=== PATIENT | female | born 1935 | race Caucasian/White ===

== ENCOUNTER 2019-01-17 21:14 | Inpatient (IN) ==
[2019-01-17] MEDS ORDERED: SODIUM CHLORIDE 0.9% 500 ML IV SCH (21:45)
[2019-01-17] MEDS ORDERED: OPTIRAY 320 125ml IV PRN (22:11)
[2019-01-17 22:13] LABS: Alanine Aminotransferase 23 U/L (12-78); Albumin Level 4.2 gm/dl (3.4-5.0); Aspartate Aminotransferase 27 U/L (15-37); BUN Creatinine Ratio 17.9 (10-20); Blood Urea Nitrogen 26 mg/dl (7-18); Calcium 9.5 mg/dl (8.5-10.1); Carbon Dioxide 23 mmol/L (21-32); Chloride 105 mmol/L (98-107); Creatinine Clr Calc Pharmacy 27.6 ml/min; Est GFR (African American) 38.5; Est GFR (Non-African American) 33.2; Glucose 147 mg/dl (70-99); INR 1.1 (0.9-1.1); Magnesium 1.8 mg/dl (1.8-2.4); Partial Thromboplastin Time 25.8 Seconds (21.0-31.0); Potassium 3.9 mmol/L (3.5-5.1); Prothrombin Time 11.3 Seconds (9.0-12.0); Sodium 138 mmol/L (136-145)
[2019-01-17 22:18] LABS: Alkaline Phosphatase 103 U/L (45-117); Bilirubin,Total 0.5 mg/dl (0.2-1); Globulin 4.4 gm/dl (2.5-4.0); Total Protein 8.6 gm/dl (6.4-8.2); Troponin I < 0.015 ng/ml (0-0.045)
--- NOTE | 2019-01-17 22:26 | CT Scan Report ---
CT ANGIOGRAM OF THE CHEST CLINICAL HISTORY: Cough and dyspnea. COMPARISON STUDY: Chest x-ray dated 07/29/2016. TECHNIQUE: Following the IV administration of 120 cc of Optiray 320, CT angiogram of the chest was pe rformed from the upper abdomen to the thoracic inlet utilizing the pulmonary embolus protocol. Images are reviewed in the axial, sagittal, and coronal planes. 3-D MIPS images are created and assessed. I V contrast was administered without complication. A dose lowering technique was utilized adhering to the principles of ALARA. CT DOSE: 285.54 mGy.cm FINDINGS: Thyroid: Imaged portions of the thyroid gland are normal in size and attenuation. Thoracic aorta: There is mild atherosclerotic calcification of the thoracic aorta, which is normal in caliber and demonstrates standard 3-vessel arch anatomy. No dissection is seen. Pulmonary vasculature: The pulmonary trunk is normal in caliber. There are no filling defects identif ied in main, lobar, or segmental pulmonary branches to suggest pulmonary embolus. Heart: The heart is mildly enlarged and without pericardial effusion. There are coronary artery calci fications. Lungs and pleural spaces: There is biapical scarring. The trachea and central airways are clear. Ther e is bibasilar scarring/atelectasis. Minimal patchy airspace consolidation with tree-in-bud opacities is seen at the right lung base. No pleural effusion is identified. Mediastinum: There are scattered subcentimeter mediastinal lymph nodes. Liz: Clear. Axillae: There is no axillary lymphadenopathy. Upper abdomen: There is a small to moderate hiatal hernia. The partially imaged kidneys demonstrate c ortical atrophy. Skeletal structures: The skeletal structures are osteopenic. Mild degenerative change and hyperkyphos is are noted in the thoracic spine. A hemangioma is noted in the body of T5. No lytic or blastic bony lesions are seen. IMPRESSION: 1. There is no evidence of pulmonary embolus in the main, lobar, or segmental pulmonary arteries. 2. There is minimal patchy airspace consolidation with tree-in-bud opacities seen at the right lung b ase. This likely represents a mild infectious/inflammatory pneumonitis. Clinical correlation will be required. 3. Mild cardiac enlargement. 4. Hiatal hernia. Electronically signed by: Kong Proctor M.D. 01/17/2019 10:25 PM
[2019-01-17 22:27] LABS: Hematocrit (blood only) 25.9 % (37-47); Hemoglobin 8.7 g/dL (12.0-16.0); Mean Corpuscular Hgb Conc 33.6 g/dL (32-36); Mean Corpuscular Volume 106.1 fL (80-100); Mean Platelet Volume 9.7 fL (7.4-10.4); Nucleated RBC # (auto) 0.06 K/uL (0-0); Nucleated RBC % (auto) 0.1 %; Platelet Count 122 K/uL (130-400); RDW Coefficient of Variation 18.7 % (11.5-14.5); RDW Standard Deviation 71.1 fL (36.4-46.3); Red Blood Count 2.44 M/uL (4.2-5.4)
[2019-01-17] MEDS ORDERED: AZITHROMYCIN 250 MG TAB PO ONE (22:33)
[2019-01-17] MEDS ORDERED: cefTRIAXone SODIUM 1,000 MG/50 ML BAG IV STA (22:33)
[2019-01-17 22:59] LABS: ALC (manual) 3.53 K/uL (1.2-3.4); Anisocytosis Present; Lymphocytes # (manual) 3.53 K/uL (1.2-3.4); Lymphocytes % (manual) 4.2 %; Metamyelocytes # (manual) 8.83 K/uL (0-0); Metamyelocytes % (manual) 10.5 %; Monocytes # (manual) 6.64 K/uL (0.11-0.59); Monocytes % (manual) 7.9 %; Myelocytes # (manual) 4.96 K/uL (0-0); Myelocytes % (manual) 5.9 %; Neutrophils % (manual) 71.5 %
[2019-01-17] MEDS ORDERED: ALBUT/IPRATROP 3MG/0.5MG NEB 3 ML VIAL NEB STA (23:10)
--- NOTE | 2019-01-17 23:10 | Emergency Department Note ---
History of Present Illness General Chief complaint: Referred by Doctor Stated complaint: NEEDS BLOOD TRANSFUSION History of Present Illness Maximum Pain Intensity: 0 This 83-year-old presents to the ER complaining of cough, congestion and dyspnea Location: Chest Quality: congested Severity: Moderate Duration: Past several days Timing: Started several days ago Context: Patient was at [facility] and was sent here for further evaluation and treatment Modifying factors: better with nothing; worse with activity Patient has a history of leukemia and is on Hydrea and denies any active cancer. Patient states [facility] and did give her blood transfusion and patient refused. She then came here. Patient states long time she gets transfused when she is below 7. Blood counts at the other facility are 8.3 and 27 per patient. Patient states she feels sick like she is getting pneumonia. No fever. Patient denies chest pain, abdominal pain, leg pain or swelling, fever. Home Medications Home Medications Medication Instructions Recorded Confirmed Type allopurinol 300 mg PO QAM #0 tab 07/29/16 01/18/19 History acetaminophen 1,000 mg PO Q8H PRN 06/29/18 01/17/19 History hydroxyurea [Hydrea] 500 mg PO QAM 11/27/18 01/18/19 History Robitussin Cough-Chest Ivan DM 20 ml PO UD PRN 01/17/19 01/17/19 History amlodipine 10 mg PO QAM 01/17/19 01/17/19 History Lactobacillus acidoph-L.bulgar 1 tab PO BID #20 tab 01/18/19 Rx [Lactinex] PreserVision AREDS 1 cap PO BID 01/18/19 01/18/19 History cephalexin [Keflex] 500 mg PO BID 7 Days #14 cap 01/18/19 Rx doxycycline hyclate 100 mg PO BID 7 Days #14 cap 01/18/19 Rx Allergies Allergy/AdvReac Type Severity Reaction Status Date / Time morphine AdvReac Unknown NAUSEA AND Verified 01/17/19 21:40 VOMITING Past Med/Surg History Medical History Gout (Acute) H/O: hysterectomy (Acute) Urinary incontinence (Acute) MDS (myelodysplastic syndrome) Surgical History H/O bladder repair surgery (Acute) H/O carpal tunnel repair (Acute) right hand H/O total knee replacement (Acute) bilateral Social History Communication Ability: Effective Beliefs That Will Affect Care: None Current Living Situation: Spouse Other Information That Helps Us Care for You: No Feels Safe at Home: Yes Safety Concerns: Feels Safe At This Time Smoking Status: Never smoker Hx Alcohol Use: No Hx Substance Use: No Review of Systems All systems reviewed & are unremarkable except as noted in HPI & below Physical Exam Vital Signs Vital Signs - 24 hr 01/17/19 21:18 01/17/19 22:34 01/17/19 23:05 Temperature 36.6 C 36.7 C Temperature Source Oral Oral Sepsis Recent Fever Within 48 Hours No Sepsis Action Taken by Nursing No Action Required Pulse Rate 123 H Pulse Rate [Apical] 100 H 104 H Pulse Rhythm [Apical] Regular Pulse Strength [Apical] Normal Respiratory Rate 18 18 20 Respiratory Effort / Characteristics Non-Labored Non-Labored Spontaneous Respiratory Depth Normal Normal Blood Pressure 188/89 H Blood Pressure [Right Arm] 132/76 168/78 H Blood Pressure Mean 122 Blood Pressure Mean [Right Arm] 94 108 Pulse Oximetry 96 94 95 Oxygen Delivery Method Room Air Room Air Room Air 01/17/19 23:22 Temperature Temperature Source Sepsis Recent Fever Within 48 Hours Sepsis Action Taken by Nursing Pulse Rate Pulse Rate [Apical] 102 H Pulse Rhythm [Apical] Pulse Strength [Apical] Respiratory Rate 18 Respiratory Effort / Characteristics Non-Labored Respiratory Depth Blood Pressure Blood Pressure [Right Arm] Blood Pressure Mean Blood Pressure Mean [Right Arm] Pulse Oximetry 95 Oxygen Delivery Method Room Air VITALS: Vitals are noted on the nurse's note and reviewed by myself. Vital signs mildly tachycardic. GENERAL: Pleasant female anxious appearing, in no acute distress, nondiaphoretic, well-developed well-nourished. SKIN: The skin was without rashes, erythema, edema, or bruising. There is no tenting of the skin. Capillary reflex less than 2 seconds. HEAD: Normocephalic atraumatic. EARS: External auditory canals clear, tympanic membranes pearly sapp without erythema or effusion bilaterally. EYES: Pupils equal round and reactive to light and accommodation. Conjunctivae without injection, sclerae without icterus. Extraocular movements intact. NOSE: Patent, turbinates without inflammation or discharge. No sinus tenderness. MOUTH: Mucous membranes moist. Pharynx without erythema or exudate. Uvula midline. Airway patent. Tongue does not deviate. NECK: Supple without nuchal rigidity. No lymphadenopathy. No thyromegaly. Cervical spine is nontender. No JVD. HEART: Regular rate and rhythm LUNGS: Mild diffuse and expiratory wheezes, without rales or rhonchi. No retractions or accessory muscle use. ABDOMEN: Positive bowel sounds x 4. Normal tympanic percussion. Soft, nontender, without masses or organomegaly. Regalado sign negative. No guarding or rebound tenderness. No CVA tenderness MUSCULOSKELETAL: No muscle atrophy, erythema, or edema noted. NEURO: Patient was alert and oriented to person place and time. Normal sensation to light and sharp touch. No focal neurological deficits. Course Administered Medications Discontinued Medications Albuterol (Duoneb) 3 ml NEB NOW STA Stop: 01/17/19 23:11 Last Admin: 01/17/19 23:21 Dose: 3 ml Documented by: [id number] Allopurinol (Zyloprim) 300 mg PO QAM [facility] Stop: 02/17/19 08:59 Last Admin: 01/18/19 08:33 Dose: 300 mg Documented by: [id number] Amlodipine Bes[facility] ([facility]asc) [facility] Stop: 02/17/19 08:59 Last Admin: 01/18/19 08:33 Dose: 10 mg Documented by: [id number] Azithromycin (Zithromax) 500 mg PO NOW ONE Stop: 01/17/19 22:34 Last Admin: 01/17/19 23:05 Dose: 500 mg Documented by: [id number] Guaifenesin (Mucinex) 600 mg PO NOW STA Stop: 01/18/19 10:54 Last Admin: 01/18/19 11:14 Dose: 600 mg Documented by: [id number] Hydroxyurea (Hydrea) 1,000 mg PO [id number] NANCY Stop: 02/17/19 08:59 Last Admin: 01/18/19 08:33 Dose: 1,000 mg Documented by: [id number] Cosigned by: [id number] Sodium Chloride (Nss) 500 mls @ 999 mls/hr IV .Q31M [facility] Stop: 01/17/19 22:15 Last Infusion: 01/17/19 22:24 Dose: 0 mls/hr Documented by: [id number] Admin: 01/17/19 21:52 Dose: 999 mls/hr Documented by: [id number] Ceftriaxone Sodium (Rocephin) 1,000 mg in 50 mls @ 100 mls/hr IV NOW STA Stop: 01/17/19 23:02 Last Infusion: 01/17/19 23:36 Dose: 0 mls/hr Documented by: [id number] Admin: 01/17/19 23:05 Dose: 100 mls/hr Documented by: [id number] Sodium Chloride (Nss 1000ml) 500 mls @ 999 mls/hr IV .Q31M ONE Stop: 01/17/19 23:59 Last Infusion: 01/18/19 00:06 Dose: 0 mls/hr Documented by: [id number] Admin: 01/17/19 23:34 Dose: 999 mls/hr Documented by: [id number] Doxycycline Hyclate 100 mg/ (Dextrose) 110 mls @ 50 mls/hr IV BID NANCY Stop: 01/25/19 08:59 Last Infusion: 01/18/19 11:21 Dose: 0 mls/hr Documented by: [id number] Admin: 01/18/19 09:07 Dose: 50 mls/hr Documented by: [id number] Sodium Chloride (Nss 1000ml) 1,000 mls @ 80 mls/hr IV .[id number] [facility] Stop: 02/17/19 02:19 Last Admin: 01/18/19 03:44 Dose: 80 mls/hr Documented by: [id number] Ioversol (Optiray 320 125ml) 120 ml IV ONCE PRN PRN Reason: Interaction Checking Stop: 01/21/19 22:10 Last Admin: 01/17/19 22:12 Dose: 120 ml Documented by: [id number] Multivitamins/Minerals (Multivitamin W/ Minerals Tab) 1 tab PO BID [facility] Stop: 02/17/19 08:59 Last Admin: 01/18/19 08:33 Dose: 1 tab Documented by: [id number] Polyethylene Glycol (Miralax Powder Packet) Confirm Administered Dose 17 gm .ROUTE .STK-MED ONE Stop: 01/18/19 08:29 Last Admin: 01/18/19 08:33 Dose: 17 gm Documented by: [id number] Medical Decision Making Medical Records Attestation: I reviewed the patient's medical records. Home Medications Current Medication List: was personally reviewed by me Laboratory Data Attestation: I reviewed the patient's lab results. Result diagrams: 01/18/19 05:29 01/18/19 05:29 Lab Results 01/17/19 01/17/19 01/17/19 Range/Units 21:44 21:44 21:44 WBC 84.10 H* (4.8-10.8) K/uL RBC 2.44 L (4.2-5.4) M/uL Hgb 8.7 L (12.0-16.0) g/dL Hct 25.9 L (37-47) % MCV 106.1 H (80-100) fL MCH 35.7 H (25-34) pg MCHC 33.6 (32-36) g/dL RDW Std Deviation 71.1 H (36.4-46.3) fL RDW Coeff of Landen 18.7 H (11.5-14.5) % Plt Count 122 L (130-400) K/uL MPV 9.7 (7.4-10.4) fL Absolute Nucleated RBC 0.06 H (0-0) K/uL Nucleated RBC % (auto) 0.1 % Neutrophils % (Manual) 71.5 % Lymphocytes % (Manual) 4.2 % Monocytes % (Manual) 7.9 % Metamyelocytes % (Man) 10.5 % Myelocytes % (Man) 5.9 % Neutrophils # (Manual) 60.13 H (1.4-6.5) K/uL Total Absolute Neuts 60.13 H (1.4-6.5) K/uL Lymphocytes # (Manual) 3.53 H (1.2-3.4) K/uL Total Abs Lymphocytes 3.53 H (1.2-3.4) K/uL Monocytes # (Manual) 6.64 H (0.11-0.59) K/uL Metamyelocytes # (Man) 8.83 H (0-0) K/uL Myelocytes # (Manual) 4.96 H (0-0) K/uL Anisocytosis Present PT 11.3 (9.0-12.0) Seconds INR 1.1 (0.9-1.1) APTT 25.8 (21.0-31.0) Seconds PTT Ratio 1.0 Sodium 138 (136-145) mmol/L Potassium 3.9 (3.5-5.1) mmol/L Chloride 105 (98-107) mmol/L Carbon Dioxide 23 (21-32) mmol/L Anion Gap 10.0 (3-11) BUN 26 H (7-18) mg/dl Creatinine 1.45 H (0.6-1.2) mg/dl Est Cr Clr Drug Dosing 27.6 ml/min Est GFR ( Amer) 38.5 Est GFR (Non-Af Amer) 33.2 BUN/Creatinine Ratio 17.9 (10-20) Glucose 147 H (70-99) mg/dl POC Lactic Acid Jeff (0.90-1.70) mmol/L Calcium 9.5 (8.5-10.1) mg/dl Magnesium 1.8 (1.8-2.4) mg/dl Total Bilirubin 0.5 (0.2-1) mg/dl AST 27 (15-37) U/L ALT 23 (12-78) U/L Alkaline Phosphatase 103 (45-117) U/L Troponin I < 0.015 (0-0.045) ng/ml Total Protein 8.6 H (6.4-8.2) gm/dl Albumin 4.2 (3.4-5.0) gm/dl Globulin 4.4 H (2.5-4.0) gm/dl Albumin/Globulin Ratio 1.0 (0.9-2) Urine Color Urine Appearance (Clear) Urine pH (4.5-7.5) Ur Specific [place] (1.000-1.030) Urine Protein (Negative) Urine Glucose (UA) (Negative) Urine Ketones (Negative) Urine Blood (Negative) Urine Nitrite (Negative) Urine Bilirubin (Negative) Urine Urobilinogen (Negative) Ur Leukocyte Esterase (Negative) 01/17/19 01/17/19 Range/Units 22:58 23:29 WBC (4.8-10.8) K/uL RBC (4.2-5.4) M/uL Hgb (12.0-16.0) g/dL Hct (37-47) % MCV (80-100) fL MCH (25-34) pg MCHC (32-36) g/dL RDW Std Deviation (36.4-46.3) fL RDW Coeff of Landen (11.5-14.5) % Plt Count (130-400) K/uL MPV (7.4-10.4) fL Absolute Nucleated RBC (0-0) K/uL Nucleated RBC % (auto) % Neutrophils % (Manual) % Lymphocytes % (Manual) % Monocytes % (Manual) % Metamyelocytes % (Man) % Myelocytes % (Man) % Neutrophils # (Manual) (1.4-6.5) K/uL Total Absolute Neuts (1.4-6.5) K/uL Lymphocytes # (Manual) (1.2-3.4) K/uL Total Abs Lymphocytes (1.2-3.4) K/uL Monocytes # (Manual) (0.11-0.59) K/uL Metamyelocytes # (Man) (0-0) K/uL Myelocytes # (Manual) (0-0) K/uL Anisocytosis PT (9.0-12.0) Seconds INR (0.9-1.1) APTT (21.0-31.0) Seconds PTT Ratio Sodium (136-145) mmol/L Potassium (3.5-5.1) mmol/L Chloride (98-107) mmol/L Carbon Dioxide (21-32) mmol/L Anion Gap (3-11) BUN (7-18) mg/dl Creatinine (0.6-1.2) mg/dl Est Cr Clr Drug Dosing ml/min Est GFR ( Amer) Est GFR (Non-Af Amer) BUN/Creatinine Ratio (10-20) Glucose (70-99) mg/dl POC Lactic Acid Jeff 2.10 H (0.90-1.70) mmol/L Calcium (8.5-10.1) mg/dl Magnesium (1.8-2.4) mg/dl Total Bilirubin (0.2-1) mg/dl AST (15-37) U/L ALT (12-78) U/L Alkaline Phosphatase (45-117) U/L Troponin I (0-0.045) ng/ml Total Protein (6.4-8.2) gm/dl Albumin (3.4-5.0) gm/dl Globulin (2.5-4.0) gm/dl Albumin/Globulin Ratio (0.9-2) Urine Color Yellow Urine Appearance Clear (Clear) Urine pH 7.0 (4.5-7.5) Ur Specific [place] 1.015 (1.000-1.030) Urine Protein Negative (Negative) Urine Glucose (UA) Negative (Negative) Urine Ketones Negative (Negative) Urine Blood Negative (Negative) Urine Nitrite Negative (Negative) Urine Bilirubin Negative (Negative) Urine Urobilinogen Negative (Negative) Ur Leukocyte Esterase Negative (Negative) Imaging Data Attestation: I personally reviewed and interpreted this imaging study as follows: Blood Pressure Blood Pressure Findings: Normal blood pressure MDM Narrative I obtained the records from [facility] and did review them. Prior records/ancillary studies reviewed. Triage Nursing notes reviewed. Additional history obtained from the family. The patient's history was concerning for respiratory difficulties. Differential diagnosis: Etiologies such as infections, reactive airway disease, pneumonia, pneumothorax, COPD, CHF, cardiac ischemia, pulmonary embolism, musculoskeletal, gastrointestinal, as well as others were entertained. Physical examination: As above. ER treatment provided: Nebulizer, Rocephin, Zithromax, IV fluids On reassessment the patient felt better. Diagnostic interpretation by me: The electrocardiogram was negative for acute ischemic or pathologic change. Normal sinus, normal intervals, no acute ST-T wave changes. Impression sinus tachycardia interpreted by myself I think arrhythmia is unlikely. EKG shows normal sinus rhythm with no interval abnormalities such as QT prolongation or WPW. There are no findings to suggest Brugada syndrome. Cardiac monitoring in the emergency department reveals no t achycardic or bradycardic dysrhythmia. Hypertrophic cardiomyopathy was considered but there are no clear historical elements pointing toward this. EKG is not suggestive. The QRS voltage is not extremely large and there are no suggestive Q waves. The labs revealed leukocytosis higher than baseline. Anemia slightly higher than baseline. Negative troponin. Elevated lactic acid, blood cultures pending Imaging studies: CT ANGIOGRAM OF THE CHEST CLINICAL HISTORY: Cough and dyspnea. COMPARISON STUDY: Chest x-ray dated 07/29/2016. TECHNIQUE: Following the IV administration of 120 cc of Optiray 320, CT angiogram of the chest was performed from the upper abdomen to the thoracic inlet utilizing the pulmonary embolus protocol. Images are reviewed in the axial, sagittal, and coronal planes. 3-D MIPS images are created and assessed. IV contrast was administered without complication. A dose lowering technique was utilized adhering to the principles of ALARA. CT DOSE: 285.54 mGy.cm FINDINGS: Thyroid: Imaged portions of the thyroid gland are normal in size and attenuation. Thoracic aorta: There is mild atherosclerotic calcification of the thoracic aorta, which is normal in caliber and demonstrates standard 3-vessel arch anatomy. No dissection is seen. Pulmonary vasculature: The pulmonary trunk is normal in caliber. There are no filling defects identified in main, lobar, or segmental pulmonary branches to suggest pulmonary embolus. Heart: The heart is mildly enlarged and without pericardial effusion. There are coronary artery calcifications. Lungs and pleural spaces: There is biapical scarring. The trachea and central airways are clear. There is bibasilar scarring/atelectasis. Minimal patchy airspace consolidation with tree-in-bud opacities is seen at the right lung base. No pleural effusion is identified. Mediastinum: There are scattered subcentimeter mediastinal lymph nodes. Liz: Clear. Axillae: There is no axillary lymphadenopathy. Upper abdomen: There is a small to moderate hiatal hernia. The partially imaged kidneys demonstrate cortical atrophy. Skeletal structures: The skeletal structures are osteopenic. Mild degenerative change and hyperkyphosis are noted in the thoracic spine. A hemangioma is noted in the body of T5. No lytic or blastic bony lesions are seen. IMPRESSION: 1. There is no evidence of pulmonary embolus in the main, lobar, or segmental pulmonary arteries. 2. There is minimal patchy airspace consolidation with tree-in-bud opacities seen at the right lung base. This likely represents a mild infectious/inflammatory pneumonitis. Clinical correlation will be required. 3. Mild cardiac enlargement. 4. Hiatal hernia. Electronically signed by: Kong Proctor M.D. CURB Score: Confusion: 0 Urea (BUN > 19): 1 Respiratory Rate (>30/min): 0 Blood Pressure: Diastolic <60 or Systolic <90 0 Age (>= 65) 1 Total (0-1 low risk, 2-5 high risk): 2 Consultation: A consultation was placed with the hospitalist. The case was discussed and diagnostics were reviewed. The patient was evaluated in the ER for further treatment. This appears to be consistent with pneumonia. Patient started antibiotics. Lactic acid is elevated. Blood cultures are pending. Medicine was consulted. Patient is agreeable treatment plan of admission. By the evaluation outlined above emergent etiologies such as CHF, cardiac ischemia, pulmonary embolism, reactive airway disease, pn pneumothorax, musculoskeletal, serious bacterial infections, as well as others were deemed relatively unlikely. The pt informed about the findings as listed above. All questions were answered and pleased with the treatment. Case reviewed with my attending The chart was completed utilizing [employer] Speech voice recognition software. Grammatical errors, random word insertions, pronoun errors, and incomplete sentences are an occassional consequence of this system due to software limitations, ambient noise, and hardware issues. Any formal questions or concerns about the content, text, or information contained within the body of this dictation should be directly addressed to the physician technician assistant for clarification. Impression & Plan Pneumonia, SIRS (systemic inflammatory response syndrome) Discharge Plan Visit Data *Final* Discharge Date/Time: 01/18/19 02:00 Chief Complaint: Referred by Doctor Stated Complaint: NEEDS BLOOD TRANSFUSION ED Provider: Rico Duenas ED Midlevel Provider: Gricelda Ferrer Discharge Problem: Pneumonia, SIRS (systemic inflammatory response syndrome) Patient Disposition: Admitted As Inpatient Condition: Fair Discharge Instructions Interventions: ED Discharge Assessment Last Done: 01/18/19 02:00
[2019-01-17] MEDS ORDERED: SODIUM CHLORIDE 0.9% 1000ML 500 ML IV ONE (23:29)
[2019-01-17 23:35] LABS: Appearance Urine Clear (Clear); Bilirubin Urine Negative (Negative); Blood Urine Negative (Negative); Color Urine Yellow; Glucose Urine UA Negative (Negative); Ketones Urine Negative (Negative); Leukocyte Esterase Urine Negative (Negative); Nitrite Urine Negative (Negative); Protein Urine Negative (Negative); Specific Gravity Urine 1.015 (1.000-1.030); Urobilinogen Urine Negative (Negative)
[2019-01-18] MEDS ORDERED: ALBUT/IPRATROP 3MG/0.5MG NEB 3 ML VIAL NEB PRN (02:20)
[2019-01-18] MEDS ORDERED: ACETAMINOPHEN 325 MG TAB PO PRN (02:20)
[2019-01-18] MEDS ORDERED: GUAIFENESIN/DEXTROM SYRUP 200MG/20MG 10ML UDC PO PRN (02:20)
[2019-01-18] MEDS ORDERED: ONDANSETRON INJ 2 MG/ML 2 ML VIAL IV PRN (02:20)
[2019-01-18] MEDS ORDERED: SODIUM CHLORIDE 0.9% 1000ML 1,000 ML IV SCH (02:20)
[2019-01-18 06:37] LABS: Estimated Average Glucose 128 mg/dl; Hemoglobin A1C 6.1 % (4.5-5.6)
[2019-01-18 06:40] LABS: Calcium 8.6 mg/dl (8.5-10.1); Creatinine Clr Calc Pharmacy 33.5 ml/min; Est GFR (African American) 48.9; Est GFR (Non-African American) 42.2; Magnesium 1.7 mg/dl (1.8-2.4); Potassium 3.6 mmol/L (3.5-5.1)
[2019-01-18 06:43] LABS: Hematocrit (blood only) 22.1 % (37-47); Hemoglobin 7.5 g/dL (12.0-16.0); Mean Corpuscular Hgb Conc 33.9 g/dL (32-36); Mean Corpuscular Volume 105.7 fL (80-100); Mean Platelet Volume 9.7 fL (7.4-10.4); Nucleated RBC # (auto) 0.06 K/uL (0-0); Nucleated RBC % (auto) 0.1 %; Platelet Count 94 K/uL (130-400); Red Blood Count 2.09 M/uL (4.2-5.4); White Blood Count 79.21 K/uL (4.8-10.8)
[2019-01-18 06:49] LABS: ALC (manual) 3.96 K/uL (1.2-3.4); Lymphocytes # (manual) 3.96 K/uL (1.2-3.4); Metamyelocytes # (manual) 6.02 K/uL (0-0); Metamyelocytes % (manual) 7.6 %; Monocytes # (manual) 3.01 K/uL (0.11-0.59); Monocytes % (manual) 3.8 %; Myelocytes # (manual) 8.63 K/uL (0-0); Myelocytes % (manual) 10.9 %; Neutrophils % (manual) 72.3 %; Platelet Estimate Decreased (Normal); Promyelocytes # (manual) 0.32 K/uL (0-0); Promyelocytes % (manual) 0.4 %; RBC Morphology Unremarkable
--- NOTE | 2019-01-18 07:42 | History and Physical Report ---
DATE OF ADMISSION: 01/17/2019 CHIEF COMPLAINT: Shortness of breath and cough. HISTORY OF PRESENT ILLNESS: This is an 83-year-old female with past medical history significant for myelodysplastic syndrome, myeloproliferative neoplasm, thrombocytopenia, impaired fasting glucose, hypertension, chronic kidney disease stage III, proteinuria, generalized osteoarthritis, presents with shortness of breath and cough. The patient went to [facility] as she was dry cough for one week and today developed sob.Labs at [facility] showed her hemoglobin was 8.7 and was thought he SOB from anemia and was transferred here for prbc transfusion.. Generally, she gets blood transfusion when hemoglobin less than 7, on average she gets transfused every 2-3 months. She checks her labs every weekly with hematology/oncology.But here CAT scan done in the ER showing right lung base, possible pneumonia. The patient is hemodynamically stable, currently feeling better. Received Rocephin and azithromycin in the ER and also nebs. Denies any headache, no dizziness, no blurred vision, no earache, no runny nose, no sore throat, no difficulty swallowing. Appetite is okay. No chest pain. Currently, shortness of breath improved. Has dry cough. No nausea, no vomiting, no abdominal pain. Normal bowel and bladder movements. She is somewhat constipated. No black stools or blood in the stools, no burning micturition, no hematuria. No rash. She lives with her . Ambulates okay. ALLERGIES: MORPHINE SULFATE. PAST MEDICAL HISTORY: As mentioned above. PAST SURGICAL HISTORY: Bilateral knee arthroplasty, rectal repair, infection of the eye, removal of the bilateral ovary, bilateral cataract surgeries, repair of bladder and vagina, total abdominal hysterectomy with removal of tubes. MEDICATIONS: Avapro 300 mg p.o. daily, hydroxyurea 1000 mg on Mondays, Wednesdays and Fridays and 500 mg other days, amlodipine 10 mg p.o. daily, PreserVision 1 capsule p.o. b.i.d. FAMILY HISTORY: Significant for sister with rheumatoid arthritis and breast cancer. Mother has diabetes, heart disorder, and macular degeneration. Brother has macular degeneration. SOCIAL HISTORY: . No smoking, no alcohol, no drug use. REVIEW OF SYMPTOMS: As per HPI. Rest of review of systems negative. PHYSICAL EXAMINATION: GENERAL: The patient is of moderate build, not in acute distress. VITAL SIGNS: Temperature 36.7, pulse 102, respiratory rate 18, blood pressure 160/78, oxygen 95% room air. HEENT: No pallor, no icterus. Pupils equal, round, reactive to light. NECK: No JVD, no neck masses, no carotid bruits. CARDIOVASCULAR: S1, S2 heard, regular rate and rhythm, no murmur, no gallop. RESPIRATORY SYSTEM: Normal AP diameter. No accessory muscle use. No wheezing, no crackles. ABDOMEN: Soft, bowel sounds present. Nontender. No distention. CENTRAL NERVOUS SYSTEM: Cranial nerves II-XII grossly intact. Nonfocal. EXTREMITIES: Chronic lower extremity edema present. No erythema seen. LABORATORIES: WBC 84, hemoglobin 8.7, hematocrit 25.9, platelets 122. PT 11.3, INR 1.1, APTT 25.8. Sodium 138, potassium 3.9, chloride 105, bicarbonate 23, BUN 26, creatinine 1.45. Point of care lactic acid 2.1, calcium 9.5, magnesium 1.8, total bilirubin 0.5, AST 27, ALT 20, alkaline phosphatase is 103. Troponin I less than 0.015. Urinalysis negative. CT of the chest, no PE. There is minimal patchy airspace consolidation in Right lower lobe infectious or inflammatory pneumonitis. EKG: Sinus tachycardia with occasional PVCs with a rate of 105. ASSESSMENT AND PLAN: This 83-year-old female presents with cough going on for 1 week and shortness of breath starting today and found to have right lower lobe with possible pneumonia. 1. Pneumonia, right lower lobe Received Rocephin and azithromycin ER. We will continue Rocephin and start on IV doxycycline. and nebs p.r.n. IV fluids and repeat lactic acid.Follow cultures. 2. History of myelodysplastic syndrome and myeloproliferative neoplasm, recent white counts were in the 40,000 to 60,000 range, current white count is 80,000 We will follow repeat labs, 3. thrombocytopenia secondary to above We will follow the repeat labs. 3. Hypertension. On amlodipine. There is a plan to start lisinopril per nephrology notes.Will Monitor BP.follow the patient with PCP and nephrology. 4. Chronic kidney disease stage III, baseline creatinine 1.4 We will follow repeat labs. 5. Impaired fasting glucose. We will follow HbA1c levels. 6. History of gout. Continue allopurinol. 7. Deep venous thrombosis prophylaxis, sequential compression devices for now. 8. Disposition: Admit to medical floor. Expect to discharge home and follow with family doctor. Level 1 full code as per my discussion with the patient. EUNICE
[2019-01-18] MEDS ORDERED: POLYETHYLENE (MIRALAX) 17 GM PACK PO PRN (08:26)
[2019-01-18] MEDS ORDERED: POLYETHYLENE (MIRALAX) 17 GM PACK ONE (08:28)
[2019-01-18] MEDS ORDERED: AMLODIPINE BESYLATE 5 MG TAB PO SCH (09:00)
[2019-01-18] MEDS ORDERED: CEROVITE ADV FORMULA TAB PO SCH (09:00)
[2019-01-18] MEDS ORDERED: ALLOPURINOL 100 MG TAB PO SCH (09:00)
[2019-01-18] MEDS ORDERED: DOXYCYCLINE HYCLATE 100 MG in DEXTROSE 5% 100 ML IV SCH (09:00)
[2019-01-18] MEDS ORDERED: HYDROXYUREA 500 MG CAP PO SCH (09:00)
[2019-01-18] MEDS ORDERED: guaiFENesin 600 MG TABCR PO STA (10:53)
--- NOTE | 2019-01-18 12:22 | Hospitalist Progress Note ---
Date of Service January 18, 2019 Assessment & Plan (1) Pneumonia: Affecting right lung base Has cough without any phlegm Denies any shortness of breath, fever and/or chills Clinically a lot better Likely to be discharged this afternoon on oral doxycycline Present on Admission?: Yes (2) MDS (myelodysplastic syndrome): White count noted to be high Hemoglobin more than 8 Noted to have blood transfusion now (3) Hypertension: Blood pressure remains stable (4) Thrombocytopenia: Platelet count is slightly down at 94 today Discussed with the patient and her She wants to go home She was to have some cough medicine and was advised to take Mucinex as an outpatient She does not like to take Hycodan Discharge home this afternoon Subjective 01/18 The patient was seen and examined in medical floor She is an 83-year-old female with past medical history significant for myelodysplastic syndrome, myeloproliferative neoplasm, thrombocytopenia, impaired fasting glucose, hypertension, chronic kidney disease stage III, proteinuria, generalized osteoarthritis, presented with shortness of breath and cough. Noted to have right lower lobe infiltration on CAT scan. Complains to have dry cough Denies any other symptoms and she has been ambulating well She wants to go home this afternoon Review of Systems Review of Systems: All systems reviewed and are unremarkable except as noted below Respiratory: + cough (Dry) and + dyspnea on exertion (Minimal dyspnea on exertion) Gastrointestinal: no abdominal pain, no bloating, no nausea and no vomiting Physical Exam Physical Exam: Distress from cough Constitutional: well developed and well nourished; no acute distress Eyes: PERRL, conjunctivae normal, anicteric sclerae ENMT: external ear and nose normal, oropharynx normal Neck: trachea midline, no thyromegaly Respiratory: normal respiratory effort Auscultation: + diminished lung sounds (Right base with minimal crackles) Cardiovascular: Rate/Rhythm: regular rate and regular rhythm Heart Sounds: no murmur Gastrointestinal (Abdomen): Inspection/Auscultation: abdomen normal to inspection and normal bowel sounds Percussion/Palpation: abdomen soft; abdomen nontender Musculoskeletal: No acute arthritis involving any joint Neurologic: PERRL, EOMI, accommodation nl, no face palsy, no dysarthria Lymphatic: no cervical or axillary lymphadenopathy Results & Data Vital Signs (Past 12 Hours) Vital Signs Temp Pulse Pulse Resp BP BP Pulse Ox 01/18/19 11:29 36.6 C 87 16 135/69 95 01/18/19 07:42 36.8 C 113 H 16 187/76 H 90 01/18/19 03:49 99 H 153/77 H 01/18/19 02:55 36.4 C L 105 H 18 178/69 H 92 01/18/19 01:35 101 H 20 156/84 H 93 01/18/19 00:22 102 H 18 167/84 H 94 Laboratory Results Short CBC 01/17/19 01/18/19 Range/Units 21:44 05:29 WBC 84.10 H* 79.21 H* (4.8-10.8) K/uL Hgb 8.7 L 7.5 L (12.0-16.0) g/dL Hct 25.9 L 22.1 L (37-47) % Plt Count 122 L 94 L (130-400) K/uL BMP 01/17/19 01/18/19 21:44 05:29 Sodium 138 140 Potassium 3.9 3.6 Chloride 105 108 H Carbon Dioxide 23 24 BUN 26 H 20 H Creatinine 1.45 H 1.19 Glucose 147 H 100 H Calcium 9.5 8.6 Cardiac Enzymes 01/17/19 Range/Units 21:44 Troponin I < 0.015 (0-0.045) ng/ml Liver Function 01/17/19 Range/Units 21:44 Total Bilirubin 0.5 (0.2-1) mg/dl AST 27 (15-37) U/L ALT 23 (12-78) U/L Alkaline Phosphatase 103 (45-117) U/L Albumin 4.2 (3.4-5.0) gm/dl Urine 01/17/19 Range/Units 23:29 Urine Color Yellow Urine Appearance Clear (Clear) Urine pH 7.0 (4.5-7.5) Ur Specific Ulmer 1.015 (1.000-1.030) Urine Protein Negative (Negative) Urine Glucose (UA) Negative (Negative) Medications Administered Current Inpatient Medications Acetaminophen (Tylenol) 650 mg PO Q4H PRN PRN Reason: pain/fever Stop: 02/17/19 02:19 Albuterol (Duoneb) 3 ml NEB Q4R PRN PRN Reason: Shortness Of Breath Or Wheezing Stop: 02/17/19 02:19 Allopurinol (Zyloprim) 300 mg PO QAM [facility] Stop: 02/17/19 08:59 Last Admin: 01/18/19 08:33 Dose: 300 mg Documented by: Amlodipine Besylate (Norvasc) 10 mg PO QAM [facility] Stop: 02/17/19 08:59 Last Admin: 01/18/19 08:33 Dose: 10 mg Documented by: Guaifenesin/Dextromethorphan (Robitussin Cough-Chest Dm) 20 ml PO Q6H PRN PRN Reason: Cough Stop: 02/17/19 02:19 Hydroxyurea (Hydrea) 500 mg PO SuTuThSa@0900 [facility] Stop: 02/18/19 08:59 Hydroxyurea (Hydrea) 1,000 mg PO MoWeFr@0900 [facility] Stop: 02/17/19 08:59 Last Admin: 01/18/19 08:33 Dose: 1,000 mg Documented by: Ceftriaxone Sodium 1,000 mg/ (Dextrose) 50 mls @ 100 mls/hr IV Q24H [facility]; Protocol Stop: 01/23/19 21:29 Doxycycline Hyclate 100 mg/ (Dextrose) 110 mls @ 50 mls/hr IV BID [facility] Stop: 01/25/19 08:59 Last Infusion: 01/18/19 11:21 Dose: Infused Documented by: Sodium Chloride (Nss 1000ml) 1,000 mls @ 80 mls/hr IV .[id number] [facility] Stop: 02/17/19 02:19 Last Admin: 01/18/19 03:44 Dose: 80 mls/hr Documented by: Multivitamins/Minerals (Multivitamin W/ Minerals Tab) 1 tab PO BID [facility] Stop: 02/17/19 08:59 Last Admin: 01/18/19 08:33 Dose: 1 tab Documented by: Ondansetron HCl (Zofran) 4 mg IV Q6H PRN PRN Reason: Nausea Stop: 02/17/19 02:19 Polyethylene Glycol (Miralax Powder Packet) 17 gm PO BID PRN PRN Reason: Constipation Stop: 02/17/19 08:25
[2019-01-18] MEDS ORDERED: cefTRIAXone SODIUM 1,000 MG in DEXTROSE 5% 50 ML IV SCH (21:00)
--- NOTE | 2019-01-19 08:10 | Discharge Summary ---
Date of Service January 19, 2019 Admission HPI Per Admitting Provider DICTATED BY: Brenden Moody MD DATE OF ADMISSION: 01/17/2019 CHIEF COMPLAINT: Shortness of breath and cough. HISTORY OF PRESENT ILLNESS: This is an 83-year-old female with past medical history significant for myelodysplastic syndrome, myeloproliferative neoplasm, thrombocytopenia, impaired fasting glucose, hypertension, chronic kidney disease stage III, proteinuria, generalized osteoarthritis, presents with shortness of breath and cough. The patient went to [facility] as she was dry cough for one week and today developed sob.Labs at [facility] showed her hemoglobin was 8.7 and was thought he SOB from anemia and was transferred here for prbc transfusion.. Generally, she gets blood transfusion when hemoglobin less than 7, on average she gets transfused every 2-3 months. She checks her labs every weekly with hematology/oncology.But here CAT scan done in the ER showing right lung base, possible pneumonia. The patient is hemodynamically stable, currently feeling better. Received Rocephin and azithromycin in the ER and also nebs. Denies any headache, no dizziness, no blurred vision, no earache, no runny nose, no sore throat, no difficulty swallowing. Appetite is okay. No chest pain. Currently, shortness of breath improved. Has dry cough. No nausea, no vomiting, no abdominal pain. Normal bowel and bladder movements. She is somewhat constipated. No black stools or blood in the stools, no burning micturition, no hematuria. No rash. She lives with her . Ambulates okay. Admission Exam Per Admitting Provider GENERAL: The patient is of moderate build, not in acute distress. VITAL SIGNS: Temperature 36.7, pulse 102, respiratory rate 18, blood pressure 160/78, oxygen 95% room air. HEENT: No pallor, no icterus. Pupils equal, round, reactive to light. NECK: No JVD, no neck masses, no carotid bruits. CARDIOVASCULAR: S1, S2 heard, regular rate and rhythm, no murmur, no gallop. RESPIRATORY SYSTEM: Normal AP diameter. No accessory muscle use. No wheezing, no crackles. ABDOMEN: Soft, bowel sounds present. Nontender. No distention. CENTRAL NERVOUS SYSTEM: Cranial nerves II-XII grossly intact. Nonfocal. EXTREMITIES: Chronic lower extremity edema present. No erythema seen. Principal Diagnosis Pneumonia- right lower lobe, myelodysplastic syndrome with hemoglobin 7.5 Discharge Exam Constitutional well developed and well nourished; no acute distress Eyes PERRL, conjunctivae normal, anicteric sclerae ENMT external ear and nose normal, oropharynx normal Neck trachea midline, no thyromegaly Respiratory normal respiratory effort Auscultation: + diminished lung sounds (Right base with minimal crackles) Cardiovascular Rate/Rhythm: regular rate and regular rhythm Heart Sounds: no murmur Gastrointestinal (Abdomen) Inspection/Auscultation: abdomen normal to inspection and normal bowel sounds Percussion/Palpation: abdomen soft; abdomen nontender Neurologic PERRL, EOMI, accommodation nl, no face palsy, no dysarthria Lymphatic no cervical or axillary lymphadenopathy Discharge Data Allergies Allergy/AdvReac Type Severity Reaction Status Date / Time morphine AdvReac Unknown NAUSEA AND Verified 01/17/19 21:40 VOMITING Consultations 01/17/19 23:32 ED Decision to Admit Stat 01/18/19 02:20 Consult Case Management - Discharge Planning Routine Ordered Studies 01/17/19 21:42 CT angio chest PE protocol Stat Hospital Course (1) Pneumonia: Affecting right lung base Has cough without any phlegm Denies any shortness of breath, fever and/or chills Clinically a lot better Likely to be discharged this afternoon on oral doxycycline (2) MDS (myelodysplastic syndrome): White count noted to be high Hemoglobin more than 8 Noted to have blood transfusion now (3) Hypertension: Blood pressure remains stable (4) Thrombocytopenia: Platelet count is slightly down at 94 today Discussed with the patient and her She wants to go home She was to have some cough medicine and was advised to take Mucinex as an outpatient She does not like to take Hycodan Discharge home this afternoon Total Time Total Time Spent Total Time Spent (In Minutes): 35 minutes Total Time Includes: Examination of the Patient, Discharge Planning, Medication Reconciliation and Communication With Other Providers Discharge Plan Discharge Items Patient Disposition: Home - Self-Care Reason For Visit: SOB AND COUGH Discharge Diagnosis: Pneumonia- right lower lobe, myelodysplastic syndrome with hemoglobin 7.5 Condition: Fair Discharge Goals: Decrease discomfort, Improve function and Increase independence Activity: Resume your previous activity Non-emergency contact: Primary Care Provider Call non-emergency contact if: you have any medication questions and your symptoms worsen Follow-up/Referrals: Varun Palomares MD [Primary Care Provider] - 01/26/19 12:45 pm (Please keep appointment with the oncologist) Diet: Heart Healthy Addtl Provider Instructions: Please take precaution to avoid for. Keep regular appointment with oncologist Prescriptions: New doxycycline hyclate 100 mg capsule 100 mg PO BID 7 Days Qty: 14 RF: 0 cephalexin [Keflex] 500 mg capsule 500 mg PO BID 7 Days Qty: 14 RF: 0 Lactinex 1 million cell tablet,chewable 1 tab PO BID Qty: 20 RF: 0 Continued allopurinol 100 mg Tablet 300 mg PO QAM Qty: 0 RF: 0 acetaminophen 500 mg Tablet 1,000 mg PO Q8H PRN (Reason: Pain, Moderate) RF: 0 hydroxyurea [Hydrea] 500 mg Capsule 500 mg PO QAM RF: 0 amlodipine 10 mg tablet 10 mg PO QAM RF: 0 Robitussin Cough-Chest Ivan DM 5-50 mg/5 mL Liquid 20 ml PO UD PRN (Reason: Cough) RF: 0 PreserVision AREDS 1 capsule 1 cap PO BID RF: 0 Stand-Alone Forms: [facility] Discharge Orders: Discharge Order (Routine); Ordered 01/18/19 Ordered By: Lacie Fitzpatrick Admission Data Admit Date/Time: 01/18/19 00:06 Attending Provider: Lacie Fitzpatrick Admit Provider: Brenden Moody Primary Care Provider: Varun Palomares Other Providers: Brenden Moody Service: Medical Other Interventions: Discharge Summary Assessment (RN) Last Done: 01/18/19 13:24 DC Date/Time DO NOT enter until pt leaves facility: 01/18/19 14:00
[2019-01-19] MEDS ORDERED: HYDROXYUREA 500 MG CAP PO SCH (09:00)
--- NOTE | 2019-01-19 23:07 | Emergency Department Note ---
ED Visit Note HPI: 83 y/o woman with pmhx of leukemia on hydroxyurea presents with cough, congestion, sob for several days. A/P: CTA negative for PE. +PNA. ABX and admission. I reviewed the patient's past medical history, medications, and visit nursing notes. I discussed the case with the physician dental assistant, examined the patient, and agree with the findings and plan as documented in MARK Ferrer's note. .
== END 2019-01-18 14:00 | disposition home or self-care (01) | DRG 195 ==
LOC: ED 21:14 → 4E 01-18 00:06

== ENCOUNTER 2023-12-18 11:31 | Inpatient (IN) ==
--- NOTE | 2023-12-18 11:50 | Emergency Department Note ---
Impression & Plan Symptomatic anemia, MDS (myelodysplastic syndrome), SARS-CoV-2 positive, Acute renal failure superimposed on stage 3 chronic kidney disease, Rhabdomyolysis, Lactic acidosis, Elevated troponin, Left femoral shaft fracture, Pneumonia, Fall ED Provider Note CHIEF COMPLAINT: Dizzy, knee pain HISTORY OF PRESENTING ILLNESS: This 88-year-old female patient presents emergency department via EMS with her daughter for evaluation after a fall. The patient got out of bed at 3 am and became dizzy and then fell. She denies losing consciousness at all. She denies hitting her head when she fell. No LOC. She is not on any blood thinners. She hit both of her legs against the wall, but is only having left knee pain and swelling. The patient was placed in a splint by EMS. The patient has a history of bilateral knee replacements. The patient was laying on the ground for 7 hours before being found by the patient's daughter and son-in-law this morning prior to her doctor's appointment. She denies any chest pain or SOB prior to or since the fall. Has been having lower abdominal cramping for a while, but no new abdominal pain. No nausea or vomiting. She has a history of rectal prolapse so has a lot of diarrhea and fecal incontinence, but is at her baseline per patient. She has a history of urinary incontinence as well, but no new urinary symptoms. The patient has a history of myelodysplastic syndrome as well as stage III chronic kidney disease. The patient had a blood transfusion 2 weeks ago and usually has a blood transfusion every 3 weeks because the medication she is on to keep her WBC count under control causes anemia. The patient has also been coughing for the past week. No fevers. Sometimes feels SOB with the coughing fits. Denies hematochezia, melena, hematuria, hemoptysis, or hematemesis. REVIEW OF SYSTEMS: See HPI for pertinent positives and pertinent negatives. ALLERGIES: Morphine MEDICATIONS: See below PAST MEDICAL HISTORY: See below PHYSICAL EXAM: VITALS: Vitals are noted on the nurse's note and reviewed by myself. GENERAL: No acute distress, non-diaphoretic. SKIN: The patient has some dried blood to the cuticle of the right great toe, but no obvious other lacerations or abrasions. Capillary reflex less than 2 seconds. HEAD: Normocephalic. No scalp tenderness or step-offs felt. EARS: Bilateral external auditory canals clear without tragus tenderness. Bilateral tympanic membranes pearly sapp without erythema or effusion. No mastoid tenderness bilaterally. No hemotympanum. No biggs sign. EYES: Pupils equal round and reactive to light and accommodation. Conjunctivae without injection, sclerae without icterus. Extraocular movements intact. NOSE: Patent without discharge. No sinus tenderness. No septal hematoma or bleeding. FACE: No facial bone tenderness. Full range of motion of the jaw without tenderness. MOUTH: Mucous membranes moist. Pharynx without erythema or exudate. Uvula midline. Airway patent. Tongue does not deviate. NECK: Supple without nuchal rigidity. Cervical spine is nontender. Full range of motion of the neck without tenderness. HEART: Regular rate and rhythm without murmurs gallops or rubs. LUNGS: Clear to auscultation bilaterally with a few scattered wheezes without rales or rhonchi. No retractions or accessory muscle use. CHEST: No chest wall tenderness. ABDOMEN: Positive bowel sounds x 4. Normal tympanic percussion. Soft, nontender, without masses or organomegaly. No guarding or rebound tenderness. MUSCULOSKELETAL: No tenderness of the thoracic or lumbar spine. No tenderness with pelvic rocking. The patient has tenderness and edema over the left knee and left distal femur. No tenderness to palpation of the bony aspects of the left hip, tib-fib, ankle, or foot. The patient does have some mild tenderness to palpation over the left calf. The patient has no tenderness to palpation of the bony aspects of the right lower extremity, but does have tenderness to palpation over the right calf. Full range of motion without tenderness to palpation in all remaining extremities. Peripheral pulses 2+ and equal in the bilateral upper and lower extremities. NEURO: Patient was alert and oriented to person place and time. Normal mental status exam. Normal sensation to light and sharp touch. No focal neurological deficits. DIFFERENTIAL DIAGNOSIS: Differential diagnosis includes cardiac arrhythmia, [place], vasovagal syndrome, aortic stenosis, pulmonary stenosis, hypertrophic cardiomyopathy, mitral valve prolapse, prolonged QT syndrome, sick sinus syndrome, drug toxicity, tension pneumothorax, cardiopulmonary syncope, pulmonary vascular disease, basilar artery insufficiency, subclavian steal syndrome, migraine, carotid sinus syndrome, orthostatic hypotension, dehydration, hyperventilation, psychiatric causes, or others. ED COURSE AND MEDICAL DECISION MAKING: HISTORY FROM INDEPENDENT HISTORIAN: Additional history was obtained from the patient's daughter. MONITOR: Continuous color television console monitor: Order was placed for continuous color television console monitor. Patient was placed on the color television console monitor and continuous pulse ox. Patient was noted to be in sinus tachycardia at an initial rate of 110 bpm per my interpretation. EKG: EKG was interpreted by myself as sinus tachycardia with PACs, but no acute ST or T wave changes. MEDICATIONS GIVEN: 1.5 L normal saline solution bolus. Tylenol 1000 mg IV. DuoNeb treatment. Rocephin 2 g IV. Vancomycin loading dose. INTERPRETATION OF LABS: I interpreted the labs with full lab results as below in the lab section of this note. White blood cell count elevated at 90.50. Hemoglobin low at 5.6. Platelet count low at 66. INR elevated 1.4 with PT of 14.6 and a PTT of 33. Sodium low at 133 and potassium elevated at 5.6. Anion gap elevated 18. BUN and creatinine elevated at 61 and 3.74 respectively. Glucose 148. Magnesium low at 1.3. CPK elevated at 1054. High-sensitivity troponin elevated at 56.1. Lipase elevated at 125. Procalcitonin elevated at 6.63. Lactate elevated at 6.6. Repeat troponin improved to 50.0. Repeat lactate improved to 3.5 and 2.1. Urinalysis with 2+ protein, 2+ blood, but no evidence for UTI. Respiratory bio fire was positive for COVID 19. Blood cultures are pending. INTERPRETATION OF IMAGING: Imaging studies were interpreted by myself and read by radiology as per the imaging section of this note. CT scan of the head without contrast was negative for acute intracranial hemorrhage, but did show an opacified left mastoid air cell and middle ear cavity. CT scan of the cervical spine without contrast showed no acute fracture or subluxation, but there is osteopenia and spondylitic changes. There is a large left mastoid effusion with fluid also seen in the left middle ear. Chest x-ray shows cardiomegaly without pulmonary edema. Nonspecific ill-defined reticular interstitial opacities which are most pronounced in the right lung. Findings regular represent scarring versus a nonspecific interstitial pneumonitis. X-rays of the left knee and femur showed a comminuted and displaced fracture within the distal shaft of the left femur. X-rays of the left tib-fib, right femur, right tib-fib, and right foot were negative for acute fractures or dislocations. Venous Doppler of the right lower extremity was negative for DVT. CONSULTATIONS: Dr. Knutson of orthopedics. On-call hospitalist. SPLINTING: The patient was placed in a knee immobilizer under my direction. Neurovascular status was rechecked and intact. CRITICAL CARE: I have personally spent 45 minutes of critical care time in the direct management of this patient. This includes bedside care, interpretation of diagnostic studies, and testing, discussion with consultants, patient, and family members, and other required patient management activities. This 45 minutes is in excess of all separately billable procedures. MDM SUMMARY: I examined the patient. The patient got dizzy and fell at 3 AM this morning. The patient was then laying on the floor for 7 hours prior to being found by her daughter. She hit her knees into the wall and is having a lot of left knee and leg pain. The patient also has chronic bilateral calf pain. The patient is mainly only complaining of the left knee pain currently. However, she has also been coughing for the past week and is annoyed by her cough. An IV lock was placed and labs were drawn. The patient was given a total of 1.5 L of normal saline solution based on her ideal body weight. The patient was given IV Tylenol for pain as well as a DuoNeb treatment for wheezing on exam. Chest x-ray showed a nonspecific ill-defined reticular interstitial opacity which may represent scarring versus a nonspecific interstitial pneumonitis. However, there is also concern for possible pneumonia based on clinical exam. The patient was given IV Rocephin and vancomycin. CT scan of the head and cervical spine showed no acute traumatic abnormalities, but there is a large left mastoid effusion with fluid seen in the left middle ear. X-rays of the left knee and femur showed a comminuted and displaced fracture within the distal shaft of the left femur. Remainder of the x-rays were negative for acute traumatic injuries. Venous Doppler of the right lower extremity was negative for DVT. Venous Doppler of the left lower extremity was canceled due to the femur fracture. The patient has a history of MDS and requires frequent blood transfusions. Her elevated white blood cell count is at least partially secondary to her MDS. The patient's hemoglobin was low at 5.6 with a type and cross performed. The purpose, risk, and benefits of blood transfusion were discussed with the patient and her daughter. The patient wishes to proceed with blood transfusion. Blood transfusion consent form signed. The patient was ordered 2 units of packed red blood cells. The patient's CPK level was elevated at 1054, her high-sensitivity troponin was elevated at 56.1, her lactate was elevated 6.6, and procalcitonin level elevated at 6.63. EKG negative for acute ST or T wave changes. The patient was given 1.5 L normal saline solution bolus by ideal body weight, blood cultures were ordered, and the patient was treated with IV antibiotics. However, there was difficulty in obtaining an IV site for the patient after blood was drawn. There was also a delay with the patient being down at ultrasound when her lab results were received. Blood cultures were also not drawn initially and were delayed waiting for lab to come draw the blood cultures. Therefore, there was a delay in her IV fluids and her IV antibiotics were given prior to blood cultures being drawn. The patient's repeat lactate did improve to 3.5 and then 2.1. Her high- sensitivity troponin improved to 50.0 as well. I suspect that the patient's rhabdomyolysis as well as her significant anemia, COVID, and possible pneumonia is contributing to her elevated lactate, troponin, her acute kidney injury, and other abnormal labs as above. I had a meaningful discussion about this patient with Dr. Trejo who agrees with my assessment and the treatment plan. I spoke with Dr. Knutson of orthopedics who stated that he could manage the femur fracture locally once the patient was medically cleared. He recommended the patient be placed in a long knee immobilizer. I spoke with the on-call hospitalist who agreed to admit the patient for further evaluation and treatment. Please refer to their dictation for further details. The patient's care was transferred in stable condition. DIAGNOSIS: Symptomatic anemia Left femoral shaft fracture Rhabdomyolysis Lactic acidosis Elevated troponin COVID-19 Possible pneumonia Acute renal failure with history of chronic kidney disease MDS (myelodysplastic syndrome) Fall Past Med/Surg History Medical History Right knee DJD Stage 3 chronic kidney disease Gout Left shoulder pain Cervical pain MDS (myelodysplastic syndrome) Urinary incontinence Gout Surgical History H/O bladder repair surgery H/O: hysterectomy H/O carpal tunnel repair right hand H/O total knee replacement bilateral Social History Smoking Status: Never smoker Hx Alcohol Use: No Hx Substance Use: No Preferred Language: Malawian Communication Ability: Effective Medicinal Chemist Required: No Beliefs That Will Affect Care: None Current Living Situation: Alone Other Information That Helps Us Care for You: No Feels Safe at Home: Yes Safety Concerns: Feels Safe At This Time Assistive Devices: Cane Allergies Allergies Allergy/AdvReac Type Severity Reaction Status Date / Time morphine AdvReac Intermediate NAUSEA AND Verified 12/18/23 14:57 VOMITING Home Meds Home Medications Medication Instructions Recorded Confirmed acetaminophen 500 mg tablet 1,000 mg PO Q8H PRN Pain, Moderate 06/29/18 12/18/23 allopurinol 300 mg tablet 300 mg PO QAM 12/18/23 12/18/23 hydroxyurea 500 mg capsule 500 mg PO [id number] 12/18/23 12/18/23 vitamins A,C,Q-httk-[id number] 2,148 1 tab PO BID 12/18/23 12/18/23 mcg-113 mg-45 mg-17.4 mg tablet (PreserVision AREDS) Results & Data (ED) Vital Signs Vital Signs - 24 hr 12/18/23 11:19 12/18/23 12:04 Temperature 36.6 C Temperature Source Oral Pulse Rate 117 H Respiratory Rate 16 Respiratory Effort / Characteristics Non-Labored Spontaneous Respiratory Depth Normal Blood Pressure 105/62 Blood Pressure Mean 76 Pulse Oximetry 98 Oxygen Delivery Method Room Air Room Air Sepsis Recent Fever Within 48 Hours No Sepsis New/Unexplained Change in Mental Status No Sepsis Action Taken by Nursing No Action Required Laboratory Data 12/18/23 12:33 12/18/23 18:00 Lab Results 12/18/23 12/18/23 12/18/23 Range/Units 12:33 12:37 12:49 WBC 90.50 H* (4.8-10.8) K/ul RBC 1.77 L (4.20-5.40) M/uL Hgb 5.6 L* (12.0-16.0) g/dl Hct 17.6 L* (37.0-47.0) % MCV 99.4 (80.0-100.0) fL MCH 31.6 (25.0-34.0) pg MCHC 31.8 L (32.0-36.0) g/dL RDW Std Deviation 67.8 H (36.4-46.3) fL RDW Coeff of Landen 19.6 H (11.5-14.5) % Plt Count 66 L (130-400) K/uL MPV 13.4 H (9.4-12.4) fL Absolute Nucleated RBC 0.04 (0.00-0.12) K/uL Neutrophils % (Manual) 83 % Lymphocytes % (Manual) 3 % Monocytes % (Manual) 3 % Basophils % (Manual) 1 % Metamyelocytes % (Man) 3 % Myelocytes % (Man) 5 % Promyelocytes % (Man) 2 % Neutrophils # (Manual) 75.12 H (1.40-6.50) K/uL Total Absolute Neuts 75.12 H (1.4-6.5) K/uL Lymphocytes # (Manual) 2.72 (1.2-3.4) K/uL Total Abs Lymphocytes 2.72 (1.2-3.4) K/uL Monocytes # (Manual) 2.72 H (0.11-0.59) K/uL Basophils # (Manual) 0.91 H (0-0.2) K/uL Metamyelocytes # (Man) 2.72 H (0-0) K/uL Myelocytes # (Manual) 4.53 H (0-0) K/uL Promyelocytes # (Man) 1.81 H (0-0) K/uL Platelet Estimate Decreased L (Normal) Giant Platelets 1+ Polychromasia 1+ Anisocytosis Present Ovalocytes 1+ Echinocytes 1+ PT 14.6 H (9.0-12.0) Seconds INR 1.4 H (0.9-1.1) APTT 33 H (21-31) Seconds PTT Ratio 1.2 Sodium 133 L (136-145) mmol/L Potassium 5.6 H (3.5-5.1) mmol/L Chloride 102 (98-107) mmol/L Carbon Dioxide 13 L (21-32) mmol/L Anion Gap 18 H (3-11) BUN 61 H (6-23) mg/dl Creatinine 3.74 H (0.6-1.2) mg/dl Est Cr Clr Drug Dosing 7.8 ml/min Est GFR ( Amer) 11.8 ml/min Est GFR (Non-Af Amer) 10.2 ml/min BUN/Creatinine Ratio 16.3 (10-20) Glucose 148 H (70-99(Fasting)) mg/dl Lactate 6.6 H* (0.4-2.0) mmol/L Calcium 8.4 L (8.6-10.3) mg/dl Magnesium 1.3 L (1.7-2.4) mg/dl Total Bilirubin 0.4 (0.2-1.0) mg/dl AST 33 (13-39) U/L ALT 14 (7-52) U/L Alkaline Phosphatase 93 (34-104) U/L Total Creatine Kinase 1054 H (26-192) U/L Troponin I High Sens 56.1 H* (0-14) pg/ml Total Protein 6.5 (6.0-8.3) gm/dl Albumin 3.5 (3.4-5.0) gm/dl Globulin 3.0 (2.5-4.0) gm/dl Albumin/Globulin Ratio 1.2 (0.9-2) Lipase 125 H (11-82) U/L Procalcitonin 6.63 H (0-0.5) ng/ml Adenovirus (PCR) Not Detected (NotDetected) B. pertussis DNA (PCR) Not Detected (NotDetected) B.parapertussis DNA PCR Not Detected (NotDetected) C. pneumoniae DNA (PCR) Not Detected (NotDetected) Coronavirus OC43 (PCR) Not Detected (NotDetected) Coronavirus HKU1 (PCR) Not Detected (NotDetected) Coronavirus 229E (PCR) Not Detected (NotDetected) SARS-CoV-2 (PCR) DETECTED A (NotDetected) Coronavirus NL63 (PCR) Not Detected (NotDetected) Human Metapneumovir PCR Not Detected (NotDetected) Influenza Type A (PCR) Not Detected (NotDetected) Influenza Type B (PCR) Not Detected (NotDetected) M. pneumoniae (PCR) Not Detected (NotDetected) Parainfluenza 1 (PCR) Not Detected (NotDetected) Parainfluenza 2 (PCR) Not Detected (NotDetected) Parainfluenza 3 (PCR) Not Detected (NotDetected) Parainfluenza 4 (PCR) Not Detected (NotDetected) RSV (PCR) Not Detected (NotDetected) Entero/Rhino (PCR) Not Detected (NotDetected) Blood Type O Positive Antibody Screen NEGATIVE Crossmatch See Detail Administered Medications Doxycycline Hyclate 100 mg/ (Dextrose) 100 mls @ 50 mls/hr IV Q12H NANCY Stop: 12/25/23 20:59 Last Admin: 12/18/23 20:00 Dose: 50 mls/hr Documented By: RAYSA Magnesium Sulfate/Dextrose (Magnesium Sulfate / D5w) 1 gm in 100 mls @ 50 mls/hr IV ONE ONE Stop: 12/18/23 21:15 Last Admin: 12/18/23 19:53 Dose: 50 mls/hr Documented By: RAYSA Multivitamins/Minerals (Cerovite Adv Formula Tab) 1 tab PO BID NANCY Stop: 01/17/24 20:59 Last Admin: 12/18/23 20:00 Dose: 1 tab Documented By: RAYSA Sodium Zirconium Cyclosilicate (Sodium Zirconium Cyclosilicate 10 Gm Packet) 10 gm PO TID NANCY Stop: 12/20/23 14:01 Last Admin: 12/18/23 20:00 Dose: 10 gm Documented By: RAYSA Discontinued Medications Albuterol (Albut/Ipratrop 3mg/0.5mg Neb 3 Ml Vial) 3 ml NEB NOW STA; Protocol Stop: 12/18/23 12:10 Last Admin: 12/18/23 14:40 Dose: 3 ml Documented By: DEEPTI Sodium Chloride (Nss) 500 mls @ 999 mls/hr IV .Q31M STA Stop: 12/18/23 12:33 Last Infusion: 12/18/23 20:27 Dose: Infused Documented By: Admin: 12/18/23 14:36 Dose: 999 mls/hr Documented By: DEEPTI Acetaminophen (Ofirmev) 1,000 mg in 100 mls @ 400 mls/hr IV NOW STA Stop: 12/18/23 12:17 Last Infusion: 12/18/23 14:49 Dose: Infused Documented By: Admin: 12/18/23 14:32 Dose: 400 mls/hr Documented By: DEEPTI Sodium Chloride (Nss) 1,000 mls @ 999 mls/hr IV .Q1H1M ONE Stop: 12/18/23 14:44 Last Infusion: 12/18/23 20:27 Dose: Infused Documented By: Admin: 12/18/23 14:42 Dose: 999 mls/hr Documented By: DEEPTI Ceftriaxone Sodium (Rocephin) 2,000 mg in 50 mls @ 100 mls/hr IV NOW STA Stop: 12/18/23 14:13 Last Infusion: 12/18/23 20:27 Dose: Infused Documented By: Admin: 12/18/23 14:38 Dose: 100 mls/hr Documented By: DEEPTI Vancomycin HCl 1,250 mg/ (Sodium Chloride) 525 mls @ 200 mls/hr IV NOW ONE; Protocol Stop: 12/18/23 16:21 Last Infusion: 12/18/23 19:48 Dose: Infused Documented By: Admin: 12/18/23 16:31 Dose: 200 mls/hr Documented By: LESLY Sodium Chloride (Nss) 1,000 mls @ 80 mls/hr IV .[id number] [facility] Stop: 01/17/24 15:59 Last Admin: 12/18/23 20:27 Dose: Not Given Documented By: RAYSA Magnesium Sulfate/Dextrose (Magnesium Sulfate / D5w) 1 gm in 100 mls @ 100 mls/hr IV Q1H NANCY Stop: 12/18/23 18:13 Last Infusion: 12/18/23 19:48 Dose: Infused Documented By: Admin: 12/18/23 17:55 Dose: 100 mls/hr Documented By: Infusion: 12/18/23 17:46 Dose: Infused Documented By: Admin: 12/18/23 16:46 Dose: 100 mls/hr Documented By: LESLY Pneumococcal 20-Valent Conj Vacc (Pneumococcal Vaccine (Pcv20) 20-Gloria Conj-Dip Crm/Pf 0.5 Ml Syr) 0.5 ml IM .ONCE ONE Stop: 12/18/23 18:10 Last Admin: 12/18/23 19:35 Dose: 0.5 ml Documented By: RAYSA Imaging Data Radiologist's Impression: Cervical Spine CT 12/18/23 12:03 CT SCAN OF THE CERVICAL SPINE CLINICAL HISTORY: Fall. COMPARISON STUDY: Cervical spine radiographs dated 04/17/2020. TECHNIQUE: CT scan of the cervical spine is performed from the skull base to the upper thoracic spine. Images are reviewed in the axial, sagittal, and coronal planes. IV contrast was not administered for this examination. A dose lowering technique was utilized adhering to the principles of ALARA. CT DOSE: 941.2 mGy.cm FINDINGS: Skeletal structures: The skeletal structures are osteopenic. There is no evidence of fracture or subluxation involving the cervical spine. Vertebral body height and alignment are maintained. There is straightening of the cervical lordosis. Anterior osteophytes are seen throughout. The odontoid process and lateral masses are intact. The atlantoaxial articulation is preserved noting productive degenerative change. The spinous processes appear intact. There is moderate multilevel cervical spondylosis. Uncovertebral and facet arthropathy contribute to neural foraminal narrowing at several levels. Intervertebral discs: There is moderate to severe disc space narrowing at all cervical levels between C3-C4 and C7-T1. Central canal: Posterior disc osteophyte complexes are seen at all levels between C3-C4 and C7-T1. This likely contributes to multilevel acquired compromise of the central canal. Soft tissues: The prevertebral and paraspinous soft tissues are within normal limits. There is atherosclerotic calcification of the carotid bulbs. Calvarium: The visualized calvarium at the skull base appears intact. Brain parenchyma: Partially visualized brain parenchyma at the skull base is within normal limits. Sinuses and mastoids: There is trace mucosal thickening in the sphenoid sinuses. There is a large left mastoid effusion with fluid in the middle ear canal. The right mastoid air cells are well pneumatized. Lung apices: Clear as visualized. IMPRESSION: 1. There is no evidence of cervical spine fracture or subluxation. 2. Osteopenia and spondylitic change as above. 3. Large left mastoid effusion, with fluid also seen in the left middle ear. ACT 112: Negative or not required by law. Electronically signed by: Kong Proctor M.D. 12/18/2023 12:43 PM Femur X-Ray 12/18/23 12:03 XR femur LT 2V routine, XR knee LT 1 or 2V routine CLINICAL HISTORY: Trauma. Fall. COMPARISON STUDY: None. FINDINGS: The visualized pelvic bones and proximal left femur are intact. Comminuted and displaced fracture within the distal shaft of the left femur. The fracture demonstrates up to 2.3 cm of medial displacement. Soft tissue swelling within the distal left thigh with an associated left knee effusion. 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 The hardware is intact. The fracture does not clearly extend to the femoral prosthesis. IMPRESSION: Comminuted and displaced fracture within the distal shaft of the left femur. ACT 112: Negative or not required by law. Electronically signed by: Khurram Morales M.D. 12/18/2023 1:[address] 12/18/23 12:[address] DOSE: HISTORY: Dizziness, fall TECHNIQUE: Multiaxial CT images of the head were performed without the use of intravenous contrast. Automated exposure control was utilized for this study. A dose lowering technique was utilized adhering to the principles of ALARA. Comparison: None. Findings: Complete opacification of the left mastoid air cells and left middle ear cavity. The paranasal sinuses and right mastoid air cells are clear. The calvarium and skull base are intact. There is no mass, hematoma, midline shift, acute infarct. White matter hypodensity is nonspecific but suggestive of microvascular ischemic change. The ventricles and sulci demonstrate mild age- related involutional changes. Impression: 1. No acute infarct or intracranial hemorrhage. 2. Opacified left mastoid air cells and middle ear cavity. ACT 112: Negative or not required by law. Electronically signed by: Khurram Morales M.D. 12/18/2023 12:42 PM Knee X-Ray 12/18/23 12:03 XR femur LT 2V routine, XR knee LT 1 or 2V routine CLINICAL HISTORY: Trauma. Fall. COMPARISON STUDY: None. FINDINGS: The visualized pelvic bones and proximal left femur are intact. Comminuted and displaced fracture within the distal shaft of the left femur. The fracture demonstrates up to 2.3 cm of medial displacement. Soft tissue swelling within the distal left thigh with an associated left knee effusion. 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 The hardware is intact. The fracture does not clearly extend to the femoral prosthesis. IMPRESSION: Comminuted and displaced fracture within the distal shaft of the left femur. ACT 112: Negative or not required by law. Electronically signed by: Khurram Morales M.D. 12/18/2023 1:29 PM Venous Doppler Study 12/18/23 12:03 US venous doppler LE RT HISTORY: 88 years-old Female Bilat calf pain s/p TKA with dizziness - eval DVT acute pain and swelling of the right lower leg COMPARISON: Left knee radiographs of same day TECHNIQUE: Multiple real-time sonographic images of the right lower extremity deep venous structures were obtained assessing grayscale appearance, color and spectral flow. FINDINGS: Normal flow, compressibility, phasicity and augmentation. Limited visualization of the calf veins. IMPRESSION: No sonographic evidence of deep venous thrombosis. ACT 112: Negative or not required by law. The above report was generated using voice recognition software. It may contain grammatical, syntax or spelling errors. Electronically signed by: Reagan Steve M.D. 12/18/2023 2:43 PM Chest X-Ray 12/18/23 12:04 XR chest 1V not portable HISTORY: 88 years-old Female cough, SOB, dizziness acute cough with shortness of breath COMPARISON: CT chest 01/17/2019 TECHNIQUE: AP view of the chest FINDINGS: Cardiomediastinal and hilar silhouettes are within normal limits. No pneumothorax, pleural effusion or overt pulmonary edema. Indeterminate ill- defined reticular interstitial opacities are noted bilaterally, most pronounced in the right mid lung. This represents change from the 01/17/2019 study. Bones appear grossly intact. IMPRESSION: 1. Cardiomegaly without pulmonary edema. 2. Nonspecific ill-defined reticular interstitial opacities, most pronounced in the right lung. Findings may represent scarring versus a nonspecific interstitial pneumonitis. ACT 112: Negative or not required by law. The above report was generated using voice recognition software. It may contain grammatical, syntax or spelling errors. Electronically signed by: Reagan Steve M.D. 12/18/2023 1:32 PM Discharge Plan Visit Data Chief Complaint: Knee Injury/Pain ED Provider: Hue Trejo ED Midlevel Provider: Amy Aleman Discharge Problem: Symptomatic anemia, MDS (myelodysplastic syndrome), SARS-CoV-2 positive, Acute renal failure superimposed on stage 3 chronic kidney disease, Rhabdomyolysis, Lactic acidosis, Elevated troponin, Left femoral shaft fracture, Pneumonia, Fall Patient Disposition: Admitted As Inpatient Discharge Instructions Interventions: ED Discharge Assessment Last Done: 12/18/23 15:47 Discharge Problem: Acute renal failure superimposed on stage 3 chronic kidney disease Qualifiers: Acute renal failure type: unspecified Rhabdomyolysis Qualifiers: Rhabdomyolysis type: traumatic Encounter type: initial encounter Qualified Code(s): T79.6XXA - Traumatic ischemia of muscle, initial encounter Left femoral shaft fracture Qualifiers: Encounter type: initial encounter Fracture type: closed Fracture morphology: c omminuted Fracture alignment: displaced Qualified Code(s): S72.352A - Displaced comminuted fracture of shaft of left femur, initial encounter for closed fracture Pneumonia Qualifiers: Pneumonia type: due to unspecified organism Fall Qualifiers: Encounter type: initial encounter Qualified Code(s): W19.XXXA - Unspecified fall, initial encounter
--- NOTE | 2023-12-18 12:43 | CT Scan Report ---
HEAD CT NONCONTRAST CT DOSE: HISTORY: Dizziness, fall TECHNIQUE: Multiaxial CT images of the head were performed without the use of intravenous contrast. A utomated exposure control was utilized for this study. A dose lowering technique was utilized adheri ng to the principles of ALARA. Comparison: None. Findings: Complete opacification of the left mastoid air cells and left middle ear cavity. The parana paul sinuses and right mastoid air cells are clear. The calvarium and skull base are intact. There is no mass, hematoma, midline shift, acute infarct. White matter hypodensity is nonspecific but suggesti ve of microvascular ischemic change. The ventricles and sulci demonstrate mild age-related involution al changes. Impression: 1. No acute infarct or intracranial hemorrhage. 2. Opacified left mastoid air cells and middle ear cavity. ACT 112: Negative or not required by law. Electronically signed by: Khurram Morales M.D. 12/18/2023 12:42 PM
--- NOTE | 2023-12-18 12:44 | CT Scan Report ---
CT SCAN OF THE CERVICAL SPINE CLINICAL HISTORY: Fall. COMPARISON STUDY: Cervical spine radiographs dated 04/17/2020. TECHNIQUE: CT scan of the cervical spine is performed from the skull base to the upper thoracic spine . Images are reviewed in the axial, sagittal, and coronal planes. IV contrast was not administered fo r this examination. A dose lowering technique was utilized adhering to the principles of ALARA. CT DOSE: 941.2 mGy.cm FINDINGS: Skeletal structures: The skeletal structures are osteopenic. There is no evidence of fracture or subl uxation involving the cervical spine. Vertebral body height and alignment are maintained. There is st raightening of the cervical lordosis. Anterior osteophytes are seen throughout. The odontoid process and lateral masses are intact. The atlantoaxial articulation is preserved noting productive degenerat jolly change. The spinous processes appear intact. There is moderate multilevel cervical spondylosis. U ncovertebral and facet arthropathy contribute to neural foraminal narrowing at several levels. Intervertebral discs: There is moderate to severe disc space narrowing at all cervical levels between C3-C4 and C7-T1. Central canal: Posterior disc osteophyte complexes are seen at all levels between C3-C4 and C7-T1. Th is likely contributes to multilevel acquired compromise of the central canal. Soft tissues: The prevertebral and paraspinous soft tissues are within normal limits. There is athero sclerotic calcification of the carotid bulbs. Calvarium: The visualized calvarium at the skull base appears intact. Brain parenchyma: Partially visualized brain parenchyma at the skull base is within normal limits. Sinuses and mastoids: There is trace mucosal thickening in the sphenoid sinuses. There is a large lef t mastoid effusion with fluid in the middle ear canal. The right mastoid air cells are well pneumatiz ed. Lung apices: Clear as visualized. IMPRESSION: 1. There is no evidence of cervical spine fracture or subluxation. 2. Osteopenia and spondylitic change as above. 3. Large left mastoid effusion, with fluid also seen in the left middle ear. ACT 112: Negative or not required by law. Electronically signed by: Kong Proctor M.D. 12/18/2023 12:43 PM
[2023-12-18 12:57] LABS: INR 1.4 (0.9-1.1); Partial Thromboplastin Ratio 1.2; Partial Thromboplastin Time 33 Seconds (21-31); Prothrombin Time 14.6 Seconds (9.0-12.0)
[2023-12-18 13:07] LABS: Albumin Globulin Ratio 1.2 (0.9-2); Albumin Level 3.5 gm/dl (3.4-5.0); BUN Creatinine Ratio 16.3 (10-20); Bilirubin,Total 0.4 mg/dl (0.2-1.0); Calcium 8.4 mg/dl (8.6-10.3); Creatinine Clr Calc Pharmacy 7.8 ml/min; Est GFR (African American) 11.8 ml/min; Est GFR (Non-African American) 10.2 ml/min; Magnesium 1.3 mg/dl (1.7-2.4); Potassium 5.6 mmol/L (3.5-5.1); Total Protein 6.5 gm/dl (6.0-8.3)
[2023-12-18 13:08] LABS: Hematocrit (blood only) 17.6 % (37.0-47.0); Hemoglobin 5.6 g/dl (12.0-16.0); Mean Corpuscular Hemoglobin 31.6 pg (25.0-34.0); Mean Corpuscular Hgb Conc 31.8 g/dL (32.0-36.0); Mean Corpuscular Volume 99.4 fL (80.0-100.0); RDW Coefficient of Variation 19.6 % (11.5-14.5); RDW Standard Deviation 67.8 fL (36.4-46.3); Red Blood Count 1.77 M/uL (4.20-5.40)
[2023-12-18 13:24] LABS: Mean Platelet Volume 13.4 fL (9.4-12.4); Nucleated RBC # (auto) 0.04 K/uL (0.00-0.12); Platelet Count 66 K/uL (130-400)
[2023-12-18 13:28] LABS: Troponin I High Sensitivity 56.1 pg/ml (0-14)
--- NOTE | 2023-12-18 13:32 | XRay Report ---
XR femur LT 2V routine, XR knee LT 1 or 2V routine CLINICAL HISTORY: Trauma. Fall. COMPARISON STUDY: None. FINDINGS: The visualized pelvic bones and proximal left femur are intact. Comminuted and displaced fr acture within the distal shaft of the left femur. The fracture demonstrates up to 2.3 cm of medial di splacement. Soft tissue swelling within the distal left thigh with an associated left knee effusion. 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 The hardware is intact. The fracture does not clearly extend to the femoral prosthesis. IMPRESSION: Comminuted and displaced fracture within the distal shaft of the left femur. ACT 112: Negative or not required by law. Electronically signed by: Khurram Morales M.D. 12/18/2023 1:29 PM
--- NOTE | 2023-12-18 13:33 | XRay Report ---
XR chest 1V not portable HISTORY: 88 years-old Female cough, SOB, dizziness acute cough with shortness of breath COMPARISON: CT chest 01/17/2019 TECHNIQUE: AP view of the chest FINDINGS: Cardiomediastinal and hilar silhouettes are within normal limits. No pneumothorax, pleural effusion o r overt pulmonary edema. Indeterminate ill-defined reticular interstitial opacities are noted bilater ally, most pronounced in the right mid lung. This represents change from the 01/17/2019 study. Bones ap pear grossly intact. IMPRESSION: 1. Cardiomegaly without pulmonary edema. 2. Nonspecific ill-defined reticular interstitial opacities, most pronounced in the right lung. Findi ngs may represent scarring versus a nonspecific interstitial pneumonitis. ACT 112: Negative or not required by law. The above report was generated using voice recognition software. It may contain grammatical, syntax o r spelling errors. Electronically signed by: Reagan Steve M.D. 12/18/2023 1:32 PM
[2023-12-18 13:34] LABS: ALC (manual) 2.72 K/uL (1.2-3.4); ANC (manual) 75.12 K/uL (1.4-6.5); Anisocytosis Present; Basophils # (manual) 0.91 K/uL (0-0.2); Basophils % (manual) 1 %; Echinocytes 1+; Giant Platelets 1+; Lymphocytes # (manual) 2.72 K/uL (1.2-3.4); Lymphocytes % (manual) 3 %; Metamyelocytes # (manual) 2.72 K/uL (0-0); Metamyelocytes % (manual) 3 %; Monocytes # (manual) 2.72 K/uL (0.11-0.59); Monocytes % (manual) 3 %; Myelocytes # (manual) 4.53 K/uL (0-0); Myelocytes % (manual) 5 %; Neutrophils # (manual) 75.12 K/uL (1.40-6.50); Neutrophils % (manual) 83 %; Ovalocytes 1+; Platelet Estimate Decreased (Normal); Polychromasia 1+; Promyelocytes # (manual) 1.81 K/uL (0-0); Promyelocytes % (manual) 2 %
[2023-12-18] MEDS ORDERED: VANCOMYCIN CONSULT ACTIVE PRN (13:44)
[2023-12-18] MEDS ORDERED: SODIUM CHLORIDE 0.9% 250 ML IV PRN ×3 (13:46→14:02)
[2023-12-18 14:09] LABS: Adenovirus PCR Not Detected (NotDetected); Bordetella parapertussis PCR Not Detected (NotDetected); Bordetella pertussis PCR Not Detected (NotDetected); Chlamydia pneumoniae PCR Not Detected (NotDetected); Coronavirus 229E PCR Not Detected (NotDetected); Coronavirus CoV-2 (COVID19)PCR DETECTED (NotDetected); Coronavirus HKU1 PCR Not Detected (NotDetected); Coronavirus NL63 PCR Not Detected (NotDetected); Coronavirus OC43PCR Not Detected (NotDetected); Human Metapneumovirus PCR Not Detected (NotDetected); Influenza A PCR Not Detected (NotDetected); Influenza B PCR Not Detected (NotDetected); Mycoplasma pneumoniae PCR Not Detected (NotDetected); Parainfluenza Virus 1 PCR Not Detected (NotDetected); Parainfluenza Virus 2 PCR Not Detected (NotDetected); Parainfluenza Virus 3 PCR Not Detected (NotDetected); Parainfluenza Virus 4 PCR Not Detected (NotDetected); Respiratory Syncytial VirusPCR Not Detected (NotDetected); Rhinovirus/Enterovirus PCR Not Detected (NotDetected)
[2023-12-18] MEDS: ACETAMINOPHEN 1,000 MG/100 ML VIAL IV STA (14:32)
[2023-12-18] MEDS: SODIUM CHLORIDE 0.9% 500 ML IV STA (14:36)
[2023-12-18] MEDS: cefTRIAXone SODIUM 2,000 MG/50 ML BAG IV STA (14:38)
[2023-12-18] MEDS: ALBUT/IPRATROP 3MG/0.5MG NEB 3 ML VIAL NEB STA (14:40)
[2023-12-18] MEDS: SODIUM CHLORIDE 0.9% 1,000 ML IV ONE (14:42)
--- NOTE | 2023-12-18 14:45 | Ultrasound Report ---
US venous doppler LE RT HISTORY: 88 years-old Female Bilat calf pain s/p TKA with dizziness - eval DVT acute pain and swelli ng of the right lower leg COMPARISON: Left knee radiographs of same day TECHNIQUE: Multiple real-time sonographic images of the right lower extremity deep venous structures were obtained assessing grayscale appearance, color and spectral flow. FINDINGS: Normal flow, compressibility, phasicity and augmentation. Limited visualization of the calf veins. IMPRESSION: No sonographic evidence of deep venous thrombosis. ACT 112: Negative or not required by law. The above report was generated using voice recognition software. It may contain grammatical, syntax o r spelling errors. Electronically signed by: Reagan Steve M.D. 12/18/2023 2:43 PM
--- NOTE | 2023-12-18 15:34 | History & Physical Report ---
Date of Service December 18, 2023 Assessment & Plan (1) Sepsis: (2) Pneumonia: (3) SARS-CoV-2 positive: (4) Acute renal failure superimposed on stage 3 chronic kidney disease: (5) Rhabdomyolysis: (6) Lactic acidosis: (7) High anion gap metabolic acidosis: (8) MDS (myelodysplastic syndrome): (9) Symptomatic anemia: (10) Hyperkalemia: (11) Hypomagnesemia: (12) Elevated troponin: (13) Left femoral shaft fracture: Plan This is an 88-year-old female who has a significant past medical history of HTN, mitral valve stenosis, rectal prolapse with full incontinence of feces, CKD stage IIIb, transfusion dependent MDS and follows Dr. Trejo who presents to ED after sustaining a fall in her home. Sepsis Sars COV 2 Possible Bacterial Pneumonia Lactic acidosis Patient meets sepsis criteria secondary to leukocytosis, tachycardia, lactic acidosis Blood cultures were obtained in the ED, but this was after administration of antibiotics She received broad-spectrum antibiotics with vancomycin and Rocephin Source: Possible pneumonia given URI symptoms x 1 week and SARS-CoV-2 Obtain MRSA swab IV Rocephin and IV Doxy Obtain CT chest for further clarification of possible pneumonia and CT a/p due to abd pain complaints In regards to COVID she currently does not meet criteria for treatment as she is not requiring oxygen Blood and urine cultures ordered, follow MDS Symptomatic Anemia Pt follows Dr. Trejo; She is transfusion dependent, last was 2 weeks ago h/h 5.6 and 17.6 She has been type and cross 2 units, she has received 2 units before without any difficulty, no prior transfusion reaction Repeat H&H after blood products, goal hemoglobin greater than [address] Trejo secondary to thrombocytopenia Dr. Trejo recommends holding hydroxyurea due to underlying sepsis Would reach out to Dr. Trejo in next 1 to 2 days regarding further guidance in her MDS Dr. Trejo expects WBC to increase while holding hydroxyurea Lactic acidosis High anion gap metabolic acidosis, 18 Suspect related to severe anemia, volume depletion, sepsis and rhabdomyolysis Expect to improve with improvement of above Will trend until resolved Repeat BMP, lactate at 1900 Elevated troponin No chest pain, ischemic ecg change Suspect demand ischemia in setting of sepsis, rhabdo Rhabdomyolysis non traumatic, on ground for 7 hours after fall CK 1054 IVF and blood products ordered Follow renal fxn and CK Acute on Chronic CKD 3 baseline cr 2.2-2.4 bun/cr 61 and 3.74 continue blood products/fluids Hyperkalemia 2/2 to rhabdo, CKD Lokelma 10mg TID Monitor bmp Hypomagnesemia Mag 1.3, replace Repeat mag @ 1900 Mechanical fall in setting of dizziness Comminuted displaced fracture of the distal shaft of left femur Patient follows with [facility] Ismael Knutson aware of patient Plan is for surgical fixation once medically stable Knee brace, bed rest, ICE TID Scheduled Tylenol Oxy IR 2.5mg PRN for Severe pain Daughter does not want her to have any strong narcotic without discussing with her check vitamin D level Full incontinence of feces Rectal prolapse Pt is planning to get colostomy in near future due to prolapse Hard of Hearing Pt is 100% alert and oriented and mentally capable She watches her 4 year old grandson She is very hard of hearing and according to daughter will shake her head, yes even if she doesnt hear Daughter encourage to speak loudly and slowly Monitor for delirium given age DVT ppx: SCDS on Right leg only for now; once H/H stabilizes and as long as plts are > 50 can implement chemical prophylaxis at the coordination of orthopedics FULL CODE pt wants to watch her 3 grandkids that call herAc to grow up PCP: Dr. Palomares Dispo: admit to PCU Pt Daughter Fawn Luna can be reached at [phone] and would like routine updates on her Mom if she is not at bedside Pt was seen and examined in collaboration with Dr. Edwards, please see addendum A total of 80 minutes was spent coordinating, documenting, and providing care for this patient excluding time spent in the performance of separately billed services. This included personally viewing all current laboratories and imaging studies, medication reconciliation, outpatient chart review, and discussion with specialists. HPI performed and documented by Sapphire Jain PA-C. Rest of Exam, assessment and plan performed by Arpita Angelo PA-C History of Present Illness Chief Complaint: Fall Primary Care Provider: Varun Palomares MD Dayan Luna is an 88y/o F with PMHx of HTN, rectal prolapse, urinary incontinence, stage III CKD, myelodysplastic syndrome, gout, mild mitral valve stenosis, generalized osteoarthritis, and degenerative disc disease who presented to the ED this afternoon via EMS for evaluation following a fall at home. History obtained from the patient and her daughter [who is accompanying her in the ED], in addition to reviewing previous PCP/specialty documentation. Patient states that she got out of bed around 3am this morning and suddenly became dizzy/lightheaded upon standing, which prompted her fall. Patient mentions that she collided with a nearby wall in her bedroom and directly smacked her left knee off the wall before hitting the floor. She denies ever hitting her head, nor losing consciousness at any point. Patient was lying on the floor for approximately 7 hours, as her daughter and son-in-law did not discover her until around 10am when they arrived at her house to pick her up for a scheduled appointment. Patient's daughter mentions that her legs were in an "awkward" position when she was found. EMS was called by the daughter at that time. Patient's daughter states that she ambulated around the house with a cane just fine prior to the fall. Patient does currently live alone, and is pretty independent per her daughter. Patient does mention that she has had an ongoing "cold" for the past week or so, symptoms including cough and congestion. Patient also describes feeling intermittently warm and cold, but denies any incidence of recorded fevers. Patient's daughter was worried she may be developing pneumonia. Patient has also been experiencing some lower abdominal cramping, sometimes severe, for the past 2-3 days. She denies any hematochezia or melena. Patient does have hx of rectal prolapse, as well as diarrhea and fecal incontinence at baseline. Patient's daughter also mentions that she is urinary incontinent as well. Patient is scheduled to have a colostomy done at the end of this month for tx of her fecal incontinence, per her daughter. Patient does receive routine blood transfusions every 3 weeks under the care of Dr. Neil contreras at [facility] b/c of ongoing anemia caused by the hydroxyurea she is taking for myelodysplastic syndrome to keep her WBC count under control. Patient reports that her last scheduled blood transfusion was 2 weeks ago. Patient's daughter reports that her Hgb was 7.8 and her WBC count was 47 last , as she gets bloodwork done once a week per hematology's recommendation. Of note, patient has never had a transfusion reaction. Patient does report lack of appetite recently, and that she doesn't routinely consume large amounts of water. Patient's daughter states that she is "100% neurologically intact," but is hard of hearing. Patient actually babysits her 3 grandchildren, ranging from ages 4 to 11, quite frequen tly. Patient does currently endorse bilateral knee pain, but states that she has been "sensitive in both knees" since having both of them replaced. Patient's daughter mentions that her left knee has been swollen since she was discovered at home. Allergies Allergy/AdvReac Type Severity Reaction Status Date / Time morphine AdvReac Intermediate NAUSEA AND Verified 12/18/23 14:57 VOMITING Home Medications Medication Instructions Recorded Confirmed Type acetaminophen 500 mg tablet 1,000 mg PO Q8H PRN Pain, Moderate 06/29/18 12/18/23 History allopurinol 300 mg tablet 300 mg PO QAM 12/18/23 12/18/23 History hydroxyurea 500 mg capsule 500 mg PO [id number] 12/18/23 12/18/23 History vitamins A,C,M-uhpy-aqfsty 2,148 1 tab PO BID 12/18/23 12/18/23 History mcg-113 mg-45 mg-17.4 mg tablet (PreserVision AREDS) Past Med/Surg History Medical History Right knee DJD Stage 3 chronic kidney disease Gout Left shoulder pain Cervical pain MDS (myelodysplastic syndrome) Urinary incontinence Gout Surgical History H/O bladder repair surgery H/O: hysterectomy H/O carpal tunnel repair right hand H/O total knee replacement bilateral Social History Smoking Status: Never smoker Hx Alcohol Use: No Hx Substance Use: No Preferred Language: Finnish Communication Ability: Effective [employer] Administrator Required: No Beliefs That Will Affect Care: None Current Living Situation: Alone Other Information That Helps Us Care for You: No Feels Safe at Home: Yes Safety Concerns: Feels Safe At This Time Assistive Devices: Cane Review of Systems Review of Systems: At least ten systems reviewed and negative, except as noted in the HPI. Physical Exam Physical Exam: Constitutional: Elderly, petite, hard of hearing, vitals as above, NAD, sitting up in bed, pleasant, conversing easily Head: Normocephalic, Attaumatic Eyes: Pupils equal, conjunctivae normal, anicteric sclerae ENMT: external ear and nose normal, oropharynx normal mucous membranes dry Neck: trachea midline, no thyromegaly normal visual inspection Respiratory: normal respiratory effort, lungs clear to auscultation, no wheeze, rales, rhonchi. Normal insp/exp effort, no accessory muscle use Cardiovascular: tachycardiac with occasional ectopy, 1/6 zach noted LUSB, LLE edema, nonpitting Vessels: no JVD or carotid bruit Chest: normal inspection of chest Abdomen: normal bowel sounds, soft, nontender, no hepatosplenomegaly Musculoskeletal: no cyanosis or clubbing, AROM x 3, LLE not tested 2/2 fracture; LLE larger in circumference compared to R, shortened Skin: +ecchymosis to b/l lower extremities, no rashes, warm and dry normal turgor Neurologic: accommodation nl, no face palsy, no dysarthria CN's II-XI intact bilaterally and moves all extremities except LLE not tested 2/2 fracture Psychiatric: A+Ox3, euthymic affect : deferred Results & Data Results & Data Vital Signs (Past 12 Hours) Vital Signs Temp Pulse Resp BP Pulse Ox O2 Del Method 12/18/23 12:04 Room Air 12/18/23 11:19 36.6 C 117 H 16 105/62 98 Room Air Laboratory Results Short CBC 12/18/23 Range/Units 12:33 WBC 90.50 H* (4.8-10.8) K/ul Hgb 5.6 L* (12.0-16.0) g/dl Hct 17.6 L* (37.0-47.0) % Plt Count 66 L (130-400) K/uL BMP 12/18/23 12:33 Sodium 133 L Potassium 5.6 H Chloride 102 Carbon Dioxide 13 L BUN 61 H Creatinine 3.74 H Glucose 148 H Calcium 8.4 L Cardiac Enzymes 12/18/23 Range/Units 12:33 Total Creatine Kinase 1054 H (26-192) U/L Liver Function 12/18/23 Range/Units 12:33 Total Bilirubin 0.4 (0.2-1.0) mg/dl AST 33 (13-39) U/L ALT 14 (7-52) U/L Alkaline Phosphatase 93 (34-104) U/L Albumin 3.5 (3.4-5.0) gm/dl Diagnostic Findings Cervical Spine CT 12/18/23 12:03 CT SCAN OF THE CERVICAL SPINE CLINICAL HISTORY: Fall. COMPARISON STUDY: Cervical spine radiographs dated 04/17/2020. TECHNIQUE: CT scan of the cervical spine is performed from the skull base to the upper thoracic spine. Images are reviewed in the axial, sagittal, and coronal planes. IV contrast was not administered for this examination. A dose lowering technique was utilized adhering to the principles of ALARA. CT DOSE: 941.2 mGy.cm FINDINGS: Skeletal structures: The skeletal structures are osteopenic. There is no evidence of fracture or subluxation involving the cervical spine. Vertebral body height and alignment are maintained. There is straightening of the cervical lordosis. Anterior osteophytes are seen throughout. The odontoid process and lateral masses are intact. The atlantoaxial articulation is preserved noting productive degenerative change. The spinous processes appear intact. There is moderate multilevel cervical spondylosis. Uncovertebral and facet arthropathy contribute to neural foraminal narrowing at several levels. Intervertebral discs: There is moderate to severe disc space narrowing at all cervical levels between C3-C4 and C7-T1. Central canal: Posterior disc osteophyte complexes are seen at all levels between C3-C4 and C7-T1. This likely contributes to multilevel acquired compromise of the central canal. Soft tissues: The prevertebral and paraspinous soft tissues are within normal limits. There is atherosclerotic calcification of the carotid bulbs. Calvarium: The visualized calvarium at the skull base appears intact. Brain parenchyma: Partially visualized brain parenchyma at the skull base is within normal limits. Sinuses and mastoids: There is trace mucosal thickening in the sphenoid sinuses. There is a large left mastoid effusion with fluid in the middle ear canal. The right mastoid air cells are well pneumatized. Lung apices: Clear as visualized. IMPRESSION: 1. There is no evidence of cervical spine fracture or subluxation. 2. Osteopenia and spondylitic change as above. 3. Large left mastoid effusion, with fluid also seen in the left middle ear. ACT 112: Negative or not required by law. Electronically signed by: Kong Proctor M.D. 12/18/2023 12:43 PM Femur X-Ray 12/18/23 12:03 XR femur LT 2V routine, XR knee LT 1 or 2V routine CLINICAL HISTORY: Trauma. Fall. COMPARISON STUDY: None. FINDINGS: The visualized pelvic bones and proximal left femur are intact. Comminuted and displaced fracture within the distal shaft of the left femur. The fracture demonstrates up to 2.3 cm of medial displacement. Soft tissue swelling within the distal left thigh with an associated left knee effusion. 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 The hardware is intact. The fracture does not clearly extend to the femoral prosthesis. IMPRESSION: Comminuted and displaced fracture within the distal shaft of the left femur. ACT 112: Negative or not required by law. Electronically signed by: Khurram Morales M.D. 12/18/2023 1:[address] 12/18/23 12:[address] DOSE: HISTORY: Dizziness, fall TECHNIQUE: Multiaxial CT images of the head were performed without the use of intravenous contrast. Automated exposure control was utilized for this study. A dose lowering technique was utilized adhering to the principles of ALARA. Comparison: None. Findings: Complete opacification of the left mastoid air cells and left middle ear cavity. The paranasal sinuses and right mastoid air cells are clear. The calvarium and skull base are intact. There is no mass, hematoma, midline shift, acute infarct. White matter hypodensity is nonspecific but suggestive of microvascular ischemic change. The ventricles and sulci demonstrate mild age- related involutional changes. Impression: 1. No acute infarct or intracranial hemorrhage. 2. Opacified left mastoid air cells and middle ear cavity. ACT 112: Negative or not required by law. Electronically signed by: Khurram Morales M.D. 12/18/2023 12:42 PM Knee X-Ray 12/18/23 12:03 XR femur LT 2V routine, XR knee LT 1 or 2V routine CLINICAL HISTORY: Trauma. Fall. COMPARISON STUDY: None. FINDINGS: The visualized pelvic bones and proximal left femur are intact. Comminuted and displaced fracture within the distal shaft of the left femur. The fracture demonstrates up to 2.3 cm of medial displacement. Soft tissue swelling within the distal left thigh with an associated left knee effusion. 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 The hardware is intact. The fracture does not clearly extend to the femoral prosthesis. IMPRESSION: Comminuted and displaced fracture within the distal shaft of the left femur. ACT 112: Negative or not required by law. Electronically signed by: Khurram Morales M.D. 12/18/2023 1:29 PM Venous Doppler Study 12/18/23 12:03 US venous doppler LE RT HISTORY: 88 years-old Female Bilat calf pain s/p TKA with dizziness - eval DVT acute pain and swelling of the right lower leg COMPARISON: Left knee radiographs of same day TECHNIQUE: Multiple real-time sonographic images of the right lower extremity deep venous structures were obtained assessing grayscale appearance, color and spectral flow. FINDINGS: Normal flow, compressibility, phasicity and augmentation. Limited visualization of the calf veins. IMPRESSION: No sonographic evidence of deep venous thrombosis. ACT 112: Negative or not required by law. The above report was generated using voice recognition software. It may contain grammatical, syntax or spelling errors. Electronically signed by: Reagan Steve M.D. 12/18/2023 2:43 PM Chest X-Ray 12/18/23 12:04 XR chest 1V not portable HISTORY: 88 years-old Female cough, SOB, dizziness acute cough with shortness of breath COMPARISON: CT chest 01/17/2019 TECHNIQUE: AP view of the chest FINDINGS: Cardiomediastinal and hilar silhouettes are within normal limits. No pneumothorax, pleural effusion or overt pulmonary edema. Indeterminate ill- defined reticular interstitial opacities are noted bilaterally, most pronounced in the right mid lung. This represents change from the 01/17/2019 study. Bones appear grossly intact. IMPRESSION: 1. Cardiomegaly without pulmonary edema. 2. Nonspecific ill-defined reticular interstitial opacities, most pronounced in the right lung. Findings may represent scarring versus a nonspecific interstitial pneumonitis. ACT 112: Negative or not required by law. The above report was generated using voice recognition software. It may contain grammatical, syntax or spelling errors. Electronically signed by: Reagan Steve M.D. 12/18/2023 1:32 PM Medications Administered Discontinued Medications Albuterol (Albut/Ipratrop 3mg/0.5mg Neb 3 Ml Vial) 3 ml NEB NOW STA; Protocol Stop: 12/18/23 12:10 Last Admin: 12/18/23 14:40 Dose: 3 ml Documented By: Sodium Chloride (Nss) 500 mls @ 999 mls/hr IV .Q31M STA Stop: 12/18/23 12:33 Last Admin: 12/18/23 14:36 Dose: 999 mls/hr Documented By: Acetaminophen (Ofirmev) 1,000 mg in 100 mls @ 400 mls/hr IV NOW STA Stop: 12/18/23 12:17 Last Infusion: 12/18/23 14:49 Dose: Infused Documented By: Admin: 12/18/23 14:32 Dose: 400 mls/hr Documented By: Sodium Chloride (Nss) 1,000 mls @ 999 mls/hr IV .Q1H1M ONE Stop: 12/18/23 14:44 Last Admin: 12/18/23 14:42 Dose: 999 mls/hr Documented By: Ceftriaxone Sodium (Rocephin) 2,000 mg in 50 mls @ 100 mls/hr IV NOW STA Stop: 12/18/23 14:13 Last Admin: 12/18/23 14:38 Dose: 100 mls/hr Documented By: Vancomycin HCl 1,250 mg/ (Sodium Chloride) 525 mls @ 200 mls/hr IV NOW ONE; Protocol Stop: 12/18/23 16:21 Last Admin: 12/18/23 16:31 Dose: 200 mls/hr Documented By: LESLY ECG Additional Comments: I have independently reviewed and interpreted patient's admitting EKG which revealed: Sinus tachycardia with ventricular rate of 115 bpm, PACs noted, no ST or T wave change noted, QTc 453 Code Status & VTE Plan Code Status FULL CODE VTE Prophylaxis Plan VTE Prophylaxis will be ordered: No Reason for no VTE drug order: Drug allergy Supervising Physician Co-Signing Physician Notes Patient was seen and examined independently at bedside. Chart reviewed. Case discussed with Arpita MESA and agree with the documentation above. In summary, this is a 88 year old female with complicated medical history as above who presented to the ED from home after fall and sustained left distal femoral fracture. Multiple lab abnormalities noted including ABA on CKD, hyperkalemia, hypomagnesemia, anemia, leucocytosis, thrombocytopenia, COVID positive, rhabdomyolysis, elevated trop, lactic acidemia among others. Ortho planning for surgery after medical optimization. She is currently not optimized to go for surgery. Will give 2 U PRBC, IVF, empiric antibiotic pending clx results. Check echo, monitor on telemetry. Follow up on labs in am. Consider nephro eval if ABA does not improve. Day team will decide on medical optimization. She does not need COVID 19 specific treatment currently- remains on room air and comfortable, not hypoxic or SOB. AAO, sitting comfortably in bed, conversing well, chest clear, heart sounds normal, abd benign, oneill noted, LLE deformity noted. Rest as per the note above.
[2023-12-18] MEDS: VANCOMYCIN HCL 1,250 MG in SODIUM CHLORIDE 0.9% 500 ML IV ONE (16:31)
[2023-12-18] MEDS: MAGNESIUM SULFATE / D5W 1 GM/100 ML BAG IV SCH (16:46)
[2023-12-18] MEDS ORDERED: POLYETHYLENE (MIRALAX) 17 GM PACK PO PRN (16:52)
[2023-12-18] MEDS ORDERED: ACETAMINOPHEN 325 MG TAB PO PRN (16:52)
[2023-12-18] MEDS ORDERED: ONDANSETRON INJ 2 MG/ML 2 ML VIAL IV PRN (16:52)
[2023-12-18] MEDS ORDERED: oxyCODONE HCL IR 5 MG TAB (IMMEDIATE RELEASE) PO PRN (16:52)
[2023-12-18] MEDS ORDERED: MAGNESIUM HYDROXIDE SUSP 30 ML UDC PO PRN (16:52)
--- NOTE | 2023-12-18 17:03 | XRay Report ---
XR tibia fibula RT 2V, XR foot RT min 3V routine CLINICAL HISTORY: Trauma COMPARISON STUDY: None. FINDINGS: There is a right total knee arthroplasty. Vascular calcifications are noted. No acute fract ure or dislocation within the right tibia or fibula. The bones are osteopenic. There is a plantar and posterior calcaneal spur noted. No radiopaque foreign bodies. No fracture or dislocation within the right foot. The Lisfranc joint is intact. Soft tissue swelling within the ankle. IMPRESSION: No fractures within the right lower leg or right foot. ACT 112: Negative or not required by law. Electronically signed by: Khurram Morales M.D. 12/18/2023 5:01 PM
--- NOTE | 2023-12-18 17:08 | XRay Report ---
XR tibia fibula LT 2V HISTORY: 88 years-old Female Trauma acute pain of the left lower leg status post fall COMPARISON: Knee radiographs of same day TECHNIQUE: 2 views of the left tibia and fibula FINDINGS: Demineralized appearance to the bones. Osteoarthritis of the ankle. Total joint arthroplasty with pat ellar resurfacing. Partially imaged acute and displaced distal femoral fracture with soft tissue swel ling and knee joint effusion. IMPRESSION: 1. No acute fracture or dislocation of the left lower leg. 2. Acute and displaced comminuted distal femoral fracture is partially imaged. ACT 112: Negative or not required by law. The above report was generated using voice recognition software. It may contain grammatical, syntax o r spelling errors. Electronically signed by: Reagan Steve M.D. 12/18/2023 5:07 PM
--- NOTE | 2023-12-18 17:11 | XRay Report ---
XR femur RT 2V routine HISTORY: 88 years-old Female Trauma acute pain and right thigh status post trauma COMPARISON: None TECHNIQUE: 2 views of the right femur FINDINGS: Demineralized appearance of the bones. A loop of bowel projects over the right inguinal tissues which may be within an inguinal hernia or abdominal pannus. Limited study secondary to patient body habitu s. [id number] right hip osteoarthritis. No acute fracture, dislocation or avascular necrosis ident ified. Total arthroplasty of the knee. Arterial calcifications. IMPRESSION: No acute fracture or dislocation identified. ACT 112: Negative or not required by law. The above report was generated using voice recognition software. It may contain grammatical, syntax o r spelling errors. Electronically signed by: Reagan Steve M.D. 12/18/2023 5:09 PM
[2023-12-18 17:37] LABS: Appearance Urine Cloudy (Clear); Bacteria Urine Automated None Seen (None Seen); Bilirubin Urine Negative (Negative); Blood Urine 2+ (Negative); Color Urine Yellow; Glucose Urine UA Negative (Negative); Granular Casts Urine Present /lpf (None Prsent); Ketones Urine Negative (Negative); Leukocyte Esterase Urine Negative (Negative); Nitrite Urine Negative (Negative); Protein Urine 2+ (Negative); RBC Urine Automated 0-2 /hpf (0-2); Specific Gravity Urine 1.018 (1.000-1.030); Urobilinogen Urine Negative (Negative); WBC Urine Automated 0-5 /hpf (0-5); pH Urine 5.5 (4.5-7.5)
[2023-12-18 18:37] LABS: BUN Creatinine Ratio 17.8 (10-20); Calcium 7.4 mg/dl (8.6-10.3); Creatinine Clr Calc Pharmacy 8.2 ml/min; Est GFR (African American) 12.7 ml/min; Est GFR (Non-African American) 10.9 ml/min; Magnesium 1.6 mg/dl (1.7-2.4); Potassium 4.5 mmol/L (3.5-5.1)
[2023-12-18] MEDS: PNEUMOCOCCAL VACCINE (PCV20) 20-VAL CONJ-DIP CRM/PF 0.5 ML SYR IM ONE (19:35)
[2023-12-18] MEDS: MAGNESIUM SULFATE / D5W 1 GM/100 ML BAG IV ONE (19:53)
[2023-12-18] MEDS: SODIUM ZIRCONIUM CYCLOSILICATE 10 GM PACKET PO SCH (20:00)
[2023-12-18] MEDS: CEROVITE ADV FORMULA TAB PO SCH (20:00)
[2023-12-18] MEDS: DOXYCYCLINE HYCLATE 100 MG in DEXTROSE 5% MINI-B 100 ML IV SCH (20:00)
[2023-12-18] MEDS: SODIUM CHLORIDE 0.9% 1,000 ML IV SCH (20:27)
[2023-12-18] MEDS: ACETAMINOPHEN 500 MG TAB PO SCH (21:01)
[2023-12-19] MEDS: SODIUM CHLORIDE 0.9% 1,000 ML IV SCH ×2 (00:03→21:35)
--- NOTE | 2023-12-19 01:42 | CT Scan Report ---
Exam(s): CT CHEST Without Contrast EXAM: CT Chest Without Intravenous Contrast CLINICAL HISTORY: Reason for exam: eval for pna. TECHNIQUE: Axial computed tomography images of the chest without intravenous contrast. CTDI is 8.85 mGy and DLP is 568.93 mGy-cm. Automated exposure control was utilized for the study. A dose lowering technique was utilized adhering to the principles of ALARA. COMPARISON: No relevant prior studies available. FINDINGS: Trachea: Calcified tracheobronchial tree. Lungs: Patchy bilateral ground-glass airspace consolidations, concerning for multilobar pneumonia. Pleural space: Unremarkable. No pneumothorax. No significant effusion. Heart: Unremarkable. No cardiomegaly. No significant pericardial effusion. No significant coronary artery calcifications. Bones/joints: Degenerative changes of the spine. No acute fracture. No dislocation. Soft tissues: Unremarkable. Vasculature: Atherosclerotic changes of the aorta. No thoracic aortic aneurysm. Lymph nodes: Unremarkable. No enlarged lymph nodes. IMPRESSION: Patchy bilateral ground-glass airspace consolidations, concerning for multilobar pneumonia. Electronically signed by: David Kaba MD 12/19/23 01:41 AM
--- NOTE | 2023-12-19 01:46 | CT Scan Report ---
Exam(s): CT ABDOMEN + PELVIS Without Contrast EXAM: CT Abdomen and Pelvis Without Intravenous Contrast CLINICAL HISTORY: Reason for exam: pain, elevated lipase. TECHNIQUE: Axial computed tomography images of the abdomen and pelvis without intravenous contrast. CTDI is 8.85 mGy and DLP is 568.93 mGy-cm. Automated exposure control was utilized for the study. A dose lowering technique was utilized adhering to the principles of ALARA. COMPARISON: No relevant prior studies available. FINDINGS: Lung bases: Unremarkable. No mass. No consolidation. ABDOMEN: Liver: Unremarkable. Gallbladder and bile ducts: Unremarkable. No calcified stones. No ductal dilation. Pancreas: Unremarkable. No ductal dilation. Spleen: Splenomegaly, measuring up to 15.6 cm. Adrenals: Unremarkable. No mass. Kidneys and ureters: Unremarkable. No hydronephrosis or nephrolithiasis. Stomach and bowel: Severe rectal wall thickening measures up to 2.3 cm. Findings are concerning for rectal cancer given the asymmetric nature of the thickening. Surgical valuation recommended. Wall thickening of the sigmoid colon, concerning for colitis. No obstruction. PELVIS: Appendix: No findings to suggest acute appendicitis. Bladder: Jugde catheter terminates in the urinary bladder, which is decompressed. No stones. Reproductive: Unremarkable as visualized. ABDOMEN and PELVIS: Intraperitoneal space: Unremarkable. No free air. No significant fluid collection. Bones/joints: Degenerative changes of the spine. No acute fracture. No dislocation. Soft tissues: Unremarkable. Vasculature: Atherosclerotic changes of the aorta. No abdominal aortic aneurysm. Lymph nodes: Unremarkable. No enlarged lymph nodes. IMPRESSION: 1. No hydronephrosis or nephrolithiasis. 2. Severe rectal wall thickening measures up to 2.3 cm. Findings are concerning for rectal cancer given the asymmetric nature of the thickening. Surgical valuation recommended. 3. Wall thickening of the sigmoid colon, concerning for colitis. 4. Splenomegaly, measuring up to 15.6 cm. Electronically signed by: David Kaba MD 12/19/23 01:46 AM
[2023-12-19 02:08] LABS: ALC (manual) 0.67 K/uL (1.2-3.4); ANC (manual) 46.18 K/uL (1.4-6.5); Anisocytosis Present; Echinocytes 1+; Hematocrit (blood only) 22.3 % (37.0-47.0); Hemoglobin 7.3 g/dl (12.0-16.0); Lymphocytes # (manual) 0.67 K/uL (1.2-3.4); Lymphocytes % (manual) 1 %; Mean Corpuscular Hemoglobin 29.4 pg (25.0-34.0); Mean Corpuscular Hgb Conc 32.7 g/dL (32.0-36.0); Mean Corpuscular Volume 89.9 fL (80.0-100.0); Metamyelocytes # (manual) 3.35 K/uL (0-0); Metamyelocytes % (manual) 5 %; Monocytes % (manual) 13 %; Myelocytes # (manual) 8.03 K/uL (0-0); Myelocytes % (manual) 12 %; Neutrophils # (manual) 46.18 K/uL (1.40-6.50); Neutrophils % (manual) 69 %; Nucleated RBC # (auto) 0.03 K/uL (0.00-0.12); Platelet Count 49 K/uL (130-400); Polychromasia 1+; RDW Coefficient of Variation 17.7 % (11.5-14.5); RDW Standard Deviation 55.3 fL (36.4-46.3); Red Blood Count 2.48 M/uL (4.20-5.40); White Blood Count 66.93 K/ul (4.8-10.8)
--- NOTE | 2023-12-19 02:40 | Communication Note ---
Date of Service: December 19, 2023 2:30 AM Made aware of CT abdomen pelvis findings from admission 1. No hydronephrosis or nephrolithiasis. 2. Severe rectal wall thickening measures up to 2.3 cm. Findings are concerning for rectal cancer given the asymmetric nature of the thickening. Surgical valuation recommended. 3. Wall thickening of the sigmoid colon, concerning for colitis. 4. Splenomegaly, measuring up to 15.6 cm. AP Colitis Sepsis on admission Add Flagyl to current ceftriaxone Rx Defer decision regarding GI consult to AM provider 5 AM Patient with 14 beat run of VT Serum magnesium at 1.6 (5/2) AP NSVT Hypomagnesemia Lopressor to suppress ectopy Replace magnesium Check a.m. electrolytes now, hold Lokelma for now (started on admission for mild hyperkalemia)
[2023-12-19] MEDS: metroNIDAZOLE 500 MG/100 ML BAG IV SCH (03:25)
[2023-12-19] MEDS: METOPROLOL TARTRATE 25 MG TAB PO SCH (05:50)
[2023-12-19] MEDS: MAGNESIUM SULFATE / D5W 1 GM/100 ML BAG IV ONE ×2 (05:53→22:55)
[2023-12-19 06:34] LABS: Albumin Globulin Ratio 1.3 (0.9-2); Albumin Level 2.9 gm/dl (3.4-5.0); Bilirubin,Total 0.3 mg/dl (0.2-1.0); Creatinine Clr Calc Pharmacy 9.2 ml/min; Est GFR (African American) 13.6 ml/min; Est GFR (Non-African American) 11.7 ml/min; Globulin 2.2 gm/dl (2.5-4.0); Hematocrit (blood only) 21.5 % (37.0-47.0); Magnesium 2.1 mg/dl (1.7-2.4); Mean Corpuscular Hemoglobin 29.5 pg (25.0-34.0); Mean Corpuscular Hgb Conc 32.6 g/dL (32.0-36.0); Mean Corpuscular Volume 90.7 fL (80.0-100.0); Nucleated RBC # (auto) 0.02 K/uL (0.00-0.12); Platelet Count 54 K/uL (130-400); Potassium 4.5 mmol/L (3.5-5.1); RDW Coefficient of Variation 17.8 % (11.5-14.5); RDW Standard Deviation 56.1 fL (36.4-46.3); Red Blood Count 2.37 M/uL (4.20-5.40); Total Protein 5.1 gm/dl (6.0-8.3); White Blood Count 66.31 K/ul (4.8-10.8)
[2023-12-19 06:54] LABS: ALC (manual) 2.65 K/uL (1.2-3.4); ANC (manual) 38.46 K/uL (1.4-6.5); Basophils # (manual) 0.66 K/uL (0-0.2); Basophils % (manual) 1 %; Lymphocytes # (manual) 2.65 K/uL (1.2-3.4); Lymphocytes % (manual) 4 %; Metamyelocytes # (manual) 5.97 K/uL (0-0); Metamyelocytes % (manual) 9 %; Monocytes # (manual) 11.94 K/uL (0.11-0.59); Monocytes % (manual) 18 %; Myelocytes # (manual) 6.63 K/uL (0-0); Myelocytes % (manual) 10 %; Neutrophils # (manual) 38.46 K/uL (1.40-6.50); Neutrophils % (manual) 58 %
[2023-12-19] MEDS ORDERED: SODIUM CHLORIDE 0.9% 250 ML IV PRN ×3 (07:52→22:29)
[2023-12-19] MEDS: allopurinoL 300 MG TAB PO SCH (09:25)
--- NOTE | 2023-12-19 10:22 | Communication Note ---
Date of Service: December 19, 2023 Patient is a 88 y.o. female with a history of CKD, DDD, MDS (followed by Dr. Trejo), HTN, and Gout admitted after sustaining a fall at home. She has been admitted with SIRS and sepsis secondary to COVID-19 + pneumonia, rhabdomyolysis (lactate 6.6) and left femur fracture that is being delayed for surgical repair d/t medical comorbidities. GI consultation has been requested as she was noted to have severe rectal thickening measuring 2.[address] with associated colonic inflammatory change which was concerning for a rectal malignancy. From review of records it appears she has been in consideration of rectal prolapse repair. Given her current medical complexity, she is not a candidate for any invasive GI work up for evaluate suspected mass on CT. This testing can be arranged on an outpatient basis once her more acute issues are resolved. If you have any questions or concerns, please do not hesitate to contact us.
--- NOTE | 2023-12-19 11:58 | Nephrology Consultation ---
Date of Consultation December 19, 2023 Assessment & Plan (1) ABA (acute kidney injury): 88/F with CKD 4 --baseline creat about 2.1---2.4 for last 1 year. Although had ABA with creat of 4.1 on the outpt lab done 11/12/2023--got better down to 2.2 without any definite intervention it seems next month on 12/10/2023. on admission creatinine was 3.7 but since then has trended down and now down to 3.3 with decent urine output she had evidence of sepsis with lactic acidosis on admission but now lactic acid is normal and her vital signs appears to be acceptable. given this I am cautiously optimistic that she will continue to have renal recovery. but given her age and pre-existing CKD 4 she may not have enough renal recovery or very delayed recovery. this will be evident in the coming days. cause of ABA is established already and no further workup needed. she had some IV fluid yesterday. Even now she is NPO and we would continue with some hydration. given that serum bicarb is still somewhat low will give her half-normal saline with 75 mEq sodium bicarb at 75 mL/hour. she is scheduled to have surgery of her left femur fracture tomorrow. it is not unusual to have renal decline in the perioperative. Specially in a vulnerable patient like hers. make sure to maintain hemoglobin as she is very prone to develop severe anemia (2) CKD (chronic kidney disease) stage 4, GFR 15-29 ml/min: CKD 4 at baseline with baseline creatinine around 2.2. she was last seen by Dr. Marcelina Henriquez in 2021. would recommend to have follow up with Nephrology if patient desires. (3) Left femoral shaft fracture: secondary to fall and is scheduled to have surgery tomorrow (4) SARS-CoV-2 positive: does have multi lobar pneumonia (5) Lactic acidosis: she had lactic acid level of 6 on admission but has since normalized. This is a good sign Plan case complexity high. Discussed with primary team. History of Present Illness Reason for Consultation: ABA on background CKD 4 Attending Physician: Joel Amezcua MD History of Present Illness 88/F with CKD 4 --baseline creat about 2.1---2.4 for last 1 year. Although had ABA with creat of 4.1 on the outpt lab done 11/12/2023--got better down to 2.2 without any definite intervention it seems next month on 12/10/2023. She gets lot of labs through hematology--being followed for MDS--transfusion dependent and also very high WBC on Hydroxyurea. Last Seen by Dr Valentin in 2021--was attributed as CKD 3B from HTN in 2021. She also has HTN, rectal prolapse, urinary incontinence, gout, mild mitral valve stenosis, generalized osteoarthritis, and degenerative disc disease who presented to the ED via EMS for evaluation following a fall at home. Patient not a great historian currently. As per record she suddenly became dizzy/lightheaded upon standing and then had a fall. Patient was lying on the floor for approximately 7 hours, till her daughter and son-in-law found out. Patient's daughter states that she ambulated around the house with a cane just fine prior to the fall. Patient does currently live alone, and is pretty independent per her daughter. Other Symptoms included URI symptoms for the past week- cough and congestion. Patient also describes feeling intermittently warm and cold, but denies any incidence of recorded fevers. Patient has also been experiencing some lower abdominal cramping, sometimes severe, for the past 2-3 days. She denies any hematochezia or melena. Patient does have hx of rectal prolapse, as well as diarrhea and fecal incontinence and urinary incontinent as well. Patient is scheduled to have a colostomy done at the end of this month for tx of her fecal incontinence as per her daughter. Patient does receive routine blood transfusions every 3 weeks [facility]. Since admission: creat was 3.74 on Adx and now going down to 3.34. getting some Iv fluid. Also Covid +ve with Possible sepsis and b/l Multilobar pneumonia. Somewhat high CK also from rhabdo/fall. making urine. has oneill and 675 ml so far. Has left femur fracture and surgery delayed for medical stabilization autumn high lactic Acidosis of 6 on admission but is already normal. ROS--See HPI. 12 systems reviewed and is other grover negative Physical examination elderly white female who is not in overt respiratory distress. 92% on room air. Blood pressure 145/68 pulse rate 82. awake alert and oriented. she is well aware of what is happening currently mucous membrane is moist neck is supple no JVD chest bilateral decreased breath sound occasional inspiratory crackles CVS S1-S2 regular soft systolic murmur heard. No edema abdomen is soft nontender extremities shows trace edema in left where she has left femur fracture skin did not show any obvious rash Allergies Allergy/AdvReac Type Severity Reaction Status Date / Time morphine AdvReac Intermediate NAUSEA AND Verified 12/18/23 14:57 VOMITING Home Medications Medication Instructions Recorded Confirmed Type acetaminophen 500 mg tablet 1,000 mg PO Q8H PRN Pain, Moderate 06/29/18 12/18/23 History allopurinol 300 mg tablet 300 mg PO QAM 12/18/23 12/18/23 History hydroxyurea 500 mg capsule 500 mg PO 5XWK 12/18/23 12/18/23 History vitamins A,C,M-jpat-ivrxep 2,148 1 tab PO BID 12/18/23 12/18/23 History mcg-113 mg-45 mg-17.4 mg tablet (PreserVision AREDS) Patient History Medical History Right knee DJD Stage 3 chronic kidney disease Gout Left shoulder pain Cervical pain MDS (myelodysplastic syndrome) Urinary incontinence Gout Surgical History H/O bladder repair surgery H/O: hysterectomy H/O carpal tunnel repair right hand H/O total knee replacement bilateral Social History Smoking Status: Never smoker Hx Alcohol Use: No Hx Substance Use: No Preferred Language: Spanish Communication Ability: Effective Psychology Physician Required: No Beliefs That Will Affect Care: None Current Living Situation: Alone Other Information That Helps Us Care for You: No Feels Safe at Home: Yes Safety Concerns: Feels Safe At This Time Assistive Devices: Cane Results & Data Vital Signs (Past 12 Hours) Vital Signs Temp Pulse Pulse Resp BP BP Pulse Ox 12/19/23 10:31 36.4 C L 76 18 131/67 91 12/19/23 10:01 36.5 C 83 20 149/72 H 93 12/19/23 09:32 36.5 C 83 19 149/72 H 93 12/19/23 09:31 36.4 C L 71 20 120/70 93 12/19/23 09:16 36.4 C 71 18 125/69 05/03/24 09:12 36 C L 69 20 124/74 93 12/19/23 08:19 93 H 12/19/23 08:00 12/19/23 04:45 92 H 18 126/56 L 93 12/19/23 03:27 36.3 C L 95 H 18 125/64 92 12/19/23 00:32 91 H 12/19/23 00:19 36.5 C 82 18 129/54 L 94 12/19/23 00:00 36.3 C L 90 20 128/56 L 95 O2 Del Method 12/19/23 10:31 12/19/23 10:01 12/19/23 09:32 12/19/23 09:31 12/19/23 09:16 12/19/23 09:12 12/19/23 08:19 12/19/23 08:00 Room Air 12/19/23 04:45 Room Air 12/19/23 03:27 Room Air 12/19/23 00:32 12/19/23 00:19 Room Air 12/19/23 00:00 Laboratory Results reviewed Diagnostic Findings reviewed (3) Left femoral shaft fracture Encounter type: initial encounter Fracture alignment: displaced Fracture morphology: comminuted Fracture type: closed Qualified Code(s): S72.352A - Displaced comminuted fracture of shaft of left femur, initial encounter for closed fracture
[2023-12-19] MEDS ORDERED: cefTRIAXone SODIUM 2,000 MG/50 ML BAG IV SCH (12:00)
[2023-12-19] MEDS: CEFEPIME 1,000 MG in SYRINGE 0 ML IV SCH (13:12)
--- NOTE | 2023-12-19 14:16 | Anesthesiology Consultation ---
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 Consults Requested none History Surgery Operation Date: 12/19/23 08:20 Proposed Procedures p Left Femoral Periprosthetic Fracture Retrograde IM Nail - Faisal Knutson MD Height/Weight Height: 5 ft 2 in Weight: 57.606 kg Allergies Allergy/AdvReac Type Severity Reaction Status Date / Time morphine AdvReac Intermediate NAUSEA AND Verified 12/18/23 14:57 VOMITING Medications Home Medications Medication Instructions Recorded Confirmed Last Taken acetaminophen 500 mg tablet 1,000 mg PO Q8H PRN Pain, Moderate 06/29/18 12/18/23 Unknown allopurinol 300 mg tablet 300 mg PO QAM 12/18/23 12/18/23 12/17/23 hydroxyurea 500 mg capsule 500 mg PO 5XWK 12/18/23 12/18/23 12/17/23 vitamins A,C,Z-kgqq-qprqem 2,148 1 tab PO BID 12/18/23 12/18/23 12/17/23 mcg-113 mg-45 mg-17.4 mg tablet (PreserVision AREDS) Active Medications Generic Name Dose Route Start Last Admin Trade Name Freq PRN Reason Stop Dose Admin Acetaminophen 1,000 mg 12/18/23 22:00 12/19/23 13:14 Acetaminophen 500 Mg Tab PO 01/17/24 21:59 1,000 mg Q8H NANCY Administration Allopurinol 300 mg 12/19/23 09:00 12/19/23 09:25 Allopurinol 300 Mg Tab PO 01/18/24 08:59 300 mg QAM NANCY Administration Doxycycline Hyclate 100 mg/ 100 mls @ 50 mls/hr 12/18/23 21:00 12/19/23 11:35 Dextrose IV 12/25/23 20:59 Infused Q12H NANCY Infusion Metronidazole 500 mg in 100 mls @ 100 mls/hr 12/19/23 03:00 12/19/23 12:44 Flagyl IV 12/29/23 02:59 Infused Q8H NANCY Infusion Protocol Cefepime HCl 1,000 mg/ Syringe 10 mls @ 5 mls/min 12/19/23 12:00 12/19/23 13:12 IV 12/26/23 11:59 5 mls/min Q24H NANCY Administration Protocol Metoprolol Tartrate 12.5 mg 12/19/23 05:05 12/19/23 05:50 Metoprolol Tartrate 25 Mg Tab PO 01/18/24 05:04 12.5 mg BID NANCY Administration Multivitamins/Minerals 1 tab 12/18/23 21:00 12/19/23 09:26 Cerovite Adv Formula Tab PO 01/17/24 20:59 1 tab BID NANCY Administration Sodium Zirconium Cyclosilicate 10 gm 12/18/23 21:00 12/18/23 20:00 Sodium Zirconium Cyclosilicate 10 Gm Packet PO 10 gm TID NANCY Administration Past Medical History Medical History Right knee DJD Stage 3 chronic kidney disease Gout Left shoulder pain Cervical pain MDS (myelodysplastic syndrome) Urinary incontinence Gout Past Surgical History Surgical History H/O bladder repair surgery H/O: hysterectomy H/O carpal tunnel repair right hand H/O total knee replacement bilateral Social History Smoking Status: Never smoker Hx Alcohol Use: No Hx Substance Use: No Physical Exam Vital Signs Last Vital Signs Temp 36.6 C 12/19/23 12:16 Pulse 82 12/19/23 12:16 Resp 18 12/19/23 12:16 BP 145/68 H 12/19/23 12:16 Pulse Ox 92 12/19/23 12:16 O2 Del Method Room Air 12/19/23 08:00 Testing Laboratory Results 12/19/23 05:31 12/19/23 05:31 PT 14.6 Seconds (9.0-12.0) H 12/18/23 12:33 INR 1.4 (0.9-1.1) H 12/18/23 12:33 APTT 33 Seconds (21-31) H 12/18/23 12:33 Urine Color Yellow 12/18/23 Unknown Urine Appearance Cloudy (Clear) A 12/18/23 Unknown Urine pH 5.5 (4.5-7.5) 12/18/23 Unknown Ur Specific [place] 1.018 (1.000-1.030) 12/18/23 Unknown Urine Protein 2+ (Negative) H 12/18/23 Unknown Urine Glucose (UA) Negative (Negative) 12/18/23 Unknown Urine Ketones Negative (Negative) 12/18/23 Unknown Urine Nitrite Negative (Negative) 12/18/23 Unknown Ur Leukocyte Esterase Negative (Negative) 12/18/23 Unknown Urine WBC (Auto) 0-5 /hpf (0-5) 12/18/23 Unknown Urine RBC (Auto) 0-2 /hpf (0-2) 12/18/23 Unknown U Hyaline Cast (Auto) 11-20 /lpf (0-2) H 12/18/23 Unknown U Epithel Cells (Auto) 3-5 /hpf (0-2) H 12/18/23 Unknown Urine Bacteria (Auto) None Seen (None Seen) 12/18/23 Unknown Blood Type O Positive 12/18/23 12:33 Antibody Screen NEGATIVE 12/18/23 12:33 Echocardiogram Date: 12/19/23 EF: 60-65 LV Function: normal Valvular Disease: + MS (mild-moderate) pulmonary systolic pressure 51 mmHg
[2023-12-19] MEDS: SODIUM BICARBONATE 8.4% 75 MEQ in SODIUM CHLORIDE 0.45 % 1,000 ML IV SCH (14:48)
[2023-12-19] MEDS ORDERED: fentaNYL citrate PF 100 MCG/2 ML VIAL IV PRN (16:38)
[2023-12-19] MEDS ORDERED: ePHEDrine sulfate 50 MG/ML AMP IV PRN (16:38)
[2023-12-19] MEDS ORDERED: ONDANSETRON INJ 2 MG/ML 2 ML VIAL IV PRN (16:38)
[2023-12-19] MEDS ORDERED: ATROPINE SULFATE 0.1 MG/ML 10ML SYR IV PRN (16:38)
[2023-12-19] MEDS ORDERED: fentaNYL citrate PF 100 MCG/2 ML VIAL ONE ×3 (17:01→20:19)
[2023-12-19] MEDS ORDERED: PROPOFOL IV EMULSION 10 MG/ML 20 ML VIAL IV ONE (17:02)
[2023-12-19] MEDS ORDERED: LIDOCAINE 2% 2 ML VIAL/AMP(20MG/ML) INFIL ONE (17:02)
[2023-12-19] MEDS ORDERED: ROCURONIUM BROMIDE 10 MG/ML 5 ML VIAL IV ONE (17:02)
--- NOTE | 2023-12-19 17:04 | Anesthesia Procedure Note ---
Anesthesia Procedure Note Arterial Line Note Consent: Risk / Benefits Reviewed With: PT / POA / Parent / Guardian, Accepts Plan, Informed Consent Obtained and All Questions Answered Monitors attached: Blood Pressure, CO2, EKG and Pulse Oximetry Oxygen delivery method: Nasal cannula Time out completed: Yes Premedication: None Laterality: Left Location: Radial Hand hygeine: Alcohol based hand rub Equipment/Supplies: Cap, Mask, Sterile gown, Sterile gloves and Sterile drapes Skin prep: Chloraprep Local medication: 1% Lidocaine (ml) Ultrasound used: Yes US equipment and supplies: Sterile Gel Attempts: 2 Post-Procedure: Pt hemodynamically stable, Pt tolerates well and No complication Central Line Note Date of procedure: 12/19/23 Indication: Hemodynamic monitoring Consent: Risk / Benefits Reviewed With: PT / POA / Parent / Guardian, Accepts Plan and All Questions Answered Monitors attached: Blood Pressure, CO2, EKG and Pulse Oximetry Oxygen delivery method: Nasal cannula Time out completed: Yes Premedication: None Laterality: Right Location: Internal Jugular Surgical Prep: Hand hygeine: Alcohol based hand rub Equipment/Supplies: Cap, Mask, Sterile gown, Sterile gloves, Sterile drapes and Sterile procedures used Local medication: 1% Lidocaine (ml) Ultrasound Guidance: Ultrasound used: Yes US equipment and supplies: Sterile Gel and Sterile Probe Cover Central line lumen: Triple Attempts: 2 Post-Procedure: Pt hemodynamically stable, Pt tolerates well, No complication and Post placement CXR ordered Anesthesia Charges Central Line C1751 Central Venous Catheter Arterial Line A Line Charges: 82781 Insert [facility]
--- NOTE | 2023-12-19 17:10 | XRay Report ---
SINGLE VIEW CHEST CLINICAL HISTORY: Central venous catheter placement. FINDINGS: An AP, portable, supine chest radiograph is compared to study dated 12/18/2023 and correlated with chest CT performed the same day 12/19/2023. The examination is mildly degraded by portable techni que and patient rotation. A right internal jugular central venous catheter has been placed. The tip projects over the cavoatrial junction. The heart is enlarged and noting atherosclerotic calcification of the thoracic aorta. There is pulmonary vascular congestion. Multifocal airspace consolidation is again seen throughout both lungs. This has progressed from yesterday. No large pleural effusion or pn eumothorax is identified. The skeletal structures are osteopenic. The bony thorax is grossly intact. IMPRESSION: 1. A right internal jugular central venous catheter has been placed as above. No pneumothorax is seen post procedure. 2. Multifocal airspace consolidation has progressed as compared to yesterday. Radiographic follow-up to resolution is recommended. 3. Cardiomegaly with pulmonary vascular congestion. ACT 112: Negative or not required by law. Electronically signed by: Kong Proctor M.D. 12/19/2023 5:09 PM
--- NOTE | 2023-12-19 17:20 | Orthopedic Consultation ---
Date of Service December 19, 2023 Assessment & Plan (1) Left femoral shaft fracture: She was seen and examined by Dr. Knutson today. We recommend ORIF/retrograde IM nailing of the femur fx. Anesthesia is recommending proceeding with this today. Patient wants to proceed as planned with surgery today. Procedure was explained and consent obtained. History of Present Illness Reason for Consultation: . Requesting Physician: . Attending Physician: Joel Amezcua MD .Patient is a 88 year old with complex medical history documented in her H and P, who sustained a fall at home yesterday, injuring her left leg. She was apparently on the floor for about 7 hours they believed. She complains of left leg pain. Xrays show a comminuted left periprosthetic distal femur fracture. She has a h/o bilateral tka's. She has received 3 units of blood this admission so far. Allergies Allergy/AdvReac Type Severity Reaction Status Date / Time morphine AdvReac Intermediate NAUSEA AND Verified 12/18/23 14:57 VOMITING Home Medications Medication Instructions Recorded Confirmed Type acetaminophen 500 mg tablet 1,000 mg PO Q8H PRN Pain, Moderate 06/29/18 12/18/23 History allopurinol 300 mg tablet 300 mg PO QAM 12/18/23 12/18/23 History hydroxyurea 500 mg capsule 500 mg PO 5XWK 12/18/23 12/18/23 History vitamins A,C,K-rwoc-hnusux 2,148 1 tab PO BID 12/18/23 12/18/23 History mcg-113 mg-45 mg-17.4 mg tablet (PreserVision AREDS) Past Med/Surg History Medical History Right knee DJD Stage 3 chronic kidney disease Gout Left shoulder pain Cervical pain MDS (myelodysplastic syndrome) Urinary incontinence Gout Surgical History H/O bladder repair surgery H/O: hysterectomy H/O carpal tunnel repair right hand H/O total knee replacement bilateral Social History Smoking Status: Never smoker Hx Alcohol Use: No Hx Substance Use: No Preferred Language: Danish Communication Ability: Effective Animal Handler Required: No Beliefs That Will Affect Care: None Current Living Situation: Alone Other Information That Helps Us Care for You: No Feels Safe at Home: Yes Safety Concerns: Feels Safe At This Time Assistive Devices: Cane Review of Systems All systems reviewed & are unremarkable except as noted in HPI & below. Physical Exam .alert and oriented. NAD Left leg: well healed scar on the knee. She is tender to palpation at the fracture site. Compartments are soft. NVI Results & Data Results & Data Laboratory Results . Diagnostic Findings .xray shows a displaced comminuted left periprosthetic femur fx. PG Care Time/CCT Total # of Minutes Spent Total Time Spent with Patient: Total time spent is greater than 50% in coordination of care (as documented) at patient's floor/unit and/or counseling patient: Coding Level of Care Code 04079 IN/OBS CONSULT LVL 4,60M Diagnoses Left femoral shaft fracture S72.352A Encounter type: initial encounter Fracture alignment: displaced Fracture morphology: comminuted Fracture type: closed (1) Left femoral shaft fracture Encounter type: initial encounter Fracture alignment: displaced Fracture morphology: comminuted Fracture type: closed Qualified Code(s): S72.352A - Displaced comminuted fracture of shaft of left femur, initial encounter for closed fracture
--- NOTE | 2023-12-19 17:27 | History & Physical Bridge Note ---
Date of Service December 19, 2023 History & Physical Bridge Note I have examined the patient, reviewed the History & Physical and in the interval since the performance of the History & Physical I have noted the following changes of clinical significance: no changes noted
[2023-12-19] MEDS: ceFAZolin 2000MG 2,000 MG/15 ML SYR IV ONE (17:45)
[2023-12-19 18:06] LABS: Hematocrit (blood only) 24.3 % (37.0-47.0); Hemoglobin 8.5 g/dl (12.0-16.0); Mean Corpuscular Hemoglobin 30.5 pg (25.0-34.0); Mean Corpuscular Volume 87.1 fL (80.0-100.0); Nucleated RBC # (auto) 0.06 K/uL (0.00-0.12); Nucleated RBC % (auto) 0.1 %; Platelet Count 61 K/uL (130-400); RDW Coefficient of Variation 17.4 % (11.5-14.5); Red Blood Count 2.79 M/uL (4.20-5.40); White Blood Count 77.71 K/ul (4.8-10.8)
[2023-12-19] MEDS ORDERED: ceFAZolin 330 MG/ML 1 GM VIAL ONE (18:11)
[2023-12-19] MEDS ORDERED: ONDANSETRON INJ 2 MG/ML 2 ML VIAL ONE (18:16)
[2023-12-19] MEDS ORDERED: DEXAMETHASONE SOD INJ 4 MG/ML VIAL ONE (18:16)
[2023-12-19] MEDS ORDERED: PHENYLEPHRINE 100MCG/ML 10ML SYR IV ONE ×2 (18:40→18:41)
[2023-12-19] MEDS ORDERED: PHENYLEPHRINE HCL 10 MG/ML VIAL ONE (19:09)
[2023-12-19] MEDS ORDERED: ALBUMIN HUMAN 5% 12.5 GM/250 ML VIAL IV ONE (19:21)
--- NOTE | 2023-12-19 19:22 | Hospitalist Progress Note ---
Date of Service December 19, 2023 Assessment & Plan (1) Sepsis: (2) Pneumonia: (3) SARS-CoV-2 positive: (4) Acute renal failure superimposed on stage 3 chronic kidney disease: (5) Rhabdomyolysis: (6) Lactic acidosis: (7) High anion gap metabolic acidosis: (8) MDS (myelodysplastic syndrome): (9) Symptomatic anemia: (10) Hyperkalemia: (11) Hypomagnesemia: (12) Elevated troponin: (13) Left femoral shaft fracture: Plan Per admitting service notes with addendum: This is an 88-year-old female who has a significant past medical history of HTN, mitral valve stenosis, rectal prolapse with full incontinence of feces, CKD stage IIIb, transfusion dependent MDS and follows Dr. Trejo who presents to ED after sustaining a fall in her home. Sepsis Sars COV 2 Possible Bacterial Pneumonia Lactic acidosis Patient meets sepsis criteria secondary to leukocytosis, tachycardia, lactic acidosis Blood cultures were obtained in the ED, but this was after administration of antibiotics She received broad-spectrum antibiotics with vancomycin and Rocephin Source: Possible pneumonia given URI symptoms x 1 week and SARS-CoV-2 Obtain MRSA swab IV Rocephin and IV Doxy Obtain CT chest for further clarification of possible pneumonia and CT a/p due to abd pain complaints In regards to COVID she currently does not meet criteria for treatment as she is not requiring oxygen Blood and urine cultures ordered, follow 12/18 Patient is stable overall Remains in room air CT chest showing bilateral multifocal pneumonia Blood culture, sputum culture pending Continue cefepime, doxycycline Not a candidate for remdesivir in light of acute kidney injury, creatinine clearance below 25 Will continue to monitor closely MDS Symptomatic Anemia Pt follows Dr. Trejo; She is transfusion dependent, last was 2 weeks ago h/h 5.6 and 17.6 She has been type and cross 2 units, she has received 2 units before without any difficulty, no prior transfusion reaction Repeat H&H after blood products, goal hemoglobin greater than [address] Trejo secondary to thrombocytopenia Dr. Trejo recommends holding hydroxyurea due to underlying sepsis Would reach out to Dr. Trejo in next 1 to 2 days regarding further guidance in h er MDS Dr. Trejo expects WBC to increase while holding hydroxyurea /3 Hemoglobin 7 Additional unit of packed RBCs ordered Platelets 54th K Monitor CBC daily Lactic acidosis High anion gap metabolic acidosis, 18 Suspect related to severe anemia, volume depletion, sepsis and rhabdomyolysis Expect to improve with improvement of above Will trend until resolved Repeat BMP, lactate at 1900 Resolved Elevated troponin No chest pain, ischemic ecg change Suspect demand ischemia in setting of sepsis, rhabdo Troponin improved from 56-50, EKG no signs of acute ischemia or infarct Echocardiogram reviewed: Mild to moderate mitral stenosis Discussed with cardiology service as well Rhabdomyolysis non traumatic, on ground for 7 hours after fall CK 1054 IVF and blood products ordered Follow renal fxn and CK CPK improved to 900s Continue IV fluid Acute on Chronic CKD 3 baseline cr 2.2-2.4 bun/cr 61 and 3.74 continue blood products/fluids Nephrology service consulted NSS with bicarbonate ordered Monitor creatinine closely Hyperkalemia 2/2 to rhabdo, CKD Lokelma 10mg TID Monitor bmp Improving Hypomagnesemia Mag 1.3, replace Repeat mag @ 1900 Replaced Mechanical fall in setting of dizziness Comminuted displaced fracture of the distal shaft of left femur Patient follows with [facility] Dr. Knutson aware of patient Plan is for surgical fixation once medically stable Knee brace, bed rest, ICE TID Scheduled Tylenol Oxy IR 2.5mg PRN for Severe pain Daughter does not want her to have any strong narcotic without discussing with her check vitamin D level 5/ Patient high risk for cardiopulmonary complications in light of patient's advanced age, multiple comorbidities as outlined above Discussed at length in detail with patient and her daughter, they verbalized understanding agreement of risks involved with planned surgery, they are agreeable to proceed with planned orthopedic surgery today No medical contraindication at this point to proceed with the necessary orthopedic surgery to address left humeral fracture Will optimize patient and carefully monitor patient perioperatively Full incontinence of feces Rectal prolapse Pt is planning to get colostomy in near future due to prolapse Hard of Hearing Pt is 100% alert and oriented and mentally capable She watches her 4 year old grandson She is very hard of hearing and according to daughter will shake her head, yes even if she doesnt hear Daughter encourage to speak loudly and slowly Monitor for delirium given age DVT ppx: SCDS on Right leg only for now; once H/H stabilizes and as long as plts are > 50 can implement chemical prophylaxis at the coordination of orthopedics FULL CODE pt wants to watch her 3 grandkids that call herAc to grow up PCP: Dr. Palomares Dispo: Pending Admission and Anticipated Discharge Date Admission Date: December 18, 2023 Subjective Follow-up for left femur fracture, etc. Resting in bed, comfortable, not in distress States she feels okay overall Denies shortness of breath, has minimal cough, sore throat No chest pain, palpitations, dizziness No headache, focal neurologic deficits Denies abdominal pain, nausea or vomiting No other new symptoms Patient's daughter also visiting Had lengthy discussion regarding planned surgery and underlying multiple medical conditions, comorbidities Explained that patient is high risk for perioperative complications including pulmonary and cardiac complications given multiple medical conditions and comorbidities Patient and her daughter verbalized understanding and agreement, would like to proceed with planned orthopedic surgery Review of Systems Review of Systems: all noted and negative except for above Physical Exam Physical Exam: General- oriented x 3, not in distress, speaks in sentences with no effort or accessory muscle use Eyes- anicteric Neck- no JVD Lungs- clear breath sounds bilaterally, no rales/wheezes Heart- normal rate, regular rhythm; no murmurs Abdomen- normal bowel sounds, nondistended, soft, nontender Extremities- no pretibial edema, no calf tenderness Neuro- alert, oriented x 3; no gross focal neurologic deficits Skin- warm & dry Results & Data Results & Data Vital Signs (Past 12 Hours) Vital Signs Temp Pulse Pulse Resp BP BP Pulse Ox 12/19/23 15:24 88 19 143/70 H 89 L 12/19/23 15:15 36.9 C 84 19 126/62 91 12/19/23 14:00 85 12/19/23 12:16 36.6 C 82 18 145/68 H 92 12/19/23 10:31 36.4 C L 76 18 131/67 91 12/19/23 10:01 36.5 C 83 20 149/72 H 93 12/19/23 09:32 36.5 C 83 19 149/72 H 93 12/19/23 09:31 36.4 C L 71 20 120/70 93 12/19/23 09:16 36.4 C 71 18 125/69 12/19/23 09:12 36 C L 69 20 124/74 93 12/19/23 08:19 93 H 12/19/23 08:00 O2 Del Method 12/19/23 15:24 Room Air 12/19/23 15:15 Room Air 12/19/23 14:00 12/19/23 12:16 12/19/23 10:31 12/19/23 10:01 12/19/23 09:32 12/19/23 09:31 12/19/23 09:16 12/19/23 09:12 12/19/23 08:19 12/19/23 08:00 Room Air all noted and reviewed including below (2) Pneumonia Pneumonia type: due to unspecified organism (4) Acute renal failure superimposed on stage 3 chronic kidney disease Acute renal failure type: unspecified (5) Rhabdomyolysis Encounter type: initial encounter Rhabdomyolysis type: traumatic Qualified Code(s): T79.6XXA - Traumatic ischemia of muscle, initial encounter (13) Left femoral shaft fracture Encounter type: initial encounter Fracture alignment: displaced Fracture morphology: comminuted Fracture type: closed Qualified Code(s): S72.352A - Displaced comminuted fracture of shaft of left femur, initial encounter for closed fracture
[2023-12-19] MEDS ORDERED: SUGAMMADEX SODIUM 200 MG/2 ML VIAL IV ONE (19:44)
[2023-12-19] MEDS: BUPIVACAINE/EPINEPHRINE 0.5% MPF 1:200,000 30 ML VIAL ONE (19:53)
[2023-12-19] MEDS ORDERED: MIDAZOLAM HCL 1 MG/ML 2ML VIAL ONE (20:04)
--- NOTE | 2023-12-19 20:09 | Fluoroscopy Report ---
INTRAOPERATIVE RADIOGRAPHS CLINICAL HISTORY: Open reduction and internal fixation of the left femur. Fluoro time: 42 seconds Ka,r: 9.36 mGy FINDINGS: 4 spot fluoroscopic views of the left femur are correlated with radiographs dated 12/18/2023. A left knee arthroplasty is in near anatomic alignment. An intramedullary nail has been placed trans fixing comminuted fracture of the distal femoral shaft. Near anatomic alignment is restored. 2 cortic al lag screws transfix the distal end of the nail and a single cortical lag screws transfixes the pro ximal end of the nail. There are also cerclage wires around the distal femoral shaft. Overlying soft tissue edema is noted. IMPRESSION: Intraoperative images from open reduction and fixation of a left femoral shaft fracture a s above. Electronically signed by: Kong Proctor M.D. 12/19/2023 8:08 PM
--- NOTE | 2023-12-19 20:34 | Operative Report ---
PG Post Operative Report Pre & Post Diagnosis Operation Date: 12/19/23 08:20 Pre-Op Diagnosis: Left periprosthetic femur fracture Post-Op Diagnosis: Left periprosthetic femur fracture I identified the patient and participated in the time-out.: Yes Procedure Operation Date: 12/19/23 08:20 Actual Procedures p Left Femoral Periprosthetic Fracture Retrograde Intermedullary Nail(Left) - Faisal Knutson MD Surgeon Faisal Knutson MD [employer] Assistant Shawn Galeano PA-C Estimated Blood Loss 100 Findings Consistent with Post-Op Diagnosis Specimens None Anesthesia Type General Complications none Disposition Accompanied Patient To Recovery: No Indications Patient is an 88-year-old female with multiple medical comorbidities sustained a fall.. As she had the acute onset of pain unable to ambulate afterwards. She is brought to emergency room x-rays with a left periprosthetic femur fracture around a total knee. Patient was admitted to the hospital, medically optimized indicated for surgical repair. She did have multiple medical problems which were optimized preoperatively. Description of Procedure Operative implants consisted of: 1. Synthes 1.7 mm cables x 3. 2. Synthes retrograde femoral nail-320 mm in length and 9 mm in diameter. 3. 5.0 interlocking screws x 3 4. Femoral nail locking end cap x 1 The patient was taken the operating identified and placed on the operating table in supine position but all contact areas were appropriately padded. The patient has had COVID-pneumonia and was intubated in the isolation room. She was brought to the operating room. All contractors were meticulously padded. We then scrubbed the left leg with a Hibiclens and then prepped with ChloraPrep. The left leg was then prepped and draped in usual sterile fashion. An anterior approach the left knee and left thigh was then performed through a longitudinal incision beginning in the mid to proximal thigh and extending in down towards the tibial tubercle. We used a previous total knee incision. Sharp dissection was carried through subcutaneous tissues down the extensor mechanism. A medial parapatellar arthrotomy incision was made. The fracture was exposed. There was a lot of clot that had to be removed. We very carefully pieces back together and held it with several reduction clamps. I then placed 3 Synthes cables around the fracture pieces. This provided excellent stability. We then proceeded with retrograde IM nailing. The distal intercondylar box was then entered with a wire. It was advanced up the femoral canal. We then reamed the femoral canal up to a size 10-1/2. We got good chatter even at 10. I then reamed the distal segment with the 13 mm reamer. We then measured for nail length. 320 mm nail was selected. This was placed over guidewire and tapped into position. 2 distal interlocking screws were placed with the operating device. We placed a single proximal interlocking screw from anterior to posterior using the perfect [place] technique. Some final x-rays were obtained. The fracture is anatomically aligned. We elected proceed with closing. The wound was irrigated coconuts of pulsatile lavage solution. We did inject locally with 30 cc of half percent Marcaine with epinephrine. The extensor Metros then closed with combination 1 PDS suture #1 Vicryl suture in a [id number] fashion. Extensor Meclomen checked found to be intact and subcutaneous tissues then closed with 2-0 Vicryl suture in buried interrupted fashion. Skin was then closed with a combination of sonia and #1 Prolene suture in a simple fashion. Leg was then cleaned and dried and sterile dressed with Xeroform, 4 fours, sterile cast padding, Levi bandage and a knee immobilizer applied. The patient then transferred to the ICU. She was left intubated at the ICU staff's request. The patient tolerated procedure well and there were no complications. I attest to the content of the Intraoperative Record and any orders documented therein. Any exceptions are noted below.
[2023-12-19] MEDS ORDERED: STAT IV Infusion **Titration per Protocol STA (20:41)
[2023-12-19] MEDS ORDERED: MIDAZOLAM HCL 1 MG/ML 2ML VIAL IV PRN (20:41)
--- NOTE | 2023-12-19 20:52 | Anesthesiology Progress Note ---
Date of Service December 19, 2023 Anesthesia Post Procedure Vital Signs Vital Signs: Temp Pulse Pulse Resp BP BP Pulse Ox 12/19/23 15:24 88 19 143/70 H 89 L 12/19/23 15:15 36.9 C 84 19 126/62 91 12/19/23 14:00 85 12/19/23 12:16 36.6 C 82 18 145/68 H 92 12/19/23 10:31 36.4 C L 76 18 131/67 91 12/19/23 10:01 36.5 C 83 20 149/72 H 93 12/19/23 09:32 36.5 C 83 19 149/72 H 93 12/19/23 09:31 36.4 C L 71 20 120/70 93 12/19/23 09:16 36.4 C 71 18 125/69 12/19/23 09:12 36 C L 69 20 124/74 93 12/19/23 08:19 93 H 12/19/23 08:00 12/19/23 04:45 92 H 18 126/56 L 93 12/19/23 03:27 36.3 C L 95 H 18 125/64 92 12/19/23 00:32 91 H 12/19/23 00:19 36.5 C 82 18 129/54 L 94 12/19/23 00:00 36.3 C L 90 20 128/56 L 95 12/18/23 23:00 36.8 C 88 22 104/56 L 94 12/18/23 22:49 12/18/23 22:00 36.8 C 95 H 18 118/60 95 12/18/23 21:30 36.8 C 101 H 20 119/62 96 12/18/23 21:15 36.8 C 93 H 20 106/59 L 95 12/18/23 20:59 36.6 C 88 20 119/50 L 92 O2 Del Method 12/19/23 15:24 Room Air 12/19/23 15:15 Room Air 12/19/23 14:00 12/19/23 12:16 12/19/23 10:31 12/19/23 10:01 12/19/23 09:32 12/19/23 09:31 12/19/23 09:16 12/19/23 09:12 12/19/23 08:19 12/19/23 08:00 Room Air 12/19/23 04:45 Room Air 12/19/23 03:27 Room Air 12/19/23 00:32 12/19/23 00:19 Room Air 12/19/23 00:00 12/18/23 23:00 12/18/23 22:49 Room Air 12/18/23 22:00 12/18/23 21:30 12/18/23 21:15 12/18/23 20:59 Transfer of Care Handoff Completed per policy Notes Mental Status: alert / awake / arousable and participated in evaluation Patient Amnestic to Procedure: Yes Nausea / Vomiting: adequately controlled Pain: adequately controlled Airway Patency, RR, SpO2: stable & adequate BP & HR: stable & adequate Hydration State: stable & adequate Anesthetic Complications: no major complications apparent Notes: Pt not reversed at end. Placed on Vent in SICU. VSS at present. +BLBS. CXR, l abs pending. Report given to GAURANG. Left in care of ICU staff
[2023-12-19 20:56] LABS: iSTAT Allen Test Pass; iSTAT Art Bld Gas pCO2 Correct 37 mmHg (35-46); iSTAT Art Bld Gas pH Corrected 7.175 (7.35-7.45); iSTAT Arterial Blood Gas HCO3 14 meg/L (19-24); iSTAT Arterial Blood Gas pCO2 37 mmHg (35-46); iSTAT Arterial Blood Gas pH 7.17 (7.35-7.45); iSTAT Arterial Blood Gas pO2 93 mmHg (80-95); iSTAT Arterial Blood Gas pO2 C 91; iSTAT Carbon Dioxide 15 mmol/L (24-31); iSTAT FiO2 50 %; iSTAT Hematocrit 21 % (37-47); iSTAT Hemoglobin 7.1 g/dl (12.0-16.0); iSTAT Potassium 4.6 mmol/L (3.3-5.0); iSTAT Site R Radial; iSTAT Sodium 133 mmol/L (135-144)
[2023-12-19] MEDS: SODIUM BICARB 8.4% INJ 50 MEQ/50 ML SYR IV STA (21:28)
[2023-12-19] MEDS: fentaNYL citrate 2,500 MCG/250 ML BAG IV SCH (21:28)
[2023-12-19 22:04] LABS: Hematocrit (blood only) 19.1 % (37.0-47.0); Hemoglobin 6.3 g/dl (12.0-16.0); Mean Corpuscular Hemoglobin 29.6 pg (25.0-34.0); Mean Corpuscular Volume 89.7 fL (80.0-100.0); Mean Platelet Volume 13.2 fL (9.4-12.4); Nucleated RBC % (auto) 0.1 %; Platelet Count 56 K/uL (130-400); RDW Coefficient of Variation 18.6 % (11.5-14.5); RDW Standard Deviation 57.3 fL (36.4-46.3); Red Blood Count 2.13 M/uL (4.20-5.40); White Blood Count 72.86 K/ul (4.8-10.8)
[2023-12-19 22:24] LABS: ALC (manual) 1.46 K/uL (1.2-3.4); Acanthocytes 1+; Anisocytosis Present; Basophilic Stippling 1+; Lymphocytes # (manual) 1.46 K/uL (1.2-3.4); Lymphocytes % (manual) 2 %; Metamyelocytes # (manual) 2.91 K/uL (0-0); Metamyelocytes % (manual) 4 %; Monocytes # (manual) 2.19 K/uL (0.11-0.59); Monocytes % (manual) 3 %; Myelocytes % (manual) 7 %; Neutrophils % (manual) 84 %; Ovalocytes 1+
[2023-12-19 22:27] LABS: Est GFR (African American) 15.2 ml/min; Potassium 4.4 mmol/L (3.5-5.1)
[2023-12-19 22:28] LABS: BUN Creatinine Ratio 19.1 (10-20); Calcium 6.5 mg/dl (8.6-10.3); Creatinine Clr Calc Pharmacy 10.1 ml/min; Est GFR (Non-African American) 13.2 ml/min; Magnesium 1.8 mg/dl (1.7-2.4); Phosphorus 6.2 mg/dl (2.5-4.9)
[2023-12-19] MEDS: CALCIUM GLUCONATE 1,000 MG/60 ML BAG IV STA (23:04)
[2023-12-20] MEDS ORDERED: STAT IV Infusion **Titration per Protocol STA (00:09)
[2023-12-20] MEDS: NOREPINEPHRINE/D5W 4 MG/250 ML PLCT IV SCH (00:27)
[2023-12-20] MEDS: ceFAZolin 1000MG 1,000 MG/7.5 ML SYR IV SCH (02:56)
--- NOTE | 2023-12-20 03:20 | Critical Care Consultation ---
Date of Consultation December 19, 2023 Assessment & Plan (1) On mechanically assisted ventilation: Reason Critically Ill: 88-year-old female presents to the ICU following OR care of left femur fracture, in which she remains intubated. Patient history of MDS and requiring multiple blood transfusions prior to surgery. She was found down at home treatment for ABA and rhabdomyolysis underlying metabolic acidosis and possible sepsis. Neuro - Sedation/analgesics: Fentanyl drip Cardiac - Currently hemodynamically stable without use of vasopressors. Patient was reported to have received phenylephrine during the case, and blood pressures currently soft. Hopefully will respond to fluid resuscitation/blood products. Levophed if needed. Continuous hemodynamic monitoring with A-line. Continuous telemetry monitoring. TTE with LVEF 60 to 65%, mildly dilated left atrium, moderate mitral valve stenosis mild to moderate mitral regurg, mild tricuspid regurg. Respiratory - Mechanically ventilatedpatient left ventilated postop due to comorbidities and advanced age and admitted to ICU for further management. ABG with metabolic acidosis, no significant hypoxia. Plan to leave intubated overnight and extubate once stable. She does likely have underlying pneumonia with bio positive for COVID-19 and chest x-ray concerning for multifocal pneumonia. See ID treatment below. Continuous end-tidal CO2 monitoring and pulse ox monitoring. Will follow-up morning chest x-ray and ABG. Wean vent as tolerat ed. GI - N.p.o. RENAL/LYTES - ABA on CKDpatient presented with creatinine 3.74 with previous 1.19 on prior admission. Likely ATN with sepsis/rhabdomyolysis -Will continue fluid resuscitation with bicarb drip. Creatinine improving on repeat BMP -Nephrology following. Appreciate recommendations -Avoid nephrotoxins and renally adjust medication -Maintain MAP greater than 65 and target euvolemia -Monitor routine BMPs RhabdomyolysisCPK improving. Continue to trend. Continue with fluid resuscitation metabolic acidosisanion gap improving without much improvement of pH. Postop ABG with pH 7.17 and given 1 amp of bicarb and bicarb drip restarted. She does have elevated BUN and elevated chloride on BMP which may be contributing along with rhabdomyolysis. Lactic acid within normal limits. Continue bicarb drip for now, renal function and rhabdomyolysis improving. Follow-up a.m. ABG - Foleystrict I's and O's ENDO - No history of diabetes or thyroid disease. ICU hyperglycemic protocol HEME - MDS/anemiapatient with initial hemoglobin of 5.6 on arrival to the ER yesterday. She is transfusion dependent. She did receive 2 units RBCs yesterday. Postop hemoglobin now 6.7, and 2 additional units RBCs transfusing. Hydroxyurea on hold. Trend H&H and follow-up coags. Routine CBC. Transfuse as indicated Ortho Mechanical fall with displaced fracture of the distal shaft of left femurstatus post ID - Sepsis?Patient does have chronic leukocytosis due to underlying MDS. Initial elevated lactate now cleared, procalcitonin elevated. She remains afebrile and cultures negative to date on preliminary -Chest x-ray with multifocal opacifications concerning for pneumonia -Bio fire positive for COVID-19. No hypoxia prior to surgery -CT abdomen and pelvis concerning for colitis. She does have rectal prolapse with plan to receive colostomy in near future -Continue cefepime and Flagyl for now LINES/IV ACCESS - Right IJ CVC, radial A-line DVT PROPHYLAXIS - SCDs, hold anticoagulation for now following surgery I have personally spent 58 minutes of critical care time in the direct management of this patient. This is a life/limb threatening event. This includes time spent evaluating patient, direct bedside care, chart review, placing orders, interpretation of diagnostic studies, discussion with consultants, patient, and family members, as well as other required patient management activities. This time is exclusive of all separately billable procedures, and teaching time and separate from and in addition to any other critical care service time. Thank you for allowing us to participate in the care of this patient. Please refer to my attending physician's documentation for any further recommendations. (2) ABA (acute kidney injury): (3) Left femoral shaft fracture: (4) Symptomatic anemia: (5) Metabolic acidosis: (6) Sepsis: History of Present Illness Attending Physician: Joel Amezcua MD History of Present Illness Patient is a 88-year-old female with past medical history of mitral valve stenosis, HTN, CKD stage III, MDS, who was admitted to the hospital yesterday after sustaining a fall from her home in which she obtained a left femur fracture and was found to be in rhabdomyolysis. Patient also found to be anemic and underwent transfusions prior to be taken to the OR earlier this afternoon. Now patient presents to the ICU postop following a left femoral periprosthetic fracture retrograde intramedullary nail. Patient left intubated postop, and now presents to the ICU for further management at this time. Allergies Allergy/AdvReac Type Severity Reaction Status Date / Time morphine AdvReac Intermediate NAUSEA AND Verified 12/18/23 14:57 VOMITING Home Medications Medication Instructions Recorded Confirmed Type acetaminophen 500 mg tablet 1,000 mg PO Q8H PRN Pain, Moderate 06/29/18 12/18/23 History allopurinol 300 mg tablet 300 mg PO QAM 12/18/23 12/18/23 History hydroxyurea 500 mg capsule 500 mg PO [id number] 12/18/23 12/18/23 History vitamins A,C,E-gpav-lfggeh 2,148 1 tab PO BID 12/18/23 12/18/23 History mcg-113 mg-45 mg-17.4 mg tablet (PreserVision AREDS) Patient History Medical History (Updated 12/20/23 @ 08:06 by Faisal Knutson MD) Periprosthetic fracture around internal prosthetic left knee joint Right knee DJD Stage 3 chronic kidney disease Gout Left shoulder pain Cervical pain MDS (myelodysplastic syndrome) Urinary incontinence Gout Surgical History H/O bladder repair surgery H/O: hysterectomy H/O carpal tunnel repair right hand H/O total knee replacement bilateral Social History Smoking Status: Never smoker Hx Alcohol Use: No Hx Substance Use: No Preferred Language: Hungarian Communication Ability: Effective 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 Beliefs That Will Affect Care: None Current Living Situation: Alone Other Information That Helps Us Care for You: No Feels Safe at Home: Yes Safety Concerns: Feels Safe At This Time Assistive Devices: Cane Review of Systems Review of Systems: Unobtainable due to cognitive status and Unobtainable due to endotracheal tube Physical Exam Constitutional: + frail appearing and + mechanically judith tilated Eyes: PERRL, conjunctivae normal, anicteric sclerae ENMT: external ear and nose normal, oropharynx normal Neck: trachea midline, no thyromegaly Respiratory: normal respiratory effort, lungs clear to auscultation Cardiovascular: RRR, no murmur, no edema Gastrointestinal (Abdomen): normal bowel sounds, soft, nontender, no hepatosplenomegaly Musculoskeletal: no cyanosis or clubbing, extremities motor strength 5/5 Skin: no rashes, warm and dry Neurologic: Unable to assess due to sedation Psychiatric: Unable to assess due to sedation Genitourinary: Judge catheter present. Urine dark concentrated yellow Results & Data Results & Data Vital Signs (Past 12 Hours) Vital Signs Temp Pulse Pulse Resp BP BP Pulse Ox 12/19/23 20:25 86 18 92 12/19/23 15:24 88 19 143/70 H 89 L 12/19/23 15:15 36.9 C 84 19 126/62 91 12/19/23 14:00 85 12/19/23 12:16 36.6 C 82 18 145/68 H 92 12/19/23 10:31 36.4 C L 76 18 131/67 91 12/19/23 10:01 36.5 C 83 20 149/72 H 93 12/19/23 09:32 36.5 C 83 19 149/72 H 93 12/19/23 09:31 36.4 C L 71 20 120/70 93 12/19/23 09:16 36.4 C 71 18 125/69 12/19/23 09:12 36 C L 69 20 124/74 93 O2 Del Method FiO2 12/19/23 20:25 50 12/19/23 15:24 Room Air 12/19/23 15:15 Room Air 12/19/23 14:00 12/19/23 12:16 12/19/23 10:31 12/19/23 10:01 12/19/23 09:32 12/19/23 09:31 12/19/23 09:16 12/19/23 09:12 Coding Level of Care Code 80035 CRITICAL CARE 1ST 30-74M Diagnoses On mechanically assisted ventilation Z99.11 ABA (acute kidney injury) N17.9 Left femoral shaft fracture S72.352A Encounter type: initial encounter Fracture alignment: displaced Fracture morphology: comminuted Fracture type: closed Symptomatic anemia D64.9 Metabolic acidosis E87.20 Sepsis A41.9 (3) Left femoral shaft fracture Encounter type: initial encounter Fracture alignment: displaced Fracture morphology: comminuted Fracture type: closed Qualified Code(s): S72.352A - Displaced comminuted fracture of shaft of left femur, initial encounter for closed fracture
[2023-12-20] MEDS: fentaNYL BOLUS from BAG IV PRN (04:17)
[2023-12-20 04:56] LABS: BUN Creatinine Ratio 19.1 (10-20); Calcium 6.8 mg/dl (8.6-10.3); Creatinine Clr Calc Pharmacy 9.8 ml/min; Est GFR (African American) 14.6 ml/min; Est GFR (Non-African American) 12.6 ml/min; Potassium 4.8 mmol/L (3.5-5.1)
[2023-12-20 04:57] LABS: Fibrinogen 223 mg/dl (184-400); INR 1.3 (0.9-1.1); Prothrombin Time 13.5 Seconds (9.0-12.0)
[2023-12-20] MEDS ORDERED: STAT IV/IM STA (05:34)
[2023-12-20 05:40] LABS: iSTAT Art Bld Gas pCO2 Correct 32 mmHg (35-46); iSTAT Art Bld Gas pH Corrected 7.225 (7.35-7.45); iSTAT Arterial Blood Gas HCO3 13 meg/L (19-24); iSTAT Arterial Blood Gas pCO2 33 mmHg (35-46); iSTAT Arterial Blood Gas pH 7.21 (7.35-7.45); iSTAT Arterial Blood Gas pO2 78 mmHg (80-95); iSTAT Arterial Blood Gas pO2 C 73; iSTAT Carbon Dioxide 14 mmol/L (24-31); iSTAT FiO2 30 %; iSTAT Hematocrit 27 % (37-47); iSTAT Hemoglobin 9.2 g/dl (12.0-16.0); iSTAT Potassium 4.6 mmol/L (3.3-5.0); iSTAT Site Art Line; iSTAT Sodium 135 mmol/L (135-144)
[2023-12-20] MEDS: SODIUM BICARBONATE 8.4% 100 MEQ in DEXTROSE 5% 1,000 ML IV SCH (06:02)
[2023-12-20] MEDS: CALCIUM GLUCONATE 1,000 MG/60 ML BAG IV SCH (06:23)
[2023-12-20] MEDS: SODIUM BICARB 8.4% INJ 50 MEQ/50 ML SYR IV STA (06:23)
[2023-12-20 06:36] LABS: Hematocrit (blood only) 26.6 % (37.0-47.0); Hemoglobin 8.9 g/dl (12.0-16.0); Mean Corpuscular Hemoglobin 29.9 pg (25.0-34.0); Mean Corpuscular Hgb Conc 33.5 g/dL (32.0-36.0); Mean Corpuscular Volume 89.3 fL (80.0-100.0); RDW Coefficient of Variation 16.5 % (11.5-14.5); RDW Standard Deviation 51.8 fL (36.4-46.3); Red Blood Count 2.98 M/uL (4.20-5.40)
[2023-12-20 06:37] LABS: Mean Platelet Volume 14.2 fL (9.4-12.4); Platelet Count 62 K/uL (130-400)
[2023-12-20 07:01] LABS: ALC (manual) 2.33 K/uL (1.2-3.4); ANC (manual) 62.17 K/uL (1.4-6.5); Echinocytes 1+; Lymphocytes # (manual) 2.33 K/uL (1.2-3.4); Lymphocytes % (manual) 3 %; Metamyelocytes # (manual) 3.89 K/uL (0-0); Metamyelocytes % (manual) 5 %; Monocytes # (manual) 4.66 K/uL (0.11-0.59); Monocytes % (manual) 6 %; Myelocytes # (manual) 4.66 K/uL (0-0); Myelocytes % (manual) 6 %; Neutrophils # (manual) 62.17 K/uL (1.40-6.50); Neutrophils % (manual) 80 %; Nucleated RBC # (auto) 0.09 K/uL (0.00-0.12); Nucleated RBC % (auto) 0.1 %; White Blood Count 77.71 K/ul (4.8-10.8)
--- NOTE | 2023-12-20 07:16 | XRay Report ---
SINGLE VIEW CHEST CLINICAL HISTORY: Respiratory failure. Intubation. FINDINGS: 2 AP, portable, supine chest radiographs are compared to chest x-ray and chest CT dated 12/18. An endotracheal tube has been placed. The tip projects approximately 4 cm above the adolph. A right internal jugular central venous catheter is unchanged in position. The heart is enlarged noting atherosclerotic calcification of the thoracic aorta. There is pulmonary vascular congestion. Multifo owen airspace consolidation is again seen throughout both lungs. Small pleural effusions have increas ed from previous. No pneumothorax is seen. The skeletal structures are osteopenic. The bony thorax is grossly intact. IMPRESSION: 1. An endotracheal tube has been placed as above. 2. Multifocal airspace consolidation is similar to yesterday. Radiographic follow-up to resolution is recommended. 3. Cardiomegaly with pulmonary vascular congestion. 4. Small pleural effusions have increased from previous ACT 112: Negative or not required by law. Electronically signed by: Kong Proctor M.D. 12/20/2023 7:15 AM
--- NOTE | 2023-12-20 08:08 | Surgery Progress Note ---
Date of Service December 20, 2023 Assessment & Plan (1) Periprosthetic fracture around internal prosthetic left knee joint: Plan: 88-year-old female with multiple medical comorbidities postop day 1 from ORIF and IM nailing of a left periprosthetic femur fracture. Orthopedically has she is doing well. She also looks pretty medically stable despite her multiple medical issues. Plan: From an orthopedic standpoint her left leg is fixed. She can weight-bear as tolerated. Would like her to use the knee immobilizer for a while until her quad function returns when she is weightbearing. She can do range of motion exercises 0 to 90 degrees. As far as DVT prophylaxis will leave that up to the primary care team. She got multiple issues including thrombocytopenia which likely make chemical chemoprophylaxis contraindicated. Except above the just using teds and SCDs for now. Her anemia seems stable and actually better than baseline. Will likely begin therapy a little bit more when she is extubated. Any orthopedic questions can recommend [phone]. For now organ to leave the current dressing in place. I will give orders for changing when the time comes. Admission and Anticipated Discharge Date Admission Date: December 18, 2023 Subjective 88-year-old female with multiple medical comorbidities postop day 1 from ORIF and IM nailing of a left periprosthetic femur fracture. He is intubated in the ICU. Despite this she is responding to commands and following commands. She looks relatively comfortable. She denies any pain. Physical Exam Physical Exam: Physical exam shows a pleasant elderly female. As she is lying in bed looks pretty comfortable. She is intubated. Examination of left leg reveals the dressing and immobilizer to be in place. She can dorsiflex and plantarflex her foot appropriately. She is neurologically intact. Results & Data Vital Signs (Past 12 Hours) Vital Signs Temp Pulse Pulse Resp BP BP Pulse Ox 12/20/23 07:41 82 18 97 12/20/23 06:00 36.2 C L 61 20 98 12/20/23 05:00 36.1 C L 58 L 20 97 12/20/23 05:00 36.1 C L 58 L 20 118/47 L 97 12/20/23 04:47 36.1 C L 59 L 20 96 12/20/23 04:44 36.1 C L 59 L 20 96 12/20/23 04:44 112/49 L 12/20/23 04:30 36.1 C L 63 20 96 12/20/23 04:16 36.1 C L 68 20 96 12/20/23 04:00 36.0 C L 67 20 99 12/20/23 03:46 36.0 C L 60 20 96 12/20/23 03:43 121/51 L 12/20/23 03:43 36.0 C L 61 20 95 12/20/23 03:31 36.0 C L 77 19 91 12/20/23 03:21 116 H 20 99 12/20/23 03:17 36.0 C L 57 L 20 100 12/20/23 03:01 36.0 C L 59 L 20 99 12/20/23 02:46 36.0 C L 117 H 20 98 12/20/23 02:43 108/47 L 12/20/23 02:42 36.1 C L 117 H 20 97 12/20/23 02:39 36.1 C L 118 H 20 97 12/20/23 02:23 36.1 C L 97 H 20 106/50 L 98 12/20/23 02:01 36.1 C L 117 H 20 99 12/20/23 01:50 36.1 C L 77 20 95/47 L 98 12/20/23 01:45 36.0 C L 101 H 20 98 12/20/23 01:31 36.0 C L 59 L 20 99 12/20/23 01:15 36.0 C L 59 L 20 100 12/20/23 01:02 36.0 C L 65 20 99 12/20/23 00:46 36.0 C L 63 20 100 12/20/23 00:43 36.0 C L 64 20 100 12/20/23 00:43 103/47 L 12/20/23 00:31 36.1 C L 75 20 100 12/20/23 00:15 36.1 C L 76 20 99 12/20/23 00:00 75 12/20/23 00:00 36.1 C L 77 20 99 12/19/23 23:45 36.1 C L 92 H 22 79 L 12/19/23 23:45 110/81 12/19/23 23:34 36.1 C L 83 20 96 12/19/23 23:15 83 20 97 12/19/23 23:15 36.1 C L 80 20 95 12/19/23 23:09 36.1 C L 77 20 95/47 L 98 12/19/23 23:01 36.1 C L 83 20 98 12/19/23 22:44 36.1 C L 80 20 97 12/19/23 22:44 95/47 L 12/19/23 22:30 36.1 C L 84 20 97 12/19/23 22:00 36.0 C L 85 20 97 12/19/23 21:43 149/62 H 12/19/23 21:43 36.0 C L 91 H 25 H 99 12/19/23 21:30 36.0 C L 78 20 94 12/19/23 21:00 36.3 C L 80 21 93 12/19/23 20:53 80 12/19/23 20:53 36.4 C L 82 20 93 12/19/23 20:45 36.8 C 96 H 18 94/77 L 93 12/19/23 20:40 12/19/23 20:40 36.8 C 83 19 121/44 L 91 12/19/23 20:35 36.8 C 88 18 123/49 L 91 12/19/23 20:30 36.8 C 87 17 111/45 L 90 12/19/23 20:25 86 20 92 O2 Del Method FiO2 12/20/23 07:41 30 12/20/23 06:00 12/20/23 05:00 12/20/23 05:00 12/20/23 04:47 12/20/23 04:44 12/20/23 04:44 12/20/23 04:30 12/20/23 04:16 12/20/23 04:00 12/20/23 03:46 12/20/23 03:43 12/20/23 03:43 12/20/23 03:31 12/20/23 03:21 30 12/20/23 03:17 12/20/23 03:01 12/20/23 02:46 12/20/23 02:43 12/20/23 02:42 12/20/23 02:39 12/20/23 02:23 12/20/23 02:01 12/20/23 01:50 12/20/23 01:45 12/20/23 01:31 12/20/23 01:15 12/20/23 01:02 12/20/23 00:46 12/20/23 00:43 12/20/23 00:43 12/20/23 00:31 12/20/23 00:15 12/20/23 00:00 12/20/23 00:00 12/19/23 23:45 12/19/23 23:45 12/19/23 23:34 12/19/23 23:15 40 12/19/23 23:15 12/19/23 23:09 12/19/23 23:01 12/19/23 22:44 12/19/23 22:44 12/19/23 22:30 12/19/23 22:00 12/19/23 21:43 12/19/23 21:43 12/19/23 21:30 12/19/23 21:00 12/19/23 20:53 12/19/23 20:53 12/19/23 20:45 Mechanical Vent 12/19/23 20:40 Mechanical Vent 12/19/23 20:40 Mechanical Vent 12/19/23 20:35 Mechanical Vent 12/19/23 20:30 Mechanical Vent 12/19/23 20:25 50 Laboratory Results Hemoglobin is 8.9. Hematocrit is 9.2. Electrolytes are fairly stable. Creatinine elevated but improved from admission the level. PG Care Time/CCT Total # of Minutes Spent Total Time Spent with Patient: Total time spent is greater than 50% in coordination of care (as documented) at patient's floor/unit and/or counseling patient: Coding Level of Care Code 19258 Post Operative Follow-Up Diagnoses Periprosthetic fracture around internal prosthetic left knee joint M97.12XA
--- NOTE | 2023-12-20 08:53 | Nephrology Progress Note ---
Date of Service December 20, 2023 Assessment & Plan (1) ABA (acute kidney injury): Plan: 88/F with CKD 4 --baseline creat about 2.1---2.4 for last 1 year. Although had ABA with creat of 4.1 on the outpt lab done 11/12/2023--got better down to 2.2 without any definite intervention it seems next month on 12/10/2023. on admission creatinine was 3.7 but since then has trended down and now down to 3 though w/ some drop in UOP she has been having diminished UOP today but will continue to monitor this she had evidence of sepsis with lactic acidosis on admission but now lactic acid is normal and her vital signs appears to be acceptable. cautious optimism that she will continue to have renal recovery. but given her age and pre-existing CKD 4 she may not have enough renal recovery or very delayed recovery. this will be evident in the coming days. cause of ABA is established already and no further workup needed. >cont strict I/O >daily bmp >>will change IVF to isotonic bicarb rich fluid w/ a bicarb gtt it is not unusual to have renal decline in the perioperative state, eSpecially in a vulnerable patient like hers. >>make sure to maintain hemoglobin at least in mid 7s as she is very prone to develop severe anemia (2) CKD (chronic kidney disease) stage 4, GFR 15-29 ml/min: Plan: CKD 4 at baseline with baseline creatinine around 2.2. she was last seen by Dr. Marcelina Valentin in 2021. would recommend to have follow up with Nephrology if patient desires. (3) Left femoral shaft fracture: Plan: secondary to fall. s/p L femoral periprosthetic fracture retrograde intramedullary nail (4) SARS-CoV-2 positive: Plan: does have multi lobar pneumonia (5) Lactic acidosis: Plan: she had lactic acid level of 6 on admission but has since normalized. This is a good sign Plan case complexity high. Admission and Anticipated Discharge Date Admission Date: December 18, 2023 Subjective Brought to the ICU for management after left femoral periprosthetic fracture retrograde intramedullary nail procedure last evening. She was not extubated immediately after the surgery. She was on a levophed gtt and receiving D5W w/ 100 mEq/L Na bicarb at 100 mL hourly as well as lokelma, cefepime, flagyl. by midday today however when I saw her she'd been extubated, was off pressors, was taking po. there were some questions about decreasing UOP. pt denied pain sob n/v Review of Systems 2 Review of Systems: All systems reviewed & are unremarkable except as noted in Subjective Physical Exam 2 Constitutional: well developed, + thin, + frail appearing and cooperative Eyes: EOM intact bilaterally ENMT: Ears: no external ear abnormality Nose: no external nose abnormality Mouth: + dry oral mucous membranes Neck: no nuchal rigidity Respiratory: normal respiratory effort and + cough (occasional thick) A uscultation: + diminished lung sounds (exceptionally L side) and + crackles (a few R) Cardiovascular: RRR, no murmur, no edema Gastrointestinal (Abdomen): Inspection/Auscultation: normal bowel sounds P ercussion/Palpation: abdomen soft; abdomen nontender Musculoskeletal: Extremities: strength 5/5 throughout Skin: no rashes, warm and dry Neurologic: medina, fluent speech, no tremor Psychiatric: Orientation: alert and oriented x 3 Results & Data Vital Signs (Past 12 Hours) Vital Signs Temp Pulse Resp BP Pulse Ox O2 Del Method FiO2 12/20/23 07:41 82 18 97 30 12/20/23 07:28 36.4 C L 73 18 99 Mechanical Vent, Other 12/20/23 07:00 36.3 C L 78 20 99 Mechanical Vent, Other 30 12/20/23 06:45 36.3 C L 65 20 98 Mechanical Vent 30 12/20/23 06:00 36.2 C L 61 20 98 12/20/23 05:00 36.1 C L 58 L 20 97 12/20/23 05:00 36.1 C L 58 L 20 118/47 L 97 12/20/23 04:47 36.1 C L 59 L 20 96 12/20/23 04:44 36.1 C L 59 L 20 96 12/20/23 04:44 112/49 L 12/20/23 04:30 36.1 C L 63 20 96 12/20/23 04:16 36.1 C L 68 20 96 12/20/23 04:00 36.0 C L 67 20 99 12/20/23 03:46 36.0 C L 60 20 96 12/20/23 03:43 121/51 L 05/04/24 03:43 36.0 C L 61 20 95 12/20/23 03:31 36.0 C L 77 19 91 12/20/23 03:21 116 H 20 99 30 12/20/23 03:17 36.0 C L 57 L 20 100 12/20/23 03:01 36.0 C L 59 L 20 99 12/20/23 02:46 36.0 C L 117 H 20 98 12/20/23 02:43 108/47 L 12/20/23 02:42 36.1 C L 117 H 20 97 12/20/23 02:39 36.1 C L 118 H 20 97 12/20/23 02:23 36.1 C L 97 H 20 106/50 L 98 12/20/23 02:01 36.1 C L 117 H 20 99 12/20/23 01:50 36.1 C L 77 20 95/47 L 98 12/20/23 01:45 36.0 C L 101 H 20 98 12/20/23 01:31 36.0 C L 59 L 20 99 12/20/23 01:15 36.0 C L 59 L 20 100 12/20/23 01:02 36.0 C L 65 20 99 12/20/23 00:46 36.0 C L 63 20 100 12/20/23 00:43 36.0 C L 64 20 100 12/20/23 00:43 103/47 L 12/20/23 00:31 36.1 C L 75 20 100 12/20/23 00:15 36.1 C L 76 20 99 12/20/23 00:00 75 12/20/23 00:00 36.1 C L 77 20 99 12/19/23 23:45 36.1 C L 92 H 22 79 L 12/19/23 23:45 110/81 12/19/23 23:34 36.1 C L 83 20 96 12/19/23 23:15 83 20 97 40 12/19/23 23:15 36.1 C L 80 20 95 12/19/23 23:09 36.1 C L 77 20 95/47 L 98 12/19/23 23:01 36.1 C L 83 20 98 12/19/23 22:44 36.1 C L 80 20 97 12/19/23 22:44 95/47 L 12/19/23 22:30 36.1 C L 84 20 97 12/19/23 22:00 36.0 C L 85 20 97 12/19/23 21:43 149/62 H 12/19/23 21:43 36.0 C L 91 H 25 H 99 12/19/23 21:30 36.0 C L 78 20 94 12/19/23 21:00 36.3 C L 80 21 93 12/19/23 20:53 80 12/19/23 20:53 36.4 C L 82 20 93 Laboratory Results 12/20/23 06:06 12/20/23 04:23 (3) Left femoral shaft fracture Encounter type: initial encounter Fracture alignment: displaced Fracture morphology: comminuted Fracture type: closed Qualified Code(s): S72.352A - Displaced comminuted fracture of shaft of left femur, initial encounter for closed fracture
--- NOTE | 2023-12-20 09:19 | Critical Care Progress Note ---
Date of Service December 20, 2023 Assessment & Plan (1) On mechanically assisted ventilation: Plan: Reason Critically Ill: 88-year-old female presents to the ICU following OR care of left femur fracture, in which she remains intubated. Patient history of MDS and requiring multiple blood transfusions prior to surgery. She was found down at home treatment for ABA and rhabdomyolysis underlying metabolic acidosis and possible sepsis. Neuro - Sedation/analgesics: Sedation and analgesics off at this time. Plan to extubate. Cardiac - Currently hemodynamically stable without use of vasopressors. Continuous telemetry monitoring. TTE with LVEF 60 to 65%, mildly dilated left atrium, moderate mitral valve stenosis mild to moderate mitral regurg, mild tricuspid regurg. Respiratory - Successfully extubated and doing well at this time. Diagnosed with presumptive COVID-pneumonia. Patient on room air. Not on any specific therapy for COVID at this time. CT chest on admission did reveal diffuse multifocal groundglass opacities of unclear etiology. GI - N.p.o. will advance diet as tolerated since she is extubated. RENAL/LYTES - ABA on CKDpatient presented with creatinine 3.74 with previous 1.19 on prior admission. Likely ATN with sepsis/rhabdomyolysis -Will continue fluid resuscitation with bicarb drip. Creatinine improving on repeat BMP -Nephrology following. Appreciate recommendations -Avoid nephrotoxins and renally adjust medication -Maintain MAP greater than 65 and target euvolemia -Monitor routine BMPs RhabdomyolysisCPK improving. Continue to trend. Continue with fluid resuscitation metabolic acidosisanion gap improving without much improvement of pH. Postop ABG with pH 7.17 and given 1 amp of bicarb and bicarb drip restarted. She does have elevated BUN and elevated chloride on BMP which may be contributing along with rhabdomyolysis. Lactic acid within normal limits. Continue bicarb drip for now, renal function and rhabdomyolysis improving. - Foleystrict I's and O's ENDO - No history of diabetes or thyroid disease. ICU hyperglycemic protocol HEME - MDS/anemiapatient with initial hemoglobin of 5.6 on arrival to the ER yesterday. She is transfusion dependent. She did receive 2 units RBCs yesterday. Postop hemoglobin now 6.7, and 2 additional units RBCs transfusing. Hydroxyurea on hold. Trend H&H and follow-up coags. Routine CBC. Transfuse as indicated Ortho Mechanical fall with displaced fracture of the distal shaft of left femurstatus post fixation ID - Sepsis?Patient does have chronic leukocytosis due to underlying MDS. Initial elevated lactate now cleared, procalcitonin elevated. She remains afebrile and cultures negative to date on preliminary -Chest x-ray with multifocal opacifications concerning for pneumonia -Bio fire positive for COVID-19. No hypoxia prior to surgery -CT abdomen and pelvis concerning for colitis. She does have rectal prolapse with plan to receive colostomy in near future -Continue cefepime and Flagyl for now LINES/IV ACCESS - Right IJ CVC, radial A-line DVT PROPHYLAXIS - SCDs, hold anticoagulation for now following surgery Possible downgrade to PCU status later today if remains stable. Care coordinated with ICU nurse and ICU pharmacist. I have personally spent 44 minutes of critical care time in the direct management of this patient. This is a life/limb threatening event. This includes time spent evaluating patient, direct bedside care, chart review, placing orders, interpretation of diagnostic studies, discussion with consultants, patient, and family members, as well as other required patient management activities. This time is exclusive of all separately billable procedures, and teaching time and separate from and in addition to any other critical care service time. Thank you for allowing us to participate in the care of this patient. Please refer to my attending physician's documentation for any further recommendations. (2) ABA (acute kidney injury): (3) Left femoral shaft fracture: (4) Symptomatic anemia: (5) Metabolic acidosis: (6) Sepsis: Admission and Anticipated Discharge Date Admission Date: December 18, 2023 Subjective Patient off sedation and responding to all commands. Doing very well on spontaneous breathing trial. No major events overnight otherwise. Review of Systems Review of Systems: All systems reviewed & are unremarkable except as noted in HPI & below Physical Exam Constitutional: + frail appearing and + mechanically judith tilated Eyes: PERRL, conjunctivae normal, anicteric sclerae ENMT: external ear and nose normal, oropharynx normal Neck: trachea midline, no thyromegaly Respiratory: normal respiratory effort, lungs clear to auscultation Cardiovascular: RRR, no murmur, no edema Gastrointestinal (Abdomen): normal bowel sounds, soft, nontender, no hepatosplenomegaly Musculoskeletal: no cyanosis or clubbing, extremities motor strength 5/5 Skin: no rashes, warm and dry Neurologic: No focal deficits Psychiatric: Alert and awake. Does not appear anxious. Genitourinary: Judge catheter present. Urine dark concentrated yellow Results & Data Results & Data Vital Signs (Past 12 Hours) Vital Signs Temp Pulse Resp BP Pulse Ox O2 Del Method FiO2 12/20/23 07:41 82 18 97 30 12/20/23 07:28 36.4 C L 73 18 99 Mechanical Vent, Other 12/20/23 07:00 30 12/20/23 07:00 36.3 C L 78 20 99 Mechanical Vent, Other 30 12/20/23 06:45 36.3 C L 65 20 98 Mechanical Vent 30 12/20/23 06:00 36.2 C L 61 20 98 12/20/23 05:00 36.1 C L 58 L 20 97 12/20/23 05:00 36.1 C L 58 L 20 118/47 L 97 12/20/23 04:47 36.1 C L 59 L 20 96 12/20/23 04:44 36.1 C L 59 L 20 96 12/20/23 04:44 112/49 L 12/20/23 04:30 36.1 C L 63 20 96 12/20/23 04:16 36.1 C L 68 20 96 12/20/23 04:00 36.0 C L 67 20 99 12/20/23 03:46 36.0 C L 60 20 96 12/20/23 03:43 121/51 L 12/20/23 03:43 36.0 C L 61 20 95 12/20/23 03:31 36.0 C L 77 19 91 12/20/23 03:21 116 H 20 99 30 12/20/23 03:17 36.0 C L 57 L 20 100 12/20/23 03:01 36.0 C L 59 L 20 99 12/20/23 02:46 36.0 C L 117 H 20 98 12/20/23 02:43 108/47 L 12/20/23 02:42 36.1 C L 117 H 20 97 12/20/23 02:39 36.1 C L 118 H 20 97 12/20/23 02:23 36.1 C L 97 H 20 106/50 L 98 12/20/23 02:01 36.1 C L 117 H 20 99 12/20/23 01:50 36.1 C L 77 20 95/47 L 98 12/20/23 01:45 36.0 C L 101 H 20 98 12/20/23 01:31 36.0 C L 59 L 20 99 12/20/23 01:15 36.0 C L 59 L 20 100 12/20/23 01:02 36.0 C L 65 20 99 12/20/23 00:46 36.0 C L 63 20 100 12/20/23 00:43 36.0 C L 64 20 100 12/20/23 00:43 103/47 L 12/20/23 00:31 36.1 C L 75 20 100 12/20/23 00:15 36.1 C L 76 20 99 12/20/23 00:00 75 12/20/23 00:00 36.1 C L 77 20 99 12/19/23 23:45 36.1 C L 92 H 22 79 L 12/19/23 23:45 110/81 12/19/23 23:34 36.1 C L 83 20 96 12/19/23 23:15 83 20 97 40 12/19/23 23:15 36.1 C L 80 20 95 12/19/23 23:09 36.1 C L 77 20 95/47 L 98 12/19/23 23:01 36.1 C L 83 20 98 12/19/23 22:44 36.1 C L 80 20 97 12/19/23 22:44 95/47 L 12/19/23 22:30 36.1 C L 84 20 97 12/19/23 22:00 36.0 C L 85 20 97 12/19/23 21:43 149/62 H 12/19/23 21:43 36.0 C L 91 H 25 H 99 12/19/23 21:30 36.0 C L 78 20 94 Coding Level of Care Code 10647 CRITICAL CARE 1ST 30-74M Diagnoses On mechanically assisted ventilation Z99.11 ABA (acute kidney injury) N17.9 Left femoral shaft fracture S72.352A Encounter type: initial encounter Fracture alignment: displaced Fracture morphology: comminuted Fracture type: closed Symptomatic anemia D64.9 Metabolic acidosis E87.20 Sepsis A41.9 Time Spent (min) 44 (3) Left femoral shaft fracture Encounter type: initial encounter Fracture alignment: displaced Fracture morphology: comminuted Fracture type: closed Qualified Code(s): S72.352A - Displaced comminuted fracture of shaft of left femur, initial encounter for closed fracture
[2023-12-20 13:34] LABS: Hemoglobin 8.6 g/dl (12.0-16.0)
[2023-12-20] MEDS: ERGOCALCIFEROL 1250 MCG (50,000 UNITS) CAP PO SCH (13:39)
--- NOTE | 2023-12-20 14:29 | Hospitalist Progress Note ---
Date of Service December 20, 2023 Assessment & Plan (1) Sepsis: (2) Pneumonia: (3) SARS-CoV-2 positive: (4) Acute renal failure superimposed on stage 3 chronic kidney disease: (5) Rhabdomyolysis: (6) Lactic acidosis: (7) High anion gap metabolic acidosis: (8) MDS (myelodysplastic syndrome): (9) Symptomatic anemia: (10) Hyperkalemia: (11) Hypomagnesemia: (12) Elevated troponin: (13) Left femoral shaft fracture: Plan Per admitting service notes with addendum: This is an 88-year-old female who has a significant past medical history of HTN, mitral valve stenosis, rectal prolapse with full incontinence of feces, CKD stage IIIb, transfusion dependent MDS and follows Dr. Trejo who presents to ED after sustaining a fall in her home. Sepsis Sars COV 2 Possible Bacterial Pneumonia Lactic acidosis Patient meets sepsis criteria secondary to leukocytosis, tachycardia, lactic acidosis Blood cultures were obtained in the ED, but this was after administration of antibiotics She received broad-spectrum antibiotics with vancomycin and Rocephin Source: Possible pneumonia given URI symptoms x 1 week and SARS-CoV-2 Obtain MRSA swab IV Rocephin and IV Doxy Obtain CT chest for further clarification of possible pneumonia and CT a/p due to abd pain complaints In regards to COVID she currently does not meet criteria for treatment as she is not requiring oxygen Blood and urine cultures ordered, follow 12/18 Patient is stable overall Remains in room air CT chest showing bilateral multifocal pneumonia Blood culture, sputum culture pending Continue cefepime, doxycycline Not a candidate for remdesivir in light of acute kidney injury, creatinine clearance below 25 Will continue to monitor closely 12/19 Extubated, currently on room air Cultures pending Continue cefepime with doxycycline day #2 MDS Symptomatic Anemia Acute blood loss on chronic anemia associated with MDS Pt follows Dr. Trejo; She is transfusion dependent, last was 2 weeks ago h/h 5.6 and 17.6 She has been type and cross 2 units, she has received 2 units before without any difficulty, no prior transfusion reaction Repeat H&H after blood products, goal hemoglobin greater than [address] Trejo secondary to thrombocytopenia Dr. Trejo recommends holding hydroxyurea due to underlying sepsis Would reach out to Dr. Trejo in next 1 to 2 days regarding further guidance in her MDS Dr. Trejo expects WBC to increase while holding hydroxyurea 5/ Hemoglobin 7 Additional unit of packed RBCs ordered Platelets 54th K Monitor CBC daily 12/19 Hemoglobin 8 Platelets 60 K Lactic acidosis High anion gap metabolic acidosis, 18 Suspect related to severe anemia, volume depletion, sepsis and rhabdomyolysis Expect to improve with improvement of above Will trend until resolved Repeat BMP, lactate at 1900 Resolved Elevated troponin No chest pain, ischemic ecg change Suspect demand ischemia in setting of sepsis, rhabdo Troponin improved from 56-50, EKG no signs of acute ischemia or infarct Echocardiogram reviewed: Mild to moderate mitral stenosis Discussed with cardiology service as well Rhabdomyolysis non traumatic, on ground for 7 hours after fall CK 1054 IVF and blood products ordered Follow renal fxn and CK CPK improved to 500s Continue IV fluid Acute on Chronic CKD 3 baseline cr 2.2-2.4 bun/cr 61 and 3.74 continue blood products/fluids Nephrology service consulted NSS with bicarbonate ordered Monitor creatinine closely Creatinine 3.1 Continue bicarb Hyperkalemia 2/2 to rhabdo, CKD Lokelma 10mg TID Monitor bmp Improving Hypomagnesemia Mag 1.3, replace Repeat mag @ 1900 Replaced Mechanical fall in setting of dizziness Comminuted displaced fracture of the distal shaft of left femur Patient follows with [facility] Dr. Knutson aware of patient Plan is for surgical fixation once medically stable Knee brace, bed rest, ICE TID Scheduled Tylenol Oxy IR 2.5mg PRN for Severe pain Daughter does not want her to have any strong narcotic without discussing with her check vitamin D level / Patient high risk for cardiopulmonary complications in light of patient's advanced age, multiple comorbidities as outlined above Discussed at length in detail with patient and her daughter, they verbalized understanding agreement of risks involved with planned surgery, they are agreeable to proceed with planned orthopedic surgery today No medical contraindication at this point to proceed with the necessary orthopedic surgery to address left humeral fracture Will optimize patient and carefully monitor patient perioperatively 12/19 Status post Left Femoral Periprosthetic Fracture Retrograde Intermedullary Nail Continue to monitor closely postoperatively Rectal prolapse Pt is planning to get colostomy in near future due to prolapse Hard of Hearing Pt is 100% alert and oriented and mentally capable She watches her 4 year old grandson She is very hard of hearing and according to daughter will shake her head, yes even if she doesnt hear Daughter encourage to speak loudly and slowly Monitor for delirium given age DVT ppx: SCDS on Right leg only for now; once H/H stabilizes and as long as plts are > 50 can implement chemical prophylaxis at the coordination of orthopedics FULL CODE pt wants to watch her 3 grandkids that call herAc to grow up PCP: Dr. Palomares Dispo: PT OT evaluation Admission and Anticipated Discharge Date Admission Date: December 18, 2023 Subjective Follow-up for left humeral fracture, bilateral pneumonia, COVID-19 infection, acute renal failure, etc. Status post left femoral nail placement yesterday Transferred to ICU postoperatively for management of mechanical ventilation, hypotension Weaned off pressors, extubated this morning Seen sitting up in bedside chair, awake and alert, comfortable, not in distress States she actually feels fine overall no chest pain, dyspnea, palpitations, dizziness Has occasional dry cough, no shortness of breath No abdominal pain, nausea or vomiting Reports some numbness in the left foot No other new symptom Review of Systems Review of Systems: all noted and negative except for above Physical Exam Physical Exam: General- oriented x 3, not in distress, speaks in sentences with no effort or accessory muscle use Eyes- anicteric Neck- no JVD Lungs-mild crackles bilateral bases, no wheezing Heart- normal rate, regular rhythm; no murmurs Abdomen- normal bowel sounds, nondistended, soft, nontender Extremities- Left lower extremity heavy dressing in place, immobilizer in place Full range of motion of toes of the left foot no pretibial edema, no calf tenderness Neuro- alert, oriented x 3; no gross focal neurologic deficits Skin- warm & dry Results & Data Results & Data Vital Signs (Past 12 Hours) Vital Signs Temp Pulse Resp BP Pulse Ox O2 Del Method O2 Flow Rate 12/20/23 12:47 36.8 C 66 17 133/72 97 Nasal Cannula 2 12/20/23 11:45 36.6 C 68 18 123/77 95 Nasal Cannula 2 12/20/23 11:00 36.6 C 68 18 97 Nasal Cannula 2 12/20/23 10:00 36.6 C 82 20 94 Nasal Cannula 2 12/20/23 09:44 36.6 C 73 15 125/52 L 93 Nasal Cannula 2 12/20/23 09:00 36.5 C 88 25 H 93 Nasal Cannula 2 12/20/23 08:44 36.5 C 68 11 L 109/47 L 98 Mechanical Vent, Other 12/20/23 07:44 36.4 C L 90 13 133/52 L 98 Mechanical Vent 12/20/23 07:41 82 18 97 12/20/23 07:35 36.4 C L 81 15 162/73 H 100 Mechanical Vent, Other 12/20/23 07:28 36.4 C L 73 18 99 Mechanical Vent, Other 12/20/23 07:00 Mechanical Vent 12/20/23 07:00 12/20/23 07:00 36.3 C L 78 20 99 Mechanical Vent, Other 12/20/23 06:45 36.3 C L 65 20 98 Mechanical Vent 12/20/23 06:00 36.2 C L 61 20 98 12/20/23 05:00 36.1 C L 58 L 20 97 12/20/23 05:00 36.1 C L 58 L 20 118/47 L 97 12/20/23 04:47 36.1 C L 59 L 20 96 12/20/23 04:44 36.1 C L 59 L 20 96 12/20/23 04:44 112/49 L 12/20/23 04:30 36.1 C L 63 20 96 12/20/23 04:16 36.1 C L 68 20 96 12/20/23 04:00 36.0 C L 67 20 99 12/20/23 03:46 36.0 C L 60 20 96 12/20/23 03:43 121/51 L 12/20/23 03:43 36.0 C L 61 20 95 12/20/23 03:31 36.0 C L 77 19 91 12/20/23 03:21 116 H 20 99 12/20/23 03:17 36.0 C L 57 L 20 100 12/20/23 03:01 36.0 C L 59 L 20 99 12/20/23 02:46 36.0 C L 117 H 20 98 12/20/23 02:43 108/47 L 12/20/23 02:42 36.1 C L 117 H 20 97 12/20/23 02:39 36.1 C L 118 H 20 97 FiO2 12/20/23 12:47 12/20/23 11:45 12/20/23 11:00 12/20/23 10:00 12/20/23 09:44 12/20/23 09:00 12/20/23 08:44 30 12/20/23 07:44 30 12/20/23 07:41 30 12/20/23 07:35 30 12/20/23 07:28 12/20/23 07:00 30 12/20/23 07:00 30 12/20/23 07:00 30 12/20/23 06:45 30 12/20/23 06:00 12/20/23 05:00 12/20/23 05:00 12/20/23 04:47 12/20/23 04:44 12/20/23 04:44 12/20/23 04:30 12/20/23 04:16 12/20/23 04:00 12/20/23 03:46 12/20/23 03:43 12/20/23 03:43 12/20/23 03:31 12/20/23 03:21 30 12/20/23 03:17 12/20/23 03:01 12/20/23 02:46 12/20/23 02:43 12/20/23 02:42 12/20/23 02:39 all noted and reviewed including below (2) Pneumonia Pneumonia type: due to unspecified organism (4) Acute renal failure superimposed on stage 3 chronic kidney disease Acute renal failure type: unspecified (5) Rhabdomyolysis Encounter type: initial encounter Rhabdomyolysis type: traumatic Qualified Code(s): T79.6XXA - Traumatic ischemia of muscle, initial encounter (13) Left femoral shaft fracture Encounter type: initial encounter Fracture alignment: displaced Fracture morphology: comminuted Fracture type: closed Qualified Code(s): S72.352A - Displaced comminuted fracture of shaft of left femur, initial encounter for closed fracture
[2023-12-20 20:39] LABS: Hematocrit (blood only) 24.4 % (37.0-47.0); Hemoglobin 8.5 g/dl (12.0-16.0)
[2023-12-21 01:18] LABS: Hematocrit (blood only) 23.2 % (37.0-47.0); Hemoglobin 7.8 g/dl (12.0-16.0)
--- OUTSIDE RECORDS SUMMARY | 2023-12-21 04:18 | External Medical Summary | Summary of Care ---
Author Name Unknown Organization [facility] Address [address] [place] [address] Phone [phone] Care Team Providers Care Bone Cooking Operator Name Role Phone Varun Palomares MD Primary Care Provide r Reason for Visit * Reason Onset Date Comments FYI 12/18/2023 Encounter Details Date Type Department Care Team (Late st Contact Info) Description 12/18/2023 Telephone Hematology/Oncology [facility] [place] [address] [facility] [place] [phone] Franco Trejo MD [address] [place] [address] FYI Allergies Active Allergy Reactions Criticality Noted Date Comments Morphine Sulfate 05/01/2010 vomiting Morphine Sulfate (Concentrate) Nausea/vomiting High 02/21/2017 documented as of this encounter (statuses as of 12/18/2023) Medications Medication Sig Dispensed Refills Start Date End Date Status Multiple Vitamins-Mineral s (PRESERVISION AREDS) Capsule Take 1 Capsule by mouth in the morning. 0 Active Metamucil 0.36 GM Oral Capsule (Psyllium) Take by mouth daily . 0 Active Amoxicillin 500 MG Oral Capsule (Amoxil) 0 05/16/2022 Active Acetaminophen ER 650 MG Oral Tablet Extended Release Take 1 Tablet by mouth at bedtime. 0 Active Vitamin D3 50 MCG (2000 UT) Oral Capsule Take 1 Capsule by mouth in the morning. Cholecalciferol 50 mcg. 0 Active Benzonatate 100 MG Oral Capsule (Tessalon Perles) Take 1 Capsule by mouth every 8 hours as needed for Cough. 0 08/31/2022 Active Vitamin C 250 MG Oral Tablet (Ascorbic Acid) Take 1 Tablet by mouth in the morning. Need to confirm dose.. 0 Active Magic Swizzle (Lidocaine-Benad ryl-Maalox) oral solution Swish and spit 15 mL in the morning and 15 mL before bedtime. Mix equal parts lidocaine, benadryl, and maalox. 120 mL 1 09/06/2022 Active Meclizine HCl 25 MG Oral Tablet (Antivert) Take 1 Tablet by mouth 3 times a day as needed for Dizziness. 30 Tablet 1 11/18/2022 Active Allopurinol 300 MG Oral Tablet (Zyloprim)Indica tions:MDS/MPN (myelodysplastic /myeloproliferat jolly neoplasms) (HCC) Take 1 Tablet by mouth in the morning. 90 Tablet 3 02/19/2023 Active Erythromycin 5 MG/GM Ophthalmic Ointment Apply small amount of ointment to surgical incision 4 times a day for 2 weeks. Then, apply at bedtime for 1 month. 3.5 g 3 08/20/2023 Active Hydroxyurea 500 MG Oral Capsule (Hydrea)Indicati ons:MDS/MPN (myelodysplastic /myeloproliferat jolly neoplasms) (HCC) Take 1 Capsule by mouth daily except for Friday and Friday. 60 Capsule 3 08/29/2023 Active Additional Information Patient taking differently:500 mg Oral,(No frequency reported), Take one 500mg tab by mouth once a day on Mondays, Tuesdays, Wednesdays, and , Reported on 10/30/2023 documented as of this encounter (statuses as of 12/18/2023) Active Problems Problem Noted Date Diagnosed Date Full incontinence of feces 12/10/2023 Mitral valve stenosis, mild 03/10/2023 Hypertensive kidney disease with stage 3b chronic kidney disease 07/29/2022 Overview: Per CKD protocol Rectal prolapse 03/06/2022 ADVANCE DIRECTIVE INFORMATION 12/17/2021 Overview: No, Advance Directive brochure given to patient at prior appointment. MDS/MPN (myelodysplastic/myeloproliferative neop lasms) 11/02/2018 Bilateral carpal tunnel syndrome 03/05/2017 Status post total right knee replacement 017 HTN, goal below 140/90 09/05/2016 Proteinuria 01/23/2015 Impaired fasting glucose 08/22/2014 Generalized osteoarthritis 05/19/2007 documented as of this encounter (statuses as of 12/18/2023) Resolved Problems Problem Noted Date Diagnosed Date Resolved Date Chronic kidney disease, stage 3b 07/29/2022 09/09/2022 Overview: Per CKD protocol Chronic kidney disease, stage 3a 12/26/2020 08/01/2022 Overview: Per CKD protocol Hypertensive kidney disease with stage 3a chronic kidney disease 06/26/2020 08/01/2022 Overview: Per CKD protocol Hypertensive kidney disease with chronic kidney disease stage III 10/21/2018 06/29/2020 Overview: Per CKD protocol Thrombocytopenia 09/02/2016 09/28/2021 Unclassifiable myelodysplastic/myeloproliferative neoplasm 01/08/2016 09/22/2017 Myeloproliferative disease 01/08/2016 0 11/02/2018 Elevated serum creatinine 01/02/2016 Dehydration 01/02/2016 03/05/2017 HTN, goal below 130/80 01/23/201509/05 Obesity, Class I, BMI 30.0-3 4.9 (see actual BMI) 11/09/2012 11/25/2018 Kidney disease, chronic, sta ge III (GFR 30-59 ml/min) 03/08/2010 10/20/2020 Overview: Per CKD Protocol, #1 HTN, goal below 140/90 07/05/200901/23 Overview: Modified per HTN protocol #16. Menopause 11/17/2007 06/28/2014 Other health problem within the family 05/20/2006 09/28/2021 LOC PRIM OSTEOARTH-ANKLE 05/20/200608/2013 HTN, goal to be determined 1 09/05/2008 Overview: Modified per HTN protocol #16. documented as of this encounter (statuses as of 12/18/2023) Immunizations Name Administration Dates Next Due COVID-19 mRNA, LNP-s, No Pre serve, 2-Dose Series (Moderna) 11/02/2020,09/23/2020 documented as of this encounter Social History Tobacco Use Types Packs/Day Years Used Date Smoking Tobacco: Never Smokeless Tobacco: Never Alcohol Use Standard Drinks/Week Comments No 0 (1 standard drink = 0.6 oz pur e alcohol) PHQ-2 Answer Date Recorded PHQ-2 Score 0 11/02/2018 Hunger Vital Sign Answer Date Recorded Within the past 12 months, y ou worried that your food would run out before you got the money to buy more. Never true 12/17/19 24 Within the past 12 months, t he food you bought just didn't last and you didn't have money to get more. Never true 12/17/2023 Sex and Gender Information Value Date Recorded Sex Assigned at Female 12/17/2023 7:47 PM EDT Gender Identity Female 12/17/2023 7:47 PM EDT Sexual Orientation Straight 12/17/2023 7: 47 PM EDT Job Start Date Occupation Industry Not on file Not on file Not on file documented as of this encounter Functional Status Functional Status Response Date of Assess ment Are you deaf or do you have serious difficulty h earing? No 03/06/2022 Are you blind or do you have serious difficulty seeing, even when wearing glasses? No 03/06/2022 Do you have serious difficul ty walking or climbing stairs? (5 years old or older) No 03/06/2022 Do you have difficulty dress ing or bathing? (5 years old or older) No 03/06/2022 Because of a physical, menta l, or emotional condition, do you have difficulty doing errands alone such as visiting a doctor s office or shopping? (15 years old or older) No 03/06/20 22 Cognitive Status Response Date of Assessm ent Because of a physical, menta l, or emotional condition, do you have serious difficulty concentrating, remembering, or making decisions? (5 years old or older) No 03/06/2022 documented as of this encounter Miscellaneous Notes * Telephone Encounter - Laure Nicole OSA - 12/18/2023 11:17 AM EDT Images from the original note were not included. MEDICATION THERAPY MANAGEMENT HYDROXYUREA TREATMENT PROGRESS NOTE Dayan Luna [id number] Patient Phone Numbers (daughter Fawn) (daughter Fawn) GML: W/F Communication: Spoke to daughter Current Treatment: Medication: Hydroxyurea Indication: MPN/MDS Dose: 500mg M-Th ( 10/30/23) Start date: 12/2015 Primary Store Sales Consultant: Dr. Franco Trejo Patient's daughter Fawn went to pick her mom up today for her Dr appointment and Dayan had fallen at some point over night and Fawn called an ambulance and she is en route to the ED at [facility]. Daughter stated that her mom had not been acting right the past few days and thought she was maybe coming down with pneumonia. She requested [facility] so Dr Trejo has access to her reports/tests/labs there. Daughter knows patient's labs are going to be "bad". Daughter asking me to please let Sophy and Dr Trjeo aware of what is going on. Let her know I would absolutely do that and if she needs anything from us please call and vice versa. Daughter thankful for my call and follow up today. CARMEN [facility] [employer] [facility] Hematology Oncology Oral Chemotherapy Clinic Medication Therapy Disease Management [facility] 12/18/23 11:24 AM Time Spent on Encounter: 11 - 15 minutes documented in this encounter Plan of Treatment Upcoming Encounters Date Type Department Care Team (Latest Contact Info) Description 12/26/2023 1:45 PM EDT Office Visit Hematology/Oncology [facility] [address] [place] [phone] Franco Trejo MD [address] [place] [id number] 01/14/2024 11:37 AM EDT Hospital Encounter [facility], OPERATING ROOM [facility] [address] [place] [address] Felisha Kaplan MD [address] [place] [address] 01/14/2024 11:37 AM EDT - 01/14/2024 1:53 PM EDT Surgery OR [facility], OPERATING ROOM [facility] [address] [place] [address] Felisha Kaplan MD [address] [place] [address] LAPAROSCOPIC COLOSTOMY OR CECOSTOMY 02/09/2024 11:40 AM EDT Office Visit [address] [phone] Varun Palomares MD [address] [place] [address] [place] [id number] Scheduled Procedures Name Priority Associated Diagnoses Date/Ti me LAPAROSCOPIC COLOSTOMY OR CECOSTOMY Rectal prolapse Full incontinence of feces 01/14/2024 11:37 AM EDT INSERT TUNNELED CENTRAL VENOUS ACCESS WITH SUBQ PORT MDS/MPN (myelodysplastic/myeloprol iferative neoplasms) (HCC) Symptomatic anemia Health Maintenance Due Date Last Done Comments Pneumococcal Vaccine: 65+ Years (1 of 2 - PCV) 10/31/1941 DTaP,Tdap,and Td Vaccines (1 - Tdap) 10/31/1954 Zoster Vaccines (1 of 2) 10/31/1954 DXA Scan 11/28/2009 11/28/2006 Depression Screening 11/03/2019 11/02/2018 COVID-19 Vaccine (3 - Moderna risk series) 11/30/2020 11/02/2020, 09/23/2020 Albumin/Creatinine Ratio 07/01/202307/01/2 022, 09/28/2021, 05/19/2013, Additional history exists CKD PHOS USE SMARTSET 72047 09/30/202309/18, 09/24/2021, 05/08/2020, Additional history exists Influenza Vaccine (FLU shot) (Season Ended) 2024 CKD HGB USE SMARTSET 11041 12/09/202412/09, 12/10/2023, 11/26/2023, Additional history exists GARDASIL-HPV IMMUNIZATION SERIES Aged Out No longer eligible based on patient's age to complete this topic Hepatitis B Aged Out No longer eligi ble based on patient's age to complete this topic MENINGOCOCCAL (MENACTRA/MENVEO) Aged Out No longer eligible based on patient's age to complete this topic documented as of this encounter Medical Devices Not on filedocumented as of this encounter Advance Directives Latest Code Status on File Code Status Date Activated Date Inactivated Comments Full Code 03/06/2022 1:27 PM 03/07/2022 10:05 PM This order reflects the patients wishes and were consensually agreed upon. Care Teams Bone Cooking Operator Relationship Specialty Start Date End Date Varun Palomares MD [address] [place] [address] [place] [id number] PCP - General Family Medicine 10/12/18 documented as of this encounter
[2023-12-21 05:29] LABS: BUN Creatinine Ratio 20.4 (10-20); Creatinine Clr Calc Pharmacy 9.5 ml/min; Est GFR (African American) 14.1 ml/min; Est GFR (Non-African American) 12.1 ml/min; Potassium 4.5 mmol/L (3.5-5.1)
[2023-12-21 06:07] LABS: Hematocrit (blood only) 23.9 % (37.0-47.0); Hemoglobin 8.1 g/dl (12.0-16.0); Mean Corpuscular Hemoglobin 29.3 pg (25.0-34.0); Mean Corpuscular Hgb Conc 33.9 g/dL (32.0-36.0); Mean Corpuscular Volume 86.6 fL (80.0-100.0); Mean Platelet Volume 13.9 fL (9.4-12.4); Nucleated RBC # (auto) 0.06 K/uL (0.00-0.12); Nucleated RBC % (auto) 0.1 %; Platelet Count 67 K/uL (130-400); RDW Standard Deviation 51.3 fL (36.4-46.3); Red Blood Count 2.76 M/uL (4.20-5.40); White Blood Count 60.75 K/ul (4.8-10.8)
[2023-12-21 06:08] LABS: ALC (manual) 3.65 K/uL (1.2-3.4); Echinocytes 2+; Eosinophils # (manual) 0.61 K/uL (0-0.50); Eosinophils % (manual) 1 %; Lymphocytes # (manual) 3.65 K/uL (1.2-3.4); Lymphocytes % (manual) 6 %; Metamyelocytes # (manual) 1.82 K/uL (0-0); Metamyelocytes % (manual) 3 %; Monocytes # (manual) 4.86 K/uL (0.11-0.59); Monocytes % (manual) 8 %; Myelocytes # (manual) 1.22 K/uL (0-0); Myelocytes % (manual) 2 %; Neutrophils % (manual) 80 %; Polychromasia 1+
[2023-12-21] MEDS: SODIUM BICARBONATE 8.4% 150 MEQ in DEXTROSE 5% 1,000 ML IV SCH (06:08)
--- NOTE | 2023-12-21 07:48 | Surgery Progress Note ---
Date of Service December 21, 2023 Assessment & Plan (1) Periprosthetic fracture around internal prosthetic left knee joint: Plan: 88-year-old female with multiple medical comorbidities postop day 2 from OR[facility] 9 mm left periprosthetic femur fracture. Orthopedically she is doing well. Considering her medical issues she looks to be doing quite well at this point. Plan: 1. DVT prophylaxis including thigh-high teds, SCDs, and will leave any additional prophylaxis of the medicine. She got multiple medical contraindications to anticoagulation 2. PT OT. She can weight-bear as tolerated in the left leg. Knee immobilizer while weightbearing for now. Range of motion 0 to 90 degrees. 3. Pain control done okay with current pain regimen. I would really limit narcotics and avoid narcotics if possible. She does not seem uncomfortable in the bones facts. 4. Medical management as per the medicine service 5. Disposition orthopedically she is doing well. She is probably ready for transfer to a rehab likely sometime next week. This will all depend on her med [facility] issues. Any orthopedic questions can recommend [phone] Admission and Anticipated Discharge Date Admission Date: December 18, 2023 Subjective 88-year-old female with multiple medical comorbidities now postop day 2 from OR[facility] and IM nailing of a left periprosthetic femur fracture. She is doing pretty well this morning. She is extubated. Looks comfortable. A bit confused. Denies any significant knee pain. No chest pain and not feeling short of breath. Physical Exam Physical Exam: Physical examination reveals a pleasant elderly female. Sitting up in bed looks pretty comfortable. She looks to be breathing comfortably. Examination of left leg reveals the brace and knee immobilizer to be in place. She can dorsiflex and plantarflex her foot appropriately. Toes are pink with brisk refill. She is neurologically intact. Results & Data Vital Signs (Past 12 Hours) Vital Signs Temp Pulse Pulse Resp BP Pulse Ox O2 Del Method 12/21/23 03:00 36.5 C 77 18 126/58 L 94 Nasal Cannula 12/20/23 23:00 36.6 C 67 18 122/65 94 Nasal Cannula 12/20/23 22:00 72 12/20/23 20:56 36.5 C 74 20 127/66 93 Nasal Cannula 12/20/23 19:56 Nasal Cannula O2 Flow Rate 12/21/23 03:00 3 12/20/23 23:00 3 12/20/23 22:00 12/20/23 20:56 3 12/20/23 19:56 3 Laboratory Results Hemoglobin is 8.1. Hematocrit 23.9. Creatinine continues to be elevated but stable. Creatinine 3.24 PG Care Time/CCT Total # of Minutes Spent Total Time Spent with Patient: Total time spent is greater than 50% in coordination of care (as documented) at patient's floor/unit and/or counseling patient: Coding Level of Care Code 85299 Post Operative Follow-Up Diagnoses Periprosthetic fracture around internal prosthetic left knee joint M97.12XA
--- NOTE | 2023-12-21 11:03 | Nephrology Progress Note ---
Date of Service December 21, 2023 Assessment & Plan (1) ABA (acute kidney injury): Plan: worsening but still stage one nonoliguric ABA on CKD. on admission 12/17 creatinine was 3.7; it trended down to rupal 3 on 12/18 and now trending up again. ?borderline UOP but not oliguric she has been having diminished UOP today but will continue to monitor this she had evidence of sepsis with lactic acidosis on admission but now lactic acid is normal and her vital signs appears to be acceptable. CK was 1000 on presentation and improving/down to 500 cautious optimism that she will continue to have renal recovery. but given her age and pre-existing CKD 4 she may not have enough renal recovery or very delayed recovery. this will be evident in the coming days. cause of ABA is ATN; do not believe CK was high enough for rhabdo to be a real factor. she does have blood and protein in urine which are new > ? if relates to MDS/ elevated WBC >cont strict I/O >> VERY important to know how much she voids and how many BM >daily bmp >>will stop bicarb gtt given hyponatremia it is not unusual to have renal decline in the perioperative state, especially in a vulnerable patient like hers. >>make sure to maintain hemoglobin at least in mid 7s as she is very prone to develop severe anemia Care coordinated w/ Dr Amezcua regarding sodium care and renal therapy (2) Hyponatremia: Plan: acutely worsened since 12/19. sNa abruptly 126 this AM after being consistently 133-134, range; now 124 midday. serum osms 279 (calc serum osms is 275) ; urine studies pending >f/u pending urine studies >>will give 100 mL 3% saline and 20 mg IV lasix both x 1 now >>repeat bmp at 2100 and again AM >for now no fluid limit >> took in 1.2L yesterday po but had 3.1L IVF > this will diminish now that surgery done/ out of icu (3) CKD (chronic kidney disease) stage 4, GFR 15-29 ml/min: Plan: CKD 4 at baseline with baseline creatinine around 2.2 (2.1-2.4 for past year.. she was last seen by Dr. Marcelina Valentin in 2021. Although had ABA with creat of 4.1 on the outpt lab done 11/12/2023--got better down to 2.2 without any definite intervention it seems next month by 12/10/2023 would recommend to have follow up with Nephrology to resume. (4) Left femoral shaft fracture: Plan: secondary to fall. s/p L femoral periprosthetic fracture retrograde intramedullary nail 12/18 (5) SARS-CoV-2 positive: Plan: does have multi lobar pneumonia Plan case complexity high and multiple updates/adjustments through the day. Admission and Anticipated Discharge Date Admission Date: December 18, 2023 Subjective doesn't feel as well today. not hungry. c/o mild [place]. Unsure if her breathing is a bit worse. Also notices some left leg pain and discomfort with the brace. No nausea or vomiting Review of Systems 2 Review of Systems: All systems reviewed & are unremarkable except as noted in Subjective Physical Exam 2 Constitutional: well developed (Sitting up in chair on 3 L of oxygen), + thin, + frail appearing and cooperative Eyes: EOM intact bilaterally ENMT: Ears: + hearing impairment; no external ear abnormality Nose: no external nose abnormality Mouth: + dry oral mucous membranes Neck: no nuchal rigidity Respiratory: normal respiratory effort and + cough (occasional still but not as thick as yesterday) Auscultation: + diminished lung sounds (Throughout) Cardiovascular: RRR, no murmur, no edema Gastrointestinal (Abdomen): Inspection/Auscultation: normal bowel sounds P ercussion/Palpation: abdomen soft; abdomen nontender Musculoskeletal: Extremities: strength 5/5 throughout Left leg in hip to ankle brace Skin: no rashes, warm and dry Psychiatric: Orientation: alert and oriented x 3 Results & Data Vital Signs (Past 12 Hours) Vital Signs Temp Pulse Resp BP Pulse Ox O2 Del Method O2 Flow Rate 12/21/23 08:15 36.5 C 83 20 124/63 90 Nasal Cannula 3 12/21/23 07:41 Nasal Cannula 3 12/21/23 03:00 36.5 C 77 18 126/58 L 94 Nasal Cannula 3 Laboratory Results 12/21/23 04:36 12/21/23 04:36 (4) Left femoral shaft fracture Encounter type: initial encounter Fracture alignment: displaced Fracture morphology: comminuted Fracture type: closed Qualified Code(s): S72.352A - Displaced comminuted fracture of shaft of left femur, initial encounter for closed fracture
[2023-12-21 12:31] LABS: BUN Creatinine Ratio 19.7 (10-20); Calcium 6.9 mg/dl (8.6-10.3); Creatinine Clr Calc Pharmacy 11.4 ml/min; Est GFR (Non-African American) 12.1 ml/min; Potassium 4.4 mmol/L (3.5-5.1)
--- NOTE | 2023-12-21 14:40 | Hospitalist Progress Note ---
Date of Service December 21, 2023 Assessment & Plan (1) Sepsis: (2) Pneumonia: (3) SARS-CoV-2 positive: (4) Acute renal failure superimposed on stage 3 chronic kidney disease: (5) Rhabdomyolysis: (6) Lactic acidosis: (7) High anion gap metabolic acidosis: (8) MDS (myelodysplastic syndrome): (9) Symptomatic anemia: (10) Hyperkalemia: (11) Hypomagnesemia: (12) Elevated troponin: (13) Left femoral shaft fracture: Plan Per admitting service notes with addendum: This is an 88-year-old female who has a significant past medical history of HTN, mitral valve stenosis, rectal prolapse with full incontinence of feces, CKD stage IIIb, transfusion dependent MDS and follows Dr. Trejo who presents to ED after sustaining a fall in her home. Sepsis Sars COV 2 Possible Bacterial Pneumonia Lactic acidosis Patient meets sepsis criteria secondary to leukocytosis, tachycardia, lactic acidosis Blood cultures were obtained in the ED, but this was after administration of antibiotics She received broad-spectrum antibiotics with vancomycin and Rocephin Source: Possible pneumonia given URI symptoms x 1 week and SARS-CoV-2 Obtain MRSA swab IV Rocephin and IV Doxy Obtain CT chest for further clarification of possible pneumonia and CT a/p due to abd pain complaints In regards to COVID she currently does not meet criteria for treatment as she is not requiring oxygen Blood and urine cultures ordered, follow 5/ Patient is stable overall Remains in room air CT chest showing bilateral multifocal pneumonia Blood culture, sputum culture pending Continue cefepime, doxycycline Not a candidate for remdesivir in light of acute kidney injury, creatinine clearance below 25 Will continue to monitor closely 12/19 Extubated, currently on room air Cultures pending Continue cefepime with doxycycline day #2 5/5 Stable overall Remains on room air Blood cultures negative Continue cefepime plus doxycycline day #3 MDS Symptomatic Anemia Acute blood loss on chronic anemia associated with MDS Pt follows Dr. Trejo; She is transfusion dependent, last was 2 weeks ago h/h 5.6 and 17.6 She has been type and cross 2 units, she has received 2 units before without any difficulty, no prior transfusion reaction Repeat H&H after blood products, goal hemoglobin greater than [address] Trejo secondary to thrombocytopenia Dr. Trejo recommends holding hydroxyurea due to underlying sepsis Would reach out to Dr. Trejo in next 1 to 2 days regarding further guidance in her MDS Dr. Trejo expects WBC to increase while holding hydroxyurea 5/ Hemoglobin 7 Additional unit of packed RBCs ordered Platelets 54th K Monitor CBC daily 12/19 Hemoglobin 8 Platelets 60 K 5/5 Hemoglobin 8.1 Platelet count 67 K Lactic acidosis High anion gap metabolic acidosis, 18 Suspect related to severe anemia, volume depletion, sepsis and rhabdomyolysis Expect to improve with improvement of above Will trend until resolved Repeat BMP, lactate at 1900 Resolved Elevated troponin No chest pain, ischemic ecg change Suspect demand ischemia in setting of sepsis, rhabdo Troponin improved from 56-50, EKG no signs of acute ischemia or infarct Echocardiogram reviewed: Mild to moderate mitral stenosis Discussed with cardiology service as well Rhabdomyolysis non traumatic, on ground for 7 hours after fall CK 1054 IVF and blood products ordered Follow renal fxn and CK CPK improved to 500s Continue IV fluid Acute on Chronic CKD 3 baseline cr 2.2-2.4 bun/cr 61 and 3.74 continue blood products/fluids Nephrology service consulted NSS with bicarbonate ordered Monitor creatinine closely Creatinine 3.2 Na 126 off bicarb drip Hyperkalemia 2/2 to rhabdo, CKD Lokelma 10mg TID Monitor bmp Improving Hypomagnesemia Mag 1.3, replace Repeat mag @ 1900 Replaced Mechanical fall in setting of dizziness Comminuted displaced fracture of the distal shaft of left femur Patient follows with [facility] Ortho Dr. Knutson aware of patient Plan is for surgical fixation once medically stable Knee brace, bed rest, ICE TID Scheduled Tylenol Oxy IR 2.5mg PRN for Severe pain Daughter does not want her to have any strong narcotic without discussing with her check vitamin D level / Patient high risk for cardiopulmonary complications in light of patient's advanced age, multiple comorbidities as outlined above Discussed at length in detail with patient and her daughter, they verbalized understanding agreement of risks involved with planned surgery, they are agreeable to proceed with planned orthopedic surgery today No medical contraindication at this point to proceed with the necessary ort hopedic surgery to address left humeral fracture Will optimize patient and carefully monitor patient perioperatively 12/19 Status post Left Femoral Periprosthetic Fracture Retrograde Intermedullary Nail Continue to monitor closely postoperatively 12/20 Lovenox for DVT prophylaxis once okay with orthopedic service Rectal prolapse Pt is planning to get colostomy in near future due to prolapse Hard of Hearing Pt is 100% alert and oriented and mentally capable She watches her 4 year old grandson She is very hard of hearing and according to daughter will shake her head, yes even if she doesnt hear Daughter encourage to speak loudly and slowly Monitor for delirium given age DVT ppx: SCDS on Right leg only for now; once H/H stabilizes and as long as plts are > 50 can implement chemical prophylaxis at the coordination of orthopedics FULL CODE PCP: Dr. Palomares Dispo: PT OT evaluation Admission and Anticipated Discharge Date Admission Date: December 18, 2023 Subjective Follow-up for left femoral fracture, status post surgery, bilateral pneumonia, COVID-19 infection, etc. Seen resting in bed, comfortable, not in distress States she feels okay overall Having some left lower leg discomfort No shortness of breath, positive dry cough, no chest pain No other new symptoms Review of Systems Review of Systems: all noted and negative except for above Physical Exam Physical Exam: General- oriented x 3, not in distress, speaks in sentences with no effort or accessory muscle use Eyes- anicteric Neck- no JVD Lungs-mild rales bilaterally Heart- normal rate, regular rhythm; no murmurs Abdomen- normal bowel sounds, nondistended, soft, nontender Extremities- no pretibial edema, no calf tenderness Neuro- alert, oriented x 3; no gross focal neurologic deficits Skin- warm & dry Results & Data Results & Data Vital Signs (Past 12 Hours) Vital Signs Temp Pulse Pulse Resp BP Pulse Ox O2 Del Method 12/21/23 12:33 72 12/21/23 11:46 36.8 C 85 19 106/58 L 86 L Nasal Cannula 12/21/23 08:15 36.5 C 83 20 124/63 90 Nasal Cannula 12/21/23 07:41 Nasal Cannula 12/21/23 03:00 36.5 C 77 18 126/58 L 94 Nasal Cannula O2 Flow Rate 12/21/23 12:33 12/21/23 11:46 5 12/21/23 08:15 3 12/21/23 07:41 3 12/21/23 03:00 3 all noted and reviewed including below (2) Pneumonia Pneumonia type: due to unspecified organism (4) Acute renal failure superimposed on stage 3 chronic kidney disease Acute renal failure type: unspecified (5) Rhabdomyolysis Encounter type: initial encounter Rhabdomyolysis type: traumatic Qualified Code(s): T79.6XXA - Traumatic ischemia of muscle, initial encounter (13) Left femoral shaft fracture Encounter type: initial encounter Fracture alignment: displaced Fracture morphology: comminuted Fracture type: closed Qualified Code(s): S72.352A - Displaced comminuted fracture of shaft of left femur, initial encounter for closed fracture
[2023-12-21] MEDS ORDERED: STAT IV/IM STA (17:41)
[2023-12-21] MEDS: SODIUM CHLORIDE 3 % 100 ML IV ONE (18:07)
[2023-12-21] MEDS: FUROSEMIDE INJ 20 MG/2 ML VIAL IV ONE (18:15)
[2023-12-21 19:05] LABS: Urine Chloride < 15 mmol/L; Urine Potassium 30.7 mmol/L; Urine Sodium 16 mmol/L
--- NOTE | 2023-12-21 21:19 | Electrocardiogram Report ---
Test Reason : Blood Pressure : / mmHG Vent. Rate : 115 BPM Atrial Rate : 115 BPM P-R Int : 142 ms QRS Dur : 068 ms QT Int : 328 ms P-R-T Axes : 085 018 054 degrees QTc Int : 453 ms Sinus tachycardia with Premature atrial complexes Otherwise normal ECG When compared with ECG of 17-JAN-2019 21:49, Premature ventricular complexes are no longer Present Premature atrial complexes are now Present Confirmed by Leo Nazario ([id number]) on 12/21/2023 9:18:53 PM Referred By: Confirmed By:Leo Nazario
[2023-12-21] MEDS: SODIUM CHLORIDE 0.9% 250 ML IV STA (21:39)
[2023-12-21 23:09] LABS: BUN Creatinine Ratio 19.8 (10-20); Calcium 7.4 mg/dl (8.6-10.3); Creatinine Clr Calc Pharmacy 10.7 ml/min; Est GFR (African American) 12.9 ml/min; Est GFR (Non-African American) 11.1 ml/min; Potassium 4.7 mmol/L (3.5-5.1)
[2023-12-22] MEDS: LEVALBUTEROL 1.25 MG/3 ML NEB NEB STA (04:44)
[2023-12-22] MEDS: IPRATROPIUM BROMIDE NEB SOLN 0.02% 0.5MG/2.5ML VIAL INH STA (04:44)
[2023-12-22] MEDS: methylPREDNISolone 20 MG in SYRINGE 0 ML IV ONE (04:50)
[2023-12-22] MEDS: MAGNESIUM SULFATE / D5W 1 GM/100 ML BAG IV ONE (04:56)
[2023-12-22] MEDS: BENZONATATE 100 MG CAPSULE PO ONE (05:02)
[2023-12-22 05:12] LABS: Base Excess ABG -9.9 mEq/L (-9-1.8); HCO3 ABG 17 mmol/L (19-24); Oxygen Saturation ABG 95.8 % (90-95); PCO2 ABG 38 mmHg (35-46); PO2 ABG 71 mmHg (80-95); pH ABG 7.25 (7.35-7.45)
[2023-12-22 05:21] LABS: Allen Test Pos (Pos)
[2023-12-22] MEDS: FUROSEMIDE 40 MG/4 ML VIAL IV ONE ×2 (05:27)
[2023-12-22 05:43] LABS: Partial Thromboplastin Ratio 1.5; Partial Thromboplastin Time 41 Seconds (21-31)
--- NOTE | 2023-12-22 06:38 | XRay Report ---
XR chest 1V portable CLINICAL HISTORY: low o2 COMPARISON STUDY: Chest CT December 19, 2023. Chest radiograph December 20, 2023. FINDINGS: The tip of the right internal jugular central line projects over the cavoatrial junction. T here is no pneumothorax. Small bilateral pleural effusions and bibasilar opacities have increased. Bi lateral alveolar opacities and interstitial thickening have significantly progressed. Cardiomegaly is unchanged. IMPRESSION: 1. Significant progression of bilateral alveolar opacities and interstitial thickening. The findings could reflect pulmonary edema or multifocal pneumonia. 2. Increase in small bilateral pleural effusions. ACT 112: Negative or not required by law. Electronically signed by: James Coronel M.D. 12/22/2023 6:36 AM
[2023-12-22 06:41] LABS: Hematocrit (blood only) 23.5 % (37.0-47.0); Hemoglobin 7.8 g/dl (12.0-16.0); Mean Corpuscular Hemoglobin 29.1 pg (25.0-34.0); Mean Corpuscular Hgb Conc 33.2 g/dL (32.0-36.0); Mean Corpuscular Volume 87.7 fL (80.0-100.0); Mean Platelet Volume 13.3 fL (9.4-12.4); Nucleated RBC # (auto) 0.09 K/uL (0.00-0.12); Nucleated RBC % (auto) 0.2 %; Platelet Count 71 K/uL (130-400); RDW Coefficient of Variation 17.2 % (11.5-14.5); RDW Standard Deviation 53.5 fL (36.4-46.3); Red Blood Count 2.68 M/uL (4.20-5.40); White Blood Count 54.17 K/ul (4.8-10.8)
[2023-12-22 06:48] LABS: ALC (manual) 2.17 K/uL (1.2-3.4); ANC (manual) 40.09 K/uL (1.4-6.5); Echinocytes 1+; Lymphocytes # (manual) 2.17 K/uL (1.2-3.4); Lymphocytes % (manual) 4 %; Metamyelocytes # (manual) 2.17 K/uL (0-0); Metamyelocytes % (manual) 4 %; Monocytes # (manual) 4.88 K/uL (0.11-0.59); Monocytes % (manual) 9 %; Myelocytes # (manual) 4.88 K/uL (0-0); Myelocytes % (manual) 9 %; Neutrophils # (manual) 40.09 K/uL (1.40-6.50); Neutrophils % (manual) 74 %; Polychromasia 1+
[2023-12-22 06:51] LABS: BUN Creatinine Ratio 20.3 (10-20); Creatinine Clr Calc Pharmacy 10.8 ml/min; Est GFR (Non-African American) 11.2 ml/min; Magnesium 1.7 mg/dl (1.7-2.4); Phosphorus 5.7 mg/dl (2.5-4.9); Potassium 4.5 mmol/L (3.5-5.1)
--- NOTE | 2023-12-22 07:46 | Surgery Progress Note ---
Date of Service December 22, 2023 Assessment & Plan (1) Periprosthetic fracture around internal prosthetic left knee joint: Plan: 88-year-old female now 3 days out from ORIF and IM nailing of a left periprosthetic femur fracture. She is got multiple medical comorbidities and multiple medical issues going on. Her femur fracture seems to be doing pretty well. Pains controlled. Mostly medical issues at this time. Plan: At this point we will just continue rehab. As she can weight-bear as tolerated in the left leg. Will can have her wear the knee immobilizer for weightbearing for the next 2 weeks until her quad function gets a little bit better. She does not Nestl wear the need to wear the knee immobilizer in bed. Routine wound care. DVT prophylaxis is a primary care service. She got multiple contraindications including low platelets. The risks may outweigh the benefits. She is orthopedically okay for discharge anytime medically stable. I need to see her back 2 to 3 weeks out from surgery date. Any orthopedic questions can be directed at [phone] Admission and Anticipated Discharge Date Admission Date: December 18, 2023 Subjective 88-year-old female with multiple medical comorbidities now postop day 3 from ORIF and IM nailing of a left periprosthetic femur fracture. She once again seems to be doing pretty well this morning. She is a little bit more awake alert and oriented. Complaining of just a little bit of left foot and ankle pain. No overall thigh pain. Denies any chest pain or shortness of breath. Physical Exam Physical Exam: Physical examination was a pleasant elderly frail female. She sitting up in bed looks reasonably comfortable. Examination left leg reveals a knee immobilizer and dressing to be in place. Leg looks well aligned. She can dorsiflex and plantarflex her foot appropriately. As she is neurologically intact. Results & Data Vital Signs (Past 12 Hours) Vital Signs Temp Pulse Pulse Resp BP Pulse Ox O2 Del Method 12/22/23 05:08 100 H 22 126/63 89 L Oxymask 12/22/23 04:45 98 H 19 90 Non-rebreather 12/22/23 00:09 36.5 C 83 19 112/65 90 Nasal Cannula 12/21/23 23:08 86 12/21/23 22:38 Nasal Cannula 12/21/23 21:15 36.9 C 83 18 94 Nasal Cannula O2 Flow Rate 05/06/24 05:08 15 12/22/23 04:45 15 12/22/23 00:09 4 12/21/23 23:08 12/21/23 22:38 3 12/21/23 21:15 3 Laboratory Results Hemoglobin is 7.8. Hematocrit 23.5. Platelets 71,000 creatinine 3.45. PG Care Time/CCT Total # of Minutes Spent Total Time Spent with Patient: Total time spent is greater than 50% in coordination of care (as documented) at patient's floor/unit and/or counseling patient: Coding Level of Care Code 49130 Post Operative Follow-Up Diagnoses Periprosthetic fracture around internal prosthetic left knee joint M97.12XA
--- NOTE | 2023-12-22 09:17 | Hospitalist Progress Note ---
Date of Service December 22, 2023 Assessment & Plan (1) Sepsis: (2) Pneumonia: (3) SARS-CoV-2 positive: (4) Acute renal failure superimposed on stage 3 chronic kidney disease: (5) Rhabdomyolysis: (6) Lactic acidosis: (7) High anion gap metabolic acidosis: (8) MDS (myelodysplastic syndrome): (9) Symptomatic anemia: (10) Hyperkalemia: (11) Hypomagnesemia: (12) Elevated troponin: (13) Left femoral shaft fracture: Plan Per admitting service notes with addendum: This is an 88-year-old female who has a significant past medical history of HTN, mitral valve stenosis, rectal prolapse with full incontinence of feces, CKD stage IIIb, transfusion dependent MDS and follows Dr. Terjo who presents to ED after sustaining a fall in her home. Acute respiratory failure, hypoxic COVID-19 pneumonia, possible community-acquired pneumonia Sepsis on admission Patient meets sepsis criteria secondary to leukocytosis, tachycardia, lactic acidosis Blood cultures were obtained in the ED, but this was after administration of antibiotics She received broad-spectrum antibiotics with vancomycin and Rocephin Source: Possible pneumonia given URI symptoms x 1 week and SARS-CoV-2 Obtain MRSA swab IV Rocephin and IV Doxy Obtain CT chest for further clarification of possible pneumonia and CT a/p due to abd pain complaints In regards to COVID she currently does not meet criteria for treatment as she is not requiring oxygen Blood and urine cultures ordered, follow 12/18 Patient is stable overall Remains in room air CT chest showing bilateral multifocal pneumonia Blood culture, sputum culture pending Continue cefepime, doxycycline Not a candidate for remdesivir in light of acute kidney injury, creatinine clearance below 25 Will continue to monitor closely 12/19 Extubated, currently on room air Cultures pending Continue cefepime with doxycycline day #2 5 Stable overall Remains on room air Blood cultures negative Continue cefepime plus doxycycline day #3 / Saturated overnight, now requiring 15 L of nonrebreather Repeat chest x-ray: 1. Significant progression of bilateral alveolar opacities and interstitial thickening. The findings could reflect pulmonary edema or multifocal pneumonia. 2. Increase in small bilateral pleural effusions. Lasix 80 mg IV ordered Continue antibiotics, nebs Continue nonrebreather for now Pulmonary service consulted MDS Symptomatic Anemia Acute blood loss on chronic anemia associated with MDS Pt follows Dr. Trejo; She is transfusion dependent, last was 2 weeks ago h/h 5.6 and 17.6 She has been type and cross 2 units, she has received 2 units before without any difficulty, no prior transfusion reaction Repeat H&H after blood products, goal hemoglobin greater than [address] Trejo secondary to thrombocytopenia Dr. Trejo recommends holding hydroxyurea due to underlying sepsis Would reach out to Dr. Trejo in next 1 to 2 days regarding further guidance in her MDS Dr. Trejo expects WBC to increase while holding hydroxyurea 12/18 Hemoglobin 7 Additional unit of packed RBCs ordered Platelets 54th K Monitor CBC daily 12/19 Hemoglobin 8 Platelets 60 K 5/5 Hemoglobin 8.1 Platelet count 67 K 5/6 Hemoglobin 7.8 Platelet count 71 Monitor closely Will start heparin subcu twice a day Lactic acidosis High anion gap metabolic acidosis, 18 Suspect related to severe anemia, volume depletion, sepsis and rhabdomyolysis Expect to improve with improvement of above Will trend until resolved Repeat BMP, lactate at 1900 Resolved Elevated troponin No chest pain, ischemic ecg change Suspect demand ischemia in setting of sepsis, rhabdo Troponin improved from 56-50, EKG no signs of acute ischemia or infarct Echocardiogram reviewed: Mild to moderate mitral stenosis Discussed with cardiology service as well Rhabdomyolysis non traumatic, on ground for 7 hours after fall CK 1054 IVF and blood products ordered Follow renal fxn and CK CPK improved to 500s IV fluids given Acute on Chronic CKD 3 baseline cr 2.2-2.4 bun/cr 61 and 3.74 continue blood products/fluids Nephrology service consulted NSS with bicarbonate ordered Monitor creatinine closely Creatinine 3.2 Na 126 off bicarb drip 12/21 Creatinine 3.4 Sodium 124 Positive fluid balance Lasix IV ordered Nephrology service on board Hyperkalemia 2/2 to rhabdo, CKD Lokelma 10mg TID Monitor bmp Potassium 4.5 Hypomagnesemia Mag 1.3, replace Repeat mag @ 1900 Replaced Mechanical fall in setting of dizziness Comminuted displaced fracture of the distal shaft of left femur Patient follows with [facility] Ismael Knutson aware of patient Plan is for surgical fixation once medically stable Knee brace, bed rest, ICE TID Scheduled Tylenol Oxy IR 2.5mg PRN for Severe pain Daughter does not want her to have any strong narcotic without discussing with her check vitamin D level 12/18 Patient high risk for cardiopulmonary complications in light of patient's advanced age, multiple comorbidities as outlined above Discussed at length in detail with patient and her daughter, they verbalized understanding agreement of risks involved with planned surgery, they are agreeable to proceed with planned orthopedic surgery today No medical contraindication at this point to proceed with the necessary orthopedic surgery to address left humeral fracture Will optimize patient and carefully monitor patient perioperatively 5/4 Status post Left Femoral Periprosthetic Fracture Retrograde Intermedullary Nail Continue to monitor closely postoperatively 5/6 Weightbearing as tolerated on the left leg Start heparin subcu every 12 hours for DVT prophylaxis Monitor platelets closely Rectal prolapse Pt is planning to get colostomy in near future due to prolapse Hard of Hearing Pt is 100% alert and oriented and mentally capable She watches her 4 year old grandson She is very hard of hearing and according to daughter will shake her head, yes even if she doesnt hear Daughter encourage to speak loudly and slowly Monitor for delirium given age DVT ppx: Heparin subcu every 12 FULL CODE PCP: Dr. Palomares Dispo: PT OT evaluation plan of care discussed with patient and her daughter Brandi over the phone in detail and at length all questions answered They are understanding, agreeable, comfortable with the plan of care Admission and Anticipated Discharge Date Admission Date: December 18, 2023 Subjective Follow-up for acute respiratory failure, COVID-19 pneumonia, acute renal failure, status post femoral surgery, etc. Overnight events noted Seen resting in bed comfortable, not in distress On 15 L of oxygen via nonrebreather Awake and alert, oriented x 3 states she feels ok Denies shortness of breath, chest pain No abdominal pain, nausea Has some left lower chest discomfort No other new symptom Review of Systems Review of Systems: all noted and negative except for above Physical Exam Physical Exam: General- oriented x 3, not in distress, speaks in sentences with no effort or accessory muscle use Eyes- anicteric Neck- no JVD Lungs-positive mild crackles bilateral bases, no wheezing Heart- normal rate, regular rhythm; no murmurs Abdomen- normal bowel sounds, nondistended, soft, no tenderness Extremities- no pretibial edema, no calf tenderness Neuro- alert, oriented x 3; no gross focal neurologic deficits Skin- warm & dry Results & Data Results & Data Vital Signs (Past 12 Hours) Vital Signs Temp Pulse Pulse Resp BP Pulse Ox O2 Del Method 12/22/23 08:36 36.6 C 92 H 22 121/57 L 95 Non-rebreather 12/22/23 05:08 100 H 22 126/63 89 L Oxymask 12/22/23 04:45 98 H 19 90 Non-rebreather 12/22/23 00:09 36.5 C 83 19 112/65 90 Nasal Cannula 12/21/23 23:08 86 12/21/23 22:38 Nasal Cannula 12/21/23 21:15 36.9 C 83 18 94 Nasal Cannula O2 Flow Rate 12/22/23 08:36 15 12/22/23 05:08 15 12/22/23 04:45 15 12/22/23 00:09 4 12/21/23 23:08 12/21/23 22:38 3 12/21/23 21:15 3 all noted and reviewed including below (2) Pneumonia Pneumonia type: due to unspecified organism (4) Acute renal failure superimposed on stage 3 chronic kidney disease Acute renal failure type: unspecified (5) Rhabdomyolysis Encounter type: initial encounter Rhabdomyolysis type: traumatic Qualified Code(s): T79.6XXA - Traumatic ischemia of muscle, initial encounter (13) Left femoral shaft fracture Encounter type: initial encounter Fracture alignment: displaced Fracture morphology: comminuted Fracture type: closed Qualified Code(s): S72.352A - Displaced comminuted fracture of shaft of left femur, initial encounter for closed fracture
--- NOTE | 2023-12-22 10:41 | Nephrology Progress Note ---
Date of Service December 22, 2023 Assessment & Plan (1) ABA (acute kidney injury): Plan: worsening but still stage one nonoliguric ABA on CKD. on admission 12/17 creatinine was 3.7; it trended down to rupal 3 on 12/18 and now plateau'd mid 3s. ?borderline UOP but not oliguric she had evidence of sepsis with lactic acidosis on admission but now lactic acid is normal and her vital signs appears to be acceptable. CK was 1000 on presentation and improving/down to 500 given her age and pre-existing CKD 4 she may not have enough renal recovery or very delayed recovery. this will be evident in the coming days. cause of ABA is ATN; do not believe CK was high enough for rhabdo to be a real factor. she does have blood and protein in urine which are new > ? if relates to MDS/ elevated WBC >cont strict I/O >> VERY important to know how much she voids and how many BM >daily bmp it is not unusual to have renal decline in the perioperative state and with covid, especially in a vulnerable patient like her. >>make sure to maintain hemoglobin at least in mid 7s as she is very prone to develop severe anemia (2) Hyponatremia: Plan: acutely worsened since 12/19. sNa abruptly 126 this AM after being consistently 133-134, range; now 124 -126 since 12/20 AM labs. serum osms 279 (calc serum osms is 275). believe she is intravascularly dry d/t low uCl but did not tolerate 3% saline w/ lasix and 250 mL fluid over 3h last evening >>goal is to get her 2L negtive today given worsening respiratory status >> will start 80 mg lasix q6h and monitor BMP carefully; hope that sNa will not drop more w/ aggressive therapy but suspect it will increase -goal sNa is no more than 130 by AM -control pain -maintain k -no FR for now in this frail pt (3) CKD (chronic kidney disease) stage 4, GFR 15-29 ml/min: Plan: CKD 4 at baseline with baseline creatinine around 2.2 (2.1-2.4 for past year.. she was last seen by Dr. Marcelina Valentin in 2021. Although had ABA with creat of 4.1 on the outpt lab done 11/12/2023--got better down to 2.2 without any definite intervention it seems next month by 12/10/2023 (4) Left femoral shaft fracture: Plan: secondary to fall. s/p L femoral periprosthetic fracture retrograde intramedullary nail 12/18 (5) SARS-CoV-2 positive: Plan: does have multi lobar pneumonia Plan case complexity high and multiple updates/adjustments through the day. Admission and Anticipated Discharge Date Admission Date: December 18, 2023 Subjective overall 9.2L positive since admission; some sx low Na yesterday (mild) and gave small amoungt of 3% and some NS since urine studies suggested she's dry >> pt did not tolerate/needed more 02; had small dose of lasix yesterday pm 20 mg IV and had 60 mg IV this AM 0500 Review of Systems 2 Review of Systems: All systems reviewed & are unremarkable except as noted in Subjective Physical Exam 2 Constitutional: well developed (Sitting in bed on NRB; ? slight psychomotor slowing), + thin, + frail appearing and cooperative Eyes: EOM intact bilaterally ENMT: Ears: + hearing impairment; no external ear abnormality Nose: no external nose abnormality Mouth: + dry oral mucous membranes Neck: no nuchal rigidity Respiratory: normal respiratory effort and + cough (occasional still but not as thick as yesterday) Auscultation: + diminished lung sounds (Throughout) and + crackles Cardiovascular: RRR, no murmur, no edema Gastrointestinal (Abdomen): Inspection/Auscultation: normal bowel sounds P ercussion/Palpation: abdomen soft; abdomen nontender Musculoskeletal: Extremities: strength 5/5 throughout Skin: no rashes, warm and dry Psychiatric: Orientation: alert and oriented x 3 Results & Data Vital Signs (Past 12 Hours) Vital Signs Temp Pulse Pulse Resp BP Pulse Ox O2 Del Method 12/22/23 08:36 36.6 C 92 H 22 121/57 L 95 Non-rebreather 12/22/23 05:08 100 H 22 126/63 89 L Oxymask 12/22/23 04:45 98 H 19 90 Non-rebreather 12/22/23 00:09 36.5 C 83 19 112/65 90 Nasal Cannula 12/21/23 23:08 86 12/21/23 22:38 Nasal Cannula O2 Flow Rate 12/22/23 08:36 15 12/22/23 05:08 15 12/22/23 04:45 15 12/22/23 00:09 4 12/21/23 23:08 12/21/23 22:38 3 Laboratory Results 12/22/23 04:55 12/22/23 04:55 Diagnostic Findings CXR (image reviewed personally by me) >> plm edema versus MF PNA; agree w/ reading (4) Left femoral shaft fracture Encounter type: initial encounter Fracture alignment: displaced Fracture morphology: comminuted Fracture type: closed Qualified Code(s): S72.352A - Displaced comminuted fracture of shaft of left femur, initial encounter for closed fracture
[2023-12-22] MEDS: FUROSEMIDE 40 MG/4 ML VIAL IV SCH (11:49)
[2023-12-22] MEDS: HEPARIN SOD 5,000 UNIT/0.5 ML VIAL SQ SCH (11:49)
[2023-12-22] MEDS ORDERED: dexAMETHasone 4 MG in SYRINGE 0 ML IV SCH (12:30)
[2023-12-22] MEDS ORDERED: DEXAMETHASONE SOD INJ 4 MG/ML VIAL IV SCH (12:30)
--- NOTE | 2023-12-22 12:40 | Pulmonary Consultation ---
Date of Consultation December 22, 2023 Assessment & Plan (1) Acute respiratory failure with hypoxia: (2) Multifocal pneumonia: (3) SARS-CoV-2 positive: (4) Acute renal failure superimposed on stage 3 chronic kidney disease: Acute renal failure type: unspecified (5) Metabolic acidosis: Plan IMPRESSION: 88-year-old female with a complicated past medical history including myelodysplastic syndrome with frequent need for transfusions, CKD 3, presenting with a fall and rhabdomyolysis in the setting of COVID-19 infection. Patient requiring escalating oxygen therapy prompting pulmonary consultation for ongoing evaluation and management. RECOMMENDATIONS: 1. Acute respiratory failure with hypoxia - In the setting of multifocal pneumonia likely related to COVID infection. The patient is empirically covered with cefepime and doxycycline for possible superimposed bacterial component. Despite this, her symptoms continue to decline and infiltrative processes seem to worsen. Likely degree of this is in combination with her ongoing renal dysfunction. That being said, given the timing of her symptoms and renal function, she would not be a candidate for alternative therapies for COVID. Will place the patient on dexamethasone 6 mg daily for the next 10 days. Additionally, we will transition her to high flow nasal cannula for her comfort. She does not appear overtly dyspneic with rest. Certainly, alternative d iagnoses including PE, TACO/TRALI, etc. remain on the differential, however these seem much less likely given her imaging findings with multifocal infiltrative changes during initial admission. She is currently on prophylactic heparin dosing. She received her last unit of blood on 12/19 which would be relatively outside the window for a reaction to occur. That being said, continue with pulmonary toileting including her flutter valve and incentive spirometry. Titrate down supplemental oxygen as tolerated to a goal SaO2 of 92%. Did broach the subject of CODE STATUS, specifically intubation. She is uncertain if she would wish to undergo this. I did reiterate with the patient that if she were to require endotracheal intubation with progression of her underlying comorbidities, the prognosis would be increasingly poor. Would approach the subject with her again after she has had some time to think about it. 2. Multifocal pneumonia - As above, and likely representing acute COVID infect ion. 3. SARS-CoV-2 positive - Continue with dexamethasone treatment as discussed. 4. Acute on chronic renal failure - Unfortunately, this is likely contributing to degree to the patient's improvement or lack thereof. Appreciate nephrology's ongoing management of this. Unfortunately, the patient does appear to be experiencing an ongoing metabolic acidosis and electrolyte derangements with poo r urine output. Thank you for allowing us to participate in the care of this patient. Pulmonary medicine will continue to follow. History of Present Illness Reason for Consultation: acute respiratory failure Requesting Physician: Dr. Amezcua Attending Physician: Joel Amezcua MD History of Present Illness Patient is an 88-year-old female with a complicated past medical history of hypertension, rectal prolapse, urinary incontinence, stage III chronic kidney disease, myelodysplastic syndrome, gout, mitral valve stenosis, osteoarthritis, and degenerative disc disease who was admitted on 12/18/2023 in the setting of fall with subsequent comminuted displaced fracture of the distal shaft of the LEFT femur. Patient was additionally found to test positive for COVID. She was noted to have multifocal infiltrative changes on her chest x-ray upon arrival. She was empirically covered with antibiotics. She successfully underwent LEFT femoral periprosthetic fracture retrograde intramedullary nail procedure on 12/18. She remained intubated after procedure was brought to the ICU where she was successfully extubated on 12/19. 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 Repeat chest x-ray demonstrates worsening bilateral infiltrative changes. Unfortunately, she is also noted to have ongoing decline in her renal function as well as electrolyte derangements which have been managed by nephrology. Pulmonary medicine consulted in the setting of progressive oxygen requirement and bilateral infiltrative processes in the setting of COVID-19 pneumonia. Upon evaluation in room 4581, the patient is awake, alert, and oriented. She is hard of hearing. She states that she has not had some difficulty with breathing prior to her fall and hospitalization. Currently, she mainly describes coughing which is worse when she takes deep breaths. She denies complaints of chest discomfort. She is short of breath with any exertion or movement. There is been no hemoptysis. She reports that she is a lifelong non- smoker. No significant occupational exposures. No history of asthma or recurrent sore infections. Allergies Allergy/AdvReac Type Severity Reaction Status Date / Time morphine AdvReac Intermediate NAUSEA AND Verified 12/18/23 14:57 VOMITING Home Medications Medication Instructions Recorded Confirmed Type acetaminophen 500 mg tablet 1,000 mg PO Q8H PRN Pain, Moderate 06/29/18 12/18/23 History allopurinol 300 mg tablet 300 mg PO QAM 12/18/23 12/18/23 History hydroxyurea 500 mg capsule 500 mg PO [id number] 12/18/23 12/18/23 History vitamins A,C,J-wkiq-qglffu 2,148 1 tab PO BID 12/18/23 12/18/23 History mcg-113 mg-45 mg-17.4 mg tablet (PreserVision AREDS) Patient History Medical History (Updated 12/22/23 @ 12:28 by Bob Nunes PA-C) Periprosthetic fracture around internal prosthetic left knee joint Right knee DJD Stage 3 chronic kidney disease Gout Left shoulder pain Cervical pain MDS (myelodysplastic syndrome) Urinary incontinence Gout Surgical History H/O bladder repair surgery H/O: hysterectomy H/O carpal tunnel repair right hand H/O total knee replacement bilateral Social History Smoking Status: Never smoker Hx Alcohol Use: No Hx Substance Use: No Preferred Language: Chinese Communication Ability: Effective 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 All else were negative. Physical Exam 2 Physical Exam: VITAL SIGNS - Vital signs and nursing notes were reviewed. GENERAL - 88-year-old female appearing her stated age who is in no acute distress. Communicates well with provider and answers questions appropriately. SKIN - Without rashes or lesions. NOSE - Midline and without cyanosis. MOUTH/OROPHARYNX - Without perioral cyanosis. NECK - Neck with FROM. LUNGS - Chest wall evaluation demonstrates normal chest wall A:P diameter. Auscultation reveals diminished breath sounds at the bases with bilateral lower lobe rales appreciated. CARDIAC - RRR with S1/S2. No murmur, rubs, or gallops appreciated. ABDOMEN - Abdominal inspection demonstrates a flat abdomen. BS normoactive all four quadrants. No tenderness, palpable masses, or ascites noted. EXTREMITIES - Nail clubbing not present. No peripheral cyanosis. +3/5 radial palpated throughout. PSYCH - A&Ox3 and cooperates fully with examiner. Pt is very pleasant and interacts well with examiner. Results & Data Results & Data Vital Signs (Past 12 Hours) Vital Signs Temp Pulse Resp BP Pulse Ox O2 Del Method O2 Flow Rate 12/22/23 11:29 36.6 C 96 H 20 155/66 H 93 Non-rebreather 15 12/22/23 08:36 36.6 C 92 H 22 121/57 L 95 Non-rebreather 15 12/22/23 05:08 100 H 22 126/63 89 L Oxymask 15 12/22/23 04:45 98 H 19 90 Non-rebreather 15 PG Care Time/CCT Total # of Minutes Spent Total Time Spent with Patient: Total time spent is greater than 50% in coordination of care (as documented) at patient's floor/unit and/or counseling patient: Coding Level of Care Code 03984 INT INP/OBS CARE 3/75MIN Diagnoses Acute respiratory failure with hypoxia J96.01 Multifocal pneumonia J18.9 SARS-CoV-2 positive U07.1 Acute renal failure superimposed on stage 3 chronic kidney disease N17.9; N18.30 Acute renal failure type: unspecified Metabolic acidosis E87.20
[2023-12-22] MEDS: dexAMETHasone 6 MG in SYRINGE 0 ML IV SCH (12:59)
[2023-12-22 16:07] LABS: BUN Creatinine Ratio 19.3 (10-20); Calcium 7.7 mg/dl (8.6-10.3); Creatinine Clr Calc Pharmacy 9.8 ml/min; Est GFR (African American) 11.6 ml/min
[2023-12-22] MEDS: SODIUM ZIRCONIUM CYCLOSILICATE 10 GM PACKET PO SCH (18:17)
[2023-12-22 18:43] LABS: Urine Potassium 11.8 mmol/L
[2023-12-22] MEDS: BENZONATATE 100 MG CAPSULE PO PRN (22:20)
[2023-12-23 08:28] LABS: Hematocrit (blood only) 22.2 % (37.0-47.0); Hemoglobin 7.5 g/dl (12.0-16.0); Mean Corpuscular Hemoglobin 29.5 pg (25.0-34.0); Mean Corpuscular Hgb Conc 33.8 g/dL (32.0-36.0); Mean Corpuscular Volume 87.4 fL (80.0-100.0); Mean Platelet Volume 13.2 fL (9.4-12.4); Nucleated RBC # (auto) 0.06 K/uL (0.00-0.12); Nucleated RBC % (auto) 0.1 %; Platelet Count 84 K/uL (130-400); RDW Coefficient of Variation 17.2 % (11.5-14.5); RDW Standard Deviation 53.1 fL (36.4-46.3); Red Blood Count 2.54 M/uL (4.20-5.40); White Blood Count 57.87 K/ul (4.8-10.8)
--- NOTE | 2023-12-23 08:47 | Pulmonology Progress Note ---
Date of Service December 23, 2023 Assessment & Plan (1) Acute respiratory failure with hypoxia: (2) Multifocal pneumonia: (3) SARS-CoV-2 positive: (4) Acute renal failure superimposed on stage 3 chronic kidney disease: Acute renal failure type: unspecified (5) Metabolic acidosis: Plan IMPRESSION: 88-year-old female with a complicated past medical history including myelodysplastic syndrome with frequent need for transfusions, CKD 3, presenting with a fall and rhabdomyolysis in the setting of COVID-19 infection. Patient requiring escalating oxygen therapy prompting pulmonary consultation for ongoing evaluation and management. RECOMMENDATIONS: 1. Acute respiratory failure with hypoxia - In the setting of multifocal pneumonia likely related to COVID infection. The patient is empirically covered with cefepime and doxycycline for possible superimposed bacterial component. Continue with dexamethasone dosing for now. Per conversation with nephrology, they are hoping to initiate hemodialysis today to help with volume offloading in a patient who is persistently metabolically acidotic. This seems like a reasonable approach if the patient is certainly interested in undergoing dialysis moving forward. Continue with supplemental oxygen. Titrate down as tolerated. Again, I would reiterate CODE STATUS with the patient. 2. Multifocal pneumonia - As above, and likely representing acute COVID infection. 3. SARS-CoV-2 positive - Continue with dexamethasone treatment as discussed. 4. Acute on chronic renal failure - Per nephrology, plan to proceed with hemodialysis at this time. Will assist in temporary hemodialysis line placement so the patient can undergo dialysis today. Thank you for allowing us to participate in the care of this patient. Pulmonary medicine will continue to follow. Admission and Anticipated Discharge Date Admission Date: December 18, 2023 Subjective Patient seen and evaluated today. She complains of ongoing dyspnea with any movement. She reports an ongoing cough. She seems slightly confused at times. Review of Systems Review of Systems: A complete 10 point review of systems was reviewed with the patient with pertinent positives and negatives as per history of present illness. All else were negative. Physical Exam Physical Exam: VITAL SIGNS - Vital signs and nursing notes were reviewed. GENERAL - 88-year-old female appearing her stated age who is in no acute distress. Communicates well with provider and answers questions appropriately. SKIN - Without rashes or lesions. NOSE - Midline and without cyanosis. MOUTH/OROPHARYNX - Without perioral cyanosis. NECK - Neck with FROM. LUNGS - Chest wall evaluation demonstrates normal chest wall A:P diameter. Auscultation reveals diminished breath sounds at the bases with bilateral lower lobe rales appreciated. CARDIAC - RRR with S1/S2. No murmur, rubs, or gallops appreciated. ABDOMEN - Abdominal inspection demonstrates a flat abdomen. BS normoactive all four quadrants. No tenderness, palpable masses, or ascites noted. EXTREMITIES - Nail clubbing not present. No peripheral cyanosis. +3/5 radial palpated throughout. PSYCH - A&Ox3 and cooperates fully with examiner. Pt is very pleasant and interacts well with examiner. Results & Data Results & Data Vital Signs (Past 12 Hours) Vital Signs Temp Pulse Pulse Resp BP Pulse Ox O2 Del Method 12/23/23 08:25 36.5 C 87 19 135/60 94 High Flow Nasal Cannula 12/23/23 07:11 72 18 95 High Flow Nasal Cannula 12/23/23 03:51 36.5 C 83 20 133/61 92 High Flow Nasal Cannula 12/23/23 02:37 73 18 99 High Flow Nasal Cannula 12/23/23 00:30 36.5 C 87 20 125/60 95 High Flow Nasal Cannula 12/23/23 00:00 82 12/22/23 22:59 89 18 92 High Flow Nasal Cannula 12/22/23 20:56 36.5 C 91 H 24 136/57 L 96 High Flow Nasal Cannula 12/22/23 20:48 High Flow Nasal Cannula O2 Flow Rate FiO2 12/23/23 08:25 40 70 12/23/23 07:11 40 70 12/23/23 03:51 30 70 12/23/23 02:37 40 80 12/23/23 00:30 12/23/23 00:00 12/22/23 22:59 40 80 12/22/23 20:56 40 80 12/22/23 20:48 40 80 PG Care Time/CCT Total # of Minutes Spent Total Time Spent with Patient: Total time spent is greater than 50% in coordination of care (as documented) at patient's floor/unit and/or counseling patient: Coding Level of Care Code 43552 SUB INP/OBS CARE 2/35MIN Diagnoses Acute respiratory failure with hypoxia J96.01 Multifocal pneumonia J18.9 SARS-CoV-2 positive U07.1 Acute renal failure superimposed on stage 3 chronic kidney disease N17.9; N18.30 Acute renal failure type: unspecified Metabolic acidosis E87.20
[2023-12-23 08:48] LABS: BUN Creatinine Ratio 21.2 (10-20); Calcium 7.5 mg/dl (8.6-10.3); Est GFR (African American) 10.7 ml/min; Est GFR (Non-African American) 9.3 ml/min; Potassium 4.5 mmol/L (3.5-5.1)
[2023-12-23 08:54] LABS: ALC (manual) 2.31 K/uL (1.2-3.4); ANC (manual) 44.56 K/uL (1.4-6.5); Echinocytes 1+; Lymphocytes # (manual) 2.31 K/uL (1.2-3.4); Lymphocytes % (manual) 4 %; Metamyelocytes # (manual) 4.05 K/uL (0-0); Metamyelocytes % (manual) 7 %; Monocytes # (manual) 1.74 K/uL (0.11-0.59); Monocytes % (manual) 3 %; Myelocytes # (manual) 5.21 K/uL (0-0); Myelocytes % (manual) 9 %; Neutrophils # (manual) 44.56 K/uL (1.40-6.50); Neutrophils % (manual) 77 %; Polychromasia 1+
--- NOTE | 2023-12-23 11:57 | Nephrology Progress Note ---
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 making adequate urine but only 1.5L negative she had evidence of sepsis with lactic acidosis on admission but now lactic acid is normal and her vital signs appears to be acceptable. CK was 1000 on presentation and improving/down to 500 given her age and pre-existing CKD 4 she may not have enough renal recovery or very delayed recovery. cause of ABA is ATN in the setting of covid/sepsis; do not believe CK was high enough for rhabdo to be a real factor. she does have blood and protein in urine which are new > ? if relates to MDS/ elevated WBC after extensive discussion w/ pt and her daughter will go ahead and start HD > mostly to control volume and acidosis. will also continue aggressive diuresis. risks, benefits, alternatives d/w pt and daughter x 20 minutes. pt agrees to go forward; consent obtained and on chart. she understands that w/ CKD 4, may not be able to come off of HD plan HD today and likely daily x 3 then reassess; goal is to keep her off ventilator if possible >> did explain to her that HD only removes fluid not infection/inflammation in lungs. ICU aware and to help w/ temp cath >cont strict I/O >> VERY important to know how much she voids and how many BM >daily bmp it is not unusual to have renal decline in the perioperative state and with covid, especially in a vulnerable patient like her. >>make sure to maintain hemoglobin at least in mid 7s as she is very prone to develop severe anemia (2) Hyponatremia: Plan: acutely worsened since 12/19-12/21, improving w/ diuresis. sNa abruptly 126 5/5 AM after being consistently 133-134, range; up to 127 today. serum osms 279 (calc serum osms is 275). believe she is intravascularly dry d/t low uCl but did not tolerate 3% saline w/ lasix and 250 mL fluid over 3h 5/5 PM responding to diuresis >> >>goal is to get her 2L negative daily; continue lasix 80 mg IV q6h -goal sNa is no more than 133 by AM -control pain -maintain k -no FR for now in this frail pt (3) Left femoral shaft fracture: Plan: secondary to fall. s/p L femoral periprosthetic fracture retrograde intramedullary nail 12/18 (4) SARS-CoV-2 positive: Plan: does have multi lobar pneumonia Plan case complexity high and multiple updates/adjustments through the day. care coordinated w/ pt, family, w/ critical care and hospitalist teams. Admission and Anticipated Discharge Date Admission Date: December 18, 2023 Subjective no acute interval events; on 40 L high flow 02, peak use 45 L x a few hrs last evening. coughing and orthopnea are worse. tells me " I would be ok if I could only breathe" no n/v, no pruritis; + edema. had 3 bm yesterday but no diarrhea; minimal po. 1.5L negative on the day. Review of Systems 2 Review of Systems: All systems reviewed & are unremarkable except as noted in Subjective Physical Exam 2 Constitutional: well developed (Sitting in bed on NRB higher than yesterday/more upright), + thin, + frail appearing and cooperative Eyes: EOM intact bilaterally ENMT: Ears: + hearing impairment; no external ear abnormality Nose: no external nose abnormality Mouth: + dry oral mucous membranes Neck: no nuchal rigidity Respiratory: normal respiratory effort and + cough (frequent) Auscultation: + diminished lung sounds (Throughout) and + crackles Cardiovascular: RRR, no murmur, no edema Gastrointestinal (Abdomen): Inspection/Auscultation: normal bowel sounds P ercussion/Palpation: abdomen soft; abdomen nontender Musculoskeletal: Extremities: strength 5/5 throughout (LLE wrapped ankle to prox femur) Skin: no rashes, warm and dry Psychiatric: Orientation: alert and oriented x 3 Results & Data Vital Signs (Past 12 Hours) Vital Signs Temp Pulse Pulse Resp BP Pulse Ox O2 Del Method 12/23/23 08:25 36.5 C 87 19 135/60 94 High Flow Nasal Cannula 12/23/23 08:00 84 12/23/23 08:00 High Flow Nasal Cannula 12/23/23 07:11 72 18 95 High Flow Nasal Cannula 12/23/23 03:51 36.5 C 83 20 133/61 92 High Flow Nasal Cannula 12/23/23 02:37 73 18 99 High Flow Nasal Cannula 12/23/23 00:30 36.5 C 87 20 125/60 95 High Flow Nasal Cannula 12/23/23 00:00 82 O2 Flow Rate FiO2 12/23/23 08:25 40 70 12/23/23 08:00 12/23/23 08:00 12/23/23 07:11 40 70 12/23/23 03:51 30 70 12/23/23 02:37 40 80 12/23/23 00:30 12/23/23 00:00 Laboratory Results 12/23/23 07:39 12/23/23 07:39 (3) Left femoral shaft fracture Encounter type: initial encounter Fracture alignment: displaced Fracture morphology: comminuted Fracture type: closed Qualified Code(s): S72.352A - Displaced comminuted fracture of shaft of left femur, initial encounter for closed fracture
[2023-12-23] MEDS ORDERED: SODIUM CHLORIDE 0.9% 1,000 ML IV PRN (11:58)
[2023-12-23] MEDS: ALUMINUM/MAGNESIUM SUSP 30 ML UDC PO PRN (12:05)
--- NOTE | 2023-12-23 14:48 | Procedure Note ---
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 She agreed to proceed. Procedure: The patient was placed in a semiupright seated position. The dressing for the triple-lumen catheter was taken down with care. The entire catheter is well as the area surrounding the insertion site were scrubbed extensively with chlorhexidine. A sterile field was established and again the ports of the triple-lumen and the skin surrounding the insertion site were again cleansed with chlorhexidine which was allowed to completely dry. The sutures securing the triple-lumen were cut and the catheter freed up entirely. A wire was passed through the distal port of the existing triple-lumen catheter and the triple-lumen catheter was backed out over the wire leaving the wire in place. An extension of the skin incision was made where the wire passed into the neck. Serial dilatation of the tract was conducted with the dilators. A previously flushed 16 cm dialysis catheter was then advanced over the wire into the vein. The wire was removed. The ports flushed and renata appropriately. Caps were applied. A Biopatch was applied and the catheter was sutured in place. An occlusive dressing was applied. The patient tolerated the procedure well with transient ventricular arrhythmias associated with passing of the wire. These resolved without sequelae. Post procedure chest x-ray is pending. Coding CPT Codes Tubes, Drains, and Vasc Access - Tubes, Drains, and Vasc Access: [id number] Insertion of cannula for hemodialysis ([id number]) [facility] [place] Procedure Codes (Charges) Tubes, Drains, and Vasc Access Procedure 1: Tubes, Drains, and Vasc Access: [id number] Insertion of cannula for hemodialysis
--- NOTE | 2023-12-23 15:56 | Surgery Progress Note ---
Date of Service December 23, 2023 Assessment & Plan (1) Periprosthetic fracture around internal prosthetic left knee joint: Plan: 88-year-old female with multiple medical comorbidities now 4 days out from ORIF and IM nailing of left periprosthetic femur fracture. Orthopedic issues are stable and doing fine. Multiple other medical comorbidities which are more concerning. Plan: 1. PT OT. She can fully weight-bear on this left leg. Should wear the knee immobilizer while awake walking for the next 2 to 4 weeks. 2. DVT prophylaxis including thigh-high teds, SCDs, subcu heparin as per the primary service. 3. Pain control doing okay with current pain regimen. I would limit and avoid all narcotics if possible. Use Tylenol for pain. 4. Medical management as per the medicine service 5. Disposition. She is stable from the orthopedic standpoint for discharge anytime. I need to see her 2 to 3 weeks out from surgery date. Any orthopedic questions can be directed at [phone] Admission and Anticipated Discharge Date Admission Date: December 18, 2023 Subjective 88-year-old female now postop day 4 from ORIF and IM nailing of the left periprosthetic femur fracture. Orthopedically she seems to be doing fine. She got multiple medical comorbidities and unfortunately declining renal function. She continues to be awake alert and following commands. Denies much in the way of knee or leg pain. Physical Exam Physical Exam: Physical examination reveals a pleasant elderly female. She is sitting up in bed and using a subtyping rebreathing mask. Examination of left leg reveals the dressing be clean dry and intact. Leg is well aligned patient dorsiflex and plantarflex her foot appropriately. Does fine with gentle knee motion 0 to about 60. Results & Data Vital Signs (Past 12 Hours) Vital Signs Temp Pulse Pulse Resp BP Pulse Ox O2 Del Method 12/23/23 15:06 80 25 H 98 12/23/23 14:57 36.5 C 96 H 24 133/53 L 100 BiPAP 12/23/23 14:19 83 18 90 High Flow Nasal Cannula 12/23/23 12:35 36.7 C 88 16 132/67 93 High Flow Nasal Cannula 12/23/23 08:25 36.5 C 87 19 135/60 94 High Flow Nasal Cannula 12/23/23 08:00 84 12/23/23 08:00 High Flow Nasal Cannula 12/23/23 07:11 72 18 95 High Flow Nasal Cannula O2 Flow Rate FiO2 12/23/23 15:06 100 12/23/23 14:57 12/23/23 14:19 40 60 12/23/23 12:35 40 60 12/23/23 08:25 40 70 12/23/23 08:00 12/23/23 08:00 12/23/23 07:11 40 70 Laboratory Results Hemoglobin 7.5 hematocrit 22.2. Platelets 84. Creatinine 4.05. PG Care Time/CCT Total # of Minutes Spent Total Time Spent with Patient: Total time spent is greater than 50% in coordination of care (as documented) at patient's floor/unit and/or counseling patient: Coding Level of Care Code 55718 Post Operative Follow-Up Diagnoses Periprosthetic fracture around internal prosthetic left knee joint M97.12XA
--- NOTE | 2023-12-23 15:59 | XRay Report ---
XR chest 1V portable HISTORY: s/p RIGHT IJ HD Cath insertion COMPARISON: Right hand 12/23/2023 FINDINGS: Subtle lucency through the distal epiphysis of the ulna likely represents a nondisplaced fr acture. The distal radius and carpal bones appear intact. There is diffuse soft tissue swelling withi n the right wrist. No dislocation. IMPRESSION: Subtle lucency within the distal epiphysis of the ulna likely representing a nondisplaced fracture. ACT 112: Negative or not required by law. Electronically signed by: Khurram Morales M.D. 12/23/2023 3:58 PM
--- NOTE | 2023-12-23 17:13 | Nephrology Progress Note ---
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 making adequate urine but only 1.5L negative she had evidence of sepsis with lactic acidosis on admission but now lactic acid is normal and her vital signs appears to be acceptable. CK was 1000 on presentation and improving/down to 500 given her age and pre-existing CKD 4 she may not have enough renal recovery or very delayed recovery. cause of ABA is ATN in the setting of covid/sepsis; do not believe CK was high enough for rhabdo to be a real factor. she does have blood and protein in urine which are new > ? if relates to MDS/ elevated WBC after extensive discussion w/ pt and her daughter will go ahead and start HD > mostly to control volume and acidosis. will also continue aggressive diuresis. risks, benefits, alternatives d/w pt and daughter x 20 minutes. pt agrees to go forward; consent obtained and on chart. she understands that w/ CKD 4, may not be able to come off of HD plan HD today and likely daily x 3 then reassess; goal is to keep her off ventilator if possible >> did explain to her that HD only removes fluid not infection/inflammation in lungs. ICU aware and to help w/ temp cath >cont strict I/O >> VERY important to know how much she voids and how many BM >daily bmp it is not unusual to have renal decline in the perioperative state and with covid, especially in a vulnerable patient like her. >>make sure to maintain hemoglobin at least in mid 7s as she is very prone to develop severe anemia (2) Hyponatremia: Plan: acutely worsened since 12/19-12/21, improving w/ diuresis. sNa abruptly 126 5/5 AM after being consistently 133-134, range; up to 127 today. serum osms 279 (calc serum osms is 275). believe she is intravascularly dry d/t low uCl but did not tolerate 3% saline w/ lasix and 250 mL fluid over 3h 5/5 PM responding to diuresis >> >>goal is to get her 2L negative daily; continue lasix 80 mg IV q6h -goal sNa is no more than 133 by AM -control pain -maintain k -no FR for now in this frail pt (3) Left femoral shaft fracture: Plan: secondary to fall. s/p L femoral periprosthetic fracture retrograde intramedullary nail 12/18 (4) SARS-CoV-2 positive: Plan: does have multi lobar pneumonia Plan case complexity high and multiple updates/adjustments through the day. care coordinated w/ pt, family, w/ critical care and hospitalist teams. Admission and Anticipated Discharge Date Admission Date: December 18, 2023 Physical Exam Constitutional: well developed (Sitting in bed on NRB higher than yesterday/more upright), + thin, + frail appearing and cooperative Eyes: EOM intact bilaterally ENMT: Ears: + hearing impairment; no external ear abnormality Nose: no external nose abnormality Mouth: + dry oral mucous membranes Neck: no nuchal rigidity Respiratory: normal respiratory effort and + cough (frequent) Auscultation: + diminished lung sounds (Throughout) and + crackles Cardiovascular: RRR, no murmur, no edema Gastrointestinal (Abdomen): Inspection/Auscultation: normal bowel sounds Percussion/Palpation: abdomen soft; abdomen nontender Musculoskeletal: Extremities: strength 5/5 throughout (LLE wrapped ankle to prox femur) Skin: no rashes, warm and dry Psychiatric: Orientation: alert and oriented x 3 Results & Data Vital Signs (Past 12 Hours) Vital Signs Temp Pulse Pulse Resp BP Pulse Ox O2 Del Method 12/23/23 15:06 80 25 H 98 12/23/23 14:57 36.5 C 96 H 24 133/53 L 100 BiPAP 12/23/23 14:19 83 18 90 High Flow Nasal Cannula 12/23/23 12:35 36.7 C 88 16 132/67 93 High Flow Nasal Cannula 12/23/23 08:25 36.5 C 87 19 135/60 94 High Flow Nasal Cannula 12/23/23 08:00 84 12/23/23 08:00 High Flow Nasal Cannula 12/23/23 07:11 72 18 95 High Flow Nasal Cannula O2 Flow Rate FiO2 12/23/23 15:06 100 12/23/23 14:57 12/23/23 14:19 40 60 12/23/23 12:35 40 60 12/23/23 08:25 40 70 12/23/23 08:00 12/23/23 08:00 12/23/23 07:11 40 70 (3) Left femoral shaft fracture Encounter type: initial encounter Fracture alignment: displaced Fracture morphology: comminuted Fracture type: closed Qualified Code(s): S72.352A - Displaced comminuted fracture of shaft of left femur, initial encounter for closed fracture
--- NOTE | 2023-12-23 19:41 | Hospitalist Progress Note ---
Date of Service December 23, 2023 delayed entry date of service noted above Assessment & Plan (1) Sepsis: (2) Pneumonia: (3) SARS-CoV-2 positive: (4) Acute renal failure superimposed on stage 3 chronic kidney disease: (5) Rhabdomyolysis: (6) Lactic acidosis: (7) High anion gap metabolic acidosis: (8) MDS (myelodysplastic syndrome): (9) Symptomatic anemia: (10) Hyperkalemia: (11) Hypomagnesemia: (12) Elevated troponin: (13) Left femoral shaft fracture: Plan Per admitting service notes with addendum: This is an 88-year-old female who has a significant past medical history of HTN, mitral valve stenosis, rectal prolapse with full incontinence of feces, CKD s tage IIIb, transfusion dependent MDS and follows Dr. Trejo who presents to ED after sustaining a fall in her home. Acute respiratory failure, hypoxic COVID-19 pneumonia, possible community-acquired pneumonia Sepsis on admission Patient meets sepsis criteria secondary to leukocytosis, tachycardia, lactic acidosis Blood cultures were obtained in the ED, but this was after administration of antibiotics She received broad-spectrum antibiotics with vancomycin and Rocephin Source: Possible pneumonia given URI symptoms x 1 week and SARS-CoV-2 Obtain MRSA swab IV Rocephin and IV Doxy Obtain CT chest for further clarification of possible pneumonia and CT a/p due to abd pain complaints In regards to COVID she currently does not meet criteria for treatment as she is not requiring oxygen Blood and urine cultures ordered, follow 12/18 Patient is stable overall Remains in room air CT chest showing bilateral multifocal pneumonia Blood culture, sputum culture pending Continue cefepime, doxycycline Not a candidate for remdesivir in light of acute kidney injury, creatinine clearance below 25 5/4 Extubated 12/20 Stable overall Remains on room air Blood cultures negative Continue cefepime plus doxycycline day #3 5/6 Desaturated overnight, now requiring 15 L of nonrebreather Repeat chest x-ray: 1. Significant progression of bilateral alveolar opacities and interstitial thickening. The findings could reflect pulmonary edema or multifocal pneumonia. 2. Increase in small bilateral pleural effusions. Lasix 80 mg IV ordered Continue antibiotics, nebs Continue nonrebreather for now Pulmonary service consulted 12/22 remains on high flow O2 continue Decadron, IV antibiotics, supportive care Pulm on board for HD today MDS Symptomatic Anemia Acute blood loss on chronic anemia associated with MDS Pt follows Dr. Trejo; She is transfusion dependent, last was 2 weeks ago h/h 5.6 and 17.6 She has been type and cross 2 units, she has received 2 units before without any difficulty, no prior transfusion reaction Repeat H&H after blood products, goal hemoglobin greater than [address] Trejo secondary to thrombocytopenia Dr. Trejo recommends holding hydroxyurea due to underlying sepsis Would reach out to Dr. Trejo in next 1 to 2 days regarding further guidance in her MDS Dr. Trejo expects WBC to increase while holding hydroxyurea /3 Hemoglobin 7 Additional unit of packed RBCs ordered Platelets 54th K Monitor CBC daily 12/19 Hemoglobin 8 Platelets 60 K 5/5 Hemoglobin 8.1 Platelet count 67 K 5/6 Hemoglobin 7.8 Platelet count 71 5/7 Hg 7.5 Plt 84 Monitor closely Heparin SC BID for DVT prophylaxis- monitor Plts Lactic acidosis High anion gap metabolic acidosis, 18 Suspect related to severe anemia, volume depletion, sepsis and rhabdomyolysis Expect to improve with improvement of above Will trend until resolved Repeat BMP, lactate at 1900 Resolved Elevated troponin No chest pain, ischemic ecg change Suspect demand ischemia in setting of sepsis, rhabdo Troponin improved from 56-50, EKG no signs of acute ischemia or infarct Echocardiogram reviewed: Mild to moderate mitral stenosis Discussed with cardiology service as well Rhabdomyolysis non traumatic, on ground for 7 hours after fall CK 1054 IVF and blood products ordered Follow renal fxn and CK CPK improved to 500s IV fluids given Acute on Chronic CKD 3 baseline cr 2.2-2.4 bun/cr 61 and 3.74 continue blood products/fluids Nephrology service consulted NSS with bicarbonate ordered Monitor creatinine closely Creatinine 3.2 Na 126 off bicarb drip 12/21 Creatinine 3.4 Sodium 124 Positive fluid balance Lasix IV ordered Nephrology service on board 12/22 for HD today Hyperkalemia 2/2 to rhabdo, CKD Lokelma 10mg TID Monitor bmp Potassium 4.5 Hypomagnesemia Mag 1.3, replace Repeat mag @ 1900 Replaced Mechanical fall in setting of dizziness Comminuted displaced fracture of the distal shaft of left femur Patient follows with [facility] Ismael Knutson aware of patient Plan is for surgical fixation once medically stable Knee brace, bed rest, ICE TID Scheduled Tylenol Oxy IR 2.5mg PRN for Severe pain Daughter does not want her to have any strong narcotic without discussing with her check vitamin D level 5/3 Patient high risk for cardiopulmonary complications in light of patient's advanced age, multiple comorbidities as outlined above Discussed at length in detail with patient and her daughter, they verbalized understanding agreement of risks involved with planned surgery, they are agreeable to proceed with planned orthopedic surgery today No medical contraindication at this point to proceed with the necessary orthope dic surgery to address left humeral fracture Will optimize patient and carefully monitor patient perioperatively 5/4 Status post Left Femoral Periprosthetic Fracture Retrograde Intermedullary Nail Continue to monitor closely postoperatively 5/7 Weightbearing as tolerated on the left leg heparin subcu every 12 hours for DVT prophylaxis Monitor platelets closely Rectal prolapse Pt is planning to get colostomy in near future due to prolapse Hard of Hearing Pt is 100% alert and oriented and mentally capable She watches her 4 year old grandson She is very hard of hearing and according to daughter will shake her head, yes even if she doesnt hear Daughter encourage to speak loudly and slowly Monitor for delirium given age DVT ppx: Heparin subcu every 12 FULL CODE PCP: Dr. Palomares Dispo: PT OT evaluation plan of care discussed with patient and her daughter Brandi over the phone in detail and at length all questions answered They are understanding, agreeable, comfortable with the plan of care Admission and Anticipated Discharge Date Admission Date: December 18, 2023 Subjective ff up for L femur fracture, s/p surgery, BL pneumonia, COVID 19 infection, acute renal failure, etc seen resting in bed,on high flow o2 not in distress states breathing is the same as yesterday no chest pain some pain on the surgical site no other new symptoms Review of Systems Review of Systems: all noted and negative except for above Physical Exam Physical Exam: General- oriented x 2, not in distress, speaks in sentences with no effort or accessory muscle use Eyes- anicteric Neck- no JVD Lungs- mild crackles bilaterally Heart- normal rate, regular rhythm; no murmurs Abdomen- normal bowel sounds, nondistended, soft, no tenderness Extremities- no pretibial edema, no calf tenderness Neuro- alert, oriented x 3; no gross focal neurologic deficits Skin- warm & dry Results & Data Results & Data Vital Signs (Past 12 Hours) Vital Signs Temp Pulse Pulse Pulse Resp BP BP 12/23/23 19:30 87 94/50 L 12/23/23 19:15 67 98/45 L 12/23/23 19:00 65 98/57 L 12/23/23 18:56 97 H 24 12/23/23 18:41 85 151/60 H 12/23/23 18:26 36.5 C 97 H 12/23/23 15:06 80 25 H 12/23/23 14:57 36.5 C 96 H 24 133/53 L 12/23/23 14:19 83 18 12/23/23 12:35 36.7 C 88 16 132/67 12/23/23 08:25 36.5 C 87 19 135/60 12/23/23 08:00 84 12/23/23 08:00 Pulse Ox O2 Del Method O2 Flow Rate FiO2 12/23/23 19:30 12/23/23 19:15 12/23/23 19:00 12/23/23 18:56 98 60 12/23/23 18:41 12/23/23 18:26 12/23/23 15:06 98 100 12/23/23 14:57 100 BiPAP 12/23/23 14:19 90 High Flow Nasal Cannula 40 60 12/23/23 12:35 93 High Flow Nasal Cannula 40 60 12/23/23 08:25 94 High Flow Nasal Cannula 40 70 12/23/23 08:00 12/23/23 08:00 High Flow Nasal Cannula all noted and reviewed including below (2) Pneumonia Pneumonia type: due to unspecified organism (4) Acute renal failure superimposed on stage 3 chronic kidney disease Acute renal failure type: unspecified (5) Rhabdomyolysis Encounter type: initial encounter Rhabdomyolysis type: traumatic Qualified Code(s): T79.6XXA - Traumatic ischemia of muscle, initial encounter (13) Left femoral shaft fracture Encounter type: initial encounter Fracture alignment: displaced Fracture morphology: comminuted Fracture type: closed Qualified Code(s): S72.352A - Displaced comminuted fracture of shaft of left femur, initial encounter for closed fracture
[2023-12-23 21:30] LABS: HCO3 ABG 21 mmol/L (19-24); Oxygen Saturation ABG 97.4 % (90-95); PCO2 ABG 37 mmHg (35-46); PO2 ABG 65 mmHg (80-95); pH ABG 7.36 (7.35-7.45)
[2023-12-23 21:31] LABS: Allen Test Pos (Pos)
[2023-12-23] MEDS: ALBUT/IPRATROP 3MG/0.5MG NEB 3 ML VIAL NEB STA (21:34)
[2023-12-23] MEDS: MAGNESIUM SULFATE / D5W 1 GM/100 ML BAG IV SCH (22:12)
[2023-12-23] MEDS: ACETAMINOPHEN 1,000 MG/100 ML VIAL IV PRN (22:41)
[2023-12-23] MEDS ORDERED: Nursing to Pharmacy Communication SCH (23:15)
--- NOTE | 2023-12-24 07:00 | XRay Report ---
XR chest 1V portable CLINICAL HISTORY: low o2 TECHNIQUE: Single frontal radiograph of the chest was obtained. Comparison: Comparison is made to chest radiograph 12/23/2023 FINDINGS: No lines and tubes are seen. Cardiomegaly is noted. Bilateral lower lung predominant airspace opaciti es are again seen. Likely small bilateral pleural effusions. IMPRESSION: Bilateral lower lung predominant airspace opacities and bilateral effusions are unchanged. ACT 112: Negative or not required by law. Electronically signed by: Medhat Barnard M.D. 12/24/2023 6:59 AM
[2023-12-24] MEDS ORDERED: SODIUM CHLORIDE 0.9% 1,000 ML IV PRN (07:50)
--- NOTE | 2023-12-24 08:21 | Surgery Progress Note ---
Date of Service December 24, 2023 Assessment & Plan (1) Periprosthetic fracture around internal prosthetic left knee joint: Plan: 88-year-old female 5 days out from ORIF and IM nailing of a periprosthetic femur fracture. Orthopedically things seem to be going okay. She got multiple medical comorbidities which are a much bigger issue. Plan: From the orthopedic standpoint she can progress activity as tolerated. She can weight-bear as tolerated. Knee immobilizer while walking until the muscle and quad function returns to better status. Knee range of motion 0 to 90 degrees. DVT prophylaxis including thigh-high teds, SCDs, subcu heparin as per the primary care service. Routine wound care left leg. Any orthopedic questions can be directly [phone] Admission and Anticipated Discharge Date Admission Date: December 18, 2023 Subjective 88-year-old female with multiple medical comorbidities now postop day 5 from ORIF and IM nailing of a left periprosthetic femur fracture. She continues to be in the PCU. Seems a pretty sedated this morning. Resting comfortably but did difficult to arouse. Physical Exam Physical Exam: Examination of left leg reveals the dressing be clean dry and intact. Leg is well aligned. She got brisk refill. She is neurologically intact. Results & Data Vital Signs (Past 12 Hours) Vital Signs Temp Pulse Pulse Pulse Resp BP BP 12/24/23 08:00 78 23 12/24/23 07:51 36.3 C L 83 22 144/70 H 12/24/23 03:18 35.8 C L 74 16 148/63 H 12/24/23 03:10 89 23 12/24/23 00:42 12/23/23 22:40 36.4 C L 90 24 127/63 12/23/23 22:25 86 12/23/23 21:35 88 22 12/23/23 21:35 88 22 12/23/23 21:00 36.5 C 85 133/67 12/23/23 20:30 75 136/59 L Pulse Ox O2 Del Method FiO2 12/24/23 08:00 96 50 12/24/23 07:51 96 BiPAP 12/24/23 03:18 96 BiPAP 60 12/24/23 03:10 99 60 12/24/23 00:42 BiPAP 12/23/23 22:40 97 BiPAP 12/23/23 22:25 12/23/23 21:35 96 60 12/23/23 21:35 96 BiPAP 60 12/23/23 21:00 12/23/23 20:30 PG Care Time/CCT Total # of Minutes Spent Total Time Spent with Patient: Total time spent is greater than 50% in coordination of care (as documented) at patient's floor/unit and/or counseling patient: Coding Level of Care Code 95091 Post Operative Follow-Up Diagnoses Periprosthetic fracture around internal prosthetic left knee joint M97.12XA
--- NOTE | 2023-12-24 09:23 | Pulmonology Progress Note ---
Date of Service December 24, 2023 Assessment & Plan (1) Acute respiratory failure with hypoxia: (2) Multifocal pneumonia: (3) SARS-CoV-2 positive: (4) Acute renal failure superimposed on stage 3 chronic kidney disease: Acute renal failure type: unspecified (5) Metabolic acidosis: Plan IMPRESSION: 88-year-old female with a complicated past medical history including myelodysplastic syndrome with frequent need for transfusions, CKD 3, presenting with a fall and rhabdomyolysis in the setting of COVID-19 infection. Patient requiring escalating oxygen therapy prompting pulmonary consultation for ongoing evaluation and management. RECOMMENDATIONS: 1. Acute respiratory failure with hypoxia - In the setting of multifocal pneumonia likely related to COVID infection. The patient is empirically covered with cefepime and doxycycline for possible superimposed bacterial component. Continue with dexamethasone dosing for now. Patient started dialysis yesterday and she tolerated it fairly well. She is scheduled to undergo an initial treatment today. During rounding this morning, nursing staff had expressed the patient is continuing to state that she wants to stop everything and "." Patient's daughter did call and to receive update while I was present at the nursing station. I had an extensive conversation with the patient's daughter by phone. She is the patient's POA. I did explain that the patient is now requiring BiPAP to maintain saturations and that she drops her saturation significantly with removal of this. Additionally, the patient is increasingly weak and frail. Her mental status is now waning. We discussed proceeding with hemodialysis today which the daughter expresses that she would wish to offer this to her mother as she did want to initially try everything and attempt to improve. I did express to her that I am concerned that she is at risk for hemodynamic collapse, especially in the setting of aggressive hemodialysis. Thankfully, the patient had tolerated this well yesterday. We did discuss CODE STATUS as I am concerned that her oxygen desaturation and requirement continues to worsen and she would eventually require endotracheal intubation. She expresses that her mother would not want to this. Additionally, we reviewed other aggressive measures including chest compressions, cardioversion, and medications. The daughter declines at this time. I confirmed and reiterated with the daughter that this now would reflect the DNR/DNI status at this point. She agrees with this moving forward. We did review that I am genuinely concerned that she is now declining and has worsening weakness and expresses a wish to discontinue care at this point. Unfortunately, the patient's mental status precludes direct conversation with the patient alone which is deferred to her POA at this point which is the daughter. She acknowledges this and is concerned for the same. She agrees with discussing goals of care upon her arrival. She plans on being here at approximately 1 PM. Provided update to the patient's primary service. 2. Multifocal pneumonia - As above, and likely representing acute COVID infection. 3. SARS-CoV-2 positive - Continue with dexamethasone treatment as discussed. 4. Acute on chronic renal failure - Managed by nephrology. Currently receiving hemodialysis. Thank you for allowing us to participate in the care of this patient. Pulmonary medicine will continue to follow. Admission and Anticipated Discharge Date Admission Date: December 18, 2023 Supervising Physician Co-Signing Physician Notes Patient seen and examined. EMR reviewed. Agree with assessment plan as noted by MARY CARMEN. The patient and family are considering less aggressive interventions. Primary admitting service having discussions with family regarding results of therapy. Palliative care would be appropriate given multiorgan system dysfunction, COVID, myelodysplastic syndrome, and recent fall with hip fracture. Not much to add from pulmonary standpoint. If the patient transitions to comfort measures and declines additional therapy, pulmonary will sign off Subjective Patient was seen and evaluated. She is more confused at this time. She is frustrated with Pap and other therapies at this point. She expresses a wish to discontinue care at this point. Review of Systems Review of Systems: A complete 10 point review of systems was reviewed with the patient with pertinent positives and negatives as per history of present illness. All else were negative. Physical Exam Physical Exam: VITAL SIGNS - Vital signs and nursing notes were reviewed. GENERAL - 88-year-old female appearing her stated age who is in no acute distress. Increasingly confused. NECK - RIGHT IJ CVL in place. LUNGS - Auscultation reveals diminished breath sounds at the bases with bilateral lower lobe rales appreciated. CARDIAC - RRR with S1/S2. No murmur, rubs, or gallops appreciated. ABDOMEN - Abdominal inspection demonstrates a flat abdomen. BS normoactive all four quadrants. No tenderness, palpable masses, or ascites noted. EXTREMITIES - Nail clubbing not present. No peripheral cyanosis. +3/5 radial palpated throughout. PSYCH - Confused. Results & Data Results & Data Vital Signs (Past 12 Hours) Vital Signs Temp Pulse Pulse Pulse Resp BP Pulse Ox 12/24/23 09:02 12/24/23 08:00 78 23 96 12/24/23 07:51 36.3 C L 83 22 144/70 H 96 12/24/23 07:19 85 12/24/23 03:18 35.8 C L 74 16 148/63 H 96 12/24/23 03:10 89 23 99 12/24/23 00:42 12/23/23 22:40 36.4 C L 90 24 127/63 97 12/23/23 22:25 86 12/23/23 21:35 88 22 96 12/23/23 21:35 88 22 96 O2 Del Method FiO2 12/24/23 09:02 BiPAP 12/24/23 08:00 50 12/24/23 07:51 BiPAP 12/24/23 07:19 12/24/23 03:18 BiPAP 60 12/24/23 03:10 60 12/24/23 00:42 BiPAP 12/23/23 22:40 BiPAP 12/23/23 22:25 12/23/23 21:35 60 12/23/23 21:35 BiPAP 60 PG Care Time/CCT Total # of Minutes Spent Total Time Spent with Patient: Total time spent is greater than 50% in coordination of care (as documented) at patient's floor/unit and/or counseling patient: Coding Level of Care Code 33024 SUB INP/OBS CARE 3/50MIN Diagnoses Acute respiratory failure with hypoxia J96.01 Multifocal pneumonia J18.9 SARS-CoV-2 positive U07.1 Acute renal failure superimposed on stage 3 chronic kidney disease N17.9; N18.30 Acute renal failure type: unspecified Metabolic acidosis E87.20
[2023-12-24 10:20] LABS: BUN Creatinine Ratio 20.3 (10-20); Calcium 7.5 mg/dl (8.6-10.3); Creatinine Clr Calc Pharmacy 11.6 ml/min; Est GFR (African American) 14.8 ml/min; Est GFR (Non-African American) 12.8 ml/min; Potassium 3.9 mmol/L (3.5-5.1)
[2023-12-24 10:33] LABS: Hematocrit (blood only) 21.6 % (37.0-47.0); Hemoglobin 7.5 g/dl (12.0-16.0); Mean Corpuscular Hemoglobin 30.6 pg (25.0-34.0); Mean Corpuscular Hgb Conc 34.7 g/dL (32.0-36.0); Mean Corpuscular Volume 88.2 fL (80.0-100.0); Mean Platelet Volume 12.4 fL (9.4-12.4); Nucleated RBC # (auto) 0.07 K/uL (0.00-0.12); Nucleated RBC % (auto) 0.1 %; Platelet Count 99 K/uL (130-400); RDW Coefficient of Variation 16.9 % (11.5-14.5); RDW Standard Deviation 51.8 fL (36.4-46.3); Red Blood Count 2.45 M/uL (4.20-5.40); White Blood Count 56.64 K/ul (4.8-10.8)
[2023-12-24 11:35] LABS: ALC (manual) 1.13 K/uL (1.2-3.4); ANC (manual) 41.91 K/uL (1.4-6.5); Basophilic Stippling 1+; Lymphocytes # (manual) 1.13 K/uL (1.2-3.4); Lymphocytes % (manual) 2 %; Metamyelocytes % (manual) 6 %; Monocytes % (manual) 3 %; Myelocytes % (manual) 15 %; Neutrophils # (manual) 41.91 K/uL (1.40-6.50); Neutrophils % (manual) 74 %; Polychromasia 1+; Rouleaux 1+
--- NOTE | 2023-12-24 13:02 | Dialysis Progress Note ---
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 making adequate urine and about 2.7 L negative past 36 hrs she had evidence of sepsis with lactic acidosis on admission but now lactic acid is normal and her vital signs appears to be acceptable. CK was 1000 on presentation and improving/down to 500 given her age and pre-existing CKD 4 she may not have enough renal recovery or very delayed recovery. cause of ABA is ATN in the setting of covid/sepsis; do not believe CK was high enough for rhabdo to be a real factor. she does have blood and protein in urine which are new > ? if relates to MDS/ elevated WBC after extensive discussion w/ pt and her daughter 12/22 we started HD > mostly to control volume and acidosis. will also continue aggressive diuresis. risks, benefits, alternatives d/w pt and daughter x 20 minutes. pt agrees to go forward; consent obtained and on chart. now pt feeling anxious and w/ some confusion intermittently > continue to revisit goals of care, including primary service and pulm to do this this pm w/ daughter may opt to withdraw care, at least aggressive steps like bipap, HD; not unreasonable if we continue care as current status, plan repeat HD tomorrow >cont strict I/O >> VERY important to know how much she voids and how many BM >daily bmp it is not unusual to have renal decline in the perioperative state and with covid, especially in a vulnerable patient like her. >>make sure to maintain hemoglobin at least in mid 7s as she is very prone to develop severe anemia (2) Hyponatremia: Plan: improving w/ fluid removal / hypervolemic (3) Left femoral shaft fracture: Plan: s/p nailing procedur ethis admission (4) SARS-CoV-2 positive: Admission and Anticipated Discharge Date Admission Date: December 18, 2023 Subjective seen on HD at 1230; c/o thirst; states often "I can't breathe"; stating often that she's tired, [facility] but has been inconsistent in orientation same time; pulmonary d/w daughter by phone today and pt made dnr/dni; for possible revisit of goals of care when dauther here in person this afternoon; no n/v Review of Systems 2 Review of Systems: All systems reviewed & are unremarkable except as noted in Subjective Physical Exam 2 Constitutional: well developed, + altered mental status, + frail appearing and cooperative; no acute distress Eyes: EOM intact bilaterally ENMT: Ears: + hearing impairment; no external ear abnormality Nose: no external nose abnormality Mouth: + dry oral mucous membranes Neck: no nuchal rigidity Respiratory: normal respiratory effort Auscultation: + diminished lung sounds and + crackles Cardiovascular: Rate/Rhythm: regular rate and regular rhythm Extremities: n o edema Gastrointestinal (Abdomen): Inspection/Auscultation: normal bowel sounds P ercussion/Palpation: abdomen soft; abdomen nontender Musculoskeletal: Extremities: strength 5/5 throughout Skin: no rashes, warm and dry Neurologic: [place], limited speech, no tremor Results & Data Vital Signs (Past 12 Hours) Vital Signs Temp Pulse Pulse Pulse Resp BP BP 12/24/23 12:30 83 130/62 12/24/23 12:00 60 114/62 12/24/23 11:39 99 H 20 12/24/23 11:30 66 109/57 L 12/24/23 11:00 78 129/67 12/24/23 10:42 65 117/55 L 12/24/23 10:35 36.8 C 72 12/24/23 09:02 12/24/23 08:00 78 23 12/24/23 07:51 36.3 C L 83 22 144/70 H 12/24/23 07:19 85 12/24/23 03:18 35.8 C L 74 16 148/63 H 12/24/23 03:10 89 23 Pulse Ox O2 Del Method FiO2 12/24/23 12:30 12/24/23 12:00 12/24/23 11:39 93 50 12/24/23 11:30 12/24/23 11:00 12/24/23 10:42 12/24/23 10:35 12/24/23 09:02 BiPAP 12/24/23 08:00 96 50 12/24/23 07:51 96 BiPAP 12/24/23 07:19 12/24/23 03:18 96 BiPAP 60 12/24/23 03:10 99 60 Laboratory Results 12/24/23 09:21 12/24/23 09:21 (3) Left femoral shaft fracture Encounter type: initial encounter Fracture alignment: displaced Fracture morphology: comminuted Fracture type: closed Qualified Code(s): S72.352A - Displaced comminuted fracture of shaft of left femur, initial encounter for closed fracture
--- NOTE | 2023-12-24 13:03 | Hospitalist Progress Note ---
Date of Service December 24, 2023 Assessment & Plan (1) Sepsis: (2) Pneumonia: (3) SARS-CoV-2 positive: (4) Acute renal failure superimposed on stage 3 chronic kidney disease: (5) Rhabdomyolysis: (6) Lactic acidosis: (7) High anion gap metabolic acidosis: (8) MDS (myelodysplastic syndrome): (9) Symptomatic anemia: (10) Hyperkalemia: (11) Hypomagnesemia: (12) Elevated troponin: (13) Left femoral shaft fracture: Plan Per admitting service notes with addendum: This is an 88-year-old female who has a significant past medical history of HTN, mitral valve stenosis, rectal prolapse with full incontinence of feces, CKD stage IIIb, transfusion dependent MDS and follows Dr. Trejo who presents to ED after sustaining a fall in her home. Acute respiratory failure, hypoxic COVID-19 pneumonia, possible community-acquired pneumonia Sepsis on admission Patient meets sepsis criteria secondary to leukocytosis, tachycardia, lactic acidosis Blood cultures were obtained in the ED, but this was after administration of antibiotics She received broad-spectrum antibiotics with vancomycin and Rocephin Source: Possible pneumonia given URI symptoms x 1 week and SARS-CoV-2 Obtain MRSA swab was negative for MRSA Antibiotics were changed to IV cefepime and then IV Rocephin and IV Doxy Obtain CT chest for further clarification of possible pneumonia and CT a/p due to abd pain complaints In regards to COVID she currently does not meet criteria for treatment as she is not requiring oxygen Blood and urine cultures are negative so far Remains critical but otherwise stable Discussed with daughter in detail The patient and the daughter do not want any more dialysis knowing the consequences of not having dialysis Plan to continue current aggressive management and see how things go over the next few days Worsening shortness of breath Desaturated overnight, now requiring 15 L of nonrebreather on 12/22/2023 Repeat chest x-ray: Showed progressive bilateral alveolar opacities and interstitial thickening Lasix 80 mg IV ordered Continue antibiotics, nebs Continue nonrebreather for now Pulmonary service consulted Appreciate pulmonary input and recommendation Acute on Chronic CKD 3 baseline cr 2.2-2.4 bun/cr 61 and 3.74 continue blood products/fluids Nephrology service consulted Appreciate nephrology input and recommendation Has had hemodialysis until this afternoon Discussed with the patient and the daughter No more hemodialysis after today The daughter and the patient knows the consequences of not having dialysis MDS Symptomatic Anemia Acute blood loss on chronic anemia associated with MDS Pt follows Dr. Trejo; She is transfusion dependent, last was 2 weeks ago h/h 5.6 and 17.6 She has been type and cross 2 units, she has received 2 units before without any difficulty, no prior transfusion reaction Repeat H&H after blood products, goal hemoglobin greater than [address] Trejo secondary to thrombocytopenia Dr. Trejo recommends holding hydroxyurea due to underlying sepsis Would reach out to Dr. Trejo in next 1 to 2 days regarding further guidance in her MDS Dr. Trejo expects WBC to increase while holding hydroxyurea Will continue current aggressive treatment Will continue to do monitoring of blood counts and if needed blood transfusion should be given as per the daughter Monitor closely Heparin SC BID for DVT prophylaxis- monitor Plts Lactic acidosis High anion gap metabolic acidosis, 18 Suspect related to severe anemia, volume depletion, sepsis and rhabdomyolysis Expect to improve with improvement of above Will trend until resolved Repeat BMP, lactate at 1900 Resolved Elevated troponin No chest pain, ischemic ecg change Suspect demand ischemia in setting of sepsis, rhabdo Troponin improved from 56-50, EKG no signs of acute ischemia or infarct Echocardiogram reviewed: Mild to moderate mitral stenosis Discussed with cardiology service as well Rhabdomyolysis non traumatic, on ground for 7 hours after fall CK 1054 IVF and blood products ordered Follow renal fxn and CK CPK improved to 500s Hyperkalemia 2/2 to rhabdo, CKD Lokelma 10mg TID Monitor bmp Potassium 4.5 Hypomagnesemia Mag 1.3, replace Repeat mag @ 1900 Replaced Mechanical fall in setting of dizziness Comminuted displaced fracture of the distal shaft of left femur Patient follows with [facility] Dr. Knutson aware of patient Plan is for surgical fixation once medically stable Knee brace, bed rest, ICE TID Scheduled Tylenol Oxy IR 2.5mg PRN for Severe pain Daughter does not want her to have any strong narcotic without discussing with her check vitamin D level 5/3 Patient high risk for cardiopulmonary complications in light of patient's advanced age, multiple comorbidities as outlined above Discussed at length in detail with patient and her daughter, they verbalized understanding agreement of risks involved with planned surgery, they are agreeable to proceed with planned orthopedic surgery today No medical contraindication at this point to proceed with the necessary orthopedic surgery to address left humeral fracture Will optimize patient and carefully monitor patient perioperatively Rectal prolapse Pt is planning to get colostomy in near future due to prolapse Hard of Hearing Pt is 100% alert and oriented and mentally capable She watches her 4 year old grandson She is very hard of hearing and according to daughter will shake her head, yes even if she doesnt hear Daughter encourage to speak loudly and slowly Monitor for delirium given age DVT ppx: Heparin subcu every 12 FULL CODE -DNR/DNI now PCP: Dr. Palomares Dispo: PT OT evaluation Discussed in detail with the daughter and the patient herself Clearly they do not want any more dialysis to be provided knowing the consequences of not having dialysis Plan to continue with the current aggressive management including monitoring of blood counts and if needed give transfusion Prognosis remains poor Patient is DNR/DNI Admission and Anticipated Discharge Date Admission Date: December 18, 2023 Subjective 12/24/2023 The patient was seen and examined in telemetry unit in the presence of the daughter She has not been feeling well and does not want to live any longer Does not want to keep up with the BiPAP and does not want any more dialysis Not in any acute distress or pain Review of Systems 2 Review of Systems: All systems reviewed and are unremarkable except as noted below Physical Exam Physical Exam: Lying in bed with minimal shortness of breath on BiPAP Constitutional: + ill appearing and average body habitus Eyes: PERRL, conjunctivae normal, anicteric sclerae ENMT: external ear and nose normal, oropharynx normal Neck: trachea midline, no thyromegaly Respiratory: no respiratory distress Auscultation: + diminished lung sounds and + crackles (Bibasilar crackles) Cardiovascular: Rate/Rhythm: regular rate and regular rhythm; not tachycardic Heart Sounds: normal S1 and normal S2; no murmur Extremities: no edema Gastrointestinal (Abdomen): Inspection/Auscultation: normal bowel sounds; abd omen not distended Percussion/Palpation: abdomen soft; abdomen nontender Musculoskeletal: Left lower extremity is bandaged Neurologic: normal touch/pain/proprioception and moves all extremities Lymphatic: no cervical or axillary lymphadenopathy Results & Data Results & Data Vital Signs (Past 12 Hours) Vital Signs Temp Pulse Pulse Pulse Resp BP BP 12/24/23 12:30 83 130/62 12/24/23 12:00 60 114/62 12/24/23 11:39 99 H 20 12/24/23 11:30 66 109/57 L 12/24/23 11:00 78 129/67 12/24/23 10:42 65 117/55 L 12/24/23 10:35 36.8 C 72 12/24/23 09:02 12/24/23 08:00 78 23 12/24/23 07:51 36.3 C L 83 22 144/70 H 12/24/23 07:19 85 12/24/23 03:18 35.8 C L 74 16 148/63 H 12/24/23 03:10 89 23 Pulse Ox O2 Del Method FiO2 12/24/23 12:30 12/24/23 12:00 12/24/23 11:39 93 50 12/24/23 11:30 12/24/23 11:00 12/24/23 10:42 12/24/23 10:35 12/24/23 09:02 BiPAP 12/24/23 08:00 96 50 12/24/23 07:51 96 BiPAP 12/24/23 07:19 12/24/23 03:18 96 BiPAP 60 12/24/23 03:10 99 60 Laboratory Results Short CBC 12/24/23 Range/Units 09:21 WBC 56.64 H* (4.8-10.8) K/ul Hgb 7.5 L (12.0-16.0) g/dl Hct 21.6 L (37.0-47.0) % Plt Count 99 L (130-400) K/uL BMP 12/24/23 09:21 Sodium 132 L Potassium 3.9 Chloride 97 L Carbon Dioxide 24 BUN 63 H D Creatinine 3.10 H D Glucose 119 H Calcium 7.5 L Medications Administered Current Inpatient Medications Acetaminophen (Acetaminophen 500 Mg Tab) 1,000 mg PO Q8H NANCY Stop: 01/17/24 21:59 Last Admin: 12/24/23 14:49 Dose: Not Given Al Hydrox/Mg Hydrox/Simethicone (Aluminum/Magnesium Susp 30 Ml Udc) 15 ml PO Q4H PRN PRN Reason: Dyspepsia Stop: 01/17/24 16:51 Last Admin: 12/23/23 12:05 Dose: 15 ml Allopurinol (Allopurinol 300 Mg Tab) 300 mg PO QAM NANCY Stop: 01/18/24 08:59 Last Admin: 12/24/23 08:56 Dose: Not Given Benzonatate (Benzonatate 100 Mg Capsule) 100 mg PO TID PRN PRN Reason: Cough Stop: 01/21/24 04:41 Last Admin: 12/22/23 22:20 Dose: 100 mg Ergocalciferol (Ergocalciferol 1250 Mcg (50,000 Units) Cap) 1,250 mcg PO Sa@0900 [facility] Stop: 01/19/24 13:29 Last Admin: 12/20/23 13:39 Dose: 1,250 mcg Furosemide (Furosemide 40 Mg/4 Ml Vial) 80 mg IV Q6H [facility] Stop: 01/21/24 10:44 Last Admin: 12/24/23 14:39 Dose: 80 mg Heparin Sodium (Porcine) (Heparin Sod 5,000 Unit/0.5 Ml Vial) 5,000 units SQ Q12 [facility] Stop: 01/21/24 08:59 Last Admin: 12/24/23 07:54 Dose: 5,000 units Doxycycline Hyclate 100 mg/ (Dextrose) 100 mls @ 50 mls/hr IV Q12H [facility] Stop: 12/25/23 20:59 Last Admin: 12/24/23 14:39 Dose: 50 mls/hr Metronidazole (Flagyl) 500 mg in 100 mls @ 100 mls/hr IV Q8H [facility]; Protocol Stop: 12/29/23 02:59 Last Infusion: 12/24/23 06:09 Dose: Infused Cefepime HCl 1,000 mg/ Syringe 10 mls @ 5 mls/min IV Q24H [facility]; Protocol Stop: 12/26/23 11:59 Last Admin: 12/24/23 14:45 Dose: 5 mls/min Dexamethasone 6 mg/ Syringe 1.5 mls @ 1 mls/min IV DAILY [facility] Stop: 01/01/24 12:29 Last Admin: 12/24/23 07:54 Dose: 1 mls/min Acetaminophen (Ofirmev) 1,000 mg in 100 mls @ 400 mls/hr IV Q8H PRN PRN Reason: pain/fever Stop: 12/26/23 20:12 Last Infusion: 12/24/23 07:56 Dose: Infused Magnesium Hydroxide (Magnesium Hydroxide Susp 30 Ml Udc) 30 ml PO Q12H PRN PRN Reason: Constipation Stop: 01/17/24 16:51 Multivitamins/Minerals (Cerovite Adv Formula Tab) 1 tab PO BID NANCY Stop: 01/17/24 20:59 Last Admin: 12/24/23 08:57 Dose: Not Given Ondansetron HCl (Ondansetron Inj 2 Mg/Ml 2 Ml Vial) 4 mg IV Q6H PRN PRN Reason: Nausea Stop: 01/17/24 16:51 Oxycodone HCl (Oxycodone Hcl Ir 5 Mg Tab (Immediate Release)) 2.5 mg PO Q8 PRN PRN Reason: Severe Pain (Scale 7, 8, 9,10) Stop: 01/01/24 16:51 Polyethylene Glycol (Polyethylene (Miralax) 17 Gm Pack) 17 gm PO DAILY PRN PRN Reason: Constipation Stop: 01/17/24 16:51 (2) Pneumonia Pneumonia type: due to unspecified organism (4) Acute renal failure superimposed on stage 3 chronic kidney disease Acute renal failure type: unspecified (5) Rhabdomyolysis Encounter type: initial encounter Rhabdomyolysis type: traumatic Qualified Code(s): T79.6XXA - Traumatic ischemia of muscle, initial encounter (13) Left femoral shaft fracture Encounter type: initial encounter Fracture alignment: displaced Fracture morphology: comminuted Fracture type: closed Qualified Code(s): S72.352A - Displaced comminuted fracture of shaft of left femur, initial encounter for closed fracture
[2023-12-24] MEDS ORDERED: Nursing to Pharmacy Communication SCH ×2 (16:15→18:45)
[2023-12-25 06:44] LABS: BUN Creatinine Ratio 17.2 (10-20); Calcium 7.6 mg/dl (8.6-10.3); Creatinine Clr Calc Pharmacy 15.7 ml/min; Est GFR (African American) 22.3 ml/min; Est GFR (Non-African American) 19.3 ml/min
--- NOTE | 2023-12-25 07:37 | Surgery Progress Note ---
Date of Service December 25, 2023 Assessment & Plan (1) Periprosthetic fracture around internal prosthetic left knee joint: Plan: 88-year-old female postop day 6 from ORIF and IM nailing of periprosthetic femur fracture on the left. Orthopedically she seems to be doing okay. Pain is controlled. The wound in the leg seems to be healing up appropriately. She is neurologically intact. Plan: Continued PT OT. She can fully weight-bear on the left leg as she can t olerate. Frequent knee motion from 0 to 90 degrees. Medical management as per the medicine service. I did see her back to 3 weeks out from surgery. Any orthopedic questions can be directed me at [phone] Admission and Anticipated Discharge Date Admission Date: December 18, 2023 Subjective 88-year-old female with multiple medical comorbidities now postop day 6 from ORIF and IM nailing of a left periprosthetic femur fracture. She is aware and alert and pretty appropriate this morning. Denies much in the way of pain. Physical Exam Physical Exam: Physical examination was a frail elderly female. She is lying in bed looks reasonably comfortable. Examination left leg reveals dressing be clean dry and intact. No drainage. She can dorsiflex and plantarflex her foot appropriately. She is neurologically intact. Results & Data Vital Signs (Past 12 Hours) Vital Signs Temp Pulse Pulse Pulse Resp BP Pulse Ox 12/25/23 07:20 75 22 96 12/25/23 03:30 96 12/25/23 03:19 93 12/25/23 03:01 36.7 C 86 18 147/56 H 97 12/24/23 23:38 91 H 12/24/23 23:37 91 H 28 H 90 12/24/23 23:05 36.6 C 86 24 135/62 93 12/24/23 20:47 36.5 C 96 H 24 159/66 H 94 12/24/23 20:30 12/24/23 19:42 29 H 94 O2 Del Method O2 Flow Rate FiO2 12/25/23 07:20 High Flow Nasal Cannula 40 75 12/25/23 03:30 High Flow Nasal Cannula 40 75 12/25/23 03:19 High Flow Nasal Cannula 50 70 12/25/23 03:01 BiPAP 12/24/23 23:38 12/24/23 23:37 60 12/24/23 23:05 BiPAP 12/24/23 20:47 BiPAP 12/24/23 20:30 BiPAP 12/24/23 19:42 50 PG Care Time/CCT Total # of Minutes Spent Total Time Spent with Patient: Total time spent is greater than 50% in coordination of care (as documented) at patient's floor/unit and/or counseling patient: Coding Level of Care Code 38807 Post Operative Follow-Up Diagnoses Periprosthetic fracture around internal prosthetic left knee joint M97.12XA
--- NOTE | 2023-12-25 08:56 | Pulmonology Progress Note ---
Date of Service December 25, 2023 Assessment & Plan (1) Acute respiratory failure with hypoxia: (2) Multifocal pneumonia: (3) SARS-CoV-2 positive: (4) Acute renal failure superimposed on stage 3 chronic kidney disease: Acute renal failure type: unspecified (5) Metabolic acidosis: Plan IMPRESSION: 88-year-old female with a complicated past medical history including myelodysplastic syndrome with frequent need for transfusions, CKD 3, presenting with a fall and rhabdomyolysis in the setting of COVID-19 infection. Patient requiring escalating oxygen therapy prompting pulmonary consultation for ongoing evaluation and management. RECOMMENDATIONS: 1. Acute respiratory failure with hypoxia - In the setting of multifocal pneumonia likely related to COVID infection. The patient is empirically covered with cefepime and doxycycline for possible superimposed bacterial component. Continue with dexamethasone for complete course. Patient had tolerated dialysis x 2. Her mental status has somewhat improved today. Oxygen requirement remains high. From a pulmonary perspective, she is maximized on therapy that is in alignment with her wishes moving forward. Patient is a DNI at this time which I would strongly agree with given her multiple comorbidities and chance for meaningful recovery if she were to require intubation and mechanical ventilation. This had been addressed with family yesterday and the patient remains DNR/DNI status at this time. Complete course of antibiotics and steroids as you are. Continue to titrate down oxygen requirement as tolerated. Continue with incentive spirometry as the patient tolerates this well. Unfortunately, I am concerned given the patient's ongoing oxygen requirement, recent traumatic hip fracture, and ongoing renal failure that the patient will continue to decline. Conversations revolving around goal-directed care would be appropriate at this time. From a pulmonary perspective, she is maximized on therapy and is outlined as above. 2. Multifocal pneumonia - As above, and likely representing acute COVID infection. 3. SARS-CoV-2 positive - Continue with dexamethasone treatment as discussed. 4. Acute on chronic renal failure - Managed by nephrology. Thank you for allowing us to participate in the care of this patient. Pulmonary medicine will sign off at this time. Please contact us directly for any further questions or concerns. Admission and Anticipated Discharge Date Admission Date: December 18, 2023 Supervising Physician Co-Signing Physician Notes Reviewed with MARY CARMEN. Agree with AP as noted. Patient electing to forgo additional invasive procedures which is reasonable. Pulmonary will sign off. Call if questions. Subjective Patient seen and evaluated at bedside. Mental status seems to be somewhat improved today compared to yesterday. She admits to being frustrated with her hospital course at this time. She still reports some difficulty with breathing. Review of Systems Review of Systems: Per HPI. Physical Exam Physical Exam: VITAL SIGNS - Vital signs and nursing notes were reviewed. GENERAL - 88-year-old female appearing her stated age who is in no acute distress. NECK - RIGHT IJ CVL in place. LUNGS - Auscultation reveals diminished breath sounds at the bases with bilateral lower lobe rales appreciated. CARDIAC - RRR with S1/S2. No murmur, rubs, or gallops appreciated. ABDOMEN - Abdominal inspection demonstrates a flat abdomen. BS normoactive all four quadrants. No tenderness, palpable masses, or ascites noted. EXTREMITIES - Nail clubbing not present. No peripheral cyanosis. +3/5 radial palpated throughout Results & Data Results & Data Vital Signs (Past 12 Hours) Vital Signs Temp Pulse Pulse Resp BP Pulse Ox O2 Del Method 12/25/23 08:28 36.4 C L 109 H 20 137/58 L 96 High Flow Nasal Cannula 12/25/23 07:20 75 22 96 High Flow Nasal Cannula 12/25/23 03:30 96 High Flow Nasal Cannula 12/25/23 03:19 93 High Flow Nasal Cannula 12/25/23 03:01 36.7 C 86 18 147/56 H 97 BiPAP 12/24/23 23:38 91 H 12/24/23 23:37 91 H 28 H 90 12/24/23 23:05 36.6 C 86 24 135/62 93 BiPAP O2 Flow Rate FiO2 12/25/23 08:28 40 70 12/25/23 07:20 40 75 12/25/23 03:30 40 75 12/25/23 03:19 50 70 12/25/23 03:01 12/24/23 23:38 12/24/23 23:37 60 12/24/23 23:05 PG Care Time/CCT Total # of Minutes Spent Total Time Spent with Patient: Total time spent is greater than 50% in coordination of care (as documented) at patient's floor/unit and/or counseling patient: Coding Level of Care Code 91469 SUB INP/OBS CARE 2/35MIN Diagnoses Acute respiratory failure with hypoxia J96.01 Multifocal pneumonia J18.9 SARS-CoV-2 positive U07.1 Acute renal failure superimposed on stage 3 chronic kidney disease N17.9; N18.30 Acute renal failure type: unspecified Metabolic acidosis E87.20
[2023-12-25] MEDS: POTASSIUM CHLORIDE / WTR 10 MEQ/100 ML PLCT IV SCH ×2 (10:19→13:01)
--- NOTE | 2023-12-25 11:29 | Nephrology Progress Note ---
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 making adequate urine on diuretics; had 2 dialysis txs and now declines further txs she had evidence of sepsis with lactic acidosis on admission but now lactic acid is normal and her vital signs appears to be acceptable. CK was 1000 on presentation and improving/down to 500 given her age and pre-existing CKD 4 she may not have enough renal recovery or very delayed recovery. cause of ABA is ATN in the setting of covid/sepsis; do not believe CK was high enough for rhabdo to be a real factor. she does have blood and protein in urine which are new > ? if relates to MDS/ elevated WBC after extensive discussion w/ pt and her daughter 12/22 we started HD > mostly to control volume and acidosis. will also continue aggressive diuresis. pt felt txs were too exhausting so we suspended HD after 2 txs now pt feeling anxious and w/ some confusion intermittently > continue to revisit goals of care periodically >>for now no further HD, no escalation of current care but continue aggressive medical mgt >cont strict I/O >> VERY important to know how much she voids and how many BM >daily bmp it is not unusual to have renal decline in the perioperative state and with covid, especially in a vulnerable patient like her. >>make sure to maintain hemoglobin at least in mid 7s as she is very prone to develop severe anemia > daily cbc ordered >cont 1.5 L FR since we are trying to diurese >> she is 5.5 L negative past 3-4 days but she is overall on the admission still 3.5 L positive >> cont aggressive diuretics (2) Left femoral shaft fracture: Plan: s/p nailing procedure this admission (3) SARS-CoV-2 positive: Admission and Anticipated Discharge Date Admission Date: December 18, 2023 Subjective seen on midday rounds. pt has been confused > asking when she'll have HD though plan at conf was to stop HD. on high flow [id number] as well Review of Systems 2 Review of Systems: All systems reviewed & are unremarkable except as noted in Subjective Physical Exam 2 Constitutional: well developed, + altered mental status, + frail appearing and cooperative; no acute distress Eyes: EOM intact bilaterally ENMT: Ears: + hearing impairment; no external ear abnormality Nose: no external nose abnormality Mouth: + dry oral mucous membranes Neck: no nuchal rigidity Respiratory: normal respiratory effort Auscultation: + diminished lung sounds and + crackles Cardiovascular: Rate/Rhythm: regular rate and regular rhythm Extremities: n o edema Gastrointestinal (Abdomen): Inspection/Auscultation: normal bowel sounds P ercussion/Palpation: abdomen soft; abdomen nontender Musculoskeletal: Extremities: strength 5/5 throughout Skin: no rashes, warm and dry Psychiatric: Orientation: alert and oriented x 3 (but still unreliable) Results & Data Vital Signs (Past 12 Hours) Vital Signs Temp Pulse Pulse Resp BP Pulse Ox O2 Del Method 12/25/23 10:21 85 20 97 High Flow Nasal Cannula 12/25/23 08:28 36.4 C L 109 H 20 137/58 L 96 High Flow Nasal Cannula 12/25/23 07:20 75 22 96 High Flow Nasal Cannula 12/25/23 03:30 96 High Flow Nasal Cannula 12/25/23 03:19 93 High Flow Nasal Cannula 12/25/23 03:01 36.7 C 86 18 147/56 H 97 BiPAP 12/24/23 23:38 91 H 12/24/23 23:37 91 H 28 H 90 O2 Flow Rate FiO2 12/25/23 10:21 40 65 12/25/23 08:28 40 70 12/25/23 07:20 40 75 12/25/23 03:30 40 75 12/25/23 03:19 50 70 12/25/23 03:01 12/24/23 23:38 12/24/23 23:37 60 Laboratory Results 12/24/23 09:21 12/25/23 05:42 (2) Left femoral shaft fracture Encounter type: initial encounter Fracture alignment: displaced Fracture morphology: comminuted Fracture type: closed Qualified Code(s): S72.352A - Displaced comminuted fracture of shaft of left femur, initial encounter for closed fracture
[2023-12-25] MEDS: POTASSIUM CHLORIDE CRTAB 20 MEQ TABCR PO STA (12:40)
[2023-12-25 14:08] LABS: HBSAG NON-REACTIVE (NON-REACTIVE); Hepatitis B Core Antibody Total NON-REACTIVE (NON-REACTIVE); Hepatitis B Surface Ab, Quant <5 mIU/mL (> OR = 10)
--- NOTE | 2023-12-25 17:14 | Hospitalist Progress Note ---
Date of Service December 25, 2023 Assessment & Plan (1) Sepsis: (2) Pneumonia: (3) SARS-CoV-2 positive: (4) Acute renal failure superimposed on stage 3 chronic kidney disease: (5) Rhabdomyolysis: (6) Lactic acidosis: (7) High anion gap metabolic acidosis: (8) MDS (myelodysplastic syndrome): (9) Symptomatic anemia: (10) Hyperkalemia: (11) Hypomagnesemia: (12) Elevated troponin: (13) Left femoral shaft fracture: Plan Per admitting service notes with addendum: This is an 88-year-old female who has a significant past medical history of HTN, mitral valve stenosis, rectal prolapse with full incontinence of feces, CKD stage IIIb, transfusion dependent MDS and follows Dr. Trejo who presents to ED after sustaining a fall in her home. Acute respiratory failure, hypoxic COVID-19 pneumonia, possible community-acquired pneumonia Sepsis on admission Patient meets sepsis criteria secondary to leukocytosis, tachycardia, lactic acidosis Blood cultures were obtained in the ED, but this was after administration of antibiotics She received broad-spectrum antibiotics with vancomycin and Rocephin Source: Possible pneumonia given URI symptoms x 1 week and SARS-CoV-2 Obtain MRSA swab was negative for MRSA Antibiotics were changed to IV cefepime and then IV Rocephin and IV Doxy Obtain CT chest for further clarification of possible pneumonia and CT a/p due to abd pain complaints In regards to COVID she currently does not meet criteria for treatment as she is not requiring oxygen Blood and urine cultures are negative so far Remains critical but otherwise stable Discussed with daughter in detail The patient and the daughter do not want any more dialysis knowing the consequences of not having dialysis Plan to continue current aggressive management and see how things go over the next few days Clinically little better and will continue current management Worsening shortness of breath Desaturated overnight, now requiring 15 L of nonrebreather on 12/22/2023 Repeat chest x-ray: Showed progressive bilateral alveolar opacities and interstitial thickening Lasix 80 mg IV ordered Continue antibiotics, nebs Continue nonrebreather for now Pulmonary service consulted Appreciate pulmonary input and recommendation Shortness of breath is stable and has been requiring 30 L/min FiO2 of 55% Acute on Chronic CKD 3 baseline cr 2.2-2.4 bun/cr 61 and 3.74 continue blood products/fluids Nephrology service consulted Appreciate nephrology input and recommendation Has had hemodialysis until this afternoon Discussed with the patient and the daughter No more hemodialysis after today The daughter and the patient knows the consequences of not having dialysis Not having any more dialysis MDS Symptomatic Anemia Acute blood loss on chronic anemia associated with MDS Pt follows Dr. Trejo; She is transfusion dependent, last was 2 weeks ago h/h 5.6 and 17.6 She has been type and cross 2 units, she has received 2 units before without any difficulty, no prior transfusion reaction Repeat H&H after blood products, goal hemoglobin greater than [address] Trejo secondary to thrombocytopenia Dr. Trejo recommends holding hydroxyurea due to underlying sepsis Would reach out to Dr. Trejo in next 1 to 2 days regarding further guidance in her MDS Dr. Trejo expects WBC to increase while holding hydroxyurea Will continue current aggressive treatment Will continue to do monitoring of blood counts and if needed blood transfusion should be given as per the daughter Hemoglobin is 7.5 and will monitor Monitor closely Heparin SC BID for DVT prophylaxis- monitor Plts Lactic acidosis High anion gap metabolic acidosis, 18 Suspect related to severe anemia, volume depletion, sepsis and rhabdomyolysis Expect to improve with improvement of above Will trend until resolved Repeat BMP, lactate at 1900 Resolved Elevated troponin No chest pain, ischemic ecg change Suspect demand ischemia in setting of sepsis, rhabdo Troponin improved from 56-50, EKG no signs of acute ischemia or infarct Echocardiogram reviewed: Mild to moderate mitral stenosis Discussed with cardiology service as well Rhabdomyolysis non traumatic, on ground for 7 hours after fall CK 1054 IVF and blood products ordered Follow renal fxn and CK CPK improved to 500s Hyperkalemia 2/2 to rhabdo, CKD Lokelma 10mg TID Monitor bmp Potassium 4.5 Hypomagnesemia Mag 1.3, replace Repeat mag @ 1900 Replaced Mechanical fall in setting of dizziness Comminuted displaced fracture of the distal shaft of left femur [facility] patient Plan is for surgical fixation once medically stable Knee brace, bed rest, ICE TID Scheduled Tylenol Oxy IR 2.5mg PRN for Severe pain Daughter does not want her to have any strong narcotic without discussing with her check vitamin D level 5/3 Patient high risk for cardiopulmonary complications in light of patient's advanced age, multiple comorbidities as outlined above Discussed at length in detail with patient and her daughter, they verbalized understanding agreement of risks involved with planned surgery, they are agreeable to proceed with planned orthopedic surgery today No medical contraindication at this point to proceed with the necessary orthopedic surgery to address left humeral fracture Will optimize patient and carefully monitor patient perioperatively Rectal prolapse Pt is planning to get colostomy in near future due to prolapse Hard of Hearing Pt is 100% alert and oriented and mentally capable She watches her 4 year old grandson She is very hard of hearing and according to daughter will shake her head, yes even if she doesnt hear Daughter encourage to speak loudly and slowly Monitor for delirium given age DVT ppx: Heparin subcu every 12 FULL CODE -DNR/DNI now PCP: Dr. Palomares Dispo: PT OT evaluation Discussed in detail with the daughter and the patient herself Clearly they do not want any more dialysis to be provided knowing the consequences of not having dialysis Plan to continue with the current aggressive management including monitoring of blood counts and if needed give transfusion Prognosis remains poor Patient is DNR/DNI Admission and Anticipated Discharge Date Admission Date: December 18, 2023 Subjective 12/24/2023 The patient was seen and examined in telemetry unit in the presence of the daughter She has not been feeling well and does not want to live any longer Does not want to keep up with the BiPAP and does not want any more dialysis Not in any acute distress or pain 12/25/2023 The patient was seen and examined in telemetry and She has been a little better today Trying to communicate Could not tolerate BiPAP Denies any significant pain Review of Systems Review of Systems: All systems reviewed and are unremarkable except as noted below Physical Exam Physical Exam: Lying in bed with minimal shortness of breath on BiPAP Constitutional: + ill appearing and average body habitus Eyes: PERRL, conjunctivae normal, anicteric sclerae ENMT: external ear and nose normal, oropharynx normal Neck: trachea midline, no thyromegaly Respiratory: no respiratory distress Auscultation: + diminished lung sounds and + crackles (Bibasilar crackles) Cardiovascular: Rate/Rhythm: regular rate and regular rhythm; not tachycardic Heart Sounds: normal S1 and normal S2; no murmur Extremities: no edema Gastrointestinal (Abdomen): Inspection/Auscultation: normal bowel sounds; abdomen not distended Percussion/Palpation: abdomen soft; abdomen nontender Musculoskeletal: Pain in the left lower extremity with movement Neurologic: normal touch/pain/proprioception and moves all extremities Lymphatic: no cervical or axillary lymphadenopathy Results & Data Results & Data Vital Signs (Past 12 Hours) Vital Signs Temp Pulse Pulse Pulse Resp BP Pulse Ox 12/25/23 16:02 102 H 16 90 12/25/23 14:45 36.6 C 92 H 18 128/57 L 93 12/25/23 14:02 85 12/25/23 11:48 36.4 C L 86 20 139/62 92 12/25/23 10:21 85 20 97 12/25/23 08:30 12/25/23 08:28 36.4 C L 109 H 20 137/58 L 96 12/25/23 07:20 75 22 96 12/25/23 06:29 95 H O2 Del Method O2 Flow Rate FiO2 12/25/23 16:02 High Flow Nasal Cannula 30 55 12/25/23 14:45 High Flow Nasal Cannula 12/25/23 14:02 12/25/23 11:48 High Flow Nasal Cannula 35 60 12/25/23 10:21 High Flow Nasal Cannula 40 65 12/25/23 08:30 BiPAP, High Flow Nasal Cannula 12/25/23 08:28 High Flow Nasal Cannula 40 70 12/25/23 07:20 High Flow Nasal Cannula 40 75 12/25/23 06:29 Laboratory Results BMP 12/25/23 05:42 Sodium 138 Potassium 3.0 L D Chloride 99 Carbon Dioxide 25 BUN 38 H D Creatinine 2.21 H D Glucose 89 Calcium 7.6 L Medications Administered Current Inpatient Medications Acetaminophen (Acetaminophen 500 Mg Tab) 1,000 mg PO Q8H [facility] Stop: 01/17/24 21:59 Last Admin: 12/25/23 15:18 Dose: Not Given Al Hydrox/Mg Hydrox/Simethicone (Aluminum/Magnesium Susp 30 Ml Udc) 15 ml PO Q4H PRN PRN Reason: Dyspepsia Stop: 01/17/24 16:51 Last Admin: 12/23/23 12:05 Dose: 15 ml Allopurinol (Allopurinol 300 Mg Tab) 300 mg PO QAM NANCY Stop: 01/18/24 08:59 Last Admin: 12/25/23 10:27 Dose: Not Given Benzonatate (Benzonatate 100 Mg Capsule) 100 mg PO TID PRN PRN Reason: Cough Stop: 01/21/24 04:41 Last Admin: 12/22/23 22:20 Dose: 100 mg Ergocalciferol (Ergocalciferol 1250 Mcg (50,000 Units) Cap) 1,250 mcg PO Sa@0900 [facility] Stop: 01/19/24 13:29 Last Admin: 12/20/23 13:39 Dose: 1,250 mcg Furosemide (Furosemide 40 Mg/4 Ml Vial) 80 mg IV Q6H [facility] Stop: 01/21/24 10:44 Last Admin: 12/25/23 15:17 Dose: 80 mg Heparin Sodium (Porcine) (Heparin Sod 5,000 Unit/0.5 Ml Vial) 5,000 units SQ Q12 NANCY Stop: 01/21/24 08:59 Last Admin: 12/25/23 08:32 Dose: 5,000 units Doxycycline Hyclate 100 mg/ (Dextrose) 100 mls @ 50 mls/hr IV Q12H [facility] Stop: 12/25/23 20:59 Last Infusion: 12/25/23 12:40 Dose: Infused Metronidazole (Flagyl) 500 mg in 100 mls @ 100 mls/hr IV Q8H [facility]; Protocol Stop: 12/29/23 02:59 Last Infusion: 12/25/23 10:27 Dose: Infused Cefepime HCl 1,000 mg/ Syringe 10 mls @ 5 mls/min IV Q24H [facility]; Protocol Stop: 12/26/23 11:59 Last Admin: 12/25/23 13:02 Dose: 5 mls/min Dexamethasone 6 mg/ Syringe 1.5 mls @ 1 mls/min IV DAILY [facility] Stop: 01/01/24 12:29 Last Admin: 12/25/23 08:30 Dose: 1 mls/min Acetaminophen (Ofirmev) 1,000 mg in 100 mls @ 400 mls/hr IV Q8H PRN PRN Reason: pain/fever Stop: 12/26/23 20:12 Last Infusion: 12/24/23 17:12 Dose: Infused Lorazepam 0.25 mg/ Syringe 0.25 mls @ 2 mls/min IV Q4H PRN PRN Reason: Anxiety/Agitation Stop: 01/23/24 19:14 Magnesium Hydroxide (Magnesium Hydroxide Susp 30 Ml Udc) 30 ml PO Q12H PRN PRN Reason: Constipation Stop: 01/17/24 16:51 Multivitamins/Minerals (Cerovite Adv Formula Tab) 1 tab PO BID NANCY Stop: 01/17/24 20:59 Last Admin: 12/25/23 10:27 Dose: Not Given Ondansetron HCl (Ondansetron Inj 2 Mg/Ml 2 Ml Vial) 4 mg IV Q6H PRN PRN Reason: Nausea Stop: 01/17/24 16:51 Oxycodone HCl (Oxycodone Hcl Ir 5 Mg Tab (Immediate Release)) 2.5 mg PO Q8 PRN PRN Reason: Severe Pain (Scale 7, 8, 9,10) Stop: 01/01/24 16:51 Polyethylene Glycol (Polyethylene (Miralax) 17 Gm Pack) 17 gm PO DAILY PRN PRN Reason: Constipation Stop: 01/17/24 16:51 (2) Pneumonia Pneumonia type: due to unspecified organism (4) Acute renal failure superimposed on stage 3 chronic kidney disease Acute renal failure type: unspecified (5) Rhabdomyolysis Encounter type: initial encounter Rhabdomyolysis type: traumatic Qualified Code(s): T79.6XXA - Traumatic ischemia of muscle, initial encounter (13) Left femoral shaft fracture Encounter type: initial encounter Fracture alignment: displaced Fracture morphology: comminuted Fracture type: closed Qualified Code(s): S72.352A - Displaced comminuted fracture of shaft of left femur, initial encounter for closed fracture
[2023-12-26 07:49] LABS: Hematocrit (blood only) 22.3 % (37.0-47.0); Hemoglobin 7.7 g/dl (12.0-16.0); Mean Corpuscular Hemoglobin 30.2 pg (25.0-34.0); Mean Corpuscular Hgb Conc 34.5 g/dL (32.0-36.0); Mean Corpuscular Volume 87.5 fL (80.0-100.0); Mean Platelet Volume 11.8 fL (9.4-12.4); Nucleated RBC # (auto) 0.05 K/uL (0.00-0.12); Nucleated RBC % (auto) 0.1 %; Platelet Count 129 K/uL (130-400); RDW Coefficient of Variation 17.1 % (11.5-14.5); RDW Standard Deviation 52.3 fL (36.4-46.3); Red Blood Count 2.55 M/uL (4.20-5.40); White Blood Count 64.83 K/ul (4.8-10.8)
--- NOTE | 2023-12-26 07:53 | Surgery Progress Note ---
Date of Service December 26, 2023 Assessment & Plan (1) Periprosthetic fracture around internal prosthetic left knee joint: Plan: 88-year-old female with multiple medical comorbidities 1 week out from the last 5 nailing of a left periprosthetic femur fracture. Orthopedically she is doing okay. Apparently has been some controversy about extended care 1 whether she is DNR or more aggressive medical treatment. He certainly has a very complex medical situation with again very guarded prognosis. Plan: From an orthopedic standpoint she can be weight-bear as tolerated. . Daily dressing change. Continue to follow in the hospital. Any orthopedic Questions can be directed at [phone]. Admission and Anticipated Discharge Date Admission Date: December 18, 2023 Subjective 88-year-old female with multiple medical comorbidities now 1 week out from ORIF and IM nailing of a left periprosthetic femur fracture. Patient appears to be pretty comfortable. Denies much in the way of pain. Physical Exam Physical Exam: Physical examination was a pleasant elderly female. She is lying in bed and getting supplemental oxygen treatment. Examination of the left leg reveals the leg to be well aligned. Dressings clean dry and intact. No drainage. She is neurologically intact. Results & Data Vital Signs (Past 12 Hours) Vital Signs Temp Pulse Pulse Pulse Resp BP Pulse Ox 12/26/23 07:07 84 18 93 12/26/23 04:06 91 H 18 92 12/26/23 02:19 36.6 C 92 H 138/70 91 12/26/23 02:00 12/26/23 01:11 91 12/26/23 00:00 106 H 12/25/23 22:55 36.8 C 79 24 127/63 92 12/25/23 22:25 99 H 18 96 12/25/23 20:30 12/25/23 19:54 36.6 C 93 H 24 146/67 H 96 O2 Del Method O2 Flow Rate FiO2 12/26/23 07:07 High Flow Nasal Cannula 35 55 12/26/23 04:06 High Flow Nasal Cannula 35 55 12/26/23 02:19 High Flow Nasal Cannula 35 55 12/26/23 02:00 High Flow Nasal Cannula 35 55 12/26/23 01:11 High Flow Nasal Cannula 35 55 12/26/23 00:00 12/25/23 22:55 High Flow Nasal Cannula 35 55 12/25/23 22:25 High Flow Nasal Cannula 35 60 12/25/23 20:30 BiPAP 12/25/23 19:54 High Flow Nasal Cannula 35 66 PG Care Time/CCT Total # of Minutes Spent Total Time Spent with Patient: Total time spent is greater than 50% in coordination of care (as documented) at patient's floor/unit and/or counseling patient: Coding Level of Care Code 89086 Post Operative Follow-Up Diagnoses Periprosthetic fracture around internal prosthetic left knee joint M97.12XA
[2023-12-26 08:33] LABS: ALC (manual) 1.94 K/uL (1.2-3.4); ANC (manual) 46.03 K/uL (1.4-6.5); Basophilic Stippling 1+; Lymphocytes # (manual) 1.94 K/uL (1.2-3.4); Lymphocytes % (manual) 3 %; Metamyelocytes # (manual) 3.89 K/uL (0-0); Metamyelocytes % (manual) 6 %; Monocytes # (manual) 5.19 K/uL (0.11-0.59); Monocytes % (manual) 8 %; Myelocytes # (manual) 7.78 K/uL (0-0); Myelocytes % (manual) 12 %; Neutrophils # (manual) 46.03 K/uL (1.40-6.50); Neutrophils % (manual) 71 %; Polychromasia 1+; Stomatocytes 1+
[2023-12-26 08:48] LABS: BUN Creatinine Ratio 18.6 (10-20); Calcium 8.5 mg/dl (8.6-10.3); Creatinine Clr Calc Pharmacy 12.2 ml/min; Est GFR (African American) 16.8 ml/min; Est GFR (Non-African American) 14.5 ml/min; Magnesium 1.9 mg/dl (1.7-2.4); Phosphorus 3.4 mg/dl (2.5-4.9); Potassium 3.3 mmol/L (3.5-5.1)
[2023-12-26] MEDS: POTASSIUM CHLORIDE / WTR 10 MEQ/100 ML PLCT IV SCH (09:46)
[2023-12-26] MEDS: POTASSIUM CHLORIDE CRTAB 20 MEQ TABCR PO STA (09:46)
--- NOTE | 2023-12-26 12:36 | Palliative Care Consultation ---
Date of Consultation December 26, 2023 Assessment & Plan (1) Anxiety about health: Trial Celexa 10mg PO daily, plan to titrate up as tolerated over next few weeks If it is making her tired, please give dose at bedtime instead of the morning. 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 (3) Advanced care planning/counseling discussion: I had a 30min face to face ACP meeting with Mrs. Luna and her dtr at bedside. We spoke about her wavering decisions. She finally admitted to be anxious, scared and depressed that she wont regain her life. We spoke about the mechanisms to work for improving as close to baseline as possible which would require consistency with medical decisions and plan of care. Her goal is to recover as close to baseline as possible. She is agreeable to HD and if she does not tolerate it/condition worsens then she would stop. she also agreed to a trial of celexa to improve anxiety/depression. She is very bored and frustrated by her weakness. I asked dtr to buy some adult activity workbooks with large fonts and also adult coloring books etc to keep her mind more occupied and require focused fine motor skill activity. Will reassess after the weekend and she agreed to OP follow up with me in clinic. (4) Weakness generalized: (5) Dyspnea and respiratory abnormalities: (6) Palliative care by specialist: Met with pt/family. Provided overview of Palliative Medicine, a subspecialty that provides specialized medical care for people living with a serious illness by offering a focus on quality of life through reduction of symptom burden/more control over their illness, for both the patient and family. We care for patients of any age/advancing stage of a serious illness and can be provided along with curative treatment. We are not hospice, which is a visiting nurse service that focuses on care delivered at the very end of life. (7) Multifocal pneumonia: d/t COVID (8) CKD (chronic kidney disease) stage 4, GFR 15-29 ml/min: (9) SARS-CoV-2 positive: (10) MDS (myelodysplastic syndrome): Plan ACP discussion as noted above. Celexa trial started, family to obtain activity books, word search/puzzles, adult art books, new pair of higher strength readers Thank you for allowing us to participate in the ongoing care of this patient. Please don't hesitate to call or page with any additional concerns. Dr. Mary Branch [facility] Director, Palliative Care History of Present Illness Reason for Consultation: goals of care Attending Physician: Lacie Fitzpatrick MD History of Present Illness Dayan was admitted 12/18/23, per admitting note: This 88-year-old female patient presents emergency department via EMS with her daughter for evaluation after a fall. The patient got out of bed at 3 am and became dizzy and then fell. She denies losing consciousness at all. She denies hitting her head when she fell. No LOC. She is not on any blood thinners. She hit both of her legs against the wall, but is only having left knee pain and swelling. The patient was placed in a splint by EMS. The patient has a history of bilateral knee replacements. The patient was laying on the ground for 7 hours before being found by the patient's daughter and son-in-law this morning prior to her doctor's appointment. She denies any chest pain or SOB prior to or since the fall. Has been having lower abdominal cramping for a while, but no new abdominal pain. No nausea or vomiting. She has a history of rectal prolapse so has a lot of diarrhea and fecal incontinence, but is at her baseline per patient. She has a history of urinary incontinence as well, but no new urinary symptoms. The patient has a history of myelodysplastic syndrome as well as stage III chronic kidney disease. The patient had a blood transfusion 2 weeks ago and usually has a blood transfusion every 3 weeks because the medication she is on to keep her WBC count under control causes anemia. The patient has also been coughing for the past week. No fevers. Sometimes feels SOB with the coughing fits. Denies hematochezia, melena, hematuria, hemoptysis, or hematemesis. Allergies Allergy/AdvReac Type Severity Reaction Status Date / Time morphine AdvReac Intermediate NAUSEA AND Verified 12/18/23 14:57 VOMITING Home Medications Medication Instructions Recorded Confirmed Type acetaminophen 500 mg tablet 1,000 mg PO Q8H PRN Pain, Moderate 06/29/18 12/18/23 History allopurinol 300 mg tablet 300 mg PO QAM 12/18/23 12/18/23 History hydroxyurea 500 mg capsule 500 mg PO [id number] 12/18/23 12/18/23 History vitamins A,C,C-rdca-pqdbmy 2,148 1 tab PO BID 12/18/23 12/18/23 History mcg-113 mg-45 mg-17.4 mg tablet (PreserVision AREDS) Patient History Medical History (Updated 12/26/23 @ 12:44 by Mary Branch DNP) Palliative care by specialist Advanced care planning/counseling discussion Dyspnea and respiratory abnormalities Weakness generalized Depression due to physical illness Anxiety about health Periprosthetic fracture around internal prosthetic left knee joint Right knee DJD Stage 3 chronic kidney disease Gout Left shoulder pain Cervical pain MDS (myelodysplastic syndrome) Urinary incontinence Gout Surgical History H/O bladder repair surgery H/O: hysterectomy H/O carpal tunnel repair right hand H/O total knee replacement bilateral Social History Smoking Status: Never smoker Hx Alcohol Use: No Hx Substance Use: No Preferred Language: [place] Communication Ability: Effective Sharepoint Trainer Required: No Beliefs That Will Affect Care: None Current Living Situation: Alone Other Information That Helps Us Care for You: No Feels Safe at Home: Yes Safety Concerns: Feels Safe At This Time Assistive Devices: Cane Review of Systems Review of Systems: All systems reviewed & are unremarkable except as noted in Subjective Results & Data Vital Signs (Past 12 Hours) Vital Signs Temp Pulse Pulse Resp BP Pulse Ox O2 Del Method 12/26/23 11:48 36.4 C L 70 18 132/65 90 Room Air 12/26/23 08:06 36.8 C 91 H 18 160/70 H 90 High Flow Nasal Cannula 12/26/23 07:07 84 18 93 High Flow Nasal Cannula 12/26/23 04:06 91 H 18 92 High Flow Nasal Cannula 12/26/23 02:19 36.6 C 92 H 138/70 91 High Flow Nasal Cannula 12/26/23 02:00 High Flow Nasal Cannula 12/26/23 01:11 91 High Flow Nasal Cannula O2 Flow Rate FiO2 12/26/23 11:48 12/26/23 08:06 12/26/23 07:07 35 55 12/26/23 04:06 35 55 12/26/23 02:19 35 55 12/26/23 02:00 35 55 12/26/23 01:11 35 55 PG Care Time/CCT Total # of Minutes Spent Total Time Spent with Patient: Total time spent is greater than 50% in coordination of care (as documented) at patient's floor/unit and/or counseling patient: I spent 90 minutes overall addressing this case: 15 min in medical data review/discussion with referring provider(s) and/or preparation for the visit 15min in direct interaction with the patient/exam 30min in Advance Care Planning/Goals of Care discussions as detailed above in note (must be >16min) 15 min in subsequent review and synthesis of assessment and plan 15 min communicating with other providers regarding the patient's case: Advanced Care Planning 46619 Advanced Care Planning 30 [place] [address] IN/OBS CONSULT LVL 4,60M (25 - SIGNIFICANT, SEPARATELY IDENTIFIABLE ) Patient Type New Medical Decision Making High Complexity Diagnoses Anxiety about health R45.89 Depression due to physical illness F06.31 Advanced care planning/counseling discussion Z71.89 Weakness generalized R53.1 Dyspnea and respiratory abnormalities R06.00; R06.89 Palliative care by specialist Z51.5 Multifocal pneumonia J18.9 CKD (chronic kidney disease) stage 4, GFR 15-29 ml/min N18.4 SARS-CoV-2 positive U07.1 MDS (myelodysplastic syndrome) D46.9 Additional Codes Advanced Care Planning - 24750 Advanced Care Planning 30 Min: 21755 Advanced Care Planning 30 Min ([id number])
[2023-12-26] MEDS: CITALOPRAM 20 MG TAB PO SCH (13:40)
[2023-12-26] MEDS: POTASSIUM CHLORIDE 20 MEQ/15 ML UDC PO STA (13:40)
--- NOTE | 2023-12-26 15:45 | Hospitalist Progress Note ---
Date of Service December 26, 2023 Assessment & Plan (1) Sepsis: (2) Pneumonia: (3) SARS-CoV-2 positive: (4) Acute renal failure superimposed on stage 3 chronic kidney disease: (5) Rhabdomyolysis: (6) Lactic acidosis: (7) High anion gap metabolic acidosis: (8) MDS (myelodysplastic syndrome): (9) Symptomatic anemia: (10) Hyperkalemia: (11) Hypomagnesemia: (12) Elevated troponin: (13) Left femoral shaft fracture: Plan Per admitting service notes with addendum: This is an 88-year-old female who has a significant past medical history of HTN, mitral valve stenosis, rectal prolapse with full incontinence of feces, CKD stage IIIb, transfusion dependent MDS and follows Dr. Trejo who presents to ED after sustaining a fall in her home. Acute respiratory failure, hypoxic COVID-19 pneumonia, possible community-acquired pneumonia Sepsis on admission Patient meets sepsis criteria secondary to leukocytosis, tachycardia, lactic acidosis Blood cultures were obtained in the ED, but this was after administration of antibiotics She received broad-spectrum antibiotics with vancomycin and Rocephin Source: Possible pneumonia given URI symptoms x 1 week and SARS-CoV-2 Obtain MRSA swab was negative for MRSA Antibiotics were changed to IV cefepime and then IV Rocephin and IV Doxy Obtain CT chest for further clarification of possible pneumonia and CT a/p due to abd pain complaints In regards to COVID she currently does not meet criteria for treatment as she is not requiring oxygen Blood and urine cultures are negative so far Remains critical but otherwise stable Discussed with daughter in detail The patient and the daughter do not want any more dialysis knowing the consequences of not having dialysis Plan to continue current aggressive management and see how things go over the next few days Clinically much better today and has been communicating almost normally Less shortness of breath at rest and saturating normally on room air Wants to continue dialysis for now Palliative care consulted for further goals of care Worsening shortness of breath Desaturated overnight, now requiring 15 L of nonrebreather on 12/22/2023 Repeat chest x-ray: Showed progressive bilateral alveolar opacities and interstitial thickening Lasix 80 mg IV ordered Continue antibiotics, nebs Continue nonrebreather for now Pulmonary service consulted Appreciate pulmonary input and recommendation Shortness of breath is stable and has been requiring 30 L/min FiO2 of 55% Shortness of breath is improved as above Acute on Chronic CKD 3 baseline cr 2.2-2.4 bun/cr 61 and 3.74 continue blood products/fluids Nephrology service consulted Appreciate nephrology input and recommendation Has had hemodialysis until this afternoon Discussed with the patient and the daughter No more hemodialysis after today The daughter and the patient knows the consequences of not having dialysis Has been making out enough urine and the kidney function remains stable She wanted to have dialysis to be continued-the twister hand is aware MDS Symptomatic Anemia Acute blood loss on chronic anemia associated with MDS Pt follows Dr. Trejo; She is transfusion dependent, last was 2 weeks ago h/h 5.6 and 17.6 She has been type and cross 2 units, she has received 2 units before without any difficulty, no prior transfusion reaction Repeat H&H after blood products, goal hemoglobin greater than [address] Trejo secondary to thrombocytopenia Dr. Trejo recommends holding hydroxyurea due to underlying sepsis Would reach out to Dr. Trejo in next 1 to 2 days regarding further guidance in her MDS Dr. Trejo expects WBC to increase while holding hydroxyurea Will continue current aggressive treatment Will continue to do monitoring of blood counts and if needed blood transfusion should be given as per the daughter Hemoglobin is 7.5 and will monitor Hemoglobin remains stable Monitor closely Heparin SC BID for DVT prophylaxis- monitor Plts Lactic acidosis High anion gap metabolic acidosis, 18 Suspect related to severe anemia, volume depletion, sepsis and rhabdomyolysis Expect to improve with improvement of above Will trend until resolved Repeat BMP, lactate at 1900 Resolved Elevated troponin No chest pain, ischemic ecg change Suspect demand ischemia in setting of sepsis, rhabdo Troponin improved from 56-50, EKG no signs of acute ischemia or infarct Echocardiogram reviewed: Mild to moderate mitral stenosis Discussed with cardiology service as well Rhabdomyolysis non traumatic, on ground for 7 hours after fall CK 1054 IVF and blood products ordered Follow renal fxn and CK CPK improved to 500s Hyperkalemia /hypokalemia 2/2 to rhabdo, CKD Lokelma 10mg TID Monitor bmp Potassium replaced and will recheck Potassium 4.5 Hypomagnesemia Mag 1.3, replace Repeat mag @ 1900 Replaced Mechanical fall in setting of dizziness Comminuted displaced fracture of the distal shaft of left femur Patient follows with [facility] Ortho Dr. Knutson aware of patient Plan is for surgical fixation once medically stable Knee brace, bed rest, ICE TID Scheduled Tylenol Oxy IR 2.5mg PRN for Severe pain Daughter does not want her to have any strong narcotic without discussing with her check vitamin D level 12/18 Patient high risk for cardiopulmonary complications in light of patient's advanced age, multiple comorbidities as outlined above Discussed at length in detail with patient and her daughter, they verbalized understanding agreement of risks involved with planned surgery, they are agreeable to proceed with planned orthopedic surgery today No medical contraindication at this point to proceed with the necessary orthopedic surgery to address left humeral fracture Will optimize patient and carefully monitor patient perioperatively Rectal prolapse Pt is planning to get colostomy in near future due to prolapse Hard of Hearing Pt is 100% alert and oriented and mentally capable She watches her 4 year old grandson She is very hard of hearing and according to daughter will shake her head, yes even if she doesnt hear Daughter encourage to speak loudly and slowly Monitor for delirium given age DVT ppx: Heparin subcu every 12 FULL CODE -DNR/DNI now PCP: Dr. Palomares Dispo: PT OT evaluation Discussed in detail with the daughter and the patient herself Clearly they do not want any more dialysis to be provided knowing the consequences of not having dialysis Plan to continue with the current aggressive management including monitoring of blood counts and if needed give transfusion Prognosis remains poor Patient is DNR/DNI Remains DNR and DNI but the patient wants to continue with the dialysis Palliative care consulted Admission and Anticipated Discharge Date Admission Date: December 18, 2023 Subjective 12/24/2023 The patient was seen and examined in telemetry unit in the presence of the daughter She has not been feeling well and does not want to live any longer Does not want to keep up with the BiPAP and does not want any more dialysis Not in any acute distress or pain 12/25/2023 The patient was seen and examined in telemetry and She has been a little better today Trying to communicate Could not tolerate BiPAP Denies any significant pain 12/26/2023 The patient was seen and examined in telemetry unit in presence of the daughter She has been feeling much better and is out of bed on a chair Denies minimal pain involving the left lower extremity Still has shortness of breath without any chest pain and/or palpitation Now she wants to have dialysis Review of Systems Review of Systems: All systems reviewed and are unremarkable except as noted below Physical Exam Physical Exam: Lying in bed with minimal shortness of breath on BiPAP Constitutional: + ill appearing and average body habitus Eyes: PERRL, conjunctivae normal, anicteric sclerae ENMT: external ear and nose normal, oropharynx normal Neck: trachea midline, no thyromegaly Respiratory: no respiratory distress Auscultation: + diminished lung sounds and + crackles (Bibasilar crackles) Cardiovascular: Rate/Rhythm: regular rate and regular rhythm; not tachycardic Heart Sounds: normal S1 and normal S2; no murmur Extremities: no edema Gastrointestinal (Abdomen): Inspection/Auscultation: normal bowel sounds; abdomen not distended Percussion/Palpation: abdomen soft; abdomen nontender Musculoskeletal: Left lower extremity pain especially in the knee with movement Neurologic: normal touch/pain/proprioception and moves all extremities Lymphatic: no cervical or axillary lymphadenopathy Results & Data Results & Data Vital Signs (Past 12 Hours) Vital Signs Temp Pulse Pulse Resp BP Pulse Ox O2 Del Method 12/26/23 11:48 36.4 C L 70 18 132/65 90 Room Air 12/26/23 08:06 36.8 C 91 H 18 160/70 H 90 High Flow Nasal Cannula 12/26/23 07:07 84 18 93 High Flow Nasal Cannula 12/26/23 04:06 91 H 18 92 High Flow Nasal Cannula O2 Flow Rate FiO2 12/26/23 11:48 12/26/23 08:06 12/26/23 07:07 35 55 12/26/23 04:06 35 55 Laboratory Results Short CBC 12/26/23 Range/Units 07:26 WBC 64.83 H* (4.8-10.8) K/ul Hgb 7.7 L (12.0-16.0) g/dl Hct 22.3 L (37.0-47.0) % Plt Count 129 L (130-400) K/uL BMP 12/26/23 07:26 Sodium 139 Potassium 3.3 L Chloride 98 Carbon Dioxide 30 BUN 52 H Creatinine 2.79 H D Glucose 143 H Calcium 8.5 L Medications Administered Current Inpatient Medications Acetaminophen (Acetaminophen 500 Mg Tab) 1,000 mg PO Q8H NANCY Stop: 01/17/24 21:59 Last Admin: 12/26/23 14:43 Dose: 1,000 mg Al Hydrox/Mg Hydrox/Simethicone (Aluminum/Magnesium Susp 30 Ml Udc) 15 ml PO Q4H PRN PRN Reason: Dyspepsia Stop: 01/17/24 16:51 Last Admin: 12/23/23 12:05 Dose: 15 ml Allopurinol (Allopurinol 300 Mg Tab) 300 mg PO QAM [facility] Stop: 01/18/24 08:59 Last Admin: 12/26/23 09:44 Dose: 300 mg Benzonatate (Benzonatate 100 Mg Capsule) 100 mg PO TID PRN PRN Reason: Cough Stop: 01/21/24 04:41 Last Admin: 12/22/23 22:20 Dose: 100 mg Citalopram Hydrobromide (Citalopram 20 Mg Tab) 10 mg PO QAM [facility] Stop: 01/25/24 12:29 Last Admin: 12/26/23 13:40 Dose: 10 mg Ergocalciferol (Ergocalciferol 1250 Mcg (50,000 Units) Cap) 1,250 mcg PO Sa@0900 [facility] Stop: 01/19/24 13:29 Last Admin: 12/20/23 13:39 Dose: 1,250 mcg Furosemide (Furosemide 40 Mg/4 Ml Vial) 80 mg IV Q6H [facility] Stop: 01/21/24 10:44 Last Admin: 12/26/23 14:44 Dose: 80 mg Heparin Sodium (Porcine) (Heparin Sod 5,000 Unit/0.5 Ml Vial) 5,000 units SQ Q12 [facility] Stop: 01/21/24 08:59 Last Admin: 12/26/23 09:44 Dose: 5,000 units Metronidazole (Flagyl) 500 mg in 100 mls @ 100 mls/hr IV Q8H [facility]; Protocol Stop: 12/29/23 02:59 Last Infusion: 12/26/23 10:37 Dose: Infused Dexamethasone 6 mg/ Syringe 1.5 mls @ 1 mls/min IV DAILY [facility] Stop: 01/01/24 12:29 Last Admin: 12/26/23 09:39 Dose: 1 mls/min Acetaminophen (Ofirmev) 1,000 mg in 100 mls @ 400 mls/hr IV Q8H PRN PRN Reason: pain/fever Stop: 12/26/23 20:12 Last Infusion: 12/26/23 06:24 Dose: Infused Lorazepam 0.25 mg/ Syringe 0.25 mls @ 2 mls/min IV Q4H PRN PRN Reason: Anxiety/Agitation Stop: 01/23/24 19:14 Magnesium Hydroxide (Magnesium Hydroxide Susp 30 Ml Udc) 30 ml PO Q12H PRN PRN Reason: Constipation Stop: 01/17/24 16:51 Multivitamins/Minerals (Cerovite Adv Formula Tab) 1 tab PO BID NANCY Stop: 01/17/24 20:59 Last Admin: 12/26/23 09:45 Dose: 1 tab Ondansetron HCl (Ondansetron Inj 2 Mg/Ml 2 Ml Vial) 4 mg IV Q6H PRN PRN Reason: Nausea Stop: 01/17/24 16:51 Oxycodone HCl (Oxycodone Hcl Ir 5 Mg Tab (Immediate Release)) 2.5 mg PO Q8 PRN PRN Reason: Severe Pain (Scale 7, 8, 9,10) Stop: 01/01/24 16:51 Polyethylene Glycol (Polyethylene (Miralax) 17 Gm Pack) 17 gm PO DAILY PRN PRN Reason: Constipation Stop: 01/17/24 16:51 (2) Pneumonia Pneumonia type: due to unspecified organism (4) Acute renal failure superimposed on stage 3 chronic kidney disease Acute renal failure type: unspecified (5) Rhabdomyolysis Encounter type: initial encounter Rhabdomyolysis type: traumatic Qualified Code(s): T79.6XXA - Traumatic ischemia of muscle, initial encounter (13) Left femoral shaft fracture Encounter type: initial encounter Fracture alignment: displaced Fracture morphology: comminuted Fracture type: closed Qualified Code(s): S72.352A - Displaced comminuted fracture of shaft of left femur, initial encounter for closed fracture
--- NOTE | 2023-12-26 18:14 | Nephrology Progress Note ---
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 making adequate urine on diuretics; had 2 dialysis txs mostly to control volume and acidosis and then 12/24 declined further txs b/c too exhausting; 12/25 reverses course and willing to dialyze again she had evidence of sepsis with lactic acidosis on admission but now lactic acid is normal and her vital signs appears to be acceptable. CK was 1000 on presentation and improving/down to 500 given her age and pre-existing CKD 4 she may not have enough renal recovery or very delayed recovery. cause of ABA is ATN in the setting of covid/sepsis; do not believe CK was high enough for rhabdo to be a real factor. she does have blood and protein in urine which are new > ? if relates to MDS/ elevated WBC >no indication for dialysis today; increase in creat since yesterday reflects dialysis tx more than change in renal function >cont strict I/O >> VERY important to know how much she voids and how many BM >daily bmp -on 12/25 started bid K 20 mEq >>make sure to maintain hemoglobin at least in mid 7s as she is very prone to develop severe anemia > daily cbc ordered >cont 1.5 L FR since we are trying to diurese >> she is now overall on the admission 1.2 L positive and about 8 L negative 12/22-12/25 >> cont aggressive diuretics >appreciate palliative input regarding goals of care (2) Left femoral shaft fracture: Plan: s/p nailing procedure this admission (3) SARS-CoV-2 positive: Plan: root of breathing challenges Admission and Anticipated Discharge Date Admission Date: December 18, 2023 Subjective seen on evening rounds. pt tired; somewhat confused. denies pain. ongoing sob but down to 8L on my eval Review of Systems 2 Review of Systems: All systems reviewed & are unremarkable except as noted in Subjective Physical Exam 2 Constitutional: well developed, + altered mental status, + frail appearing and cooperative; no acute distress Eyes: EOM intact bilaterally ENMT: Ears: + hearing impairment; no external ear abnormality Nose: no external nose abnormality Mouth: + dry oral mucous membranes Neck: no nuchal rigidity Respiratory: normal respiratory effort Auscultation: + diminished lung sounds Cardiovascular: Rate/Rhythm: regular rate and regular rhythm Extremities: n o edema Gastrointestinal (Abdomen): Inspection/Auscultation: normal bowel sounds P ercussion/Palpation: abdomen soft; abdomen nontender Musculoskeletal: Extremities: strength 5/5 throughout Skin: no rashes, warm and dry Psychiatric: Orientation: alert, oriented to person and oriented to place Results & Data Vital Signs (Past 12 Hours) Vital Signs Temp Pulse Pulse Resp BP Pulse Ox O2 Del Method 12/26/23 15:54 36.7 C 88 20 129/65 98 High Flow Nasal Cannula 12/26/23 14:00 107 H 12/26/23 11:48 36.4 C L 70 18 132/65 90 Room Air 12/26/23 09:15 87 12/26/23 09:15 High Flow Nasal Cannula 12/26/23 08:06 36.8 C 91 H 18 160/70 H 90 High Flow Nasal Cannula 12/26/23 07:07 84 18 93 High Flow Nasal Cannula O2 Flow Rate FiO2 12/26/23 15:54 12/26/23 14:00 12/26/23 11:48 12/26/23 09:15 12/26/23 09:15 35 55 12/26/23 08:06 12/26/23 07:07 35 55 Laboratory Results 12/26/23 07:26 12/26/23 07:26 (2) Left femoral shaft fracture Encounter type: initial encounter Fracture alignment: displaced Fracture morphology: comminuted Fracture type: closed Qualified Code(s): S72.352A - Displaced comminuted fracture of shaft of left femur, initial encounter for closed fracture
[2023-12-26] MEDS: POTASSIUM CHLORIDE 20 MEQ/15 ML UDC PO SCH (21:51)
[2023-12-27 09:59] LABS: BUN Creatinine Ratio 21.2 (10-20); Creatinine Clr Calc Pharmacy 11.1 ml/min; Magnesium 1.7 mg/dl (1.7-2.4); Phosphorus 3.7 mg/dl (2.5-4.9); Potassium 3.8 mmol/L (3.5-5.1)
[2023-12-27 10:09] LABS: Hematocrit (blood only) 23.2 % (37.0-47.0); Hemoglobin 8.1 g/dl (12.0-16.0); Mean Corpuscular Hemoglobin 31.9 pg (25.0-34.0); Mean Corpuscular Hgb Conc 34.9 g/dL (32.0-36.0); Mean Corpuscular Volume 91.3 fL (80.0-100.0); Mean Platelet Volume 12.2 fL (9.4-12.4); Nucleated RBC # (auto) 0.08 K/uL (0.00-0.12); Nucleated RBC % (auto) 0.1 %; Platelet Count 121 K/uL (130-400); RDW Coefficient of Variation 17.2 % (11.5-14.5); RDW Standard Deviation 55.1 fL (36.4-46.3); Red Blood Count 2.54 M/uL (4.20-5.40); White Blood Count 94.49 K/ul (4.8-10.8)
[2023-12-27 10:38] LABS: Basophilic Stippling 1+; Metamyelocytes # (manual) 7.56 K/uL (0-0); Metamyelocytes % (manual) 8 %; Monocytes # (manual) 3.78 K/uL (0.11-0.59); Monocytes % (manual) 4 %; Myelocytes # (manual) 17.95 K/uL (0-0); Myelocytes % (manual) 19 %; Neutrophils % (manual) 69 %; Polychromasia 1+
--- NOTE | 2023-12-27 14:11 | Hospitalist Progress Note ---
Date of Service December 27, 2023 Assessment & Plan (1) Sepsis: (2) Pneumonia: (3) SARS-CoV-2 positive: (4) Acute renal failure superimposed on stage 3 chronic kidney disease: (5) Rhabdomyolysis: (6) Lactic acidosis: (7) High anion gap metabolic acidosis: (8) MDS (myelodysplastic syndrome): (9) Symptomatic anemia: (10) Hyperkalemia: (11) Hypomagnesemia: (12) Elevated troponin: (13) Left femoral shaft fracture: Plan Per admitting service notes with addendum: This is an 88-year-old female who has a significant past medical history of HTN, mitral valve stenosis, rectal prolapse with full incontinence of feces, CKD stage IIIb, transfusion dependent MDS and follows Dr. Trejo who presents to ED after sustaining a fall in her home. Acute respiratory failure, hypoxic COVID-19 pneumonia, possible community-acquired pneumonia Sepsis on admission Patient meets sepsis criteria secondary to leukocytosis, tachycardia, lactic acidosis Blood cultures were obtained in the ED, but this was after administration of antibiotics She received broad-spectrum antibiotics with vancomycin and Rocephin Source: Possible pneumonia given URI symptoms x 1 week and SARS-CoV-2 Obtain MRSA swab was negative for MRSA Antibiotics were changed to IV cefepime and then IV Rocephin and IV Doxy Obtain CT chest for further clarification of possible pneumonia and CT a/p due to abd pain complaints In regards to COVID she currently does not meet criteria for treatment as she is not requiring oxygen Blood and urine cultures are negative so far Remains critical but otherwise stable Discussed with daughter in detail The patient and the daughter do not want any more dialysis knowing the consequences of not having dialysis Plan to continue current aggressive management and see how things go over the next few days Remains weak but otherwise asymptomatic Denies any shortness of breath at rest, denies any significant pain at rest Wants to continue with the current management Palliative care encounter Appreciate input and recommendation Will continue current management Worsening shortness of breath Desaturated overnight, now requiring 15 L of nonrebreather on 12/22/2023 Repeat chest x-ray: Showed progressive bilateral alveolar opacities and interstitial thickening Lasix 80 mg IV ordered Continue antibiotics, nebs Continue nonrebreather for now Pulmonary service consulted Appreciate pulmonary input and recommendation No shortness of breath at rest and saturating normally on 4 L nasal cannula Acute on Chronic CKD 3 baseline cr 2.2-2.4 bun/cr 61 and 3.74 continue blood products/fluids Nephrology service consulted Appreciate nephrology input and recommendation Has had hemodialysis until this afternoon Discussed with the patient and the daughter No more hemodialysis after today The daughter and the patient knows the consequences of not having dialysis Has been making out enough urine and the kidney function remains stable She wanted to have dialysis to be continued-the occupational health coordinator is aware Creatinine is slightly worse at 3.07 MDS Symptomatic Anemia Acute blood loss on chronic anemia associated with MDS Pt follows Dr. Trejo; She is transfusion dependent, last was 2 weeks ago h/h 5.6 and 17.6 She has been type and cross 2 units, she has received 2 units before without any difficulty, no prior transfusion reaction Repeat H&H after blood products, goal hemoglobin greater than [address] Trejo secondary to thrombocytopenia Dr. Trejo recommends holding hydroxyurea due to underlying sepsis Would reach out to Dr. Trejo in next 1 to 2 days regarding further guidance in her MDS Dr. Trejo expects WBC to increase while holding hydroxyurea Will continue current aggressive treatment Will continue to do monitoring of blood counts and if needed blood transfusion should be given as per the daughter Hemoglobin is 7.5 and will monitor Hemoglobin remains stable at 8.1 today Monitor closely Heparin SC BID for DVT prophylaxis- monitor Plts Lactic acidosis High anion gap metabolic acidosis, 18 Suspect related to severe anemia, volume depletion, sepsis and rhabdomyolysis Expect to improve with improvement of above Will trend until resolved Repeat BMP, lactate at 1900 Resolved Elevated troponin No chest pain, ischemic ecg change Suspect demand ischemia in setting of sepsis, rhabdo Troponin improved from 56-50, EKG no signs of acute ischemia or infarct Echocardiogram reviewed: Mild to moderate mitral stenosis Discussed with cardiology service as well Rhabdomyolysis non traumatic, on ground for 7 hours after fall CK 1054 IVF and blood products ordered Follow renal fxn and CK CPK improved to 500s Hyperkalemia /hypokalemia 2/2 to rhabdo, CKD Lokelma 10mg TID Monitor bmp Potassium replaced and will recheck Potassium 4.5 Hypomagnesemia Mag 1.3, replace Repeat mag @ 1900 Replaced Mechanical fall in setting of dizziness Comminuted displaced fracture of the distal shaft of left femur Patient follows with [facility] Dr. Knutson aware of patient Plan is for surgical fixation once medically stable Knee brace, bed rest, ICE TID Scheduled Tylenol Oxy IR 2.5mg PRN for Severe pain Daughter does not want her to have any strong narcotic without discussing with her check vitamin D level 12/18 Patient high risk for cardiopulmonary complications in light of patient's advanced age, multiple comorbidities as outlined above Discussed at length in detail with patient and her daughter, they verbalized understanding agreement of risks involved with planned surgery, they are agreeable to proceed with planned orthopedic surgery today No medical contraindication at this point to proceed with the necessary orthopedic surgery to address left humeral fracture Will optimize patient and carefully monitor patient perioperatively Rectal prolapse Pt is planning to get colostomy in near future due to prolapse Hard of Hearing Pt is 100% alert and oriented and mentally capable She watches her 4 year old grandson She is very hard of hearing and according to daughter will shake her head, yes even if she doesnt hear Daughter encourage to speak loudly and slowly Monitor for delirium given age DVT ppx: Heparin subcu every 12 FULL CODE -DNR/DNI now PCP: Dr. Palomares Dispo: PT OT evaluation Discussed in detail with the daughter and the patient herself Clearly they do not want any more dialysis to be provided knowing the consequences of not having dialysis Plan to continue with the current aggressive management including monitoring of blood counts and if needed give transfusion Prognosis remains poor Patient is DNR/DNI Remains DNR and DNI but the patient wants to continue with the dialysis Palliative care consulted Admission and Anticipated Discharge Date Admission Date: December 18, 2023 Subjective 12/24/2023 The patient was seen and examined in telemetry unit in the presence of the daughter She has not been feeling well and does not want to live any longer Does not want to keep up with the BiPAP and does not want any more dialysis Not in any acute distress or pain 12/25/2023 The patient was seen and examined in telemetry and She has been a little better today Trying to communicate Could not tolerate BiPAP Denies any significant pain 12/26/2023 The patient was seen and examined in telemetry unit in presence of the daughter She has been feeling much better and is out of bed on a chair Denies minimal pain involving the left lower extremity Still has shortness of breath without any chest pain and/or palpitation Now she wants to have dialysis 12/27/2023 The patient was seen and examined in telemetry unit She has been out of bed on a chair Remains lethargic but denies any significant symptoms No shortness of breath at rest, no fever or chill , no nausea and or vomiting Review of Systems Review of Systems: All systems reviewed and are unremarkable except as noted below Physical Exam Physical Exam: Lying in bed with minimal shortness of breath on BiPAP Constitutional: + ill appearing and average body habitus Eyes: PERRL, conjunctivae normal, anicteric sclerae ENMT: external ear and nose normal, oropharynx normal Neck: trachea midline, no thyromegaly Respiratory: no respiratory distress Auscultation: + diminished lung sounds and + crackles (Bibasilar crackles) Cardiovascular: Rate/Rhythm: regular rate and regular rhythm; not tachycardic Heart Sounds: normal S1 and normal S2; no murmur Extremities: no edema Gastrointestinal (Abdomen): Inspection/Auscultation: normal bowel sounds; abdomen not distended Percussion/Palpation: abdomen soft; abdomen nontender Musculoskeletal: No acute arthritis involving any of the joints Neurologic: normal touch/pain/proprioception and moves all extremities Lymphatic: no cervical or axillary lymphadenopathy Results & Data Results & Data Vital Signs (Past 12 Hours) Vital Signs Temp Pulse Resp BP Pulse Ox O2 Del Method O2 Flow Rate 12/27/23 10:00 Nasal Cannula 4 12/27/23 08:26 36.4 C L 95 H 20 153/72 H 90 Nasal Cannula 6 12/27/23 03:30 100 High Flow Nasal Cannula Laboratory Results Short CBC 12/27/23 Range/Units 09:25 WBC 94.49 H* (4.8-10.8) K/ul Hgb 8.1 L (12.0-16.0) g/dl Hct 23.2 L (37.0-47.0) % Plt Count 121 L (130-400) K/uL BMP 12/27/23 09:25 Sodium 139 Potassium 3.8 Chloride 95 L Carbon Dioxide 31 BUN 65 H Creatinine 3.07 H Glucose 123 H Calcium 9.0 Medications Administered Current Inpatient Medications Acetaminophen (Acetaminophen 500 Mg Tab) 1,000 mg PO Q8H [facility] Stop: 01/17/24 21:59 Last Admin: 12/27/23 14:02 Dose: 1,000 mg Al Hydrox/Mg Hydrox/Simethicone (Aluminum/Magnesium Susp 30 Ml Udc) 15 ml PO Q4H PRN PRN Reason: Dyspepsia Stop: 01/17/24 16:51 Last Admin: 12/23/23 12:05 Dose: 15 ml Allopurinol (Allopurinol 300 Mg Tab) 300 mg PO QAM [facility] Stop: 01/18/24 08:59 Last Admin: 12/27/23 08:57 Dose: 300 mg Benzonatate (Benzonatate 100 Mg Capsule) 100 mg PO TID PRN PRN Reason: Cough Stop: 01/21/24 04:41 Last Admin: 12/22/23 22:20 Dose: 100 mg Citalopram Hydrobromide (Citalopram 20 Mg Tab) 10 mg PO QAM [facility] Stop: 01/25/24 12:29 Last Admin: 12/27/23 08:56 Dose: 10 mg Ergocalciferol (Ergocalciferol 1250 Mcg (50,000 Units) Cap) 1,250 mcg PO Sa@0900 [facility] Stop: 01/19/24 13:29 Last Admin: 12/27/23 08:57 Dose: 1,250 mcg Furosemide (Furosemide 40 Mg/4 Ml Vial) 80 mg IV Q6H [facility] Stop: 01/21/24 10:44 Last Admin: 12/27/23 13:47 Dose: 80 mg Heparin Sodium (Porcine) (Heparin Sod 5,000 Unit/0.5 Ml Vial) 5,000 units SQ Q12 [facility] Stop: 01/21/24 08:59 Last Admin: 12/27/23 08:59 Dose: 5,000 units Metronidazole (Flagyl) 500 mg in 100 mls @ 100 mls/hr IV Q8H [facility]; Protocol Stop: 12/29/23 02:59 Last Infusion: 12/27/23 10:03 Dose: Infused Dexamethasone 6 mg/ Syringe 1.5 mls @ 1 mls/min IV DAILY [facility] Stop: 01/01/24 12:29 Last Admin: 12/27/23 11:20 Dose: 1 mls/min Lorazepam 0.25 mg/ Syringe 0.25 mls @ 2 mls/min IV Q4H PRN PRN Reason: Anxiety/Agitation Stop: 01/23/24 19:14 Magnesium Hydroxide (Magnesium Hydroxide Susp 30 Ml Udc) 30 ml PO Q12H PRN PRN Reason: Constipation Stop: 01/17/24 16:51 Multivitamins/Minerals (Cerovite Adv Formula Tab) 1 tab PO BID [facility] Stop: 01/17/24 20:59 Last Admin: 12/27/23 08:57 Dose: 1 tab Ondansetron HCl (Ondansetron Inj 2 Mg/Ml 2 Ml Vial) 4 mg IV Q6H PRN PRN Reason: Nausea Stop: 01/17/24 16:51 Oxycodone HCl (Oxycodone Hcl Ir 5 Mg Tab (Immediate Release)) 2.5 mg PO Q8 PRN PRN Reason: Severe Pain (Scale 7, 8, 9,10) Stop: 01/01/24 16:51 Polyethylene Glycol (Polyethylene (Miralax) 17 Gm Pack) 17 gm PO DAILY PRN PRN Reason: Constipation Stop: 01/17/24 16:51 Potassium Chloride (Potassium Chloride 20 Meq/15 Ml Udc) 20 meq PO BID [facility] Stop: 01/25/24 20:59 Last Admin: 12/27/23 11:20 Dose: 20 meq (2) Pneumonia Pneumonia type: due to unspecified organism (4) Acute renal failure superimposed on stage 3 chronic kidney disease Acute renal failure type: unspecified (5) Rhabdomyolysis Encounter type: initial encounter Rhabdomyolysis type: traumatic Qualified Code(s): T79.6XXA - Traumatic ischemia of muscle, initial encounter (13) Left femoral shaft fracture Encounter type: initial encounter Fracture alignment: displaced Fracture morphology: comminuted Fracture type: closed Qualified Code(s): S72.352A - Displaced comminuted fracture of shaft of left femur, initial encounter for closed fracture
--- NOTE | 2023-12-27 14:31 | Nephrology Progress Note ---
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 however for now dialysis not needed on admission 12/17 creatinine was 3.7; it trended down to rupal 3 on 12/18 and plateau'd mid 3s; peaked at 4.1 12/22 w/ aggressive diuretics. making adequate urine on diuretics; had 2 dialysis txs mostly to control volume and acidosis and then 12/24 declined further txs b/c too exhausting; 12/25 reverses course and willing to dialyze again given her age and pre-existing CKD 4 she may not have enough renal recovery or very delayed recovery. cause of ABA is ATN in the setting of covid/sepsis; do not believe CK was high enough for rhabdo to be a real factor. she does have blood and protein in urine which are new > ? if relates to MDS/ elevated WBC >no indication for dialysis today; increase in creat since yesterday though will need to be monitored >cont strict I/O >> VERY important to know how much she voids and how many BM >daily bmp -on 12/25 started bid K 20 mEq < dose appropriate for now >>continue lasix though with O2 needs coming down, will move from 80 milligrams IV q6h >> 80 mg IV every 8 hour >>make sure to maintain hemoglobin at least in mid 7s as she is very prone to develop severe anemia > daily cbc ordered >cont 1.5 L FR since we are trying to diurese >appreciate palliative input regarding goals of care; reiterated w/ pt we need consistent goals of care plan not one that changes daily (2) Left femoral shaft fracture: Plan: s/p nailing procedure this admission (3) SARS-CoV-2 positive: Plan: root of breathing challenges Admission and Anticipated Discharge Date Admission Date: December 18, 2023 Subjective labs late today because she refused them. She is down to 2 L nasal cannula currently. She was tired and frustrated earlier and refusing medications and care. She was out of bed for several hours today. Developing some signs of early skin breakdown on her backside. She denies pain to me. States she is tired of having her left leg be so stiff does notice her breathing is better and tells me she is not doing too badly despite events earlier Review of Systems 2 Review of Systems: All systems reviewed & are unremarkable except as noted in Subjective Physical Exam 2 Constitutional: well developed, + altered mental status, + frail appearing and cooperative; no acute distress Eyes: EOM intact bilaterally ENMT: Ears: + hearing impairment; no external ear abnormality Nose: no external nose abnormality Mouth: + dry oral mucous membranes Neck: no nuchal rigidity Respiratory: normal respiratory effort Auscultation: + diminished lung sounds Cardiovascular: Rate/Rhythm: regular rate and regular rhythm Extremities: n o edema Gastrointestinal (Abdomen): Inspection/Auscultation: normal bowel sounds P ercussion/Palpation: abdomen soft; abdomen nontender Musculoskeletal: Extremities: strength 5/5 throughout Skin: no rashes, warm and dry Psychiatric: Orientation: alert, oriented x 3 (but still unreliable), oriented to person and oriented to place Results & Data Vital Signs (Past 12 Hours) Vital Signs Temp Pulse Resp BP Pulse Ox O2 Del Method O2 Flow Rate 12/27/23 10:00 Nasal Cannula 4 12/27/23 08:26 36.4 C L 95 H 20 153/72 H 90 Nasal Cannula 6 12/27/23 03:30 100 High Flow Nasal Cannula Laboratory Results 12/27/23 09:25 12/27/23 09:25 (2) Left femoral shaft fracture Encounter type: initial encounter Fracture alignment: displaced Fracture morphology: comminuted Fracture type: closed Qualified Code(s): S72.352A - Displaced comminuted fracture of shaft of left femur, initial encounter for closed fracture
[2023-12-27] MEDS: FUROSEMIDE 40 MG/4 ML VIAL IV SCH (17:54)
[2023-12-28 07:40] LABS: Mean Corpuscular Hemoglobin 30.4 pg (25.0-34.0); Mean Corpuscular Hgb Conc 33.3 g/dL (32.0-36.0); Mean Corpuscular Volume 91.3 fL (80.0-100.0); Mean Platelet Volume 12.4 fL (9.4-12.4); Nucleated RBC # (auto) 0.06 K/uL (0.00-0.12); Nucleated RBC % (auto) 0.1 %; Platelet Count 111 K/uL (130-400); RDW Coefficient of Variation 17.8 % (11.5-14.5); RDW Standard Deviation 56.9 fL (36.4-46.3); Red Blood Count 2.63 M/uL (4.20-5.40); White Blood Count 109.81 K/ul (4.8-10.8)
[2023-12-28 07:51] LABS: BUN Creatinine Ratio 22.6 (10-20); Calcium 9.1 mg/dl (8.6-10.3); Creatinine Clr Calc Pharmacy 10.4 ml/min; Est GFR (African American) 13.9 ml/min; Potassium 4.2 mmol/L (3.5-5.1)
[2023-12-28 08:12] LABS: ANC (manual) 65.89 K/uL (1.4-6.5); Anisocytosis Present; Hypochromasia Present; Lymphocytes % (manual) 1 %; Metamyelocytes # (manual) 17.57 K/uL (0-0); Metamyelocytes % (manual) 16 %; Monocytes # (manual) 4.39 K/uL (0.11-0.59); Monocytes % (manual) 4 %; Myelocytes # (manual) 20.86 K/uL (0-0); Myelocytes % (manual) 19 %; Neutrophils # (manual) 65.89 K/uL (1.40-6.50); Neutrophils % (manual) 60 %; Stomatocytes 1+
--- NOTE | 2023-12-28 13:05 | Hospitalist Progress Note ---
Date of Service December 28, 2023 Assessment & Plan (1) Sepsis: (2) Pneumonia: (3) SARS-CoV-2 positive: (4) Acute renal failure superimposed on stage 3 chronic kidney disease: (5) Rhabdomyolysis: (6) Lactic acidosis: (7) High anion gap metabolic acidosis: (8) MDS (myelodysplastic syndrome): (9) Symptomatic anemia: (10) Hyperkalemia: (11) Hypomagnesemia: (12) Elevated troponin: (13) Left femoral shaft fracture: Plan Per admitting service notes with addendum: This is an 88-year-old female who has a significant past medical history of HTN, mitral valve stenosis, rectal prolapse with full incontinence of feces, CKD stage IIIb, transfusion dependent MDS and follows Dr. Trejo who presents to ED after sustaining a fall in her home. Acute respiratory failure, hypoxic COVID-19 pneumonia, possible community-acquired pneumonia Sepsis on admission Patient meets sepsis criteria secondary to leukocytosis, tachycardia, lactic acidosis Blood cultures were obtained in the ED, but this was after administration of antibiotics She received broad-spectrum antibiotics with vancomycin and Rocephin Source: Possible pneumonia given URI symptoms x 1 week and SARS-CoV-2 Obtain MRSA swab was negative for MRSA Antibiotics were changed to IV cefepime and then IV Rocephin and IV Doxy Obtain CT chest for further clarification of possible pneumonia and CT a/p due to abd pain complaints In regards to COVID she currently does not meet criteria for treatment as she is not requiring oxygen Blood and urine cultures are negative so far Remains critical but otherwise stable Discussed with daughter in detail The patient and the daughter do not want any more dialysis knowing the consequences of not having dialysis Plan to continue current aggressive management and see how things go over the next few days Remains weak but otherwise asymptomatic Denies any shortness of breath at rest, denies any significant pain at rest Wants to continue with the current management She has been improving gradually, communicating normally and denies any significant distress at rest Palliative care encounter Appreciate input and recommendation Will continue current management Will discuss with the daughter again about goals of care Worsening shortness of breath Desaturated overnight, now requiring 15 L of nonrebreather on 12/22/2023 Repeat chest x-ray: Showed progressive bilateral alveolar opacities and interstitial thickening Lasix 80 mg IV ordered Continue antibiotics, nebs Continue nonrebreather for now Pulmonary service consulted Appreciate pulmonary input and recommendation No shortness of breath at rest and saturating normally on 4 L nasal cannula Shortness of breath is getting better Acute on Chronic CKD 3 baseline cr 2.2-2.4 bun/cr 61 and 3.74 continue blood products/fluids Nephrology service consulted Appreciate nephrology input and recommendation Has had hemodialysis until this afternoon Discussed with the patient and the daughter No more hemodialysis after today The daughter and the patient knows the consequences of not having dialysis Has been making out enough urine and the kidney function remains stable She wanted to have dialysis to be continued-the riv[employer] is aware Creatinine slightly worse today-negative balance of 2339 as of 12/28/2023 MDS Symptomatic Anemia Acute blood loss on chronic anemia associated with MDS Pt follows Dr. Trejo; She is transfusion dependent, last was 2 weeks ago h/h 5.6 and 17.6 She has been type and cross 2 units, she has received 2 units before without any difficulty, no prior transfusion reaction Repeat H&H after blood products, goal hemoglobin greater than [address] Trejo secondary to thrombocytopenia Dr. Trejo recommends holding hydroxyurea due to underlying sepsis Would reach out to Dr. Trejo in next 1 to 2 days regarding further guidance in her MDS Dr. Trejo expects WBC to increase while holding hydroxyurea Will continue current aggressive treatment Will continue to do monitoring of blood counts and if needed blood transfusion should be given as per the daughter Hemoglobin is 7.5 and will monitor Hemoglobin remains stable at 8.1 today White count has gone up to 109-discussed with the stonemason helper and will restart hydroxyurea Monitor closely Heparin SC BID for DVT prophylaxis- monitor Plts Lactic acidosis High anion gap metabolic acidosis, 18 Suspect related to severe anemia, volume depletion, sepsis and rhabdomyolysis Expect to improve with improvement of above Will trend until resolved Repeat BMP, lactate at 1900 Resolved Elevated troponin No chest pain, ischemic ecg change Suspect demand ischemia in setting of sepsis, rhabdo Troponin improved from 56-50, EKG no signs of acute ischemia or infarct Echocardiogram reviewed: Mild to moderate mitral stenosis Discussed with cardiology service as well Rhabdomyolysis non traumatic, on ground for 7 hours after fall CK 1054 IVF and blood products ordered Follow renal fxn and CK CPK improved to 500s Hyperkalemia /hypokalemia 2/2 to rhabdo, CKD Lokelma 10mg TID Monitor bmp Potassium replaced and will recheck Potassium 4.5 Hypomagnesemia Mag 1.3, replace Repeat mag @ 1900 Replaced Mechanical fall in setting of dizziness Comminuted displaced fracture of the distal shaft of left femur Patient follows with [facility] Dr. Knutson aware of patient Plan is for surgical fixation once medically stable Knee brace, bed rest, ICE TID Scheduled Tylenol Oxy IR 2.5mg PRN for Severe pain Daughter does not want her to have any strong narcotic without discussing with her check vitamin D level 12/18 Patient high risk for cardiopulmonary complications in light of patient's advanced age, multiple comorbidities as outlined above Discussed at length in detail with patient and her daughter, they verbalized understanding agreement of risks involved with planned surgery, they are agreeable to proceed with planned orthopedic surgery today No medical contraindication at this point to proceed with the necessary or thopedic surgery to address left humeral fracture Will optimize patient and carefully monitor patient perioperatively Rectal prolapse Pt is planning to get colostomy in near future due to prolapse Hard of Hearing Pt is 100% alert and oriented and mentally capable She watches her 4 year old grandson She is very hard of hearing and according to daughter will shake her head, yes even if she doesnt hear Daughter encourage to speak loudly and slowly Monitor for delirium given age DVT ppx: Heparin subcu every 12 FULL CODE -DNR/DNI now PCP: Dr. Palomares Dispo: PT OT evaluation Discussed in detail with the daughter and the patient herself Clearly they do not want any more dialysis to be provided knowing the consequences of not having dialysis Plan to continue with the current aggressive management including monitoring of blood counts and if needed give transfusion Prognosis remains poor Patient is DNR/DNI Remains DNR and DNI but the patient wants to continue with the dialysis Palliative care consulted Admission and Anticipated Discharge Date Admission Date: December 18, 2023 Subjective 12/24/2023 The patient was seen and examined in telemetry unit in the presence of the daughter She has not been feeling well and does not want to live any longer Does not want to keep up with the BiPAP and does not want any more dialysis Not in any acute distress or pain 12/25/2023 The patient was seen and examined in telemetry and She has been a little better today Trying to communicate Could not tolerate BiPAP Denies any significant pain 12/26/2023 The patient was seen and examined in telemetry unit in presence of the daughter She has been feeling much better and is out of bed on a chair Denies minimal pain involving the left lower extremity Still has shortness of breath without any chest pain and/or palpitation Now she wants to have dialysis 12/27/2023 The patient was seen and examined in telemetry unit She has been out of bed on a chair Remains lethargic but denies any significant symptoms No shortness of breath at rest, no fever or chill , no nausea and or vomiting 12/28/2023 The patient was seen and examined in telemetry unit She has been stable and feeling a little better compared with yesterday Denies any shortness of breath at rest and has been requiring 2 L to maintain saturation Denies any significant pain No fever and or chills no cough Review of Systems Review of Systems: All systems reviewed and are unremarkable except as noted below Physical Exam Physical Exam: Lying in bed with minimal shortness of breath on BiPAP Constitutional: + ill appearing and average body habitus Eyes: PERRL, conjunctivae normal, anicteric sclerae ENMT: external ear and nose normal, oropharynx normal Neck: trachea midline, no thyromegaly Respiratory: no respiratory distress Auscultation: + diminished lung sounds and + crackles (Bibasilar crackles) Cardiovascular: Rate/Rhythm: regular rate and regular rhythm; not tachycardic Heart Sounds: normal S1 and normal S2; no murmur Extremities: no edema Gastrointestinal (Abdomen): Inspection/Auscultation: normal bowel sounds; abdomen not distended Percussion/Palpation: abdomen soft; abdomen nontender Musculoskeletal: Left lower extremity pain secondary to recent surgery and fracture Neurologic: normal touch/pain/proprioception and moves all extremities Lymphatic: no cervical or axillary lymphadenopathy Results & Data Results & Data Vital Signs (Past 12 Hours) Vital Signs Temp Pulse Pulse Pulse Resp BP BP 12/28/23 12:00 36.3 C L 90 93 H 16 156/77 H 12/28/23 08:00 102 H 12/28/23 08:00 12/28/23 07:55 36.8 C 98 H 18 161/75 H 12/28/23 02:27 36.5 C 88 20 129/76 Pulse Ox O2 Del Method O2 Flow Rate 12/28/23 12:00 95 Nasal Cannula 2 12/28/23 08:00 12/28/23 08:00 Nasal Cannula 2 12/28/23 07:55 92 Nasal Cannula 2 12/28/23 02:27 91 Nasal Cannula 2 Laboratory Results Short CBC 12/28/23 Range/Units 07:13 WBC 109.81 H* (4.8-10.8) K/ul Hgb 8.0 L (12.0-16.0) g/dl Hct 24.0 L (37.0-47.0) % Plt Count 111 L (130-400) K/uL BMP 12/28/23 07:13 Sodium 140 Potassium 4.2 Chloride 95 L Carbon Dioxide 33 H BUN 74 H Creatinine 3.28 H Glucose 126 H Calcium 9.1 Medications Administered Current Inpatient Medications Acetaminophen (Acetaminophen 500 Mg Tab) 1,000 mg PO Q8H NANCY Stop: 01/17/24 21:59 Last Admin: 12/28/23 05:26 Dose: 1,000 mg Al Hydrox/Mg Hydrox/Simethicone (Aluminum/Magnesium Susp 30 Ml Udc) 15 ml PO Q4H PRN PRN Reason: Dyspepsia Stop: 01/17/24 16:51 Last Admin: 12/23/23 12:05 Dose: 15 ml Allopurinol (Allopurinol 300 Mg Tab) 300 mg PO QAM NANCY Stop: 01/18/24 08:59 Last Admin: 12/28/23 07:59 Dose: 300 mg Benzonatate (Benzonatate 100 Mg Capsule) 100 mg PO TID PRN PRN Reason: Cough Stop: 01/21/24 04:41 Last Admin: 12/27/23 21:27 Dose: 100 mg Citalopram Hydrobromide (Citalopram 20 Mg Tab) 10 mg PO QAM NANCY Stop: 01/25/24 12:29 Last Admin: 12/28/23 07:59 Dose: 10 mg Ergocalciferol (Ergocalciferol 1250 Mcg (50,000 Units) Cap) 1,250 mcg PO Sa@0900 NANCY Stop: 01/19/24 13:29 Last Admin: 12/27/23 08:57 Dose: 1,250 mcg Furosemide (Furosemide 40 Mg/4 Ml Vial) 80 mg IV Q8H NANCY Stop: 01/26/24 16:29 Last Admin: 12/28/23 08:11 Dose: 80 mg Heparin Sodium (Porcine) (Heparin Sod 5,000 Unit/0.5 Ml Vial) 5,000 units SQ Q12 NANCY Stop: 01/21/24 08:59 Last Admin: 12/28/23 08:12 Dose: 5,000 units Metronidazole (Flagyl) 500 mg in 100 mls @ 100 mls/hr IV Q8H [facility]; Protocol Stop: 12/29/23 02:59 Last Infusion: 12/28/23 09:06 Dose: Infused Dexamethasone 6 mg/ Syringe 1.5 mls @ 1 mls/min IV DAILY [facility] Stop: 01/01/24 12:29 Last Admin: 12/28/23 08:11 Dose: 1 mls/min Lorazepam 0.25 mg/ Syringe 0.25 mls @ 2 mls/min IV Q4H PRN PRN Reason: Anxiety/Agitation Stop: 01/23/24 19:14 Magnesium Hydroxide (Magnesium Hydroxide Susp 30 Ml Udc) 30 ml PO Q12H PRN PRN Reason: Constipation Stop: 01/17/24 16:51 Multivitamins/Minerals (Cerovite Adv Formula Tab) 1 tab PO BID [facility] Stop: 01/17/24 20:59 Last Admin: 12/28/23 07:58 Dose: 1 tab Ondansetron HCl (Ondansetron Inj 2 Mg/Ml 2 Ml Vial) 4 mg IV Q6H PRN PRN Reason: Nausea Stop: 01/17/24 16:51 Oxycodone HCl (Oxycodone Hcl Ir 5 Mg Tab (Immediate Release)) 2.5 mg PO Q8 PRN PRN Reason: Severe Pain (Scale 7, 8, 9,10) Stop: 01/01/24 16:51 Polyethylene Glycol (Polyethylene (Miralax) 17 Gm Pack) 17 gm PO DAILY PRN PRN Reason: Constipation Stop: 01/17/24 16:51 Potassium Chloride (Potassium Chloride 20 Meq/15 Ml Udc) 20 meq PO BID [facility] Stop: 01/25/24 20:59 Last Admin: 12/28/23 08:00 Dose: 20 meq (2) Pneumonia Pneumonia type: due to unspecified organism (4) Acute renal failure superimposed on stage 3 chronic kidney disease Acute renal failure type: unspecified (5) Rhabdomyolysis Encounter type: initial encounter Rhabdomyolysis type: traumatic Qualified Code(s): T79.6XXA - Traumatic ischemia of muscle, initial encounter (13) Left femoral shaft fracture Encounter type: initial encounter Fracture alignment: displaced Fracture morphology: comminuted Fracture type: closed Qualified Code(s): S72.352A - Displaced comminuted fracture of shaft of left femur, initial encounter for closed fracture
[2023-12-28] MEDS: HYDROXYUREA 500 MG CAP PO ONE (13:34)
[2023-12-28] MEDS: SODIUM CHLORIDE 0.9% 500 ML IV SCH (20:26)
[2023-12-29] MEDS: HYDROXYUREA 500 MG CAP PO SCH (07:57)
[2023-12-29 08:07] LABS: Hematocrit (blood only) 23.7 % (37.0-47.0); Hemoglobin 8.1 g/dl (12.0-16.0); Mean Corpuscular Hemoglobin 31.5 pg (25.0-34.0); Mean Corpuscular Hgb Conc 34.2 g/dL (32.0-36.0); Mean Corpuscular Volume 92.2 fL (80.0-100.0); Mean Platelet Volume 12.4 fL (9.4-12.4); Platelet Count 113 K/uL (130-400); RDW Coefficient of Variation 17.7 % (11.5-14.5); Red Blood Count 2.57 M/uL (4.20-5.40)
[2023-12-29 08:21] LABS: White Blood Count 129.19 K/ul (4.8-10.8)
[2023-12-29 08:34] LABS: BUN Creatinine Ratio 24.8 (10-20); Calcium 9.2 mg/dl (8.6-10.3); Creatinine Clr Calc Pharmacy 10.1 ml/min; Est GFR (African American) 13.5 ml/min; Est GFR (Non-African American) 11.7 ml/min; Magnesium 1.7 mg/dl (1.7-2.4); Phosphorus 3.9 mg/dl (2.5-4.9)
[2023-12-29 09:05] LABS: Nucleated RBC # (auto) 0.09 K/uL (0.00-0.12); Nucleated RBC % (auto) 0.1 %
[2023-12-29 09:32] LABS: ALC (manual) 5.17 K/uL (1.2-3.4); ANC (manual) 77.51 K/uL (1.4-6.5); Hypogranular Neutrophils 1+; Lymphocytes # (manual) 5.17 K/uL (1.2-3.4); Lymphocytes % (manual) 4 %; Metamyelocytes # (manual) 9.04 K/uL (0-0); Metamyelocytes % (manual) 7 %; Monocytes # (manual) 11.63 K/uL (0.11-0.59); Monocytes % (manual) 9 %; Myelocytes # (manual) 25.84 K/uL (0-0); Myelocytes % (manual) 20 %; Neutrophils # (manual) 77.51 K/uL (1.40-6.50); Neutrophils % (manual) 60 %
--- NOTE | 2023-12-29 10:13 | Palliative Family Discussion ---
Date of Service December 29, 2023 Patient Directed Conference ACP meeting Time of Meetin-10am and 10-1020am Participants: Mary Branch DNP Patient participation: yes, second meeting with dtr by phone Patient Support System: dtr Other Healthcare Provider Participation: None Meeting Location: pt bedside then phone with dtr Advanced Directive available: yes If yes, descriptors: DNR/DNI The patient's surrogate medical decision maker participated: Fawn chavez by phone A family meeting was held for JUAN STEELE. This meeting was necessary for determining the appropriate course of treatment. Topics of Discussion Topics of Discussion: 1. Covid PNA, multifocal with signif deconditioning and weakness 2. Oxygen needs improved and she is off high flow. 3. Has not been OOB to chair routinely, nursing reports she needs 2-3 person assist Other Content of Meetin. Opportunity given for participants to speak and ask questions. 2. Participants were assured of attention to patient comfort. 3. Reassurance provided. 4. Support was provided for informed, good-ailyn decisions. 5. Emotions expressed by family were acknowledged and addressed. 6. Plan of Care: pt is very frustrated by her weakness and prolonged admission. 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 She was proudly independent. This decline in autonomy and mobility has taken a lot of her spirit and leaves her feeling frustrated and isolated. She feels hopeless at times and is struggling with a sense of loss that she will not regain her prior life. Dtr agrees pt has been worrying about this a lot and this has made her "waffle" about decision however dtr states she will accept and honor any decision pt makes bc they agreed in discussions this weekend that it is pt choice. 7. TS: 35min Thank you for allowing us to participate in the ongoing care of this patient. Please don't hesitate to call or page with any additional concerns. Dr. Mary Branch DNP Director, Palliative Care
--- NOTE | 2023-12-29 11:10 | Nephrology Progress Note ---
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 however for now dialysis not needed on admission 12/17 creatinine was 3.7; it trended down to rupal 3 on 12/18 and plateau'd mid 3s; peaked at 4.1 12/22 w/ aggressive diuretics. making adequate urine on diuretics; had 2 dialysis txs mostly to control volume and acidosis and then 12/24 declined further txs b/c too exhausting; 12/25 reverses course and willing to dialyze again given her age and pre-existing CKD 4 she may not have enough renal recovery or very delayed recovery. cause of ABA is ATN in the setting of covid/sepsis; do not believe CK was high enough for rhabdo to be a real factor. no indication for dialysis today. increase in creat since yesterday though will need to be monitored. I did tell her that doing dialysis in her case at this advanced age/Comorbid Dz does not add much to quantity of life and makes the quality lot worse. 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 daily bmp on 12/25 started bid K 20 mEq continue lasix 80 mg IV every 8 hour >>make sure to maintain hemoglobin at least in mid 7s as she is very prone to develop severe anemia > daily cbc ordered >cont 1.5 L FR since we are trying to diurese >appreciate palliative input regarding goals of care; reiterated w/ pt we need consistent goals of care plan not one that changes daily (2) Left femoral shaft fracture: Plan: s/p nailing procedure this admission (3) SARS-CoV-2 positive: Plan: cause of breathing challenges Subjective Appears depressed and says no pain. making urine. BP is normal. Ongoing discussion about level of care Review of Systems Review of Systems: All systems reviewed & are unremarkable except as noted in Subjective Physical Exam Constitutional: well developed, + altered mental status, + frail appearing and cooperative; no acute distress Eyes: EOM intact bilaterally ENMT: Ears: + hearing impairment; no external ear abnormality Nose: no external nose abnormality Mouth: + dry oral mucous membranes Neck: no nuchal rigidity Respiratory: normal respiratory effort Auscultation: + diminished lung sounds Cardiovascular: Rate/Rhythm: regular rate and regular rhythm Extremities: no edema Gastrointestinal (Abdomen): Inspection/Auscultation: normal bowel sounds Percussion/Palpation: abdomen soft; abdomen nontender Musculoskeletal: Extremities: strength 5/5 throughout Skin: no rashes, warm and dry Psychiatric: Orientation: alert, oriented x 3 (but still unreliable), oriented to person and oriented to place Results & Data Vital Signs (Past 12 Hours) Vital Signs Temp Pulse Pulse Resp BP Pulse Ox O2 Del Method 12/29/23 08:00 Nasal Cannula 12/29/23 07:48 36.5 C 95 H 18 124/64 95 Nasal Cannula 12/29/23 07:27 102 H 12/29/23 03:18 36.5 C 98 H 16 146/72 H 92 Nasal Cannula O2 Flow Rate 12/29/23 08:00 2 12/29/23 07:48 2 12/29/23 07:27 12/29/23 03:18 1
--- NOTE | 2023-12-29 14:57 | Hospitalist Progress Note ---
Date of Service December 29, 2023 Assessment & Plan (1) Sepsis: (2) Pneumonia: (3) SARS-CoV-2 positive: (4) Acute renal failure superimposed on stage 3 chronic kidney disease: (5) Rhabdomyolysis: (6) Lactic acidosis: (7) High anion gap metabolic acidosis: (8) MDS (myelodysplastic syndrome): (9) Symptomatic anemia: (10) Hyperkalemia: (11) Hypomagnesemia: (12) Elevated troponin: (13) Left femoral shaft fracture: Plan Per admitting service notes with addendum: This is an 88-year-old female who has a significant past medical history of HTN, mitral valve stenosis, rectal prolapse with full incontinence of feces, CKD stage IIIb, transfusion dependent MDS and follows Dr. Trejo who presents to ED after sustaining a fall in her home. Acute respiratory failure, hypoxic COVID-19 pneumonia, possible community-acquired pneumonia Sepsis on admission Patient meets sepsis criteria secondary to leukocytosis, tachycardia, lactic acidosis Blood cultures were obtained in the ED, but this was after administration of antibiotics She received broad-spectrum antibiotics with vancomycin and Rocephin Source: Possible pneumonia given URI symptoms x 1 week and SARS-CoV-2 Obtain MRSA swab was negative for MRSA Antibiotics were changed to IV cefepime and then IV Rocephin and IV Doxy Obtain CT chest for further clarification of possible pneumonia and CT a/p due to abd pain complaints In regards to COVID she currently does not meet criteria for treatment as she is not requiring oxygen Blood and urine cultures are negative so far Remains critical but otherwise stable Discussed with daughter in detail The patient and the daughter do not want any more dialysis knowing the consequences of not having dialysis Plan to continue current aggressive management and see how things go over the next few days Remains weak but otherwise asymptomatic Denies any shortness of breath at rest, denies any significant pain at rest Wants to continue with the current management She has been improving gradually, communicating normally and denies any significant distress at rest Condition has been getting worse since last evening-she has been refusing the care and has not been eating or drinking Every day she knows the consequences of not being eating or drinking or even taking medications Discussed with her about this going home manage or any facility with hospice care and continue to give her medications and support as long as she can accept She was agreeable to that and wanted to be comfortable Discussed with the daughter in the presence and she was accepting mom's decision about her life Discussed with the case management Palliative care encounter Appreciate input and recommendation Will continue current management Will discuss with the daughter again about goals of care Appreciate palliative care follow-up Worsening shortness of breath Desaturated overnight, now requiring 15 L of nonrebreather on 12/22/2023 Repeat chest x-ray: Showed progressive bilateral alveolar opacities and interstitial thickening Lasix 80 mg IV ordered Continue antibiotics, nebs Continue nonrebreather for now Pulmonary service consulted Appreciate pulmonary input and recommendation No shortness of breath at rest and saturating normally on 4 L nasal cannula Shortness of breath is getting better Not any better and has been deteriorating Acute on Chronic CKD 3 baseline cr 2.2-2.4 bun/cr 61 and 3.74 continue blood products/fluids Nephrology service consulted Appreciate nephrology input and recommendation Has had hemodialysis until this afternoon Discussed with the patient and the daughter No more hemodialysis after today The daughter and the patient knows the consequences of not having dialysis Has been making out enough urine and the kidney function remains stable She wanted to have dialysis to be continued-the managed care director is aware Creatinine slightly worse today-negative balance of 2339 as of 12/28/2023 Kidney function is getting worse gradually and is still making out urine No dialysis for now MDS Symptomatic Anemia Acute blood loss on chronic anemia associated with MDS Pt follows Dr. Trejo; She is transfusion dependent, last was 2 weeks ago h/h 5.6 and 17.6 She has been type and cross 2 units, she has received 2 units before without any difficulty, no prior transfusion reaction Repeat H&H after blood products, goal hemoglobin greater than [address] Trejo secondary to thrombocytopenia Dr. Trejo recommends holding hydroxyurea due to underlying sepsis Would reach out to Dr. Trejo in next 1 to 2 days regarding further guidance in her MDS Dr. 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 Monitor closely Heparin SC BID for DVT prophylaxis- monitor Plts Lactic acidosis High anion gap metabolic acidosis, 18 Suspect related to severe anemia, volume depletion, sepsis and rhabdomyolysis Expect to improve with improvement of above Will trend until resolved Repeat BMP, lactate at 1900 Resolved Elevated troponin No chest pain, ischemic ecg change Suspect demand ischemia in setting of sepsis, rhabdo Troponin improved from 56-50, EKG no signs of acute ischemia or infarct Echocardiogram reviewed: Mild to moderate mitral stenosis Discussed with cardiology service as well Rhabdomyolysis non traumatic, on ground for 7 hours after fall CK 1054 IVF and blood products ordered Follow renal fxn and CK CPK improved to 500s Hyperkalemia /hypokalemia 2/2 to rhabdo, CKD Lokelma 10mg TID Monitor bmp Potassium replaced and will recheck Potassium 4.5 Hypomagnesemia Mag 1.3, replace Repeat mag @ 1900 Replaced Mechanical fall in setting of dizziness Comminuted displaced fracture of the distal shaft of left femur Patient follows with [facility] Dr. Knutson aware of patient Plan is for surgical fixation once medically stable Knee brace, bed rest, ICE TID Scheduled Tylenol Oxy IR 2.5mg PRN for Severe pain Daughter does not want her to have any strong narcotic without discussing with her check vitamin D level 5/ Patient high risk for cardiopulmonary complications in light of patient's advanced age, multiple comorbidities as outlined above Discussed at length in detail with patient and her daughter, they verbalized und erstanding agreement of risks involved with planned surgery, they are agreeable to proceed with planned orthopedic surgery today No medical contraindication at this point to proceed with the necessary orthopedic surgery to address left humeral fracture Will optimize patient and carefully monitor patient perioperatively Rectal prolapse Pt is planning to get colostomy in near future due to prolapse Hard of Hearing Pt is 100% alert and oriented and mentally capable She watches her 4 year old grandson She is very hard of hearing and according to daughter will shake her head, yes even if she doesnt hear Daughter encourage to speak loudly and slowly Monitor for delirium given age DVT ppx: Heparin subcu every 12 FULL CODE -DNR/DNI now PCP: Dr. Palomares Dispo: PT OT evaluation Discussed in detail with the daughter and the patient herself Clearly they do not want any more dialysis to be provided knowing the consequences of not having dialysis Plan to continue with the current aggressive management including monitoring of blood counts and if needed give transfusion Prognosis remains poor Patient is DNR/DNI Remains DNR and DNI but the patient wants to continue with the dialysis Palliative care consulted-appreciate input and recommendation Admission and Anticipated Discharge Date Admission Date: December 18, 2023 Subjective 12/24/2023 The patient was seen and examined in telemetry unit in the presence of the daughter She has not been feeling well and does not want to live any longer Does not want to keep up with the BiPAP and does not want any more dialysis Not in any acute distress or pain 12/25/2023 The patient was seen and examined in telemetry and She has been a little better today Trying to communicate Could not tolerate BiPAP Denies any significant pain 12/26/2023 The patient was seen and examined in telemetry unit in presence of the daughter She has been feeling much better and is out of bed on a chair Denies minimal pain involving the left lower extremity Still has shortness of breath without any chest pain and/or palpitation Now she wants to have dialysis 12/27/2023 The patient was seen and examined in telemetry unit She has been out of bed on a chair Remains lethargic but denies any significant symptoms No shortness of breath at rest, no fever or chill , no nausea and or vomiting 12/28/2023 The patient was seen and examined in telemetry unit She has been stable and feeling a little better compared with yesterday Denies any shortness of breath at rest and has been requiring 2 L to maintain saturation Denies any significant pain No fever and or chills no cough 12/29/2023 The patient was seen and examined in telemetry unit alone and later in presence of the daughter She remains very weak and lethargic and does not want to continue with the current management She has not been eating or drinking enough Remains profoundly weak Refusing her medications and knows the consequences of not taking medications,eating and drinking Review of Systems Review of Systems: All systems reviewed and are unremarkable except as noted below Physical Exam Physical Exam: Lying in bed with minimal shortness of breath Constitutional: + ill appearing and average body habitus Eyes: PERRL, conjunctivae normal, anicteric sclerae ENMT: external ear and nose normal, oropharynx normal Neck: trachea midline, no thyromegaly Respiratory: no respiratory distress Auscultation: + diminished lung sounds and + crackles (Bibasilar crackles) Cardiovascular: Rate/Rhythm: regular rate and regular rhythm; not tachycardic Heart Sounds: normal S1 and normal S2; no murmur Extremities: no edema Gastrointestinal (Abdomen): Inspection/Auscultation: normal bowel sounds; abdomen not distended Percussion/Palpation: abdomen soft; abdomen nontender Musculoskeletal: Has pain in the left lower extremity with movement Neurologic: normal touch/pain/proprioception and moves all extremities Lymphatic: no cervical or axillary lymphadenopathy Results & Data Results & Data Vital Signs (Past 12 Hours) Vital Signs Temp Pulse Pulse Resp BP Pulse Ox O2 Del Method 12/29/23 11:22 36.6 C 94 H 19 144/64 H 93 Nasal Cannula 12/29/23 08:00 Nasal Cannula 12/29/23 07:48 36.5 C 95 H 18 124/64 95 Nasal Cannula 12/29/23 07:27 102 H 12/29/23 03:18 36.5 C 98 H 16 146/72 H 92 Nasal Cannula O2 Flow Rate 12/29/23 11:22 2 12/29/23 08:00 2 12/29/23 07:48 2 12/29/23 07:27 12/29/23 03:18 1 Laboratory Results Short CBC 12/29/23 Range/Units 07:21 WBC 129.19 H* (4.8-10.8) K/ul Hgb 8.1 L (12.0-16.0) g/dl Hct 23.7 L (37.0-47.0) % Plt Count 113 L (130-400) K/uL BMP 12/29/23 07:21 Sodium 144 Potassium 4.0 Chloride 96 L Carbon Dioxide 35 H BUN 83 H Creatinine 3.35 H Glucose 123 H Calcium 9.2 Medications Administered Current Inpatient Medications Acetaminophen (Acetaminophen 500 Mg Tab) 1,000 mg PO Q8H NANCY Stop: 01/17/24 21:59 Last Admin: 12/29/23 13:26 Dose: Not Given Al Hydrox/Mg Hydrox/Simethicone (Aluminum/Magnesium Susp 30 Ml Udc) 15 ml PO Q4H PRN PRN Reason: Dyspepsia Stop: 01/17/24 16:51 Last Admin: 12/23/23 12:05 Dose: 15 ml Allopurinol (Allopurinol 300 Mg Tab) 300 mg PO QAM NANCY Stop: 01/18/24 08:59 Last Admin: 12/29/23 07:57 Dose: Not Given Benzonatate (Benzonatate 100 Mg Capsule) 100 mg PO TID PRN PRN Reason: Cough Stop: 01/21/24 04:41 Last Admin: 12/27/23 21:27 Dose: 100 mg Citalopram Hydrobromide (Citalopram 20 Mg Tab) 20 mg PO QAM [facility] Stop: 01/29/24 08:59 Ergocalciferol (Ergocalciferol 1250 Mcg (50,000 Units) Cap) 1,250 mcg PO Sa@0900 [facility] Stop: 01/19/24 13:29 Last Admin: 12/27/23 08:57 Dose: 1,250 mcg Furosemide (Furosemide 40 Mg/4 Ml Vial) 80 mg IV Q8H [facility] Stop: 01/26/24 16:29 Last Admin: 12/29/23 11:05 Dose: 80 mg Heparin Sodium (Porcine) (Heparin Sod 5,000 Unit/0.5 Ml Vial) 5,000 units SQ Q12 [facility] Stop: 01/21/24 08:59 Last Admin: 12/29/23 07:57 Dose: Not Given Hydroxyurea (Hydroxyurea 500 Mg Cap) 500 mg PO MoTuWeThFr@0900 [facility] Stop: 01/28/24 08:59 Last Admin: 12/29/23 07:57 Dose: Not Given Dexamethasone 6 mg/ Syringe 1.5 mls @ 1 mls/min IV DAILY [facility] Stop: 01/01/24 12:29 Last Admin: 12/29/23 11:17 Dose: Not Given Lorazepam 0.25 mg/ Syringe 0.25 mls @ 2 mls/min IV Q4H PRN PRN Reason: Anxiety/Agitation Stop: 01/23/24 19:14 Magnesium Hydroxide (Magnesium Hydroxide Susp 30 Ml Udc) 30 ml PO Q12H PRN PRN Reason: Constipation Stop: 01/17/24 16:51 Multivitamins/Minerals (Cerovite Adv Formula Tab) 1 tab PO BID [facility] Stop: 01/17/24 20:59 Last Admin: 12/29/23 07:58 Dose: Not Given Ondansetron HCl (Ondansetron Inj 2 Mg/Ml 2 Ml Vial) 4 mg IV Q6H PRN PRN Reason: Nausea Stop: 01/17/24 16:51 Oxycodone HCl (Oxycodone Hcl Ir 5 Mg Tab (Immediate Release)) 2.5 mg PO Q8 PRN PRN Reason: Severe Pain (Scale 7, 8, 9,10) Stop: 01/01/24 16:51 Polyethylene Glycol (Polyethylene (Miralax) 17 Gm Pack) 17 gm PO DAILY PRN PRN Reason: Constipation Stop: 01/17/24 16:51 Potassium Chloride (Potassium Chloride 20 Meq/15 Ml Udc) 20 meq PO BID NANCY Stop: 01/25/24 20:59 Last Admin: 12/29/23 07:58 Dose: Not Given (2) Pneumonia Pneumonia type: due to unspecified organism (4) Acute renal failure superimposed on stage 3 chronic kidney disease Acute renal failure type: unspecified (5) Rhabdomyolysis Encounter type: initial encounter Rhabdomyolysis type: traumatic Qualified Code(s): T79.6XXA - Traumatic ischemia of muscle, initial encounter (13) Left femoral shaft fracture Encounter type: initial encounter Fracture alignment: displaced Fracture morphology: comminuted Fracture type: closed Qualified Code(s): S72.352A - Displaced comminuted fracture of shaft of left femur, initial encounter for closed fracture
[2023-12-30] MEDS: LORazepam 0.25 MG in SYRINGE 0.125 ML IV PRN (05:28)
[2023-12-30 05:44] LABS: Base Excess ABG 13.9 mEq/L (-9-1.8); HCO3 ABG 35 mmol/L (19-24); Oxygen Saturation ABG 95.4 % (90-95); PCO2 ABG 32 mmHg (35-46); PO2 ABG 63 mmHg (80-95)
[2023-12-30 05:45] LABS: Allen Test Pos (Pos)
[2023-12-30 05:46] LABS: pH ABG 7.65 (7.35-7.45)
[2023-12-30 06:35] LABS: Hematocrit (blood only) 23.3 % (37.0-47.0); Mean Corpuscular Hemoglobin 31.7 pg (25.0-34.0); Mean Corpuscular Hgb Conc 34.3 g/dL (32.0-36.0); Mean Corpuscular Volume 92.5 fL (80.0-100.0); Mean Platelet Volume 12.3 fL (9.4-12.4); Platelet Count 107 K/uL (130-400); RDW Coefficient of Variation 17.5 % (11.5-14.5); RDW Standard Deviation 56.6 fL (36.4-46.3); Red Blood Count 2.52 M/uL (4.20-5.40)
--- NOTE | 2023-12-30 06:59 | XRay Report ---
XR chest 1V portable HISTORY: 88 years-old Female sob acute shortness of breath COMPARISON: 12/23/2023 TECHNIQUE: AP view of the chest FINDINGS: Cardiac silhouette is enlarged. Right IJ catheter distal tip projects over the expected location of t he mid SVC. Mixed interstitial and alveolar opacities are redemonstrated bilaterally, moderately impr jerri from prior. No pneumothorax or large pleural effusion. Unchanged pleural thickening of the lung apices with right apical pleural calcifications. Degenerative changes of the shoulders and spine. IMPRESSION: Persistent mixed interstitial and alveolar opacities, moderately improved from 12/23/2023. ACT 112: Negative or not required by law. The above report was generated using voice recognition software. It may contain grammatical, syntax o r spelling errors. Electronically signed by: Reagan Steve M.D. 12/30/2023 6:58 AM
[2023-12-30 07:03] LABS: BUN Creatinine Ratio 26.4 (10-20); Calcium 9.4 mg/dl (8.6-10.3); Creatinine Clr Calc Pharmacy 9.2 ml/min; Est GFR (African American) 12.1 ml/min; Est GFR (Non-African American) 10.4 ml/min
[2023-12-30 07:04] LABS: Nucleated RBC # (auto) 0.16 K/uL (0.00-0.12); Nucleated RBC % (auto) 0.1 %; White Blood Count 144.95 K/ul (4.8-10.8)
[2023-12-30 07:05] LABS: ALC (manual) 4.35 K/uL (1.2-3.4); ANC (manual) 78.27 K/uL (1.4-6.5); Lymphocytes # (manual) 4.35 K/uL (1.2-3.4); Lymphocytes % (manual) 3 %; Metamyelocytes # (manual) 14.49 K/uL (0-0); Metamyelocytes % (manual) 10 %; Monocytes # (manual) 10.15 K/uL (0.11-0.59); Monocytes % (manual) 7 %; Myelocytes # (manual) 37.69 K/uL (0-0); Myelocytes % (manual) 26 %; Neutrophils # (manual) 78.27 K/uL (1.40-6.50); Neutrophils % (manual) 54 %
[2023-12-30 07:10] LABS: Hypogranular Neutrophils 1+
[2023-12-30] MEDS: CITALOPRAM 20 MG TAB PO SCH (09:04)
--- NOTE | 2023-12-30 13:52 | Surgery Progress Note ---
Date of Service December 30, 2023 Assessment & Plan (1) Periprosthetic fracture around internal prosthetic left knee joint: Plan: 88-year-old female with multiple medical comorbidities now about 11 days out from ORIF and IM nailing of a left periprosthetic femoral fracture. Orthopedically her leg looks great. Wound is healing. There is no signs of infection. It is unclear to me whether she is getting any therapy and is unclear whether she is on palliative care. Plan: At this point I recommend that she start some therapy and has been doing it. They can work on some quad sets, straight leg raises, knee range of motion 0 to 90 degrees. If she does survive this episode we want her leg to work. She can weight-bear as tolerated. Any orthopedic questions can be directly [phone]. Admission and Anticipated Discharge Date Admission Date: December 18, 2023 Subjective 88-year-old female with multiple medical comorbidities now about 11 days out from ORIF and IM nailing of a periprosthetic femur fracture on the left side. She seems to be improving Clinically. She denies any second pain in her left leg. It is unclear to me whether she been working with therapy. Physical Exam Physical Exam: Examination left leg reveals the leg to be well aligned. Her incisions clean dry and intact and appears to be healing appropriately. No drainage. She can dorsiflex and plantarflex her foot appropriately. She has difficulty doing a st raight leg raise. Knee is painful with any range of motion 0 to 90 degrees as she fights this. Results & Data Vital Signs (Past 12 Hours) Vital Signs Temp Pulse Pulse Resp BP Pulse Ox O2 Del Method 12/30/23 12:15 112 H 12/30/23 10:53 High Flow Nasal Cannula 12/30/23 10:49 36.3 C L 93 H 18 109/61 99 High Flow Nasal Cannula 12/30/23 07:30 36.6 C 93 H 18 118/52 L 95 High Flow Nasal Cannula 12/30/23 07:18 128 H 20 98 High Flow Nasal Cannula 12/30/23 05:35 120 H 22 93 High Flow Nasal Cannula 12/30/23 03:05 36.4 C L 100 H 18 133/67 99 Nasal Cannula O2 Flow Rate FiO2 12/30/23 12:15 12/30/23 10:53 12/30/23 10:49 12/30/23 07:30 40 12/30/23 07:18 40 80 12/30/23 05:35 40 90 12/30/23 03:05 7 PG Care Time/CCT Total # of Minutes Spent Total Time Spent with Patient: Total time spent is greater than 50% in coordination of care (as documented) at patient's floor/unit and/or counseling patient: Coding Level of Care Code 55337 Post Operative Follow-Up Diagnoses Periprosthetic fracture around internal prosthetic left knee joint M97.12XA
--- NOTE | 2023-12-30 19:21 | Hospitalist Progress Note ---
Date of Service December 30, 2023 Assessment & Plan (1) Sepsis: (2) Pneumonia: (3) SARS-CoV-2 positive: (4) Acute renal failure superimposed on stage 3 chronic kidney disease: (5) Rhabdomyolysis: (6) Lactic acidosis: (7) High anion gap metabolic acidosis: (8) MDS (myelodysplastic syndrome): (9) Symptomatic anemia: (10) Hyperkalemia: (11) Hypomagnesemia: (12) Elevated troponin: (13) Left femoral shaft fracture: Plan Per admitting service notes with addendum: This is an 88-year-old female who has a significant past medical history of HTN, mitral valve stenosis, rectal prolapse with full incontinence of feces, CKD stage IIIb, transfusion dependent MDS and follows Dr. Trejo who presents to ED after sustaining a fall in her home. Acute respiratory failure, hypoxic COVID-19 pneumonia, possible community-acquired pneumonia Sepsis on admission Patient meets sepsis criteria secondary to leukocytosis, tachycardia, lactic acidosis Blood cultures were obtained in the ED, but this was after administration of antibiotics She received broad-spectrum antibiotics with vancomycin and Rocephin Source: Possible pneumonia given URI symptoms x 1 week and SARS-CoV-2 Obtain MRSA swab was negative for MRSA Antibiotics were changed to IV cefepime and then IV Rocephin and IV Doxy Obtain CT chest for further clarification of possible pneumonia and CT a/p due to abd pain complaints In regards to COVID she currently does not meet criteria for treatment as she is not requiring oxygen Blood and urine cultures are negative so far Remains critical but otherwise stable Discussed with daughter in detail The patient and the daughter do not want any more dialysis knowing the consequences of not having dialysis Plan to continue current aggressive management and see how things go over the next few days Remains weak but otherwise asymptomatic Denies any shortness of breath at rest, denies any significant pain at rest Wants to continue with the current management She has been improving gradually, communicating normally and denies any significant distress at rest Condition has been getting worse since last evening-she has been refusing the care and has not been eating or drinking Every day she knows the consequences of not being eating or drinking or even taking medications Discussed with her about this going home manage or any facility with hospice care and continue to give her medications and support as long as she can accept She was agreeable to that and wanted to be comfortable Discussed with the daughter in the presence and she was accepting mom's decision about her life Has been feeling much better today and has had discussion with the patient 3 times since this morning She has at physical therapy and wants to continue with current management plan She wants to go for dialysis if required as per the wood technologist Discussed with the daughter again and notified the wood technologist Palliative care encounter Appreciate input and recommendation Will continue current management Will discuss with the daughter again about goals of care Appreciate palliative care follow-up She will have dialysis as per her current wish Worsening shortness of breath Desaturated overnight, now requiring 15 L of nonrebreather on 12/22/2023 Repeat chest x-ray: Showed progressive bilateral alveolar opacities and interstitial thickening Lasix 80 mg IV ordered Continue antibiotics, nebs Continue nonrebreather for now Pulmonary service consulted Appreciate pulmonary input and recommendation No shortness of breath at rest and saturating normally on 4 L nasal cannula Shortness of breath is getting better Acute on Chronic CKD 3 baseline cr 2.2-2.4 bun/cr 61 and 3.74 continue blood products/fluids Nephrology service consulted Appreciate nephrology input and recommendation Has had hemodialysis until this afternoon Discussed with the patient and the daughter No more hemodialysis after today The daughter and the patient knows the consequences of not having dialysis Has been making out enough urine and the kidney function remains stable She wanted to have dialysis to be continued-the wood technologist is aware Creatinine slightly worse today-negative balance of 2339 as of 12/28/2023 Kidney function is getting worse gradually and is still making out urine Now she wants to have dialysis MDS Symptomatic Anemia Acute blood loss on chronic anemia associated with MDS Pt follows Dr. Trejo; She is transfusion dependent, last was 2 weeks ago h/h 5.6 and 17.6 She has been type and cross 2 units, she has received 2 units before without any difficulty, no prior transfusion reaction Repeat H&H after blood products, goal hemoglobin greater than [address] Trejo secondary to thrombocytopenia Dr. Trejo recommends holding hydroxyurea due to underlying sepsis Would reach out to Dr. Trejo in next 1 to 2 days regarding further guidance in her MDS Dr. 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 Will continue with current management Prognosis remains poor Monitor closely Heparin SC BID for DVT prophylaxis- monitor Plts Lactic acidosis High anion gap metabolic acidosis, 18 Suspect related to severe anemia, volume depletion, sepsis and rhabdomyolysis Expect to improve with improvement of above Will trend until resolved Repeat BMP, lactate at 1900 Resolved Elevated troponin No chest pain, ischemic ecg change Suspect demand ischemia in setting of sepsis, rhabdo Troponin improved from 56-50, EKG no signs of acute ischemia or infarct Echocardiogram reviewed: Mild to moderate mitral stenosis Discussed with cardiology service as well Rhabdomyolysis non traumatic, on ground for 7 hours after fall CK 1054 IVF and blood products ordered Follow renal fxn and CK CPK improved to 500s Hyperkalemia /hypokalemia 2/2 to rhabdo, CKD Lokelma 10mg TID Monitor bmp Potassium replaced and will recheck Potassium 4.5 Hypomagnesemia Mag 1.3, replace Repeat mag @ 1900 Replaced Mechanical fall in setting of dizziness Comminuted displaced fracture of the distal shaft of left femur Patient follows with [facility] Ortho Dr. Knutson aware of patient Plan is for surgical fixation once medically stable Knee brace, bed rest, ICE TID Scheduled Tylenol Oxy IR 2.5mg PRN for Severe pain Daughter does not want her to have any strong narcotic without discussing with her check vitamin D level 5/3 Patient high risk for cardiopulmonary complications in light of patient's advanced age, multiple comorbidities as outlined above Discussed at length in detail with patient and her daughter, they verbalized understanding agreement of risks involved with planned surgery, they are agreeable to proceed with planned orthopedic surgery today No medical contraindication at this point to proceed with the necessary orthopedic surgery to address left humeral fracture Will optimize patient and carefully monitor patient perioperatively Rectal prolapse Pt is planning to get colostomy in near future due to prolapse Hard of Hearing Pt is 100% alert and oriented and mentally capable She watches her 4 year old grandson She is very hard of hearing and according to daughter will shake her head, yes even if she doesnt hear Daughter encourage to speak loudly and slowly Monitor for delirium given age DVT ppx: Heparin subcu every 12 FULL CODE -DNR/DNI now PCP: Dr. Palomares Dispo: PT OT evaluation Discussed in detail with the daughter and the patient herself Clearly they do not want any more dialysis to be provided knowing the consequences of not having dialysis Plan to continue with the current aggressive management including monitoring of blood counts and if needed give transfusion Prognosis remains poor Patient is DNR/DNI Remains DNR and DNI but the patient wants to continue with the dialysis Palliative care consulted-appreciate input and recommendation Now the patient wants to continue with hemodialysis if needed-12/30/2023 Admission and Anticipated Discharge Date Admission Date: December 18, 2023 Subjective 12/24/2023 The patient was seen and examined in telemetry unit in the presence of the daughter She has not been feeling well and does not want to live any longer Does not want to keep up with the BiPAP and does not want any more dialysis Not in any acute distress or pain 12/25/2023 The patient was seen and examined in telemetry and She has been a little better today Trying to communicate Could not tolerate BiPAP Denies any significant pain 12/26/2023 The patient was seen and examined in telemetry unit in presence of the daughter She has been feeling much better and is out of bed on a chair Denies minimal pain involving the left lower extremity Still has shortness of breath without any chest pain and/or palpitation Now she wants to have dialysis 12/27/2023 The patient was seen and examined in telemetry unit She has been out of bed on a chair Remains lethargic but denies any significant symptoms No shortness of breath at rest, no fever or chill , no nausea and or vomiting 12/28/2023 The patient was seen and examined in telemetry unit She has been stable and feeling a little better compared with yesterday Denies any shortness of breath at rest and has been requiring 2 L to maintain saturation Denies any significant pain No fever and or chills no cough 12/29/2023 The patient was seen and examined in telemetry unit alone and later in presence of the daughter She remains very weak and lethargic and does not want to continue with the current management She has not been eating or drinking enough Remains profoundly weak Refusing her medications and knows the consequences of not taking medications,eating and drinking 12/30/2023 The patient was seen and examined in telemetry unit She has been feeling much better today Has had physical therapy Denies any significant symptoms at rest She wants to try dialysis again if required Review of Systems Review of Systems: All systems reviewed and are unremarkable except as noted below Physical Exam Physical Exam: Lying in bed with minimal shortness of breath Constitutional: + ill appearing and average body habitus Eyes: PERRL, conjunctivae normal, anicteric sclerae ENMT: external ear and nose normal, oropharynx normal Neck: trachea midline, no thyromegaly Respiratory: no respiratory distress Auscultation: + diminished lung sounds and + crackles (Bibasilar crackles) Cardiovascular: Rate/Rhythm: regular rate and regular rhythm; not tachycardic Heart Sounds: normal S1 and normal S2; no murmur Extremities: no edema Gastrointestinal (Abdomen): Inspection/Auscultation: normal bowel sounds; abdomen not distended Percussion/Palpation: abdomen soft; abdomen nontender Neurologic: normal touch/pain/proprioception and moves all extremities Lymphatic: no cervical or axillary lymphadenopathy Results & Data Results & Data Vital Signs (Past 12 Hours) Vital Signs Temp Pulse Pulse Resp BP Pulse Ox O2 Del Method 12/30/23 15:35 107 H 12/30/23 15:01 36.3 C L 85 20 117/65 96 High Flow Nasal Cannula 12/30/23 14:33 110 H 18 96 High Flow Nasal Cannula 12/30/23 12:15 112 H 12/30/23 10:53 High Flow Nasal Cannula 12/30/23 10:49 36.3 C L 93 H 18 109/61 99 High Flow Nasal Cannula 12/30/23 07:30 36.6 C 93 H 18 118/52 L 95 High Flow Nasal Cannula 12/30/23 07:18 128 H 20 98 High Flow Nasal Cannula O2 Flow Rate FiO2 12/30/23 15:35 12/30/23 15:01 12/30/23 14:33 40 80 12/30/23 12:15 12/30/23 10:53 12/30/23 10:49 12/30/23 07:30 40 12/30/23 07:18 40 80 Laboratory Results Short CBC 12/30/23 Range/Units 05:36 WBC 144.95 H* (4.8-10.8) K/ul Hgb 8.0 L (12.0-16.0) g/dl Hct 23.3 L (37.0-47.0) % Plt Count 107 L (130-400) K/uL BMP 12/30/23 05:36 Sodium 147 H Potassium 4.0 Chloride 96 L Carbon Dioxide 33 H BUN 97 H Creatinine 3.67 H D Glucose 134 H Calcium 9.4 Medications Administered Current Inpatient Medications Acetaminophen (Acetaminophen 500 Mg Tab) 1,000 mg PO Q8H [facility] Stop: 01/17/24 21:59 Last Admin: 12/30/23 14:09 Dose: 1,000 mg Al Hydrox/Mg Hydrox/Simethicone (Aluminum/Magnesium Susp 30 Ml Udc) 15 ml PO Q4H PRN PRN Reason: Dyspepsia Stop: 01/17/24 16:51 Last Admin: 12/23/23 12:05 Dose: 15 ml Allopurinol (Allopurinol 300 Mg Tab) 300 mg PO QAM [facility] Stop: 01/18/24 08:59 Last Admin: 12/30/23 09:04 Dose: 300 mg Benzonatate (Benzonatate 100 Mg Capsule) 100 mg PO TID PRN PRN Reason: Cough Stop: 01/21/24 04:41 Last Admin: 12/27/23 21:27 Dose: 100 mg Citalopram Hydrobromide (Citalopram 20 Mg Tab) 20 mg PO QAM [facility] Stop: 01/29/24 08:59 Last Admin: 12/30/23 09:04 Dose: 20 mg Ergocalciferol (Ergocalciferol 1250 Mcg (50,000 Units) Cap) 1,250 mcg PO Sa@0900 [facility] Stop: 01/19/24 13:29 Last Admin: 12/27/23 08:57 Dose: 1,250 mcg Furosemide (Furosemide 40 Mg/4 Ml Vial) 80 mg IV Q8H [facility] Stop: 01/26/24 16:29 Last Admin: 12/30/23 16:25 Dose: 80 mg Heparin Sodium (Porcine) (Heparin Sod 5,000 Unit/0.5 Ml Vial) 5,000 units SQ Q12 NANCY Stop: 01/21/24 08:59 Last Admin: 12/30/23 09:04 Dose: 5,000 units Hydroxyurea (Hydroxyurea 500 Mg Cap) 500 mg PO [id number]@0900 [facility] Stop: 01/28/24 08:59 Last Admin: 12/30/23 09:05 Dose: 500 mg Dexamethasone 6 mg/ Syringe 1.5 mls @ 1 mls/min IV DAILY NANCY Stop: 01/01/24 12:29 Last Admin: 12/30/23 09:08 Dose: 1 mls/min Lorazepam 0.25 mg/ Syringe 0.25 mls @ 2 mls/min IV Q4H PRN PRN Reason: Anxiety/Agitation Stop: 01/23/24 19:14 Last Admin: 12/30/23 05:28 Dose: 2 mls/min Magnesium Hydroxide (Magnesium Hydroxide Susp 30 Ml Udc) 30 ml PO Q12H PRN PRN Reason: Constipation Stop: 01/17/24 16:51 Multivitamins/Minerals (Cerovite Adv Formula Tab) 1 tab PO BID [facility] Stop: 01/17/24 20:59 Last Admin: 12/30/23 09:05 Dose: 1 tab Ondansetron HCl (Ondansetron Inj 2 Mg/Ml 2 Ml Vial) 4 mg IV Q6H PRN PRN Reason: Nausea Stop: 01/17/24 16:51 Oxycodone HCl (Oxycodone Hcl Ir 5 Mg Tab (Immediate Release)) 2.5 mg PO Q8 PRN PRN Reason: Severe Pain (Scale 7, 8, 9,10) Stop: 01/01/24 16:51 Polyethylene Glycol (Polyethylene (Miralax) 17 Gm Pack) 17 gm PO DAILY PRN PRN Reason: Constipation Stop: 01/17/24 16:51 Potassium Chloride (Potassium Chloride 20 Meq/15 Ml Udc) 20 meq PO BID NANCY Stop: 01/25/24 20:59 Last Admin: 12/30/23 09:05 Dose: 20 meq (2) Pneumonia Pneumonia type: due to unspecified organism (4) Acute renal failure superimposed on stage 3 chronic kidney disease Acute renal failure type: unspecified (5) Rhabdomyolysis Encounter type: initial encounter Rhabdomyolysis type: traumatic Qualified Code(s): T79.6XXA - Traumatic ischemia of muscle, initial encounter (13) Left femoral shaft fracture Encounter type: initial encounter Fracture alignment: displaced Fracture morphology: comminuted Fracture type: closed Qualified Code(s): S72.352A - Displaced comminuted fracture of shaft of left femur, initial encounter for closed fracture
--- NOTE | 2023-12-31 10:32 | Nephrology Progress Note ---
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 however for now dialysis not needed on admission 12/17 creatinine was 3.7; it trended down to rupal 3 on 12/18 and plateau'd mid 3s; peaked at 4.1 12/22 w/ aggressive diuretics. making adequate urine on diuretics; had 2 dialysis txs mostly to control volume and acidosis and then 12/24 declined further txs b/c too exhausting; 12/25 reverses course and willing to dialyze again given her age and pre-existing CKD 4 she may not have enough renal recovery or very delayed recovery. cause of ABA is ATN in the setting of covid/sepsis; do not believe CK was high enough for rhabdo to be a real factor. no indication for dialysis today. increase in creat since yesterday though will need to be monitored. I did tell her that doing dialysis in her case at this advanced age/Comorbid Dz does not add much to quantity of life and makes the quality lot worse. She clearly said she does not want to live if she cannot be in good health. She competently said she wants to go home and . barely any Po intake. Not convinced she has major fluid overload at this time. So will stop iv lasix and kcl. will follow to see if it makes any improvement in renal function. . make sure to maintain hemoglobin at least in mid 7s as she is very prone to develop severe anemia > daily cbc ordered cont 1.5 L FR for now patient is not confused and clearly telling she does not want any further in tervention so will have to respect her wishes. no dialysis needed today and even if she were to need it will respect her wish and no plan for dialysis. (2) Left femoral shaft fracture: Plan: s/p nailing procedure this admission (3) SARS-CoV-2 positive: Plan: Noted and major cause of her breathing issue Case complex. time spent in discussion and care management 1hr 20 mins. I have made multiple phone calls to Fawn her daughter and have left message in her voicemail. also discussed with hospitalist service. Subjective Appears depressed and says no pain. making urine. BP is normal. She is angry and irritable. clearly says she does not want to live anymore and wants to go home and . she does not want any further intervention at all. Review of Systems Review of Systems: All systems reviewed & are unremarkable except as noted in Subjective Physical Exam Constitutional: well developed, + altered mental status, + frail appearing and cooperative; no acute distress Eyes: EOM intact bilaterally ENMT: Ears: + hearing impairment; no external ear abnormality Nose: no external nose abnormality Mouth: + dry oral mucous membranes Neck: no nuchal rigidity Respiratory: normal respiratory effort Auscultation: + diminished lung sounds Cardiovascular: Rate/Rhythm: regular rate and regular rhythm Extremities: no edema Gastrointestinal (Abdomen): Inspection/Auscultation: normal bowel sounds Percussion/Palpation: abdomen soft; abdomen nontender Musculoskeletal: Extremities: strength 5/5 throughout Skin: no rashes, warm and dry Psychiatric: Orientation: alert, oriented x 3 (but still unreliable), oriented to person and oriented to place Results & Data Vital Signs (Past 12 Hours) Vital Signs Temp Pulse Pulse Resp BP BP Pulse Ox 12/31/23 07:25 36.5 C 91 H 22 123/59 L 88 L 12/31/23 07:03 80 20 93 12/31/23 03:45 98 H 20 97 12/31/23 02:29 36.5 C 75 20 126/65 95 12/30/23 23:00 88 12/30/23 22:52 36.4 C L 97 H 16 122/69 96 O2 Del Method O2 Flow Rate FiO2 12/31/23 07:25 High Flow Nasal Cannula 12/31/23 07:03 High Flow Nasal Cannula 35 50 12/31/23 03:45 High Flow Nasal Cannula 35 60 12/31/23 02:29 High Flow Nasal Cannula 12/30/23 23:00 12/30/23 22:52 High Flow Nasal Cannula 35 60
[2023-12-31 14:52] LABS: Hematocrit (blood only) 22.4 % (37.0-47.0); Hemoglobin 7.5 g/dl (12.0-16.0); Mean Corpuscular Hemoglobin 30.9 pg (25.0-34.0); Mean Corpuscular Hgb Conc 33.5 g/dL (32.0-36.0); Mean Corpuscular Volume 92.2 fL (80.0-100.0); Mean Platelet Volume 12.4 fL (9.4-12.4); Nucleated RBC # (auto) 0.13 K/uL (0.00-0.12); Nucleated RBC % (auto) 0.1 %; Platelet Count 106 K/uL (130-400); RDW Coefficient of Variation 17.7 % (11.5-14.5); RDW Standard Deviation 55.8 fL (36.4-46.3); Red Blood Count 2.43 M/uL (4.20-5.40); White Blood Count 143.19 K/ul (4.8-10.8)
[2023-12-31 15:06] LABS: BUN Creatinine Ratio 29.3 (10-20); Calcium 9.2 mg/dl (8.6-10.3); Creatinine Clr Calc Pharmacy 8.2 ml/min; Est GFR (African American) 11.7 ml/min; Est GFR (Non-African American) 10.1 ml/min; Magnesium 1.7 mg/dl (1.7-2.4); Phosphorus 4.9 mg/dl (2.5-4.9); Potassium 4.7 mmol/L (3.5-5.1)
--- NOTE | 2023-12-31 17:21 | Hospitalist Progress Note ---
Date of Service December 31, 2023 Assessment & Plan (1) Sepsis: (2) Pneumonia: (3) SARS-CoV-2 positive: (4) Acute renal failure superimposed on stage 3 chronic kidney disease: (5) Rhabdomyolysis: (6) Lactic acidosis: (7) High anion gap metabolic acidosis: (8) MDS (myelodysplastic syndrome): (9) Symptomatic anemia: (10) Hyperkalemia: (11) Hypomagnesemia: (12) Elevated troponin: (13) Left femoral shaft fracture: Plan 88-year-old female who has a significant past medical history of HTN, mitral valve stenosis, rectal prolapse with full incontinence of feces, CKD stage IIIb, transfusion dependent MDS and follows Dr. Trejo who presents to ED after sustaining a fall in her home. She is being managed for the following: Acute respiratory failure, hypoxic COVID-19 pneumonia, possible community-acquired pneumonia Sepsis on admission Patient met sepsis criteria secondary to leukocytosis, tachycardia, lactic acidosis Source: Possible pneumonia given URI symptoms x 1 week and SARS-CoV-2 MRSA negative. Status post antibiotic course per prior documentation. Pulm evaled, was also put on dexamethasone. Blood culture no growth, patient with occasional cough with scant sputum. Latest CXR from 12/29 with persistent mixed interstitial and alveolar opacities, moderately improved from 12/23/2023. Currently requiring very high O2, wean down as tolerated. Remains weak w/ poor appeptite. Remeron added w/ discussion w/ patient and dtr. Was initially thinking of being comfort status but later on thought she would try and see how she does today. Pt refusing care on and off; has been changing her mind. she does appear competent and understands her situation. She doesn't want dialysis as per today's discussion. Goals of care discussion: Ongoing need as patient states that she will decide regarding her level of care on a day-to-day basis. Would like to try Remeron and see if it improves her appetite. states that she is already feeling uncomfortable due to high flow nasal cannula. But she wants to continue to try it today and see how she does tomorrow. Palliative care On board. acute on chronic CKD stage III: Baseline creatinine about 2.2-2.4, creatinine of 3.5 and uptrending. Nephrology on board, patient does not want dialysis, Lasix discontinued today. Labs in AM. MDS Symptomatic Anemia Acute blood loss on chronic anemia associated with MDS Pt follows Dr. Trejo; She is transfusion dependent, last was 2 weeks ago h/h 5.6 and 17.6 at presentation with intermittent drop in hb Status post 5 unit PRBC transfusion. Prior attending discussed with Dr. Trejo, resumed hydroxyurea as WBC was uptrending. Keep hemoglobin around mid 7. Transfuse as needed. Lactic acidosis High anion gap metabolic acidosis, 18 Suspect related to severe anemia, volume depletion, sepsis and rhabdomyolysis Resolved Elevated troponin: No chest pain, No ischemic ecg change. Suspect demand ischemia in setting of sepsis, rhabdo. Echocardiogram reviewed. Rhabdomyolysis non traumatic, on ground for 7 hours after fall. Resolved. Hyperkalemia /hypokalemia: Likely secondary to rhabdo. Stable. Mechanical fall in setting of dizziness Comminuted displaced fracture of the distal shaft of left femur Status post left femoral periprosthetic fracture retrograde intramedullary nail 12/19/2023. Patient to follow-up with orthopedic if recovers from current situation. Pain management. Rectal prolapse : Pt is planning to get colostomy in near future due to prolapse Hard of Hearing Pt is 100% alert and oriented and mentally capable She watches her 4 year old grandson She is very hard of hearing and according to daughter will shake her head, yes even if she doesnt hear Daughter encourage to speak loudly and slowly Monitor for delirium given age DVT ppx: Heparin subcu every 12 FULL CODE -DNR/DNI now PCP: Dr. Palomares Dispo: PT OT evaluation, ongoing eval for goals of care. Pt and dtr aware of poor prognosis and they are acknowledge the fact. Admission and Anticipated Discharge Date Admission Date: December 18, 2023 Subjective Patient was seen and examined at bedside. Patient was lying in bed, on high flow oxygen at 35 L/min. Does not appear to be in acute distress. Patient is alert and oriented and appears competent. Patient states that she does not want dialysis. Patient states that she would like to go home and be comfortable. But she would like to see how she does today and would like to try Remeron if it helps increase her appetite. Patient has poor appetite. Patient's daughter at bedside was also updated on plan of care. Patient and her daughter are both aware of the poor prognosis and patient states that she will decide on her level of care on a day-to-day basis. Pt has occasional cough w/ no to scant sputum per pt. Physical Exam Physical Exam: GENERAL: Alert and oriented x3. NAD, on 35L O2 via HFNC. Appears lean/thin/frail/weak. HEENT: No pallor, no icterus. Pupils equal, round and reactive to light. Oral mucosa moist. NECK: No JVD, no neck masses. HEART: S1 and S2 heard. Regular rate and rhythm. No murmur, no gallop. RESPIRATORY SYSTEM: Normal AP diameter. No accessory muscle use. No wheezing, bb crackles. ABDOMEN: Soft, bowel sounds present, nontender, no distention. CENTRAL NERVOUS SYSTEM: No facial droop. Speech is clear. Obeys simple commands. Moves extremities. EXTREMITIES: No edema, no erythema seen. left hip dressing c/d/i. Results & Data Results & Data Vital Signs (Past 12 Hours) Vital Signs Temp Pulse Pulse Resp BP BP Pulse Ox 12/31/23 15:25 36.4 C L 98 H 20 137/72 94 12/31/23 14:30 36.7 C 95 H 18 111/63 91 12/31/23 14:14 36.7 C 90 18 118/71 91 12/31/23 14:00 88 20 94 12/31/23 11:05 36.4 C L 103 H 22 95/58 L 91 12/31/23 09:00 84 12/31/23 09:00 12/31/23 07:25 36.5 C 91 H 22 123/59 L 88 L 12/31/23 07:03 80 20 93 O2 Del Method O2 Flow Rate FiO2 12/31/23 15:25 High Flow Nasal Cannula 12/31/23 14:30 Nasal Cannula 12/31/23 14:14 Nasal Cannula 12/31/23 14:00 High Flow Nasal Cannula 35 50 12/31/23 11:05 High Flow Nasal Cannula 12/31/23 09:00 12/31/23 09:00 High Flow Nasal Cannula 35 50 12/31/23 07:25 High Flow Nasal Cannula 12/31/23 07:03 High Flow Nasal Cannula 35 50 (2) Pneumonia Pneumonia type: due to unspecified organism (4) Acute renal failure superimposed on stage 3 chronic kidney disease Acute renal failure type: unspecified (5) Rhabdomyolysis Encounter type: initial encounter Rhabdomyolysis type: traumatic Qualified Code(s): T79.6XXA - Traumatic ischemia of muscle, initial encounter (13) Left femoral shaft fracture Encounter type: initial encounter Fracture alignment: displaced Fracture morphology: comminuted Fracture type: closed Qualified Code(s): S72.352A - Displaced comminuted fracture of shaft of left femur, initial encounter for closed fracture
[2023-12-31] MEDS: MIRTAZAPINE TAB 15 MG TAB PO SCH (20:00)
[2024-01-01 07:53] LABS: BUN Creatinine Ratio 30.5 (10-20); Calcium 9.1 mg/dl (8.6-10.3); Creatinine Clr Calc Pharmacy 7.6 ml/min; Est GFR (African American) 10.8 ml/min; Est GFR (Non-African American) 9.3 ml/min; Phosphorus 6.4 mg/dl (2.5-4.9); Potassium 4.5 mmol/L (3.5-5.1)
[2024-01-01 08:12] LABS: Hematocrit (blood only) 21.2 % (37.0-47.0); Hemoglobin 7.1 g/dl (12.0-16.0); Mean Corpuscular Hemoglobin 31.3 pg (25.0-34.0); Mean Corpuscular Hgb Conc 33.5 g/dL (32.0-36.0); Mean Corpuscular Volume 93.4 fL (80.0-100.0); Mean Platelet Volume 12.7 fL (9.4-12.4); Nucleated RBC # (auto) 0.17 K/uL (0.00-0.12); Nucleated RBC % (auto) 0.1 %; Platelet Count 94 K/uL (130-400); RDW Coefficient of Variation 17.6 % (11.5-14.5); RDW Standard Deviation 56.5 fL (36.4-46.3); Red Blood Count 2.27 M/uL (4.20-5.40); White Blood Count 136.67 K/ul (4.8-10.8)
[2024-01-01] MEDS ORDERED: SODIUM CHLORIDE 0.9% 250 ML IV PRN (08:24)
--- NOTE | 2024-01-01 10:11 | Nephrology Progress Note ---
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 however for now dialysis not needed on admission 12/17 creatinine was 3.7; it trended down to rupal 3 on 12/18 and plateau'd mid 3s; peaked at 4.1 12/22 w/ aggressive diuretics. making adequate urine on diuretics; had 2 dialysis txs mostly to control volume and acidosis and then 12/24 declined further txs b/c too exhausting; 12/25 reverses course and willing to dialyze again given her age and pre-existing CKD 4 she may not have enough renal recovery or very delayed recovery. cause of ABA is ATN in the setting of covid/sepsis; do not believe CK was high enough for rhabdo to be a real factor. no indication for dialysis today. increase in creat since yesterday though will need to be monitored. I did tell her that doing dialysis in her case at this advanced age/Comorbid Dz does not add much to quantity of life and makes the quality lot worse. She clearly said she does not want to live if she cannot be in good health. She competently said she wants to go home and . barely any Po intake. Not convinced she has major fluid overload at this time. So did stop iv lasix and kcl. But she did get lasix yesterday. will follow to see if it makes any improvement in renal function. make sure to maintain hemoglobin at least in mid 7s as she is very prone to develop severe anemia > daily cbc ordered cont 1.5 L FR for now patient is not confused and clearly telling she does not want any further intervention so will have to respect her wishes. no dialysis needed today and even if she were to need it will respect her wish and no plan for dialysis. temp HD cath removal. (2) Left femoral shaft fracture: Plan: s/p nailing procedure this admission (3) SARS-CoV-2 positive: Plan: Noted and major cause of her breathing issue Did get to talk with her daughter Fawn and she also agrees with no dialysis. plan for cath removal. also discussed with hospitalist service. Subjective Appears depressed and says no pain. making urine. BP is normal. She is angry and irritable. clearly says she does not want to live anymore and wants to go home and . she does not want any further intervention at all. Review of Systems Review of Systems: All systems reviewed & are unremarkable except as noted in Subjective Physical Exam Constitutional: well developed, + altered mental status, + frail appearing and cooperative; no acute distress Eyes: EOM intact bilaterally ENMT: Ears: + hearing impairment; no external ear abnormality Nose: no external nose abnormality Mouth: + dry oral mucous membranes Neck: no nuchal rigidity Respiratory: normal respiratory effort Auscultation: + diminished lung sounds Cardiovascular: Rate/Rhythm: regular rate and regular rhythm Extremities: no edema Gastrointestinal (Abdomen): Inspection/Auscultation: normal bowel sounds Percussion/Palpation: abdomen soft; abdomen nontender Musculoskeletal: Extremities: strength 5/5 throughout Skin: no rashes, warm and dry Psychiatric: Orientation: alert, oriented x 3 (but still unreliable), oriented to person and oriented to place Results & Data Vital Signs (Past 12 Hours) Vital Signs Temp Pulse Pulse Pulse Resp BP Pulse Ox 01/01/24 08:00 100 H 20 97 01/01/24 07:35 36.4 C L 91 H 20 122/73 97 01/01/24 03:10 102 H 18 93 01/01/24 02:28 36.5 C 95 H 18 149/71 H 98 12/31/23 23:00 104 H 12/31/23 22:51 106 H 18 93 12/31/23 22:42 36.4 C L 104 H 18 123/76 95 O2 Del Method O2 Flow Rate FiO2 01/01/24 08:00 Nasal Cannula 6 01/01/24 07:35 High Flow Nasal Cannula 35 50 01/01/24 03:10 High Flow Nasal Cannula 35 50 01/01/24 02:28 High Flow Nasal Cannula 35 50 12/31/23 23:00 12/31/23 22:51 High Flow Nasal Cannula 35 50 12/31/23 22:42 High Flow Nasal Cannula 36 50
[2024-01-01] MEDS: ACETAMINOPHEN 325 MG TAB PO ONE (12:58)
[2024-01-01 15:50] LABS: iSTAT Arterial Blood Gas HCO3 19 meg/L (19-24); iSTAT Arterial Blood Gas pCO2 32 mmHg (35-46); iSTAT Arterial Blood Gas pH 7.38 (7.35-7.45); iSTAT Arterial Blood Gas pO2 416 mmHg (80-95); iSTAT Carbon Dioxide 20 mmol/L (24-31); iSTAT Hematocrit 27 % (37-47); iSTAT Hemoglobin 9.2 g/dl (12.0-16.0); iSTAT Potassium 4.6 mmol/L (3.3-5.0); iSTAT Sodium 137 mmol/L (135-144)
--- NOTE | 2024-01-01 15:57 | XRay Report ---
XR chest 1V portable HISTORY: 88 years-old Female resp distress acute respiratory distress COMPARISON: 12/30/2023 TECHNIQUE: AP view of the chest FINDINGS: Cardiac silhouette is enlarged. Interval removal of the previously noted right IJ catheter. Mixed int erstitial and alveolar opacities are redemonstrated bilaterally, mildly improved from prior. No pneum othorax or large pleural effusion. Unchanged pleural thickening of the lung apices with right apical pleural calcifications. Degenerative changes of the shoulders and spine. IMPRESSION: 1. Continued improvement of the mixed interstitial and alveolar opacities. 2. Status post removal of the right IJ catheter. ACT 112: Negative or not required by law. The above report was generated using voice recognition software. It may contain grammatical, syntax o r spelling errors. Electronically signed by: Reagan Steve M.D. 01/01/2024 3:56 PM
[2024-01-01] MEDS: ALBUMIN 25% 25 GM/100 ML VIAL IV ONE (16:00)
[2024-01-01] MEDS: SODIUM CHLORIDE 0.9% 500 ML IV SCH (16:01)
[2024-01-01 16:02] LABS: Hematocrit (blood only) 24.5 % (37.0-47.0); Mean Corpuscular Hemoglobin 30.4 pg (25.0-34.0); Mean Corpuscular Hgb Conc 32.7 g/dL (32.0-36.0); Mean Corpuscular Volume 93.2 fL (80.0-100.0); Mean Platelet Volume 12.9 fL (9.4-12.4); Nucleated RBC # (auto) 0.56 K/uL (0.00-0.12); Nucleated RBC % (auto) 0.3 %; Platelet Count 100 K/uL (130-400); RDW Coefficient of Variation 17.6 % (11.5-14.5); RDW Standard Deviation 55.9 fL (36.4-46.3); Red Blood Count 2.63 M/uL (4.20-5.40); White Blood Count 170.41 K/ul (4.8-10.8)
[2024-01-01 16:09] LABS: Albumin Globulin Ratio 1.3 (0.9-2); Albumin Level 3.4 gm/dl (3.4-5.0); BUN Creatinine Ratio 27.3 (10-20); Bilirubin,Total 1.1 mg/dl (0.2-1.0); Calcium 9.2 mg/dl (8.6-10.3); Creatinine Clr Calc Pharmacy 6.8 ml/min; Est GFR (African American) 9.5 ml/min; Est GFR (Non-African American) 8.2 ml/min; Globulin 2.7 gm/dl (2.5-4.0); Magnesium 2.2 mg/dl (1.7-2.4); Potassium 5.2 mmol/L (3.5-5.1); Total Protein 6.1 gm/dl (6.0-8.3)
[2024-01-01 16:24] LABS: Troponin I High Sensitivity 90.7 pg/ml (0-14)
--- NOTE | 2024-01-01 16:59 | Communication Note ---
Date of Service: January 01, 2024 I was paged later in the afternoon by RN for acute desaturation and low blood pressure/tachycardia. patient was immediately evaluated at bedside. Patient Reported difficulty breathing, SpO2 was not obtainable from pulse ox and was varying between 40s to 90s. Patient was put on high flow and then BiPAP. ABG was drawn which revealed good oxygenation. Finally patient was put on forehead pulse ox monitor which was able to accurately reflect measurements and titrated down to high flow oxygen from BiPAP. Patient denied any chest pain, patient was oriented, systolic blood pressure was in 40s. Patient was given 1 L fluid of which 500 mL was bolus and rest at 60 mL an hour. Patient was given IV albumin. Blood pressure improved With SBP's in the 90s to 80s. Checks x-ray was done, no acute abnormality. On examination, patient had good lung sounds, minimal crackles. Procalcitonin was negative. Lab reveals uptrending WBC likely secondary to acute distress versus her underlying MDS worsening. Also revealed worsening renal function. Goals of care discussion was held with patient and her daughter. Her daughter was updated over the phone twice. Both daughter and the patient want to continue current level of care for now, does not want to move into comfort care measures yet, does not want to be transferred to ICU/does not want pressor support or intubation. Patient does state that if she were to acutely deteriorate again, she would like to moved along the lines of comfort measures and would like her daughter be notified. patient was again seen at bedside about half an hour later when goals of care discussion was actually held when patient was feeling more comfortable, patient now on high flow oxygen, feels comfortable. Total critical care time spent 50 minutes
--- NOTE | 2024-01-01 17:09 | Hospitalist Progress Note ---
Date of Service January 01, 2024 Assessment & Plan (1) Sepsis: (2) Pneumonia: (3) SARS-CoV-2 positive: (4) Acute renal failure superimposed on stage 3 chronic kidney disease: (5) Rhabdomyolysis: (6) Lactic acidosis: (7) High anion gap metabolic acidosis: (8) MDS (myelodysplastic syndrome): (9) Symptomatic anemia: (10) Hyperkalemia: (11) Hypomagnesemia: (12) Elevated troponin: (13) Left femoral shaft fracture: Plan 88-year-old female who has a significant past medical history of HTN, mitral valve stenosis, rectal prolapse with full incontinence of feces, CKD stage IIIb, transfusion dependent MDS and follows Dr. Trejo who presents to ED after sustaining a fall in her home. She is being managed for the following: Acute respiratory failure, hypoxic COVID-19 pneumonia, possible community-acquired pneumonia Sepsis on admission Patient met sepsis criteria secondary to leukocytosis, tachycardia, lactic acidosis Source: Possible pneumonia given URI symptoms x 1 week and SARS-CoV-2 MRSA negative. Status post antibiotic and dexamethasone course per prior documentation. Pulm evaled. Blood culture no growth, patient with occasional cough with scant sputum. Latest CXR from 12/29 and 12/31 with persistent mixed interstitial and alveolar opacities, moderately improved. Currently requiring very high O2, wean down as tolerated. Remains weak w/ poor appeptite. Remeron added 12/30. Acute event 12/31 (refer to communication note). Pt doesn't want dialysis, pressor support/icu support/ng feed/artifical feed as of now. Goals of care discussion: Ongoing need as patient states that she will decide regarding her level of care on a day-to-day basis. Would like to try Remeron and see if it improves her appetite. states that she is already feeling uncomfortable due to high flow nasal cannula. Palliative care On board. acute on chronic CKD stage III: Baseline creatinine about 2.2-2.4, creatinine of 3.5 and uptrending. Nephrology on board, patient does not want dialysis, Lasix discontinued. Labs in AM. MDS Symptomatic Anemia Acute blood loss on chronic anemia associated with MDS Pt follows Dr. Trejo; She is transfusion dependent, last was 2 weeks ago h/h 5.6 and 17.6 at presentation with intermittent drop in hb Status post 5 unit PRBC transfusion. Prior attending discussed with Dr. Trejo, resumed hydroxyurea as WBC was uptrending. Keep hemoglobin around mid 7. Transfuse as needed. Lactic acidosis High anion gap metabolic acidosis, 18 Suspect related to severe anemia, volume depletion, sepsis and rhabdomyolysis Resolved Elevated troponin: No chest pain, No ischemic ecg change. Suspect demand ischemia in setting of sepsis, rhabdo. Echocardiogram reviewed. Rhabdomyolysis non traumatic, on ground for 7 hours after fall. Resolved. Hyperkalemia /hypokalemia: Likely secondary to rhabdo. Stable. Mechanical fall in setting of dizziness Comminuted displaced fracture of the distal shaft of left femur Status post left femoral periprosthetic fracture retrograde intramedullary nail 12/19/2023. Patient to follow-up with orthopedic if recovers from current situation. Pain management. Rectal prolapse : Pt is planning to get colostomy in near future due to prolapse Hard of Hearing Pt is 100% alert and oriented and mentally capable She watches her 4 year old grandson She is very hard of hearing and according to daughter will shake her head, yes even if she doesnt hear Daughter encourage to speak loudly and slowly Monitor for delirium given age DVT ppx: Heparin subcu every 12 FULL CODE -DNR/DNI now PCP: Dr. Palomares Dispo: PT OT evaluation, ongoing eval for goals of care. Pt and dtr aware of poor prognosis and they acknowledge the fact. Admission and Anticipated Discharge Date Admission Date: December 18, 2023 Subjective Patient was seen and examined at bedside. in the morning patient was sitting up in chair, utilizing 6 L oxygen, NAD, but not feeling great per patient. Patient continues to have poor appetite, would not like NG tube feeding Or a rtificial feeding. Patient denies chest pain or other complaints. Patient continues to decline aggressive care including dialysis/ICU support/pressure support/intubation. Later in the day patient had acute desaturation, refer to today's communication note. Physical Exam Physical Exam: GENERAL: Alert and oriented x3. NAD, on O2 via HFNC. Appears lean/thin/frail/weak. HEENT: No pallor, no icterus. Pupils equal, round and reactive to light. Oral mucosa moist. NECK: No JVD, no neck masses. HEART: S1 and S2 heard. Regular rate and rhythm. No murmur, no gallop. RESPIRATORY SYSTEM: Normal AP diameter. No accessory muscle use. No wheezing, bb crackles. ABDOMEN: Soft, bowel sounds present, nontender, no distention. CENTRAL NERVOUS SYSTEM: No facial droop. Speech is clear. Obeys simple commands. Moves extremities. EXTREMITIES: No edema, no erythema seen. left hip dressing c/d/i. Results & Data Results & Data Vital Signs (Past 12 Hours) Vital Signs Temp Pulse Pulse Pulse Resp BP BP 01/01/24 16:20 81/48 L 01/01/24 16:17 90 24 01/01/24 16:05 36.4 C L 115 H 75/47 L 01/01/24 15:48 122 H 34 H 01/01/24 14:49 36.1 C L 175 H 28 H 63/45 L 01/01/24 13:48 36.8 C 123 H 16 98/55 L 01/01/24 13:28 01/01/24 12:48 36.7 C 118 H 14 85/59 L 01/01/24 11:48 36.5 C 115 H 16 81/48 L 01/01/24 11:18 36.7 C 110 H 16 94/57 L 01/01/24 11:03 36.4 C L 116 H 14 96/60 L 01/01/24 10:47 36.4 C L 55 L 20 111/65 01/01/24 08:00 100 H 20 01/01/24 07:35 36.4 C L 91 H 20 BP Pulse Ox O2 Del Method O2 Flow Rate FiO2 01/01/24 16:20 01/01/24 16:17 97 High Flow Nasal Cannula 40 40 01/01/24 16:05 01/01/24 15:48 93 40 01/01/24 14:49 69 L High Flow Nasal Cannula 35 100 01/01/24 13:48 95 6 01/01/24 13:28 Nasal Cannula 6 01/01/24 12:48 96 6 01/01/24 11:48 96 6 01/01/24 11:18 96 01/01/24 11:03 96 01/01/24 10:47 93 01/01/24 08:00 97 Nasal Cannula 6 01/01/24 07:35 122/73 97 High Flow Nasal Cannula 35 50 (2) Pneumonia Pneumonia type: due to unspecified organism (4) Acute renal failure superimposed on stage 3 chronic kidney disease Acute renal failure type: unspecified (5) Rhabdomyolysis Encounter type: initial encounter Rhabdomyolysis type: traumatic Qualified Code(s): T79.6XXA - Traumatic ischemia of muscle, initial encounter (13) Left femoral shaft fracture Encounter type: initial encounter Fracture alignment: displaced Fracture morphology: comminuted Fracture type: closed Qualified Code(s): S72.352A - Displaced comminuted fracture of shaft of left femur, initial encounter for closed fracture
[2024-01-01] MEDS: SODIUM CHLORIDE 0.9% 500 ML IV ONE (18:49)
--- NOTE | 2024-01-01 19:14 | Communication Note ---
Date of Service: January 01, 2024 Notified by nursing that pt's oxygen saturation was 77%, not tracking with her eyes. Previously received signout from daytime hospitalist that family was aware and wanted comfort measures only should pt's symptoms worsen. Call placed to pt's daughter Sarah, who confirmed pt's DNR/DNI status and that comfort measures only should be employed. ROAD [employer]ER OPERATOR order placed and nursing notified. Daytime hospitalist made aware and daytime hospitalist to signout to transverse abdominal muscle surgeon.
[2024-01-01] MEDS ORDERED: GLYCOPYRROLATE 0.2 MG/ML VIAL IV PRN (19:31)
[2024-01-01] MEDS ORDERED: ONDANSETRON INJ 2 MG/ML 2 ML VIAL IV PRN (19:31)
[2024-01-01] MEDS ORDERED: MoRPHine SULFATE 2 MG/ML CARP IV PRN (19:31)
[2024-01-01] MEDS: MoRPHine SULFATE 4 MG/ML 1 ML CARP\\VIAL IV STA (19:34)
[2024-01-01] MEDS: LORazepam 0.5 MG in SYRINGE 0.25 ML IV PRN (19:52)
--- NOTE | 2024-01-02 10:23 | Electrocardiogram Report ---
Test Reason : Blood Pressure : / mmHG Vent. Rate : 126 BPM Atrial Rate : 126 BPM P-R Int : 154 ms QRS Dur : 072 ms QT Int : 320 ms P-R-T Axes : 079 031 081 degrees QTc Int : 463 ms Sinus tachycardia with PACs Nonspecific ST and T wave abnormality Abnormal ECG When compared with ECG of 18-DEC-2023 11:27, Inverted T waves have replaced nonspecific T wave abnormality in Lateral leads Confirmed by Sp Mejia ([id number]) on 01/02/2024 10:22:53 AM Referred By: REFERRED SELF Confirmed By:Heladio Mejia
--- NOTE | 2024-01-02 13:22 | Discharge Summary ---
Date of Service January 02, 2024 Admission HPI Per Admitting Provider Dayan Luna is an 88y/o F with PMHx of HTN, rectal prolapse, urinary incontinence, stage III CKD, myelodysplastic syndrome, gout, mild mitral valve stenosis, generalized osteoarthritis, and degenerative disc disease who presented to the ED this afternoon via EMS for evaluation following a fall at home. History obtained from the patient and her daughter [who is accompanying her in the ED], in addition to reviewing previous PCP/specialty documentation. Patient states that she got out of bed around 3am this morning and suddenly became dizzy/lightheaded upon standing, which prompted her fall. Patient mentions that she collided with a nearby wall in her bedroom and directly smacked her left knee off the wall before hitting the floor. She denies ever hitting her head, nor losing consciousness at any point. Patient was lying on the floor for approximately 7 hours, as her daughter and son-in-law did not discover her until around 10am when they arrived at her house to pick her up for a scheduled appointment. Patient's daughter mentions that her legs were in an "awkward" position when she was found. EMS was called by the daughter at that time. Patient's daughter states that she ambulated around the house with a cane just fine prior to the fall. Patient does currently live alone, and is pretty independent per her daughter. Patient does mention that she has had an ongoing "cold" for the past week or so, symptoms including cough and congestion. Patient also describes feeling intermittently warm and cold, but denies any incidence of recorded fevers. Patient's daughter was worried she may be developing pneumonia. Patient has also been experiencing some lower abdominal cramping, sometimes severe, for the past 2-3 days. She denies any hematochezia or melena. Patient does have hx of rectal prolapse, as well as diarrhea and fecal incontinence at baseline. Patient's daughter also mentions that she is urinary incontinent as well. Patient is scheduled to have a colostomy done at the end of this month for tx of her fecal incontinence, per her daughter. Patient does receive routine blood transfusions every 3 weeks under the care of Dr. Neil contreras at [facility] b/c of ongoing anemia caused by the hydroxyurea she is taking for myelodysplastic syndrome to keep her WBC count under control. Patient reports that her last scheduled blood transfusion was 2 weeks ago. Patient's daughter reports that her Hgb was 7.8 and her WBC count was 47 last , as she gets bloodwork done once a week per hematology's recommendation. Of note, patient has never had a transfusion reaction. Patient does report lack of appetite recently, and that she doesn't routinely consume large amounts of water. Patient's daughter states that she is "100% neurologically intact," but is hard of hearing. Patient actually babysits her 3 grandchildren, ranging from ages 4 to 11, quite frequently. Patient does currently endorse bilateral knee pain, but states that she has been "sensitive in both knees" since having both of them replaced. Patient's daughter mentions that her left knee has been swollen since she was discovered at home. Admission Exam Per Admitting Provider Constitutional: Elderly, petite, hard of hearing, vitals as above, NAD, sitting up in bed, pleasant, conversing easily Head: Normocephalic, Attaumatic Eyes: Pupils equal, conjunctivae normal, anicteric sclerae ENMT: external ear and nose normal, oropharynx normal mucous membranes dry Neck: trachea midline, no thyromegaly normal visual inspection Respiratory: normal respiratory effort, lungs clear to auscultation, no wheeze, rales, rhonchi. Normal insp/exp effort, no accessory muscle use Cardiovascular: tachycardiac with occasional ectopy, 1/6 zach noted LUSB, LLE edema, nonpitting Vessels: no JVD or carotid bruit Chest: normal inspection of chest Abdomen: normal bowel sounds, soft, nontender, no hepatosplenomegaly Musculoskeletal: no cyanosis or clubbing, AROM x 3, LLE not tested 2/2 fracture; LLE larger in circumference compared to R, shortened Skin: +ecchymosis to b/l lower extremities, no rashes, warm and dry normal turgor Neurologic: accommodation nl, no face palsy, no dysarthria CN's II-XI intact bilaterally and moves all extremities except LLE not tested 2/2 fracture Psychiatric: A+Ox3, euthymic affect : deferred Principal Diagnosis Acute respiratory failure Discharge Exam Undersigned was not present at the time of . Discharge Data Allergies Allergy/AdvReac Type Severity Reaction Status Date / Time morphine AdvReac Intermediate NAUSEA AND Verified 12/18/23 14:57 VOMITING Consultations 12/18/23 14:41 ED Decision to Admit Stat 12/18/23 15:06 Consult Orthopedic Surgery Routine 12/19/23 07:38 Consult Nephrology Routine 12/19/23 07:48 Consult Gastroenterology Routine 12/19/23 20:47 Consult Baseboard Heating Installer Routine 12/22/23 08:45 Consult Pulmonology Routine 12/26/23 12:04 Consult Palliative Care Routine Procedures Performed Operation Date: 12/19/23 08:20 Actual Procedures p Left Femoral Periprosthetic Fracture Retrograde Intermedullary Nail(Left) - Faisal Knutson MD Ordered Studies 12/18/23 12:03 CT cervical spine wo con Stat CT head/brain wo con Stat US venous doppler LE RT Stat 12/18/23 15:54 CT chest without contrast [CT chest diagnostic wo con] Stat 12/18/23 16:15 CT Abd and Pelvis [CT abd pelvis wo con] Stat 12/19/23 16:15 FL femur LT 2V Routine Hospital Course (1) Sepsis: (2) Pneumonia: (3) SARS-CoV-2 positive: (4) Acute renal failure superimposed on stage 3 chronic kidney disease: (5) Rhabdomyolysis: (6) Lactic acidosis: (7) High anion gap metabolic acidosis: (8) MDS (myelodysplastic syndrome): (9) Symptomatic anemia: (10) Hyperkalemia: (11) Hypomagnesemia: (12) Elevated troponin: (13) Left femoral shaft fracture: Plan 88-year-old female who has a significant past medical history of HTN, mitral valve stenosis, rectal prolapse with full incontinence of feces, CKD stage IIIb, transfusion dependent MDS and follows Dr. Trejo who presents to ED after sustaining a fall in her home. She is being managed for the following: Acute respiratory failure, hypoxic COVID-19 pneumonia, possible community-acquired pneumonia Sepsis on admission acute on chronic CKD stage III: worsening Symptomatic Anemia iso MDS Rhabdomyolysis electrolyte abnormalities Mechanical fall in setting of dizziness Comminuted displaced fracture of the distal shaft of left femur patient had 2 events of acute decompensation on December 31. 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 Date of : January 01, 2024 at 20:05 hrs. Cause of : Acute hypoxic respiratory failure likely due to pneumonia in the setting of infection due to COVID-19 virus. Home Health Attestation I certify that this patient is under my care and that I, or a physicians assistant infant toddler teacher working with me, had a face to-face encounter that meets the home health [id number] encounter requirements with this patient. The encounter with the patient was in whole, or in part, for the following medical condition, which is the primary reason for home health care (list medical condition): I certify that, based on my findings, the following services are medically necessary home health services: My clinical findings support the need for the above services because: Further, I certify that my clinical findings support that this patient is homebound (i.e. absences from home require considerable and taxing effort and are for medical reasons or mu-ism services or infrequently or of short duration when for other reasons) because: Certification for Home Health Services: Based on the above findings, I certify that this patient is confined to the home and needs intermittent fpc care, physical therapy and/or speech therapy or continues to need occupational therapy. The patient is under my care, and I have initiated the establishment of the plan of care. This patient will be followed by a physician who will periodically review the plan of care. Total Time Total Time Spent Total Time Spent (In Minutes): 36 Discharge Plan Discharge Items Patient Disposition: Discharge Diagnosis: ORIF + Retrograde Nailing of Left Periprosthetic Femur Fracture Other Date/Time: 01/01/24 20:05
== END 2024-01-01 21:14 | disposition expired | DRG 853 ==
LOC: ED 11:31 → SUATTDRO 15:06 → 4W 15:06 → 1E 12-19 20:50 → 4W 12-20 15:10 → 2S 12-23 13:50